=== PATIENT | male | born 1980 | race Two or more races ===

== ENCOUNTER 2019-04-07 16:09 | Inpatient (IN) | payer SELFPAY ==
[~2019-04-07] VITALS: Ht 167.6 cm; Wt 60.8 kg
[2019-04-07] MEDS ORDERED: UNOBMED (16:12)
[2019-04-07 18:00] LABS: ALANINE AMINOTRANSFERASE 36 U/L (12-78); ALBUMIN 2.3 G/DL (3.4-5.0); ALBUMIN/GLOBULIN RATIO 0.4 (1.0-2.7); ALKALINE PHOSPHATASE 349 U/L (46-116); ANION GAP 25 mmol/L (5-15); ASPARTATE AMINO TRANSFERASE 33 U/L (15-37); BLOOD UREA NITROGEN 59 mg/dL (7-18); CALCIUM 11.8 MG/DL (8.5-10.1); CARBON DIOXIDE 10 MMOL/L (21-32); CHLORIDE 88 MMOL/L (98-107); CREATININE 2.1 MG/DL (0.55-1.30); POTASSIUM 3.4 MMOL/L (3.5-5.1); SODIUM 123 MMOL/L (136-145)
--- NOTE | 2019-04-07 18:00 | NUR ---
ED Nurse Note:pt. was BIBA from the street with ALOC and hyperglycemia, pt. is A/Ox1 only, skin is intact, has brusing on his bilateral knees, blood and urine sent to labs, pt. place on ekg monitor tech, BS is critical high
[2019-04-07 18:03] LABS: APPEARANCE,URINE CLOUDY; COLOR,URINE PALE YELLOW
[2019-04-07 18:04] LABS: BILIRUBIN, URINE NEGATIVE (NEGATIVE); GLUCOSE, URINE (UA) 4+ (NEGATIVE); KETONES,URINE 3+ (NEGATIVE); NITRITE,URINE NEGATIVE (NEGATIVE); PROTEIN,URINE 3+ (NEGATIVE); UROBILINOGEN,URINE NORMAL MG/DL (0.0-1.0)
[2019-04-07 18:05] LABS: LEUKOCYTE ESTERASE ,URINE 1+ (NEGATIVE)
[2019-04-07 18:21] LABS: HEMATOCRIT 36.9 % (42.0-52.0); HEMOGLOBIN 12.4 G/DL (14.2-18.0); MEAN CORPUSCULAR VOLUME 95 FL (80-99); PLATELET COUNT 115 K/UL (150-450); RED BLOOD COUNT 3.91 M/UL (4.70-6.10); RED CELL DISTRIBUTION WIDTH 11.8 % (11.6-14.8)
[2019-04-07] MEDS ORDERED: cefTRIAXone 1 GM in NS 55 ML IVPB ONE (18:30)
--- NOTE | 2019-04-07 19:00 | NUR ---
ED Nurse Note:BS was rechecked it is still critical high, IV fluid given , continue monitor
[2019-04-07 19:08] VITALS: BP 109/59
--- NOTE | 2019-04-07 19:14 | NUR ---
HAND-OFF: Report given to Leslie.
--- NOTE | 2019-04-07 19:15 | NUR ---
ED Nurse Note: Report received from HARDIK Porras. pt in bed awake. VSS.
--- NOTE | 2019-04-07 19:33 | NUR ---
ED Nurse Note: insulin drip started on pt.
--- NOTE | 2019-04-07 20:17 | NUR ---
ED Nurse Note: pt was transported via gurney accompanied by cell phone repair technician and RN with monitor box in stable condition. Continues with insulin drip. Report given to HARDIK Celaya. belonging list signed.
--- NOTE | 2019-04-07 20:27 | NUR ---
NURSE NOTES: RECEIVED PATIENT FROM ER NURSE JOSE/RN VIA BECKY. PATIENT AWOKE, ANXIOUS, FOLLOWED COMMANDS, ABLE TO COMMUNICATION, ORIENTED TO HIS NAME, DISORIENTED TO TIME, PLACE AND SITUATION, DENIED PAIN OR SOB AT THIS TIME. RESPIRATION REGULAR, [place], O2 SATURATION 100% NOTED, ABDOMEN SOFT, NO N/V NOTED, OLD BURISES TO BOTH KNEES, OLD SCAB TO LEFT KNEE, NO OPEN WOUND STATUS, PERIPHERAL LINE TO BOTH ARM, INTACT AND PATENT, ON REGULAR INSULIN DRIP 7.2 UNITS/HR FROM ER, PROVIDED CALL LIGHT WITHIN REACH, MADE LOWER BED POSITION, WILL CONTINUE TO MONITOR.
[2019-04-07 20:35] VITALS: BP 149/100
[2019-04-07 21:01] VITALS: BP 160/100
--- NOTE | 2019-04-07 21:06 | NUR ---
NURSE NOTES: CALLED DR. CASEY REGARDING ADMISSION ORDER THAT LEFT MESSAGE.
[2019-04-07 21:15] VITALS: BP 175/111
--- NOTE | 2019-04-07 21:20 | Emergency Room Report ---
History of Present Illness General Chief Complaint: Altered Mental Status Source: Patient, EMS Present Illness HPI This patient is brought in by EMS. He was brought in from the street for altered mental status. Possibly this patient is homeless. The patient has a history of insulin-dependent diabetes. EMS report that the reading on their Accu-Chek was "high." The patient is altered. He can answer simple questions like his name and date. He states he is not taking his insulin but otherwise cannot articulate why any further. Allergies: Coded Allergies: No Known Allergies (Unverified , 04/07/19) Patient History Past Medical History: see triage record, DM Social History: Reports: alcohol use; Denies: smoking, drug use Reviewed Nursing Documentation: PMH: Agreed; PSxH: Agreed Nursing Documentation-PMH Hx Diabetes: Yes Review of Systems All Other Systems: negative except mentioned in HPI Physical Exam Vital Signs Date Time Temp Pulse Resp B/P (MAP) Pulse Ox O2 Delivery O2 Flow Rate FiO2 04/07/19 16:08 99 18 105/55 (72) 99 04/07/19 19:08 99.0 04/07/19 20:37 Room Air Sp02 EP Interpretation: reviewed, normal General Appearance: no apparent distress, alert, GCS 15, non-toxic Head: normocephalic, atraumatic Eyes: bilateral eye normal inspection, bilateral eye PERRL ENT: hearing grossly normal, normal pharynx, no angioedema, normal voice Neck: full range of motion, supple/symm/no masses Respiratory: chest non-tender, lungs clear, normal breath sounds, no respiratory distress, no retraction, no accessory muscle use, speaking full sentences Cardiovascular #1: regular rate, rhythm, no edema Gastrointestinal: normal bowel sounds, non tender, soft, non-distended, no guarding, no rebound Rectal: deferred Musculoskeletal: back normal, gait/station normal, normal range of motion, non- tender Neurologic: alert, responsive, motor strength/tone normal, speech normal, other - Non-focal Psychiatric: mood/affect normal Reflexes: 3+ bicep (R), 3+ bicep (L), 3+ tricep (R), 3+ tricep (L), 3+ knee (R) , 3+ knee (L) Medical Decision Making Diagnostic Impression: Primary Impression: DKA (diabetic ketoacidoses) Additional Impressions: Pyelonephritis JOJO (acute kidney injury) ER Course This patient has DKA. He is also found to have pyelonephritis and acute kidney injury. The patient was given aggressive IV fluids, broad-spectrum antibiotics and started on insulin drip. The patient continued to be confused although he was alert and oriented x2. Likely this is related to his DKA in addition to his alcohol intoxication. I suspect medication noncompliance. The patient is admitted to the ICU. This patient is critically ill. This patient required complex medical decision- making, aggressive intervention, extensive laboratory workup and monitoring. Critical care time: 40 minutes. Laboratory Tests Test 04/07/19 17:00 04/07/19 17:03 White Blood Count 22.0 K/UL (4.8-10.8) H Red Blood Count 3.91 M/UL (4.70-6.10) L Hemoglobin 12.4 G/DL (14.2-18.0) L Hematocrit 36.9 % (42.0-52.0) L Mean Corpuscular Volume 95 FL (80-99) Mean Corpuscular Hemoglobin 31.8 PG (27.0-31.0) H Mean Corpuscular Hemoglobin Concent 33.7 G/DL (32.0-36.0) Red Cell Distribution Width 11.8 % (11.6-14.8) Platelet Count 115 K/UL (150-450) L Mean Platelet Volume 12.3 FL (6.5-10.1) H Neutrophils (%) (Auto) % (45.0-75.0) Lymphocytes (%) (Auto) % (20.0-45.0) Monocytes (%) (Auto) % (1.0-10.0) Eosinophils (%) (Auto) % (0.0-3.0) Basophils (%) (Auto) % (0.0-2.0) Neutrophils % (Manual) 88 % (45-75) H Lymphocytes % (Manual) 3 % (20-45) L Monocytes % (Manual) 7 % (1-10) Eosinophils % (Manual) 0 % (0-3) Basophils % (Manual) 0 % (0-2) Band Neutrophils 2 % (0-8) Platelet Estimate Decreased L Platelet Morphology Normal Red Blood Cell Morphology Normal Urine Color Pale yellow Urine Appearance Cloudy Urine pH 5.0 (4.5-8.0) Urine Specific [place] 1.010 (1.005-1.035) Urine Protein 3+ (NEGATIVE) H Urine Glucose (UA) 4+ (NEGATIVE) H Urine Ketones 3+ (NEGATIVE) H Urine Blood 1+ (NEGATIVE) H Urine Nitrite Negative (NEGATIVE) Urine Bilirubin Negative (NEGATIVE) Urine Urobilinogen Normal MG/DL (0.0-1.0) Urine Leukocyte Esterase 1+ (NEGATIVE) H Urine RBC 5-10 /HPF (0 - 0) H Urine WBC 10-15 /HPF (0 - 0) H Urine Squamous Epithelial Cells None /LPF (NONE/OCC) Urine Bacteria Many /HPF (NONE) H Urine Coarse Granular Casts 0-2 /LPF (NONE) H Sodium Level 123 MMOL/L (136-145) L Potassium Level 3.4 MMOL/L (3.5-5.1) L Chloride Level 88 MMOL/L (98-107) L Carbon Dioxide Level 10 MMOL/L (21-32) L Anion Gap 25 mmol/L (5-15) H Blood Urea Nitrogen 59 mg/dL (7-18) H Creatinine 2.1 MG/DL (0.55-1.30) H Estimate Glomerular Filtration Rate 35.9 mL/min (>60) Glucose Level 695 MG/DL (74-106) *H Calcium Level 11.8 MG/DL (8.5-10.1) H Magnesium Level 3.0 MG/DL (1.8-2.4) H Total Bilirubin 1.0 MG/DL (0.2-1.0) Aspartate Amino Transferase (AST) 33 U/L (15-37) Alanine Aminotransferase (ALT) 36 U/L (12-78) Alkaline Phosphatase 349 U/L (46-116) H Total Protein 8.4 G/DL (6.4-8.2) H Albumin 2.3 G/DL (3.4-5.0) L Globulin 6.1 g/dL Albumin/Globulin Ratio 0.4 (1.0-2.7) L Serum Alcohol Pending Acetone Level Positive-moderate (NEGATIVE) Arterial Blood pH 7.144 (7.350-7.450) Arterial Blood Partial Pressure CO2 19.4 mmHg (35.0-45.0) *L Arterial Blood Partial Pressure O2 120.2 mmHg (75.0-100.0) H Arterial Blood HCO3 6.5 mmol/L (22.0-26.0) *L Arterial Blood Oxygen Saturation 98.0 % (95-100) Arterial Blood Base Excess -20.5 (-2-2) *L Ilya Test Positive EKG Diagnostic Results Rate: normal Rhythm: NSR ST Segments: no acute changes Rhythm Strip Diag. Results EP Interpretation: yes Rate: 100 Rhythm: NSR, no PVC's, no ectopy Last Vital Signs Date Time Temp Pulse Resp B/P (MAP) Pulse Ox O2 Delivery O2 Flow Rate FiO2 04/07/19 21:05 105 04/07/19 21:01 18 160/100 (120) 98 04/07/19 20:37 97.8 Room Air Disposition: ADMITTED INPATIENT Condition: Critical Referrals: NOT CHOSEN IPA/,REFERRING (PCP) Yoly Lozano DO Apr 07, 2019 21:20
--- NOTE | 2019-04-07 21:56 | NUR ---
NURSE NOTES: CALLED NURSING INSULATOR APPRENTICE DUE TO NO CALL BACK FROM DR. CASEY AT 2150PM THAT ACCORDING TO THE NURSING INSULATOR APPRENTICE, DR. CASEY ON DRIVING, CALL AGAIN LATER.
[2019-04-07 22:00] VITALS: BP 148/86
--- NOTE | 2019-04-07 22:20 | NUR ---
NURSE NOTES: PATIENT FOLLOWED COMMANDS, DENIED PAIN OR SOB, ANXIOUS STATUS, GIVEN REORIENTATION, WILL CONTINUE TO MONITOR.
--- NOTE | 2019-04-07 22:45 | NUR ---
NURSE NOTES: CALLED DR. CASEY REGARDING ADMISSION ORDER AND PT'S VITAL SIGN, BP AND SITUATION THAT LEFT MESSAGE.
[2019-04-07 23:00] VITALS: BP 88/44
[2019-04-08] VITALS (26 sets, daily range): BP systolic 90–137; BP diastolic 37–101
--- NOTE | 2019-04-08 00:19 | NUR ---
NURSE NOTES: CALLED BACK FROM DR. CASEY THAT RECEIVED ADMISSION ORDER AT THIS TIME.
[2019-04-08] MEDS ORDERED: Insulin Human Regular 100units/ml 3ml IV PRN (00:30)
[2019-04-08] MEDS ORDERED: Morphine Sulfate 2mg/ml Inj(IV/IM USE ONLY) IVP PRN (00:30)
[2019-04-08 00:39] LABS: ALANINE AMINOTRANSFERASE 25 U/L (12-78); ALBUMIN 1.6 G/DL (3.4-5.0); ALBUMIN/GLOBULIN RATIO 0.3 (1.0-2.7); ALKALINE PHOSPHATASE 527 U/L (46-116); ANION GAP 16 mmol/L (5-15); ASPARTATE AMINO TRANSFERASE 27 U/L (15-37); BILIRUBIN,TOTAL 0.9 MG/DL (0.2-1.0); BLOOD UREA NITROGEN 49 mg/dL (7-18); CALCIUM 9.4 MG/DL (8.5-10.1); CARBON DIOXIDE 14 MMOL/L (21-32); CHLORIDE 108 MMOL/L (98-107); CREATININE 1.9 MG/DL (0.55-1.30); SODIUM 138 MMOL/L (136-145)
[2019-04-08 00:45] LABS: POTASSIUM 2.1 MMOL/L (3.5-5.1)
[2019-04-08] MEDS ORDERED: NS w/KCl 20mEq 1000ml 1,000 ML IV SCH (00:45)
[2019-04-08 01:09] LABS: HEMATOCRIT 30.5 % (42.0-52.0); HEMOGLOBIN 10.8 G/DL (14.2-18.0); MEAN CORPUSCULAR VOLUME 91 FL (80-99); PLATELET COUNT 61 K/UL (150-450); RED BLOOD COUNT 3.37 M/UL (4.70-6.10); RED CELL DISTRIBUTION WIDTH 12.1 % (11.6-14.8); WHITE BLOOD COUNT 9.6 K/UL (4.8-10.8)
--- NOTE | 2019-04-08 01:15 | NUR ---
NURSE NOTES: CALLED DR. CASEY REGARDING CRITICAL LAB AND ABG'S RESULT THAT RECEIVED NEW ORDER AND CARRY OUT.
[2019-04-08 01:29] LABS: PHOSPHORUS < 0.5 MG/DL (2.5-4.9)
--- NOTE | 2019-04-08 02:06 | NUR ---
NURSE NOTES: CALLED DR CASEY REGARDING MG/PHO4 RESULT THAT RECEIVED NEW ORDER, CARRY OUT.
[2019-04-08] MEDS ORDERED: Potassium Phosphate 30 MM in NS 275 ML IV ONE (02:30)
[2019-04-08] MEDS: Insulin Rate Change 1 Each MISC PRN ×16 (03:03→22:00)
--- NOTE | 2019-04-08 03:30 | NUR ---
NURSE NOTES: MORNING CARE WAS DONE, NO BOWEL MOVEMENT.
--- NOTE | 2019-04-08 04:00 | NUR ---
NURSE NOTES: BS 196MG/DL NOTED, WILL MOVE TO INSULIN DRIP ALGORITHM 2 PER PROTOCOLS. Addendum: 04/08/19 at 0546 gina FLEMING RN NURSE NOTES: BS 196MG/DL NOTED, CHANGED TO ALGORITHM 2 INSULIN DRIP PER PROTOCOLS.
[2019-04-08] MEDS: Insulin Human Regular 100units/ml 3ml IV PRN ×4 (05:05→18:26)
--- NOTE | 2019-04-08 06:00 | NUR ---
NURSE NOTES: BS 158MG/DL NOTED, CHANGED INSULIN RATE TO 2UNIT/HR ON ALGORITHM 2 PER PROTOCOLS, AFTER VERIFIED 2 NURSES.
[2019-04-08 07:02] LABS: HEMATOCRIT 29.4 % (42.0-52.0); HEMOGLOBIN 10.5 G/DL (14.2-18.0); MEAN CORPUSCULAR VOLUME 90 FL (80-99); PLATELET COUNT 64 K/UL (150-450); RED BLOOD COUNT 3.26 M/UL (4.70-6.10); RED CELL DISTRIBUTION WIDTH 11.9 % (11.6-14.8); WHITE BLOOD COUNT 15.6 K/UL (4.8-10.8)
[2019-04-08 07:04] LABS: ALANINE AMINOTRANSFERASE 26 U/L (12-78); ALBUMIN 1.6 G/DL (3.4-5.0); ALBUMIN/GLOBULIN RATIO 0.3 (1.0-2.7); ALKALINE PHOSPHATASE 340 U/L (46-116); ANION GAP 15 mmol/L (5-15); ASPARTATE AMINO TRANSFERASE 41 U/L (15-37); BILIRUBIN,TOTAL 0.9 MG/DL (0.2-1.0); BLOOD UREA NITROGEN 44 mg/dL (7-18); CALCIUM 9.8 MG/DL (8.5-10.1); CARBON DIOXIDE 14 MMOL/L (21-32); CHLORIDE 112 MMOL/L (98-107); CREATININE 1.7 MG/DL (0.55-1.30); PHOSPHORUS 0.7 MG/DL (2.5-4.9); SODIUM 141 MMOL/L (136-145)
[2019-04-08 07:07] LABS: POTASSIUM 2.4 MMOL/L (3.5-5.1)
--- NOTE | 2019-04-08 07:20 | NUR ---
HAND-OFF: Report given to SISSY CASH RN.
--- NOTE | 2019-04-08 07:21 | NUR ---
NURSE NOTES: Report received from Marshall Celaya. Pt is awake and oriented to name and time. Lethargic and weak. ST 120's on cutter hand. On N/C 3L. O2 sat 98%. RR 30's. Kept NPO as per order. Condom catheter in place draining to gravity. IV to right FA G20 and left AC G18 patent and asymptomatic. Pt is on Insulin drip 5 units/ hr in Algo 3. NS with 20 meq KCL is running at 125cc/hr. Bed in lowest position. Side rails up x3. Bed exit alarm on. Will resume plan of care.
--- NOTE | 2019-04-08 07:42 | NUR ---
NURSE NOTES: Called and left a message to Dr Spain regarding abnormal lab results. Awaiting call back for new orders. Addendum: 04/08/19 at 0747 by SISSY DURHAM RN RN NURSE NOTES: Called and left a message to Dr Spain regarding abnormal lab results. Awaiting call back for new orders. Temp 99.1. Cooling measures initiated. Addendum: 04/08/19 at 0842 by SISSY DURHAM RN RN NURSE NOTES: Called and left a message to Dr Spain regarding abnormal lab results. Awaiting call back for new orders. Temp 99.8. Cooling measures initiated.
--- NOTE | 2019-04-08 08:02 | NUR ---
NURSE NOTES: Dr Spain called back. Orders received, noted, and carried out.
--- NOTE | 2019-04-08 09:53 | NUR ---
NURSE NOTES: Dr Kemp here to see the patient. Updated him with pt's current condition including abnormal lab results. He ordered additional replacement. Will proceed his orders. Abdominal US is being done at bedside.
--- NOTE | 2019-04-08 09:53 | Pulmonolgy Critical Care Note ---
Critical Care - Asmt/Plan Problems: (1) DKA (diabetic ketoacidoses) (2) JOJO (acute kidney injury) (3) Pyelonephritis Respiratory: monitor respiratory rate, adjust FIO2, CXR Cardiac: continue to monitor HR/BP Renal: F/U I&O, check electrolytes Infectious Disease: check cultures, continue antibiotics Gastrointestinal: hold feedings Endocrine: monitor blood sugar, check HgA1C, start insulin drip Neurologic: PRN Ativan, PRN Morphine Time Spent (Minutes): 40 Notes Reviewed: cardio, renal Discussed with: nurses, consultants, case plannermanager vehicle - Objective Last 24 Hour Vital Signs Date Time Temp Pulse Resp B/P (MAP) Pulse Ox O2 Delivery O2 Flow Rate FiO2 04/08/19 09:00 114 34 132/90 (104) 100 04/08/19 08:00 99.8 115 38 122/73 (89) 99 04/08/19 08:00 Nasal Cannula 3.0 04/08/19 07:27 120 04/08/19 07:00 120 40 117/67 (84) 98 04/08/19 06:00 122 39 99/59 (72) 99 04/08/19 05:00 125 39 103/57 (72) 98 04/08/19 04:00 99.6 125 37 97/51 (66) 99 04/08/19 04:00 Nasal Cannula 2.0 04/08/19 03:26 125 04/08/19 03:00 128 37 96/56 (69) 98 04/08/19 02:00 127 35 102/54 (70) 98 04/08/19 01:00 127 34 117/69 (85) 97 04/08/19 00:00 98.6 123 37 90/37 (54) 100 04/08/19 00:00 Nasal Cannula 2.0 04/07/19 23:06 124 04/07/19 23:00 122 36 88/44 (59) 98 04/07/19 22:00 122 36 148/86 (106) 99 04/07/19 21:15 97.6 112 30 175/111 (132) 100 04/07/19 21:05 105 04/07/19 21:01 105 18 160/100 (120) 98 04/07/19 21:00 Room Air 04/07/19 20:37 97.8 98 19 118/68 Room Air 04/07/19 20:35 95.4 108 18 149/100 (116) 98 04/07/19 19:08 99.0 103 18 109/59 99 04/07/19 19:08 103 18 04/07/19 16:08 99 18 105/55 (72) 99 Status: sedated Condition: critical Lungs: clear Heart: HR/BP stable Abdomen: soft, feeding tube Extremities: edema Accucheck: 165 Critical Care - Subjective ROS Limited/Unobtainable: Yes Interval Events: 38 year old male brought in by EMS from [place] for altered mental status. The patient has a history of insulin-dependent diabetes. EMS report that the reading on their Accu-Chek was "high." He was able to answer simple questions like his name and date. He states he is not taking his insulin but otherwise cannot articulate why any further. He was found to be in DKA and admitted to ICU on insulin drip. Condition: critical EKG Rhythm: Sinus Rhythm I&O: Intake and Output 04/07/19 04/08/19 19:00 07:00 Intake Total 1452.8 ml Output Total 1370 ml Balance 82.8 ml Intake Oral 0 ml IV Total 1422.8 ml Other 30 ml Output Urine Total 1370 ml # Voids 1 2 Labs: Laboratory Tests Test 04/07/19 17:00 04/07/19 17:03 04/08/19 00:15 04/08/19 00:42 White Blood Count 22.0 K/UL (4.8-10.8) H Red Blood Count 3.91 M/UL (4.70-6.10) L Hemoglobin 12.4 G/DL (14.2-18.0) L Hematocrit 36.9 % (42.0-52.0) L Mean Corpuscular Volume 95 FL (80-99) Mean Corpuscular Hemoglobin 31.8 PG (27.0-31.0) H Mean Corpuscular Hemoglobin Concent 33.7 G/DL (32.0-36.0) Red Cell Distribution Width 11.8 % (11.6-14.8) Platelet Count 115 K/UL (150-450) L Mean Platelet Volume 12.3 FL (6.5-10.1) H Neutrophils (%) (Auto) % (45.0-75.0) Lymphocytes (%) (Auto) % (20.0-45.0) Monocytes (%) (Auto) % (1.0-10.0) Eosinophils (%) (Auto) % (0.0-3.0) Basophils (%) (Auto) % (0.0-2.0) Neutrophils % (Manual) 88 % (45-75) H Lymphocytes % (Manual) 3 % (20-45) L Monocytes % (Manual) 7 % (1-10) Eosinophils % (Manual) 0 % (0-3) Basophils % (Manual) 0 % (0-2) Band Neutrophils 2 % (0-8) Platelet Estimate Decreased L Platelet Morphology Normal Red Blood Cell Morphology Normal Urine Color Pale yellow Urine Appearance Cloudy Urine pH 5.0 (4.5-8.0) Urine Specific [place] 1.010 (1.005-1.035) Urine Protein 3+ (NEGATIVE) H Urine Glucose (UA) 4+ (NEGATIVE) H Urine Ketones 3+ (NEGATIVE) H Urine Blood 1+ (NEGATIVE) H Urine Nitrite Negative (NEGATIVE) Urine Bilirubin Negative (NEGATIVE) Urine Urobilinogen Normal MG/DL (0.0-1.0) Urine Leukocyte Esterase 1+ (NEGATIVE) H Urine RBC 5-10 /HPF (0 - 0) H Urine WBC 10-15 /HPF (0 - 0) H Urine Squamous Epithelial Cells None /LPF (NONE/OCC) Urine Bacteria Many /HPF (NONE) H Urine Coarse Granular Casts 0-2 /LPF (NONE) H Sodium Level 123 MMOL/L (136-145) L 138 MMOL/L (136-145) # Potassium Level 3.4 MMOL/L (3.5-5.1) L 2.1 MMOL/L (3.5-5.1) *L Chloride Level 88 MMOL/L (98-107) L 108 MMOL/L (98-107) H Carbon Dioxide Level 10 MMOL/L (21-32) L 14 MMOL/L (21-32) L Anion Gap 25 mmol/L (5-15) H 16 mmol/L (5-15) H Blood Urea Nitrogen 59 mg/dL (7-18) H 49 mg/dL (7-18) H Creatinine 2.1 MG/DL (0.55-1.30) H 1.9 MG/DL (0.55-1.30) H Estimat Glomerular Filtration Rate 35.9 mL/min (>60) 40.3 mL/min (>60) Glucose Level 695 MG/DL (74-106) *H 204 MG/DL (74-106) #H Calcium Level 11.8 MG/DL (8.5-10.1) H 9.4 MG/DL (8.5-10.1) # Magnesium Level 3.0 MG/DL (1.8-2.4) H Total Bilirubin 1.0 MG/DL (0.2-1.0) 0.9 MG/DL (0.2-1.0) Aspartate Amino Transf (AST/SGOT) 33 U/L (15-37) 27 U/L (15-37) Alanine Aminotransferase (ALT/SGPT) 36 U/L (12-78) 25 U/L (12-78) Alkaline Phosphatase 349 U/L (46-116) H 527 U/L (46-116) H Total Protein 8.4 G/DL (6.4-8.2) H 6.2 G/DL (6.4-8.2) L Albumin 2.3 G/DL (3.4-5.0) L 1.6 G/DL (3.4-5.0) L Globulin 6.1 g/dL 4.6 g/dL Albumin/Globulin Ratio 0.4 (1.0-2.7) L 0.3 (1.0-2.7) L Serum Alcohol < 3 mg/dL Acetone Level Positive-moderate (NEGATIVE) Arterial Blood pH 7.144 (7.350-7.450) 7.290 (7.350-7.450) Arterial Blood Partial Pressure CO2 19.4 mmHg (35.0-45.0) *L 22.9 mmHg (35.0-45.0) *L Arterial Blood Partial Pressure O2 120.2 mmHg (75.0-100.0) H 90.7 mmHg (75.0-100.0) Arterial Blood HCO3 6.5 mmol/L (22.0-26.0) *L 10.8 mmol/L (22.0-26.0) *L Arterial Blood Oxygen Saturation 98.0 % (95-100) 96.8 % (95-100) Arterial Blood Base Excess -20.5 (-2-2) *L -14 (-2-2) *L Ilya Test Positive Positive Test 04/08/19 01:00 04/08/19 06:20 04/08/19 06:30 White Blood Count 9.6 K/UL (4.8-10.8) # 15.6 K/UL (4.8-10.8) #H Red Blood Count 3.37 M/UL (4.70-6.10) L 3.26 M/UL (4.70-6.10) L Hemoglobin 10.8 G/DL (14.2-18.0) L 10.5 G/DL (14.2-18.0) L Hematocrit 30.5 % (42.0-52.0) L 29.4 % (42.0-52.0) L Mean Corpuscular Volume 91 FL (80-99) 90 FL (80-99) Mean Corpuscular Hemoglobin 32.1 PG (27.0-31.0) H 32.3 PG (27.0-31.0) H Mean Corpuscular Hemoglobin Concent 35.4 G/DL (32.0-36.0) 35.9 G/DL (32.0-36.0) Red Cell Distribution Width 12.1 % (11.6-14.8) 11.9 % (11.6-14.8) Platelet Count 61 K/UL (150-450) L 64 K/UL (150-450) L Mean Platelet Volume 8.4 FL (6.5-10.1) 9.1 FL (6.5-10.1) Neutrophils (%) (Auto) % (45.0-75.0) % (45.0-75.0) Lymphocytes (%) (Auto) % (20.0-45.0) % (20.0-45.0) Monocytes (%) (Auto) % (1.0-10.0) % (1.0-10.0) Eosinophils (%) (Auto) % (0.0-3.0) % (0.0-3.0) Basophils (%) (Auto) % (0.0-2.0) % (0.0-2.0) Hemoglobin A1c 11.8 % (4.3-6.0) H Phosphorus Level < 0.5 MG/DL (2.5-4.9) *L 0.7 MG/DL (2.5-4.9) *L Magnesium Level 1.7 MG/DL (1.8-2.4) L 2.1 MG/DL (1.8-2.4) Differential Total Cells Counted 100 Neutrophils % (Manual) 64 % (45-75) Lymphocytes % (Manual) 5 % (20-45) L Monocytes % (Manual) 15 % (1-10) H Eosinophils % (Manual) 0 % (0-3) Basophils % (Manual) 0 % (0-2) Band Neutrophils 16 % (0-8) H Platelet Estimate Decreased L Platelet Morphology Normal Sodium Level 141 MMOL/L (136-145) Potassium Level 2.4 MMOL/L (3.5-5.1) *L Chloride Level 112 MMOL/L (98-107) H Carbon Dioxide Level 14 MMOL/L (21-32) L Anion Gap 15 mmol/L (5-15) Blood Urea Nitrogen 44 mg/dL (7-18) H Creatinine 1.7 MG/DL (0.55-1.30) H Estimat Glomerular Filtration Rate 45.8 mL/min (>60) Glucose Level 165 MG/DL (74-106) H Calcium Level 9.8 MG/DL (8.5-10.1) Total Bilirubin 0.9 MG/DL (0.2-1.0) Aspartate Amino Transf (AST/SGOT) 41 U/L (15-37) H Alanine Aminotransferase (ALT/SGPT) 26 U/L (12-78) Alkaline Phosphatase 340 U/L (46-116) H Total Protein 6.4 G/DL (6.4-8.2) Albumin 1.6 G/DL (3.4-5.0) L Globulin 4.8 g/dL Albumin/Globulin Ratio 0.3 (1.0-2.7) L Arterial Blood pH 7.364 (7.350-7.450) Arterial Blood Partial Pressure CO2 20.9 mmHg (35.0-45.0) *L Arterial Blood Partial Pressure O2 105.0 mmHg (75.0-100.0) H Arterial Blood HCO3 11.6 mmol/L (22.0-26.0) *L Arterial Blood Oxygen Saturation 97.8 % (95-100) Arterial Blood Base Excess -11.9 (-2-2) *L Ilya Test Positive Donny Kemp MD Apr 08, 2019 09:53
[2019-04-08] MEDS: D5 1/2NS w/KCl 40meq 1000ml 1,000 ML IV SCH ×2 (11:06→18:21)
--- NOTE | 2019-04-08 11:12 | Diagnostic Imaging Report ---
Indication: Abdominal pain. Elevated liver function tests. History of diabetes Technique: Grayscale and duplex Doppler imaging of the abdomen performed. Comparison: None Findings: The liver is prominent in size measuring about 18 cm. Doppler interrogation of the main portal vein shows patency with hepatopedal, monophasic flow. There is no biliary ductal dilatation identified. Gallbladder is unremarkable. There demonstrated part of the pancreas, aorta and IVC show no definite abnormalities though largely obscured by bowel gas. The kidneys show mild hydronephrosis which is probably related to a markedly distended urinary bladder having a volume of about 830 cc. IMPRESSION: Severe distention of the urinary bladder. Suggest Daniels catheter. Associated mild hydronephrosis. Hepatomegaly
--- NOTE | 2019-04-08 11:23 | NUR ---
NURSE NOTES: Venous duplex was being done at bedside. Negative as per U/S alarm technician.
[2019-04-08 11:27] LABS: LACTATE DEHYDROGENASE 293 U/L (81-234)
[2019-04-08 11:33] LABS: ANION GAP 15 mmol/L (5-15); BLOOD UREA NITROGEN 40 mg/dL (7-18); CALCIUM 10.5 MG/DL (8.5-10.1); CARBON DIOXIDE 16 MMOL/L (21-32); CHLORIDE 115 MMOL/L (98-107); CREATININE 1.3 MG/DL (0.55-1.30); PHOSPHORUS 0.5 MG/DL (2.5-4.9); SODIUM 144 MMOL/L (136-145)
[2019-04-08 11:34] LABS: POTASSIUM 2.3 MMOL/L (3.5-5.1)
--- NOTE | 2019-04-08 11:40 | NUR ---
Social Work This SW made an attempt to speak with patient, who is currently in the ICU. Patient is currently unresponsive, confused and has not had any family visit with him at bedside (according to nursing). Patient is possibly homeless, unknown history of substance abuse, possible untreated diabetes. Pending progress at this time. SW to meet with patient when more alert/oriented.
--- NOTE | 2019-04-08 11:56 | NUR ---
NURSE NOTES: Notified Dr Kemp regarding low K and phosphorus. Also electrolyte replacement he ordered earlier is still running. Will check labs again at 1600 as ordered when replacement is completed.
[2019-04-08 12:32] LABS: % IRON SATURATION 12 % (15-50); IRON 20 ug/dL (50-175); TOTAL IRON BINDING CAPACITY 163 ug/dL (250-450)
--- NOTE | 2019-04-08 13:13 | NUR ---
NURSE NOTES: Called and left a message to Dr Kemp regarding high urine output 380-390cc/hr and also abdominal U/S result regarding distended bladder. Awaiting call back for new orders.
--- NOTE | 2019-04-08 13:39 | NUR ---
NURSE NOTES: Daniels catheter inserted as ordered. Pt tolerated procedure well. Large amount of urine noted through Daniels catheter.
[2019-04-08] MEDS ORDERED: Heparin 5000 units/ml inj SUBQ SCH (14:00)
[2019-04-08] MEDS ORDERED: Sodium Phosphate 30 MM in NS 275 ML IV ONE (15:00)
--- NOTE | 2019-04-08 15:21 | NUR ---
NURSE NOTES: Dr Spain here to see the patient. Updated him with pt's current condition, including abdominal U/S result and urine output. Awaiting new orders.
[2019-04-08] MEDS ORDERED: Omnipaque-300 100ml vial INJ PRN (15:45)
--- NOTE | 2019-04-08 16:18 | NUR ---
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 ABG PH 7.144, ABG PC02- 19.1, ABG HC03- 6.5, ABG BSE EXCESS 20.5 URINE + PROTEIN, GLUCOSE, KEYTONES, LEUKOCYTES
[2019-04-08 16:49] LABS: ALANINE AMINOTRANSFERASE 31 U/L (12-78); ALBUMIN 1.8 G/DL (3.4-5.0); ALBUMIN/GLOBULIN RATIO 0.3 (1.0-2.7); ALKALINE PHOSPHATASE 333 U/L (46-116); ANION GAP 15 mmol/L (5-15); ASPARTATE AMINO TRANSFERASE 53 U/L (15-37); BILIRUBIN,TOTAL 1.2 MG/DL (0.2-1.0); BLOOD UREA NITROGEN 36 mg/dL (7-18); CALCIUM 11.2 MG/DL (8.5-10.1); CARBON DIOXIDE 16 MMOL/L (21-32); CHLORIDE 119 MMOL/L (98-107); CREATININE 1.2 MG/DL (0.55-1.30); SODIUM 149 MMOL/L (136-145)
[2019-04-08 16:51] LABS: POTASSIUM 2.5 MMOL/L (3.5-5.1)
[2019-04-08 16:53] LABS: BILIRUBIN,DIRECT 0.6 MG/DL (0.0-0.3)
--- NOTE | 2019-04-08 17:23 | NUR ---
NURSE NOTES: Called and left a message to Dr Kemp regarding critically low K level. Awaiting call back for new orders.
--- NOTE | 2019-04-08 18:14 | NUR ---
NURSE NOTES: Called and left a message to Dr Spain regarding abnormal lab results. Awaiting call back for new orders.
--- NOTE | 2019-04-08 18:19 | Infectious Diseases Prog Note ---
Assessment/Plan Assessment/Plan [facility] # [id number] Subjective Allergies: Coded Allergies: No Known Allergies (Unverified , 04/07/19) Objective Vital Signs Last 24 Hour Vital Signs Date Time Temp Pulse Resp B/P (MAP) Pulse Ox O2 Delivery O2 Flow Rate FiO2 04/08/19 17:00 118 25 125/81 (96) 100 04/08/19 16:00 99.0 111 26 118/79 (92) 100 04/08/19 16:00 Nasal Cannula 3.0 04/08/19 15:00 110 28 111/74 (86) 100 04/08/19 14:00 106 25 123/80 (94) 98 04/08/19 13:40 Nasal Cannula 3.0 04/08/19 13:00 109 32 123/83 (96) 100 04/08/19 12:00 Nasal Cannula 3.0 04/08/19 12:00 99.1 110 27 134/84 (101) 100 04/08/19 11:00 106 31 117/80 (92) 100 04/08/19 10:00 99.2 108 31 124/81 (95) 100 04/08/19 09:00 114 34 132/90 (104) 100 04/08/19 08:00 99.8 115 38 122/73 (89) 99 04/08/19 08:00 Nasal Cannula 3.0 04/08/19 07:27 120 04/08/19 07:00 120 40 117/67 (84) 98 04/08/19 06:00 122 39 99/59 (72) 99 04/08/19 05:00 125 39 103/57 (72) 98 04/08/19 04:00 99.6 125 37 97/51 (66) 99 04/08/19 04:00 Nasal Cannula 2.0 04/08/19 03:26 125 04/08/19 03:00 128 37 96/56 (69) 98 04/08/19 02:00 127 35 102/54 (70) 98 04/08/19 01:00 127 34 117/69 (85) 97 04/08/19 00:00 98.6 123 37 90/37 (54) 100 04/08/19 00:00 Nasal Cannula 2.0 04/07/19 23:06 124 04/07/19 23:00 122 36 88/44 (59) 98 04/07/19 22:00 122 36 148/86 (106) 99 04/07/19 21:15 97.6 112 30 175/111 (132) 100 04/07/19 21:05 105 04/07/19 21:01 105 18 160/100 (120) 98 04/07/19 21:00 Room Air 04/07/19 20:37 97.8 98 19 118/68 Room Air 04/07/19 20:35 95.4 108 18 149/100 (116) 98 04/07/19 19:08 99.0 103 18 109/59 99 04/07/19 19:08 103 18 Height (Feet): 5 Height (Inches): 6.00 Weight (Pounds): 136 Laboratory Tests Test 04/08/19 00:15 04/08/19 00:42 04/08/19 01:00 04/08/19 06:20 Sodium Level 138 MMOL/L (136-145) # 141 MMOL/L (136-145) Potassium Level 2.1 MMOL/L (3.5-5.1) *L 2.4 MMOL/L (3.5-5.1) *L Chloride Level 108 MMOL/L (98-107) H 112 MMOL/L (98-107) H Carbon Dioxide Level 14 MMOL/L (21-32) L 14 MMOL/L (21-32) L Anion Gap 16 mmol/L (5-15) H 15 mmol/L (5-15) Blood Urea Nitrogen 49 mg/dL (7-18) H 44 mg/dL (7-18) H Creatinine 1.9 MG/DL (0.55-1.30) H 1.7 MG/DL (0.55-1.30) H Estimat Glomerular Filtration Rate 40.3 mL/min (>60) 45.8 mL/min (>60) Glucose Level 204 MG/DL (74-106) #H 165 MG/DL (74-106) H Calcium Level 9.4 MG/DL (8.5-10.1) # 9.8 MG/DL (8.5-10.1) Total Bilirubin 0.9 MG/DL (0.2-1.0) 0.9 MG/DL (0.2-1.0) Aspartate Amino Transf (AST/SGOT) 27 U/L (15-37) 41 U/L (15-37) H Alanine Aminotransferase (ALT/SGPT) 25 U/L (12-78) 26 U/L (12-78) Alkaline Phosphatase 527 U/L (46-116) H 340 U/L (46-116) H Total Protein 6.2 G/DL (6.4-8.2) L 6.4 G/DL (6.4-8.2) Albumin 1.6 G/DL (3.4-5.0) L 1.6 G/DL (3.4-5.0) L Globulin 4.6 g/dL 4.8 g/dL Albumin/Globulin Ratio 0.3 (1.0-2.7) L 0.3 (1.0-2.7) L Arterial Blood pH 7.290 (7.350-7.450) Arterial Blood Partial Pressure CO2 22.9 mmHg (35.0-45.0) *L Arterial Blood Partial Pressure O2 90.7 mmHg (75.0-100.0) Arterial Blood HCO3 10.8 mmol/L (22.0-26.0) *L Arterial Blood Oxygen Saturation 96.8 % (95-100) Arterial Blood Base Excess -14 (-2-2) *L Ilya Test Positive White Blood Count 9.6 K/UL (4.8-10.8) # 15.6 K/UL (4.8-10.8) #H Red Blood Count 3.37 M/UL (4.70-6.10) L 3.26 M/UL (4.70-6.10) L Hemoglobin 10.8 G/DL (14.2-18.0) L 10.5 G/DL (14.2-18.0) L Hematocrit 30.5 % (42.0-52.0) L 29.4 % (42.0-52.0) L Mean Corpuscular Volume 91 FL (80-99) 90 FL (80-99) Mean Corpuscular Hemoglobin 32.1 PG (27.0-31.0) H 32.3 PG (27.0-31.0) H Mean Corpuscular Hemoglobin Concent 35.4 G/DL (32.0-36.0) 35.9 G/DL (32.0-36.0) Red Cell Distribution Width 12.1 % (11.6-14.8) 11.9 % (11.6-14.8) Platelet Count 61 K/UL (150-450) L 64 K/UL (150-450) L Mean Platelet Volume 8.4 FL (6.5-10.1) 9.1 FL (6.5-10.1) Neutrophils (%) (Auto) % (45.0-75.0) % (45.0-75.0) Lymphocytes (%) (Auto) % (20.0-45.0) % (20.0-45.0) Monocytes (%) (Auto) % (1.0-10.0) % (1.0-10.0) Eosinophils (%) (Auto) % (0.0-3.0) % (0.0-3.0) Basophils (%) (Auto) % (0.0-2.0) % (0.0-2.0) Hemoglobin A1c 11.8 % (4.3-6.0) H Phosphorus Level < 0.5 MG/DL (2.5-4.9) *L 0.7 MG/DL (2.5-4.9) *L Magnesium Level 1.7 MG/DL (1.8-2.4) L 2.1 MG/DL (1.8-2.4) Differential Total Cells Counted 100 Neutrophils % (Manual) 64 % (45-75) Lymphocytes % (Manual) 5 % (20-45) L Monocytes % (Manual) 15 % (1-10) H Eosinophils % (Manual) 0 % (0-3) Basophils % (Manual) 0 % (0-2) Band Neutrophils 16 % (0-8) H Platelet Estimate Decreased L Platelet Morphology Normal Test 04/08/19 06:30 04/08/19 10:35 04/08/19 16:25 04/08/19 16:43 Arterial Blood pH 7.364 (7.350-7.450) Arterial Blood Partial Pressure CO2 20.9 mmHg (35.0-45.0) *L Arterial Blood Partial Pressure O2 105.0 mmHg (75.0-100.0) H Arterial Blood HCO3 11.6 mmol/L (22.0-26.0) *L Arterial Blood Oxygen Saturation 97.8 % (95-100) Arterial Blood Base Excess -11.9 (-2-2) *L Ilya Test Positive Erythrocyte Sedimentation Rate 69 MM/HR (0-15) H Reticulocyte Count 1.3 % (0.5-2.0) Prothrombin Time 10.7 SEC (9.30-11.50) Prothromb Time International Ratio 1.0 (0.9-1.1) Activated Partial Thromboplast Time 30 SEC (23-33) Sodium Level 144 MMOL/L (136-145) 149 MMOL/L (136-145) H Potassium Level 2.3 MMOL/L (3.5-5.1) *L 2.5 MMOL/L (3.5-5.1) *L Chloride Level 115 MMOL/L (98-107) H 119 MMOL/L (98-107) H Carbon Dioxide Level 16 MMOL/L (21-32) L 16 MMOL/L (21-32) L Anion Gap 15 mmol/L (5-15) 15 mmol/L (5-15) Blood Urea Nitrogen 40 mg/dL (7-18) H 36 mg/dL (7-18) H Creatinine 1.3 MG/DL (0.55-1.30) 1.2 MG/DL (0.55-1.30) Estimat Glomerular Filtration Rate > 60 mL/min (>60) > 60 mL/min (>60) Glucose Level 129 MG/DL (74-106) H 192 MG/DL (74-106) H Hemoglobin A1c 13.3 % (4.3-6.0) H Calcium Level 10.5 MG/DL (8.5-10.1) H 11.2 MG/DL (8.5-10.1) H Phosphorus Level 0.5 MG/DL (2.5-4.9) *L 0.6 MG/DL (2.5-4.9) *L Magnesium Level 2.4 MG/DL (1.8-2.4) Iron Level 20 ug/dL (50-175) L Total Iron Binding Capacity 163 ug/dL (250-450) L Percent Iron Saturation 12 % (15-50) L Unsaturated Iron Binding 143 ug/dL (112-346) Lactate Dehydrogenase 293 U/L (81-234) H Carcinoembryonic Antigen Pending Vitamin B12 Level > 2000 PG/ML (193-986) H Folate 3.2 NG/ML (8.6-58.9) L Total Bilirubin 1.2 MG/DL (0.2-1.0) H Direct Bilirubin 0.6 MG/DL (0.0-0.3) H Aspartate Amino Transf (AST/SGOT) 53 U/L (15-37) H Alanine Aminotransferase (ALT/SGPT) 31 U/L (12-78) Alkaline Phosphatase 333 U/L (46-116) H Total Protein 7.2 G/DL (6.4-8.2) Albumin 1.8 G/DL (3.4-5.0) L Globulin 5.4 g/dL Albumin/Globulin Ratio 0.3 (1.0-2.7) L Current Medications Medications (Trade) Dose Ordered Sig/Jose Route PRN Reason Start Time Stop Time Status Last Admin Dose Admin Acetaminophen (Tylenol) 650 mg Q4H PRN ORAL Mild Pain/Temp > 100.5 04/08/19 00:30 05/08/19 00:29 Acetaminophen/ Hydrocodone Bitart ([place] 5/325) 1 tab Q6H PRN ORAL For Pain 04/08/19 00:30 10 00:29 Barium Sulfate (Readi-Cat 2) 450 ml NOW PRN ORAL Radiology Procedure 04/08/19 15:45 04/10/19 15:36 Ceftriaxone Sodium 1 gm/ Sodium Chloride 55 ml @ 110 mls/hr Q24H IVPB 04/08/19 18:00 04/15/19 17:59 Dextrose (Dextrose 50%) 25 ml Q30M PRN IV HYPOGLYCEMIA 04/08/19 00:30 05/08/19 00:29 Dextrose (Dextrose 50%) 50 ml Q30M PRN IV HYPOGLYCEMIA 04/08/19 00:30 05/08/19 00:29 Dextrose/ Electrolytes 1,000 ml @ 125 mls/hr Q8H IV 04/08/19 10:00 05/08/19 09:59 04/08/19 11:06 Famotidine (Pepcid) 10 mg BID ORAL 04/08/19 09:00 05/08/19 08:59 04/08/19 08:20 Insulin Human Regular (NovoLIN R) 5 units PRN PRN IV BS 200-299 04/08/19 00:30 05/08/19 00:29 04/08/19 14:04 Insulin Human Regular (NovoLIN R) 10 units PRN PRN IV BS=>300 04/08/19 00:30 05/08/19 00:29 Insulin Human Regular 100 units/ Sodium Chloride 100 ml @ 0 mls/hr Q24H IV 04/08/19 16:15 05/08/19 16:14 04/08/19 16:42 Iohexol (OMNIPAQUE-300 100ml) 100 ml NOW PRN INJ Radiology Procedure 04/08/19 15:45 04/10/19 15:36 Miscellaneous Medication (Insulin Rate Change) 1 ea PRN PRN MISC Hyperglycemia 04/08/19 00:30 05/08/19 00:29 04/08/19 16:12 Ondansetron HCl (Zofran) 4 mg EVERY 4 HOURS PRN IVP Nausea & Vomiting 04/08/19 00:30 05/08/19 00:29 Sodium Phosphate 30 mm/Sodium Chloride 285 ml @ 47.5 mls/hr ONCE ONCE IV 04/08/19 15:00 04/08/19 20:59 04/08/19 15:01 Yonis Samano MD Apr 08, 2019 18:19
[2019-04-08] MEDS: cefTRIAXone 1 GM in NS 55 ML IVPB SCH (18:22)
--- NOTE | 2019-04-08 18:58 | NUR ---
NURSE NOTES: Dr Kemp called back. Orders received by Sanjuana, Change nurse, noted, and carried out.
[2019-04-08] MEDS ORDERED: D5 1/2NS w/KCl 40meq 1000ml 1,000 ML IV SCH (19:00)
--- NOTE | 2019-04-08 19:00 | History and Physical Report ---
DATE OF ADMISSION: 04/07/2019 CHIEF COMPLAINT: Altered mental status. HISTORY OF PRESENT ILLNESS: This is a 38-year-old gentleman with past medical history significant for diabetes type 2, diabetic who was presented to the emergency room after he was found on the street, altered. The patient has been homeless and he has a history of insulin-dependent diabetes. EMS was noted. The patient's blood glucose level showed high and cannot answer simple questions. Shortly after initial evaluation in the emergency room, the patient was noted to be altered and noted to be in DKA and subsequently, the patient was admitted to the hospital with altered mental status, most likely secondary to toxic metabolic encephalopathy as a result of DKA. PAST MEDICAL/PAST SURGICAL HISTORY: Diabetes type 2. MEDICATIONS AT HOME: Unknown. SOCIAL HISTORY: Unknown. FAMILY HISTORY: Noncontributory. REVIEW OF SYSTEMS: Very limited secondary to the patient's status because he cannot follow commands appropriately, however, he opens his eyes with simple commands. He denies any fever or chills. PHYSICAL EXAMINATION: VITAL SIGNS: On admission, temperature 99, pulse of 109, respiration 18, blood pressure 105/55. GENERAL: The patient is awake, responsive to verbal commands, however, cannot follow commands appropriately. HEAD AND NECK: Pupils are reactive to light. Extraocular movements intact. Neck was supple. No JVD. LUNGS: Good air entry. Decreased air in the bases. No wheezes or rhonchi. HEART: Reveals S1, S2. Tachycardic. No gallops. ABDOMEN: Soft, nondistended. Generalized tenderness. No rebound tenderness. No fluid shift. EXTREMITIES: No cyanosis, clubbing, or edema. NEUROLOGIC: Cranial nerves II through XII grossly intact. The patient moves all extremities spontaneously. Gait was not assessed because of his status. LABORATORY DATA: On admission from the ER, WBC of 22, hemoglobin of 12, hematocrit 36, platelet is 115,000. ABG, pH of 7.14, pCO2 of 19, pO2 of 120, saturating 98%. Alcohol level is less than 3. Acetaminophen level is positive, moderate. PT of 10. INR 1.0. PTT of 30. Urinalysis, +3 protein, +4 glucose, 10 to 15 WBC, +1 leukocytes, many bacteria. The patient had an ultrasound of the abdomen shows a severely distention of the urinary bladder, suggestive of Daniels catheter associated mild hydronephrosis. The patient duplex of lower extremity shows no evidence of thrombosis within the femoral, popliteal, or tibial. ASSESSMENT: 1. DKA. 2. Urinary tract infection, possible pyelonephritis. 3. Acute kidney injury, most likely secondary to the dehydration with prerenal azotemia. 4. Hypokalemia. 5. Toxic metabolic encephalopathy as a result of the DKA and possible underlying infection. PLAN: 1. Admit the patient to ICU. 2. We start the patient on broad-spectrum Rocephin. 3. CT scan of the abdomen. 4. Code status at this time Full Code. 5. DVT prophylaxis. 6. Heparin subcutaneous. 7. Restart the patient on aggressive IV hydration. 8. Potassium supplement replacement. 9. Follow up with Dr. Kemp, Critical Care consultation and Dr. Hayes from Endocrine. 10. We will follow up with ABGs and continue on the insulin drip as per DKA protocol. Isaías Spain M.D. DR: MICHAEL JOB#: [id number] CC:
--- NOTE | 2019-04-08 19:30 | NUR ---
HAND-OFF: Report given to HARDIK Rausch.
--- NOTE | 2019-04-08 19:35 | NUR ---
NURSE NOTES: Report received from HARDIK Alarcon. Pt is awake and oriented to name, Lethargic and weak. 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 On N/C 3L. O2 sat 98%. RR 30's. NPO except medication. Daniels catheter in place draining to gravity. IV to right FA G20 and left AC G18 patent and asymptomatic. Pt is on Insulin drip 5.5 units/ hr in Algo 4. NS with 20 meq KCL is running at 75cc/hr, Sodium Phospate @ 47.5cc/hr. Instructed patient to use call light for assistance. Bed in lowest position. Side rails up x3. Bed exit alarm on. Will resume plan of care.
--- NOTE | 2019-04-08 20:32 | NUR ---
NURSE NOTES: Dr Spain returned call and made aware of Dr. Kemp new order for abnormal labs. Rechecked temp 99.0 axillary continue cooling measure.
--- NOTE | 2019-04-08 22:04 | NUR ---
NURSE NOTES: Patient in bed sleeping comfortably. no s/s of acute distress noted. 3rd bag of KCL 10 mEq 100ml scanned, blood glucose 124mg/dl Insulin drip at 4units. no s/s of hypo/hyperglycemia.frequent visual checks continued.
[2019-04-09] VITALS (24 sets, daily range): BP systolic 106–149; BP diastolic 65–109
--- NOTE | 2019-04-09 | Consultation ---
DATE OF CONSULTATION: 04/08/2019 INFECTIOUS DISEASES CONSULTATION CONSULTING PHYSICIAN: Yonis Samano M.D. REFERRING PHYSICIAN: Donny Kemp M.D. REASON FOR CONSULTATION: Evaluation of the patient for leukocytosis, possible sepsis, antibiotic management. HISTORY OF PRESENT ILLNESS: The patient is a 38-year-old male, who was found in the street altered. Possibly, the patient is homeless. The patient was brought to the hospital, was found to have DKA, and was admitted to the ICU. The patient is not able to provide much information. The patient was found to have leukocytosis and there has been concern for possible sepsis. Infectious Diseases consultation was requested for further evaluation of the patient for antibiotic management, evaluation of sepsis and leukocytosis. PAST MEDICAL HISTORY: Mostly unknown. Apparently, the patient has history of diabetes. ALLERGIES: No known drug allergies. SOCIAL HISTORY: Unknown. FAMILY HISTORY: Unavailable. MEDICATIONS: The patient is on IV Rocephin. REVIEW OF SYSTEMS: Unobtainable. PHYSICAL EXAMINATION: VITAL SIGNS: Temperature 99.8, pulse 86, respiratory rate 18, and blood pressure 124/81. HEENT: No pale conjunctiva. No icterus. NECK: No lymphadenopathy. CHEST: Clear. HEART: S1 and S2. ABDOMEN: Soft. EXTREMITIES: No cyanosis at this time. NEUROLOGIC: Awake. LABORATORY AND DIAGNOSTIC DATA: White blood cells 15.6, hemoglobin 10, platelet 64,000. UA, 10-15 white blood cells. BUN 33, creatinine 1.1, AST 53, ALT 31, alkaline phosphatase 333. Ultrasound of the abdomen, unremarkable. Chest x-ray is pending. ASSESSMENT: The patient is a 38-year-old male with: 1. Leukocytosis. 2. ? sepsis. 3. Diabetes DKA. 4. Rule out biliary disease. 5. Thrombocytopenia (rule out probably due to sepsis, also rule out HIV/chronic hepatitis B or C). 6. Low-grade fever. 7. Elevated alkaline phosphatase (ultrasound unremarkable for biliary disease). PLAN: 1. We will continue the patient on IV Rocephin. 2. Monitor CBC. 3. Monitor BMP. 4. Monitor cultures, blood and urine. 5. We will follow chest x-ray result. 6. We will order HIV and hepatitis panel. 7. Continue intensive care. 8. Based on the patient's clinical course and labs, we will do further recommendation. Thank you, Dr. Kemp, for allowing me to participate in the care of this patient. I will follow the patient with you. Yonis Samano M.D. DR: Neymar JOB#: [id number] CC:
--- NOTE | 2019-04-09 | NUR ---
NURSE NOTES: patient bed resting, on 3 Liters oxygen via N/C satting 100%. HOB elevated. Blood glucose 112mg/dl Titrate Insulin drip to 3units/hr. noted patient with poor oral hygiene, oral care provided.lip and mouth dry, applied moisturizer to lips. Turned and repositioned. Daniels draining 30cc/hr at 2300 and 0000. Call light within easy reach. frequent visual checks continued. will continue plan of care.
[2019-04-09] MEDS: Potassium Phosphate 30 MM in NS 275 ML IV ONE ×2 (00:02→03:09)
[2019-04-09] MEDS: Insulin Rate Change 1 Each MISC PRN ×17 (01:00→20:00)
--- NOTE | 2019-04-09 02:00 | NUR ---
NURSE NOTES: patient in bed awake,alert titrated oxygen to 2 Liters via N/C satting 100%. HOB elevated. Blood glucose 126mg/dl Titrate Insulin drip to 4 units/hr. no s/s of acute distress noted. Turned and repositioned. Daniels catheter draining 250cc/hr at 0100 and 0200 with dark roni color urine output. Call light within easy reach. frequent visual checks continued. will continue plan of care.
[2019-04-09] MEDS: HYDROcodone/Acetamin 5/325 tab ORAL PRN (03:08)
--- NOTE | 2019-04-09 03:12 | NUR ---
NURSE NOTES: patient complained of 6/10 right abdominal pain repositioned in bed, talk therapy provided not effective. Wolf 5/325mg tab PO given crush med with apple sauce. no coughing able to swallow Meds. will continue to monitor patient.
--- NOTE | 2019-04-09 05:00 | NUR ---
NURSE NOTES: Bed bath given tolerated well. patient able to hold on the side rails. with discomfort on right hip per patient he fell down but not sure if 2 weeks ago noted with bruises on bilateral knee and dry scab on knee. will inform .
[2019-04-09 05:28] LABS: MEAN CORPUSCULAR VOLUME 90 FL (80-99); PLATELET COUNT 54 K/UL (150-450); RED CELL DISTRIBUTION WIDTH 12.7 % (11.6-14.8); WHITE BLOOD COUNT 19.2 K/UL (4.8-10.8)
[2019-04-09 06:08] LABS: ALANINE AMINOTRANSFERASE 33 U/L (12-78); ALBUMIN 1.8 G/DL (3.4-5.0); ALBUMIN/GLOBULIN RATIO 0.3 (1.0-2.7); ALKALINE PHOSPHATASE 335 U/L (46-116); ANION GAP 11 mmol/L (5-15); ASPARTATE AMINO TRANSFERASE 74 U/L (15-37); BILIRUBIN,TOTAL 1.9 MG/DL (0.2-1.0); BLOOD UREA NITROGEN 31 mg/dL (7-18); CALCIUM 10.9 MG/DL (8.5-10.1); CARBON DIOXIDE 20 MMOL/L (21-32); CHLORIDE 120 MMOL/L (98-107); POTASSIUM 4.8 MMOL/L (3.5-5.1); SODIUM 151 MMOL/L (136-145)
[2019-04-09 06:16] LABS: BILIRUBIN,DIRECT 0.7 MG/DL (0.0-0.3)
--- NOTE | 2019-04-09 06:29 | NUR ---
NURSE NOTES: seen and examined by Dr. Kemp with new order noted and carried out.
[2019-04-09] MEDS ORDERED: Amikacin Rx to dose MISC PRN (06:30)
--- NOTE | 2019-04-09 06:32 | Pulmonolgy Critical Care Note ---
Critical Care - Asmt/Plan Problems: (1) DKA (diabetic ketoacidoses) (2) JOJO (acute kidney injury) (3) Pyelonephritis Respiratory: monitor respiratory rate, adjust FIO2, CXR Cardiac: continue to monitor HR/BP Renal: decrease IV fluid, check electrolytes, other Gastrointestinal: hold feedings Endocrine: monitor blood sugar, d/c insulin drip Hematologic: monitor H/H Neurologic: PRN Ativan Affect: PRN ativan Prophylaxis: Heparin Time Spent (Minutes): 30 Notes Reviewed: nurse transplant Discussed with: nurses, consultants, case management managermanager strategic marketing - Objective Last 24 Hour Vital Signs Date Time Temp Pulse Resp B/P (MAP) Pulse Ox O2 Delivery O2 Flow Rate FiO2 04/09/19 06:00 99.4 114 22 130/94 (106) 100 04/09/19 05:00 113 26 135/91 (106) 100 04/09/19 04:00 98.0 108 31 125/94 (104) 100 04/09/19 04:00 Nasal Cannula 2.0 04/09/19 04:00 106 04/09/19 03:38 98.0 04/09/19 03:00 103 22 127/91 (103) 100 04/09/19 02:00 101 20 143/97 (112) 100 04/09/19 01:00 94 20 124/109 (114) 100 04/09/19 00:00 98.0 94 23 143/102 (116) 100 04/09/19 00:00 Nasal Cannula 2.0 04/09/19 00:00 93 04/08/19 23:00 94 29 137/101 (113) 100 04/08/19 22:00 97 20 123/89 (100) 99 04/08/19 21:00 106 21 131/84 (100) 100 04/08/19 20:30 99.0 04/08/19 20:30 99.0 113 22 129/92 (104) 99 04/08/19 20:00 110 04/08/19 20:00 101.0 113 25 131/91 (104) 99 04/08/19 20:00 Nasal Cannula 3.0 04/08/19 19:30 112 23 126/86 (99) 98 04/08/19 19:00 115 28 131/87 (102) 98 04/08/19 18:00 114 27 117/77 (90) 99 04/08/19 17:00 118 25 125/81 (96) 100 04/08/19 16:00 99.0 111 26 118/79 (92) 100 04/08/19 16:00 Nasal Cannula 3.0 04/08/19 15:46 109 04/08/19 15:00 110 28 111/74 (86) 100 04/08/19 14:00 106 25 123/80 (94) 98 04/08/19 13:40 Nasal Cannula 3.0 04/08/19 13:00 109 32 123/83 (96) 100 04/08/19 12:04 99 04/08/19 12:00 Nasal Cannula 3.0 04/08/19 12:00 99.1 110 27 134/84 (101) 100 04/08/19 11:00 106 31 117/80 (92) 100 04/08/19 10:00 99.2 108 31 124/81 (95) 100 04/08/19 09:00 114 34 132/90 (104) 100 04/08/19 08:00 99.8 115 38 122/73 (89) 99 04/08/19 08:00 Nasal Cannula 3.0 04/08/19 07:27 120 04/08/19 07:00 120 40 117/67 (84) 98 Status: somnolent Condition: critical Neck: full ROM Lungs: clear Heart: HR/BP stable, regular Abdomen: non-tender, active bowel sounds Extremities: edema Decubiti: location Accucheck: 121 Critical Care - Subjective Interval Events: less somnolent I&O: Intake and Output 04/08/19 04/09/19 19:00 07:00 Intake Total 1709.8 ml 1946.0 ml Output Total 5170 ml 1690 ml Balance -3460.2 ml 256.0 ml IV Total 1709.8 ml 1946.0 ml Output Urine Total 5170 ml 1690 ml Labs: Laboratory Tests Test 04/08/19 10:35 04/08/19 16:25 04/08/19 16:43 04/08/19 21:20 Erythrocyte Sedimentation Rate 69 MM/HR (0-15) H Reticulocyte Count 1.3 % (0.5-2.0) Prothrombin Time 10.7 SEC (9.30-11.50) Prothromb Time International Ratio 1.0 (0.9-1.1) Activated Partial Thromboplast Time 30 SEC (23-33) Sodium Level 144 MMOL/L (136-145) 149 MMOL/L (136-145) H Potassium Level 2.3 MMOL/L (3.5-5.1) *L 2.5 MMOL/L (3.5-5.1) *L Chloride Level 115 MMOL/L (98-107) H 119 MMOL/L (98-107) H Carbon Dioxide Level 16 MMOL/L (21-32) L 16 MMOL/L (21-32) L Anion Gap 15 mmol/L (5-15) 15 mmol/L (5-15) Blood Urea Nitrogen 40 mg/dL (7-18) H 36 mg/dL (7-18) H Creatinine 1.3 MG/DL (0.55-1.30) 1.2 MG/DL (0.55-1.30) Estimat Glomerular Filtration Rate > 60 mL/min (>60) > 60 mL/min (>60) Glucose Level 129 MG/DL (74-106) H 192 MG/DL (74-106) H Hemoglobin A1c 13.3 % (4.3-6.0) H Calcium Level 10.5 MG/DL (8.5-10.1) H 11.2 MG/DL (8.5-10.1) H Phosphorus Level 0.5 MG/DL (2.5-4.9) *L 0.6 MG/DL (2.5-4.9) *L Magnesium Level 2.4 MG/DL (1.8-2.4) Iron Level 20 ug/dL (50-175) L Total Iron Binding Capacity 163 ug/dL (250-450) L Percent Iron Saturation 12 % (15-50) L Unsaturated Iron Binding 143 ug/dL (112-346) Lactate Dehydrogenase 293 U/L (81-234) H Carcinoembryonic Antigen Pending Vitamin B12 Level > 2000 PG/ML (193-986) H Folate 3.2 NG/ML (8.6-58.9) L HIV (1&2) Antibody Rapid Negative (NEGATIVE) Total Bilirubin 1.2 MG/DL (0.2-1.0) H Direct Bilirubin 0.6 MG/DL (0.0-0.3) H Aspartate Amino Transf (AST/SGOT) 53 U/L (15-37) H Alanine Aminotransferase (ALT/SGPT) 31 U/L (12-78) Alkaline Phosphatase 333 U/L (46-116) H Total Protein 7.2 G/DL (6.4-8.2) Albumin 1.8 G/DL (3.4-5.0) L Globulin 5.4 g/dL Albumin/Globulin Ratio 0.3 (1.0-2.7) L Hepatitis A IgM Antibody Pending Hepatitis B Surface Antigen Pending Hepatitis B Core IgM Antibody Pending Hepatitis C Antibody Pending Test 04/09/19 04:40 White Blood Count 19.2 K/UL (4.8-10.8) H Red Blood Count 4.10 M/UL (4.70-6.10) L Hemoglobin 13.0 G/DL (14.2-18.0) L Hematocrit 37.0 % (42.0-52.0) L Mean Corpuscular Volume 90 FL (80-99) Mean Corpuscular Hemoglobin 31.8 PG (27.0-31.0) H Mean Corpuscular Hemoglobin Concent 35.2 G/DL (32.0-36.0) Red Cell Distribution Width 12.7 % (11.6-14.8) Platelet Count 54 K/UL (150-450) L Mean Platelet Volume 12.2 FL (6.5-10.1) H Neutrophils (%) (Auto) % (45.0-75.0) Lymphocytes (%) (Auto) % (20.0-45.0) Monocytes (%) (Auto) % (1.0-10.0) Eosinophils (%) (Auto) % (0.0-3.0) Basophils (%) (Auto) % (0.0-2.0) Neutrophils % (Manual) Pending Lymphocytes % (Manual) Pending Platelet Estimate Pending Platelet Morphology Pending Erythrocyte Sedimentation Rate Pending Sodium Level 151 MMOL/L (136-145) H Potassium Level 4.8 MMOL/L (3.5-5.1) # Chloride Level 120 MMOL/L (98-107) H Carbon Dioxide Level 20 MMOL/L (21-32) L Anion Gap 11 mmol/L (5-15) Blood Urea Nitrogen 31 mg/dL (7-18) H Creatinine 1.0 MG/DL (0.55-1.30) Estimat Glomerular Filtration Rate > 60 mL/min (>60) Glucose Level 109 MG/DL (74-106) H Calcium Level 10.9 MG/DL (8.5-10.1) H Phosphorus Level 2.0 MG/DL (2.5-4.9) L Magnesium Level 2.5 MG/DL (1.8-2.4) H Total Bilirubin 1.9 MG/DL (0.2-1.0) H Direct Bilirubin 0.7 MG/DL (0.0-0.3) H Aspartate Amino Transf (AST/SGOT) 74 U/L (15-37) H Alanine Aminotransferase (ALT/SGPT) 33 U/L (12-78) Alkaline Phosphatase 335 U/L (46-116) H C-Reactive Protein, Quantitative > 70.0 mg/dL (0.00-0.90) H Total Protein 7.7 G/DL (6.4-8.2) Albumin 1.8 G/DL (3.4-5.0) L Globulin 5.9 g/dL Albumin/Globulin Ratio 0.3 (1.0-2.7) L Donny Kemp MD Apr 09, 2019 06:32
--- NOTE | 2019-04-09 07:09 | NUR ---
NURSE NOTES: Dr Kemp ordered to changed the algorithm 4 to algorithm [address] out[address] Dr[address] Hayes came and made aware per Dr. Hayes its okay.
--- NOTE | 2019-04-09 07:32 | NUR ---
NURSE NOTES: Received the patient from HARDIK Rausch. Patient is asleep, easily arousable, aox1-2, able to follow commands, lethargic. Patient on 2L O2 via NC, O2 sat 100%. ST HR 100s noted. Daniels cath intact, draining yellow urine by gravity. Right forearm 20G and left AC 18G intact, running insulin drip at 0.5units/hr, Algorithm 1, D5W at 50ml/hr. Bed in lowest position, locked, side rails upx3. Bed alarm on. Call light within reach. Addendum: 04/09/19 at 0950 by DEONNA VILLARREAL RN Patient seen by Dr. Kemp and Dr. Hayes. MDs aware of abnormal lab values this am.
--- NOTE | 2019-04-09 07:35 | NUR ---
HAND-OFF: Report given to Cherry DYE.
[2019-04-09] MEDS: AMIKACIN IV SCH (08:23)
[2019-04-09] MEDS: NS IV SCH (08:23)
[2019-04-09] MEDS: Vancomycin 1gm/D5W 275ml IVPB SCH ×4 (09:26→22:21)
[2019-04-09] MEDS: Insulin Human Regular 100units/ml 3ml IV PRN ×3 (09:35→14:24)
--- NOTE | 2019-04-09 09:50 | NUR ---
NURSE NOTES: Patient resting in bed comfortably with eyes closed. No s/sx of pain noted. Hip xray was done. Patient noted with ST 130s and RR in 30s. Patient on 2L O2 via NC. Patient denies SOB or chest pain.
--- NOTE | 2019-04-09 10:09 | Diagnostic Imaging Report ---
EXAM: XR Right Hip With Pelvis When Performed, 2 or 3 Views CLINICAL HISTORY: FX TECHNIQUE: Two or three views of the right hip, with pelvis when performed. COMPARISON: No relevant prior studies available. FINDINGS: Bones joints: Subtle oblique lucencies within the femoral neck on a single view, without correlate on the other view, which may represent small osseous nutrient canal versus nondisplaced fracture lucency. Mild degenerative changes in the right hip joint, with marginal osteophytes along the superolateral acetabulum. Tiny 2 mm discontinuous ossific fragment along the acetabular margin may represent a discontinuous osteophyte and cannot exclude a subtle avulsion fracture. Soft tissues: Unremarkable. IMPRESSION: 1. Subtle oblique lucencies within the femoral neck on a single view, without correlate on the other view, which may represent small osseous nutrient canal versus nondisplaced fracture lucency. If there is continued clinical concern, further evaluation with CT or MRI may be considered. 2. Mild degenerative changes in the right hip joint, with marginal osteophytes along the superolateral acetabulum. Tiny 2 mm discontinuous ossific fragment along the acetabular margin may represent a discontinuous osteophyte and cannot exclude a subtle avulsion fracture.
[2019-04-09] MEDS ORDERED: Morphine Sulfate 2mg/ml Inj(IV/IM USE ONLY) IVP PRN (10:45)
--- NOTE | 2019-04-09 10:50 | NUR ---
NURSE NOTES: Dr. Kemp made aware of right hip xray result. Morphine 2mg iv prn and CT right hip without contrast ordered. Addendum: 04/09/19 at 1058 by DEONNA VILLARREAL RN also made aware of patient's HR 130s and RR 30s.
--- NOTE | 2019-04-09 11:25 | NUR ---
NURSE NOTES: Patient noted with BS 197. Changed to Algorithm 2, rate changed at 1100, new label scanned as soon as delivered by pharmacy.
--- NOTE | 2019-04-09 11:35 | NUR ---
NURSE NOTES: patient is awake, denies any pain or SOB. Denies N/V.
--- NOTE | 2019-04-09 13:00 | NUR ---
NURSE NOTES: Patient was turned and repositioned. oral care and jimenez care provided. Jimenez cath draining roni colored urine by gravity. No distress noted. ST 110s-120s noted. Denies any pain at this time.
--- NOTE | 2019-04-09 13:30 | NUR ---
NURSE NOTES: Oral contrast for CT given. Patient able to tolerated. CT scheduled around 1430 per tech.
[2019-04-09] MEDS ORDERED: Tubing IV Secondary IV ONE (14:01)
[2019-04-09] MEDS ORDERED: D5NS 1000ml IV ONE (14:01)
[2019-04-09] MEDS ORDERED: NS 275ml ONE (14:01)
--- NOTE | 2019-04-09 14:20 | NUR ---
NURSE NOTES: Patient noted with BS 223. 5units of Insulin IVP given, increased to Algorithm 3, running at 7.5 units/hr. labs pending. Patient asleep, easily arousable, able to follow commands, aox1-2 with confusion. No acute distress noted. Denies nausea, or pain.
[2019-04-09 14:44] LABS: HEMATOCRIT 35.3 % (42.0-52.0); HEMOGLOBIN 12.3 G/DL (14.2-18.0); MEAN CORPUSCULAR VOLUME 90 FL (80-99); PLATELET COUNT 51 K/UL (150-450); RED BLOOD COUNT 3.94 M/UL (4.70-6.10); RED CELL DISTRIBUTION WIDTH 13.2 % (11.6-14.8); WHITE BLOOD COUNT 21.7 K/UL (4.8-10.8)
--- NOTE | 2019-04-09 15:05 | NUR ---
NURSE NOTES: Patient off unit for CT. Accompanied by primary RN. Patient on insulin gtt at 4 units/hr.
[2019-04-09 15:14] LABS: PHOSPHORUS 1.5 MG/DL (2.5-4.9)
--- NOTE | 2019-04-09 16:00 | NUR ---
NURSE NOTES: Patient came back from CT. Patient tolerated well. No distress noted. Denies SOB or pain. BS 120, within the goal. insulin gtt decreased to 3units/hr.
--- NOTE | 2019-04-09 16:38 | Diagnostic Imaging Report ---
EXAM: CT Abdomen and Pelvis With Intravenous Contrast CLINICAL HISTORY: ABD TEND TECHNIQUE: Axial computed tomography images of the abdomen and pelvis with intravenous contrast. Sagittal and coronal reformatted images were created and reviewed. CTDI is 37.20 mGy and DLP is 1495.40 mGy-cm. One or more of the following dose reduction techniques were used: automated exposure control, adjustment of the mA and or kV according to patient size, use of iterative reconstruction technique. COMPARISON: Abdominal ultrasound dated 04 08 19. FINDINGS: Lung bases: Linear and dependent atelectasis in bilateral lung bases. ABDOMEN: Liver: Unremarkable. No suspicious parenchymal lesions Gallbladder and bile ducts: Unremarkable. No calcified stones. No ductal dilation. Pancreas: Unremarkable. No mass. No ductal dilation. Spleen: Unremarkable. No splenomegaly. Adrenals: Unremarkable. No mass. Kidneys and ureters: Emphysematous pyelonephritis in the right kidney, most prominently affecting the right lower pole, with a 7.6 x 7.4 x 5.3 cm air-fluid collection likely representing renal abscess extending to the perirenal fat. No definite fat plane between this collection and the adjacent right psoas musculature. Extensive adjacent inflammatory stranding. Associated urothelial enhancement in the right renal pelvis and ureter. Left kidney and ureter appear unremarkable. Stomach and bowel: Moderate stool noted throughout the colon, which may suggest constipation. Remainder of the colon appears unremarkable. No abnormally distended loops of small bowel. GE junction and stomach appear unremarkable. No mucosal thickening. PELVIS: Appendix: No findings to suggest acute appendicitis. Bladder: Daniels catheter balloon and tip within the urinary bladder lumen. Mild diffuse urinary bladder wall thickening, suggestive of cystitis. Reproductive: Unremarkable as visualized. ABDOMEN and PELVIS: Intraperitoneal space: Unremarkable. No free air. No significant fluid collection. Bones joints: No acute fracture. No dislocation. Soft tissues: Small fat-containing right inguinal hernia. Vasculature: Unremarkable. No abdominal aortic aneurysm. Lymph nodes: Unremarkable. No enlarged lymph nodes. IMPRESSION: 1. Emphysematous pyelonephritis in the right kidney, most prominently affecting the right lower pole, with a 7.6 x 7.4 x 5.3 cm air-fluid collection in the lower pole likely representing renal abscess extending to the perirenal fat. No definite fat plane between this collection and the adjacent right psoas musculature. Extensive adjacent inflammatory stranding. 2. Daniels catheter balloon and tip within the urinary bladder lumen. Mild diffuse urinary bladder wall thickening, suggestive of cystitis. 3. Moderate stool noted throughout the colon, which may suggest constipation. <MYCVCSECTION> [employer] 04 09 19 16:43 Call Doctor Regarding Above results, called Grabiel ABBASI on 04 09 16:42 (-07:00)
--- NOTE | 2019-04-09 16:40 | NUR ---
NURSE NOTES: Received a call from stat rad, PMD's contact number given. Stat rad to report CT result to MD directly.
[2019-04-09] MEDS: cefTRIAXone 1 GM in NS 55 ML IVPB SCH (17:53)
--- NOTE | 2019-04-09 18:00 | Consultation ---
DATE OF CONSULTATION: 04/09/2019 ENDOCRINOLOGY CONSULTATION CONSULTING PHYSICIAN: Roland Hayes M.D. REFERRING PHYSICIAN: Isaías Spain M.D. REASON FOR CONSULTATION: Diabetes management, DKA. HISTORY OF PRESENT ILLNESS: It is important to note that most of the history is obtained from review of the chart and medical records since the patient does not provide any meaningful history. The patient is a 38-year-old male, who was found in [address]. He was apparently homeless with altered mental status. He was brought to the hospital, was found to be in diabetic ketoacidosis, admitted to the ICU, and started on IV fluid and IV insulin. He was found to have elevated white count, sepsis, elevated ESR, and started on antibiotic. The patient is NPO to have CT scan today. Anion gap has been closed. The patient's condition remains critical. He remained on insulin drip. PAST MEDICAL HISTORY: Unknown. Apparently, he has insulin-dependent diabetes. ALLERGIES TO MEDICATIONS: None. MEDICATIONS: As an outpatient, unknown. FAMILY HISTORY: Unavailable. SOCIAL HISTORY: Unknown. The patient appears to be homeless. REVIEW OF SYSTEMS: Difficult to obtain. PHYSICAL EXAMINATION: VITAL SIGNS: Blood pressure is 130/80, pulse 70, temperature 98.2, respiratory rate 18. HEENT: Pupils are reactive to light. NECK: Supple. HEART: Regular. LUNGS: Clear. ABDOMEN: Positive bowel sounds. EXTREMITIES: No clubbing, cyanosis, or edema. LABORATORY DATA: WBC 19, hemoglobin 13, hematocrit 37, platelets of 64,000. ESR 102. Sodium 151, potassium 4.8, chloride 120, bicarb 20, BUN 39, creatinine 1.0, glucose 109, calcium 7.9. DIAGNOSES: 1. DKA. 2. Sepsis. 3. Encephalopathy. DISCUSSION: I will continue insulin drip although the anion gap has closed. Although insulin requirement is high, we will reduce the algorithm 4 to algorithm 1 of insulin drip. Glucose monitoring every 1-2 hours. We will follow the CT scan results. Follow the electrolytes and replete accordingly. Once the patient's clinical condition is more stable, we will switch to subcu insulin. Thank you, Dr. Spain, for the courtesy of this consultation. Roland Hayes M.D. DR: KAYLAN JOB#: [id number] CC: [facility]
--- NOTE | 2019-04-09 18:00 | NUR ---
NURSE NOTES: Patient was turned and repositioned. patient kept clean and dry. Patient denies SOB or pain.
--- NOTE | 2019-04-09 18:05 | Internal Med Progress Note ---
Subjective Date of Service: Apr 09, 2019 Physician Name Cody Redmond Attending Physician Isaías Spain MD Current Medications Medications (Trade) Dose Ordered Sig/Jose Route PRN Reason Start Time Stop Time Status Last Admin Dose Admin Acetaminophen (Tylenol) 650 mg Q4H PRN ORAL Mild Pain/Temp > 100.5 04/08/19 00:30 05/08/19 00:29 04/08/19 20:00 Acetaminophen/ Hydrocodone Bitart ([place] 5/325) 1 tab Q6H PRN ORAL For Pain 04/08/19 00:30 04/15/19 00:29 04/09/19 03:08 Amikacin Protocol (Amikacin pharmacy to dose) 1 ea DAILY PRN MISC Per rx protocol 04/09/19 06:30 05/09/19 06:29 Amikacin Sulfate 925 mg/Sodium Chloride 113.7 ml @ 113.7 mls/ hr Q24H IV 04/09/19 08:00 04/16/19 07:59 04/09/19 08:23 Barium Sulfate (Readi-Cat 2) 450 ml NOW PRN ORAL Radiology Procedure 04/08/19 15:45 04/10/19 15:36 Ceftriaxone Sodium 1 gm/ Sodium Chloride 55 ml @ 110 mls/hr Q24H IVPB 04/08/19 18:00 04/15/19 17:59 04/09/19 17:53 Dextrose 1,000 ml @ 50 mls/hr Q20H IV 04/09/19 07:00 05/09/19 06:59 04/09/19 06:59 Dextrose (Dextrose 50%) 25 ml Q30M PRN IV HYPOGLYCEMIA 04/08/19 00:30 05/08/19 00:29 Dextrose (Dextrose 50%) 50 ml Q30M PRN IV HYPOGLYCEMIA 04/08/19 00:30 05/08/19 00:29 Famotidine (Pepcid) 10 mg BID ORAL 04/08/19 09:00 05/08/19 08:59 04/09/19 17:52 Insulin Human Regular (NovoLIN R) 5 units PRN PRN IV BS 200-299 04/08/19 00:30 05/08/19 00:29 04/09/19 14:24 Insulin Human Regular (NovoLIN R) 10 units PRN PRN IV BS=>300 04/08/19 00:30 05/08/19 00:29 Insulin Human Regular 100 units/ Sodium Chloride 100 ml @ 0 mls/hr Q24H IV 04/09/19 14:30 05/09/19 14:29 04/09/19 14:34 Iohexol (OMNIPAQUE-300 100ml) 100 ml NOW PRN INJ Radiology Procedure 04/08/19 15:45 04/10/19 15:36 Miscellaneous Medication (Insulin Rate Change) 1 ea PRN PRN MISC Hyperglycemia 04/08/19 00:30 05/08/19 00:29 04/09/19 17:00 Morphine Sulfate (Morphine Sulfate) 2 mg Q4H PRN IVP Severe Pain (Pain Scale 7-10) 04/09/19 10:45 04/16/19 10:44 Ondansetron HCl (Zofran) 4 mg EVERY 4 HOURS PRN IVP Nausea & Vomiting 04/08/19 00:30 05/08/19 00:29 Vancomycin HCl (Vanco rx to dose) 1 ea DAILY PRN MISC Per rx protocol 04/09/19 06:30 05/09/19 06:29 Vancomycin HCl 1 gm/Dextrose 275 ml @ 183.708 mls/hr Q12H IVPB 04/09/19 09:00 04/14/19 08:59 04/09/19 09:26 Allergies: Coded Allergies: No Known Allergies (Unverified , 04/07/19) ROS Limited/Unobtainable: Yes Subjective 38 YO M admitted with altered mental status. Now DKA and metabolic encephalopathy. Cover for Int Med-Dr Spain. ICU Objective Last Vital Signs Date Time Temp Pulse Resp B/P (MAP) Pulse Ox O2 Delivery O2 Flow Rate FiO2 04/09/19 17:00 106 24 114/84 (94) 99 04/09/19 16:00 98.8 04/09/19 16:00 Nasal Cannula 2.0 General Appearance: WD/WN, no apparent distress, lethargic EENT: PERRL/EOMI, normal ENT inspection Neck: non-tender, normal alignment, supple, normal inspection Cardiovascular: normal peripheral pulses, normal rate, regular rhythm, no gallop/murmur, no JVD Respiratory/Chest: chest wall non-tender, lungs clear, normal breath sounds, no respiratory distress, no accessory muscle use Abdomen: normal bowel sounds, non tender, soft, no organomegaly, no mass Extremities: normal range of motion 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 Skin: normal pigmentation Laboratory Tests Test 04/08/19 21:20 04/09/19 04:40 04/09/19 14:05 Hepatitis A IgM Antibody Pending Hepatitis B Surface Antigen Pending Hepatitis B Core IgM Antibody Pending Hepatitis C Antibody Pending White Blood Count 19.2 K/UL (4.8-10.8) H 21.7 K/UL (4.8-10.8) H Red Blood Count 4.10 M/UL (4.70-6.10) L 3.94 M/UL (4.70-6.10) L Hemoglobin 13.0 G/DL (14.2-18.0) L 12.3 G/DL (14.2-18.0) L Hematocrit 37.0 % (42.0-52.0) L 35.3 % (42.0-52.0) L Mean Corpuscular Volume 90 FL (80-99) 90 FL (80-99) Mean Corpuscular Hemoglobin 31.8 PG (27.0-31.0) H 31.3 PG (27.0-31.0) H Mean Corpuscular Hemoglobin Concent 35.2 G/DL (32.0-36.0) 34.9 G/DL (32.0-36.0) Red Cell Distribution Width 12.7 % (11.6-14.8) 13.2 % (11.6-14.8) Platelet Count 54 K/UL (150-450) L 51 K/UL (150-450) L Mean Platelet Volume 12.2 FL (6.5-10.1) H 11.2 FL (6.5-10.1) H Neutrophils (%) (Auto) % (45.0-75.0) % (45.0-75.0) Lymphocytes (%) (Auto) % (20.0-45.0) % (20.0-45.0) Monocytes (%) (Auto) % (1.0-10.0) % (1.0-10.0) Eosinophils (%) (Auto) % (0.0-3.0) % (0.0-3.0) Basophils (%) (Auto) % (0.0-2.0) % (0.0-2.0) Differential Total Cells Counted 100 100 Neutrophils % (Manual) 56 % (45-75) 43 % (45-75) L Lymphocytes % (Manual) 4 % (20-45) L 9 % (20-45) L Monocytes % (Manual) 2 % (1-10) 7 % (1-10) Eosinophils % (Manual) 0 % (0-3) 0 % (0-3) Basophils % (Manual) 0 % (0-2) 0 % (0-2) Myelocytes % 1 % (0-0) H Band Neutrophils 37 % (0-8) H 41 % (0-8) H Platelet Estimate Decreased L Decreased L Platelet Morphology Normal Normal Anisocytosis 1+ Erythrocyte Sedimentation Rate 102 MM/HR (0-15) H Sodium Level 151 MMOL/L (136-145) H Potassium Level 4.8 MMOL/L (3.5-5.1) # Chloride Level 120 MMOL/L (98-107) H Carbon Dioxide Level 20 MMOL/L (21-32) L Anion Gap 11 mmol/L (5-15) Blood Urea Nitrogen 31 mg/dL (7-18) H Creatinine 1.0 MG/DL (0.55-1.30) Estimat Glomerular Filtration Rate > 60 mL/min (>60) Glucose Level 109 MG/DL (74-106) H Calcium Level 10.9 MG/DL (8.5-10.1) H Phosphorus Level 2.0 MG/DL (2.5-4.9) L 1.5 MG/DL (2.5-4.9) L Magnesium Level 2.5 MG/DL (1.8-2.4) H 2.2 MG/DL (1.8-2.4) Total Bilirubin 1.9 MG/DL (0.2-1.0) H Direct Bilirubin 0.7 MG/DL (0.0-0.3) H Aspartate Amino Transf (AST/SGOT) 74 U/L (15-37) H Alanine Aminotransferase (ALT/SGPT) 33 U/L (12-78) Alkaline Phosphatase 335 U/L (46-116) H C-Reactive Protein, Quantitative > 70.0 mg/dL (0.00-0.90) H Total Protein 7.7 G/DL (6.4-8.2) Albumin 1.8 G/DL (3.4-5.0) L Globulin 5.9 g/dL Albumin/Globulin Ratio 0.3 (1.0-2.7) L Polychromasia 1+ Intake and Output 04/08/19 04/09/19 18:59 06:59 Intake Total 1772.8 ml 2106.5 ml Output Total 5290 ml 1890 ml Balance -3517.2 ml 216.5 ml IV Total 1772.8 ml 2106.5 ml Output Urine Total 5290 ml 1890 ml Assessment/Plan Problem List: (1) Acute metabolic encephalopathy (2) Altered mental status (3) UTI (urinary tract infection) Assessment & Plan: Continue vanco and amikacin per ID - Dr Samano. await urine culture results. (4) Renal failure (5) DKA (diabetic ketoacidoses) Assessment & Plan: Continue insulin drip. See endocrinology note-Dr Hayes. Status: not improved Cody Redmond MD Apr 09, 2019 18:05
--- NOTE | 2019-04-09 18:42 | NUR ---
CASE MANAGEMENT: REVIEW 04/09/2019 SI:DKA. T 98.8 HR 106 RR 29 B/P 117/80 SATS 99% ON 2L/NC LABS WBC 21.7 NA 151 CL 120 CO2 20 BUN 31 GLU 109 CA 10.9 PHOS 2 MG 2.5 TBILI 1.9 DBILI 0.7 AST 74 ALP 335 CRP >70 IS: DEXTROSE IV @ 50 mL/HR VANCO IV Q12H CEFTRIAXONE IV Q24H AMIKACIN IV Q24H INSULIN DRIP PER PARAMETERS ICU
--- NOTE | 2019-04-09 19:20 | NUR ---
HAND-OFF: Report given to HARDIK Rausch.
--- NOTE | 2019-04-09 19:30 | NUR ---
NURSE NOTES: Received report from HARDIK Sanabria. Pt is awake and oriented to name, Lethargic and weak with confusion and disorientation. reality orientation provided , reoriented x3 with incoherent response. ST 130's on cardiac care nurse.No SOB O2 sat 98%room air . RR 30's. Daniels catheter in place draining to gravity. IV to right FA G20 and left AC G18 patent and asymptomatic. Pt is on Insulin drip 4 units/ hr in Algo 4 and D5W at 50cc/hr.Patient temp 100.6 axillary cooling measure provided will rechecked in 15 minutes. Instructed patient to use call light for assistance. Bed in lowest position. Side rails up x3. Bed exit alarm on. Will continue plan of care.
--- NOTE | 2019-04-09 19:45 | NUR ---
NURSE NOTES: rechecked Temp 100.6 axillary Tylenol 650mg tab po given will rechecked and will continue cooling measure.
--- NOTE | 2019-04-09 21:00 | NUR ---
NURSE NOTES: Repositioned patient in bed. Blood glucose 115mg/dl on Insulin drip Algorithm 4 at 3units/hr. no s/s of hypo/hyperglycemia. no s/s of acute distress noted. Denies any pain or discomfort. Call light within easy reach.
--- NOTE | 2019-04-09 23:00 | NUR ---
NURSE NOTES: Repositioned patient in bed. Blood glucose 115mg/dl on Insulin drip Algorithm 4 at 3units/hr. no s/s of hypo/hyperglycemia. no s/s of acute distress noted. Denies any pain or discomfort. Oral care provided.Call light within easy reach.
[2019-04-10] VITALS (24 sets, daily range): BP systolic 93–119; BP diastolic 48–83
[2019-04-10] MEDS: Insulin Rate Change 1 Each MISC PRN ×12 (01:00→20:00)
[2019-04-10] MEDS: HYDROcodone/Acetamin 5/325 tab ORAL PRN (01:37)
--- NOTE | 2019-04-10 01:37 | NUR ---
NURSE NOTES: Patient complained of 5/10 right abdominal pain repositioned in bed, talk therapy , and pillow support provided not effective. Maybell 5/325mg tab PO given. no coughing able to swallow Meds. Patient in bed watching TV. will continue to monitor patient.
--- NOTE | 2019-04-10 02:12 | NUR ---
NURSE NOTES: Patient in bed awake,alert per patient he has daughter name Teresa and she's 8 years old and with ex- name Татьяна. Pt requested to charge his cellphone, patient is more alert and talkative per patient he's been drinking everyday for 7 years. He stopped drinking for 5 years. Denies any pain or discomfort at this time. Jello and apple juice given tolerated well. Call light within easy raech.
--- NOTE | 2019-04-10 04:12 | NUR ---
NURSE NOTES: Bed bath given tolerated well. noted with excoriation on penis area and left heel redness. turned and repositioned. No SOB. Denies any pain or discomfort. skin warm and dry to touch. ice chips given tolerated well. Blood glucose 108mg/dl on Insulin drip ALGO 4 at 2units/hr. will continue to monitor patient.
[2019-04-10 06:39] LABS: HEMATOCRIT 31.3 % (42.0-52.0); HEMOGLOBIN 11.1 G/DL (14.2-18.0); MEAN CORPUSCULAR VOLUME 89 FL (80-99); PLATELET COUNT 42 K/UL (150-450); RED CELL DISTRIBUTION WIDTH 13.1 % (11.6-14.8); WHITE BLOOD COUNT 17.5 K/UL (4.8-10.8)
[2019-04-10 07:12] LABS: ALANINE AMINOTRANSFERASE 55 U/L (12-78); ALBUMIN 1.4 G/DL (3.4-5.0); ALBUMIN/GLOBULIN RATIO 0.3 (1.0-2.7); ALKALINE PHOSPHATASE 441 U/L (46-116); ANION GAP 10 mmol/L (5-15); ASPARTATE AMINO TRANSFERASE 147 U/L (15-37); BILIRUBIN,TOTAL 1.4 MG/DL (0.2-1.0); BLOOD UREA NITROGEN 34 mg/dL (7-18); CALCIUM 8.9 MG/DL (8.5-10.1); CARBON DIOXIDE 21 MMOL/L (21-32); CHLORIDE 113 MMOL/L (98-107); CREATININE 0.8 MG/DL (0.55-1.30); PHOSPHORUS 2.7 MG/DL (2.5-4.9); POTASSIUM 2.8 MMOL/L (3.5-5.1); SODIUM 145 MMOL/L (136-145)
[2019-04-10 07:17] LABS: BILIRUBIN,DIRECT 0.9 MG/DL (0.0-0.3)
--- NOTE | 2019-04-10 07:25 | NUR ---
HAND-OFF: Report given to HARDIK Carey. Dr Hayes came and updatewd with ptient condition, Per Dr. Hayes he's waiting for the lab result, with pending lab result.
--- NOTE | 2019-04-10 07:44 | NUR ---
NURSE NOTES: Received the patient from HARDIK Rausch. Patient is asleep, easily arousable, able to follow commands.. Patient on room air, O2 sat 100%. SR 80s noted on desk monitor. Daniels cath intact, draining roni color urine by gravity. Right forearm 20G and left AC 18G intact, running insulin drip at 5.5 units/hr, Algorithm 4, and D5W at 50ml/hr. SCDs on bilateral lower extremities. Bed in lowest position, locked, side rails upx3. Bed alarm on. Call light within reach.
[2019-04-10] MEDS: AMIKACIN IV SCH (08:18)
[2019-04-10] MEDS: NS IV SCH (08:18)
--- NOTE | 2019-04-10 08:50 | NUR ---
NURSE NOTES: Patient had 100% clear liquid diet breakfast. Patient denies nausea or pain.
[2019-04-10] MEDS: Vancomycin 1gm/D5W 275ml IVPB SCH ×2 (09:08)
[2019-04-10] MEDS: Insulin Human Regular 100units/ml 3ml IV PRN ×3 (09:10→16:01)
--- NOTE | 2019-04-10 09:40 | NUR ---
NURSE NOTES: Spoke with Dr. Hayes. updated on pt's condition. All chemistry results and blood sugar reported to Dr. Hayes. Per , d/c D5W and start D5 1/2NS with 20meq KCl at 75ml/hr and give 40meq KCl IV. continue insulin drip but check BS q2hrs.
[2019-04-10] MEDS: D5 1/2NS w/KCl 20mEq 1,000 ML IV SCH ×2 (10:00→22:36)
--- NOTE | 2019-04-10 10:15 | NUR ---
NURSE NOTES: Called Dr. Hayes to clarify insulin gtt order. Per MD, change Algorithm 4 to Algorithm 2 and stay in Algorithm 2 and check BS every 2 hours. Insulin gtt rate changed to 2units/hr at 1015.
--- NOTE | 2019-04-10 11:09 | Infectious Diseases Prog Note ---
Assessment/Plan Assessment/Plan The patient is a 38-year-old male with: Leukocytosis. Sepsis. Emphysematous pyelonephritis with likely right kidney abscess Diabetes and now with DKA. Rule out biliary disease. Thrombocytopenia (rule out probably due to sepsis, also rule out HIV/chronic hepatitis B or C). Low-grade fever. Elevated alkaline phosphatase (ultrasound unremarkable for biliary disease). CT 04/09/19 1. Emphysematous pyelonephritis in the right kidney, most prominently affecting the right lower pole, with a 7.6 x 7.4 x 5.3 cm air-fluid collection in the lower pole likely representing renal abscess extending to the perirenal fat. No definite fat plane between this collection and the adjacent right psoas musculature. Extensive adjacent inflammatory stranding. 2. Daniels catheter balloon and tip within the urinary bladder lumen. Mild diffuse urinary bladder wall thickening, suggestive of cystitis. . PLAN: 1. We will continue the patient on IV Rocephin #3. 2. Monitor CBC. 3. Monitor BMP. 4. Monitor cultures, blood and urine. 5. We will follow chest x-ray result. 6. f/uHIV and hepatitis panel. 7. Continue intensive care. 8. Based on the patient's clinical course and labs, we will do further recommendation. Thank you, Dr. Kemp, for allowing me to participate in the care of this patient. I will follow the patient with you. Subjective Allergies: Coded Allergies: No Known Allergies (Unverified , 04/07/19) Subjective Now Afebrile Leukocytosis improving Objective Vital Signs Last 24 Hour Vital Signs Date Time Temp Pulse Resp B/P (MAP) Pulse Ox O2 Delivery O2 Flow Rate FiO2 04/10/19 10:00 101 28 117/74 (88) 100 04/10/19 09:00 103 30 117/76 (90) 100 04/10/19 08:00 85 04/10/19 08:00 98.2 82 20 109/69 (82) 99 04/10/19 08:00 Room Air 04/10/19 07:00 80 17 110/73 (85) 98 04/10/19 06:00 76 19 105/76 (86) 99 04/10/19 05:00 79 19 107/73 (84) 100 04/10/19 04:00 Room Air 04/10/19 04:00 98.0 78 24 105/70 (82) 99 04/10/19 04:00 84 04/10/19 03:00 79 28 106/79 (88) 100 04/10/19 02:07 98.8 04/10/19 02:00 86 26 110/81 (91) 99 04/10/19 01:30 86 20 98 04/10/19 01:00 99.0 86 32 115/83 (94) 100 04/10/19 00:00 Room Air 04/10/19 00:00 100.0 100 22 103/61 (75) 98 04/10/19 00:00 94 04/09/19 23:00 106 23 106/65 (79) 99 04/09/19 22:00 99.4 111 24 108/66 (80) 98 04/09/19 21:00 120 23 108/72 (84) 96 04/09/19 20:15 99.9 04/09/19 20:00 115 04/09/19 20:00 99.9 129 27 123/85 (98) 98 04/09/19 20:00 Room Air 04/09/19 19:30 100.6 131 27 97 04/09/19 19:00 117 33 149/105 (120) 99 04/09/19 18:00 103 25 123/96 (105) 100 04/09/19 17:00 106 24 114/84 (94) 99 04/09/19 16:00 106 04/09/19 16:00 98.8 106 29 117/80 (92) 99 04/09/19 16:00 Nasal Cannula 2.0 04/09/19 15:00 120 33 113/78 (90) 99 04/09/19 14:00 119 29 114/77 (89) 98 04/09/19 13:00 125 25 120/81 (94) 98 04/09/19 12:00 98.4 132 30 123/78 (93) 99 04/09/19 12:00 Nasal Cannula 2.0 04/09/19 12:00 129 Height (Feet): 5 Height (Inches): 6.00 Weight (Pounds): 135 Objective GEN: NAD HEENT: NCAT, MMM LUNGS: Coarse B/L HEART: RR, s1,s2 Abd TTP, SOft Microbiology Date/Time Source Procedure Growth Status 10/4/19 21:20 Blood Blood Culture - Preliminary NO GROWTH AFTER 24 HOURS Resulted 04/08/19 21:10 Blood Blood Culture - Preliminary NO GROWTH AFTER 24 HOURS Resulted 04/07/19 19:10 Rectum VRE Culture - Final NO VANCOMYCIN RESISTANT ENTEROCOCCUS ... Complete Laboratory Tests Test 04/09/19 14:05 04/09/19 20:50 04/10/19 05:30 White Blood Count 21.7 K/UL (4.8-10.8) H 17.5 K/UL (4.8-10.8) H Red Blood Count 3.94 M/UL (4.70-6.10) L 3.50 M/UL (4.70-6.10) L Hemoglobin 12.3 G/DL (14.2-18.0) L 11.1 G/DL (14.2-18.0) L Hematocrit 35.3 % (42.0-52.0) L 31.3 % (42.0-52.0) L Mean Corpuscular Volume 90 FL (80-99) 89 FL (80-99) Mean Corpuscular Hemoglobin 31.3 PG (27.0-31.0) H 31.7 PG (27.0-31.0) H Mean Corpuscular Hemoglobin Concent 34.9 G/DL (32.0-36.0) 35.5 G/DL (32.0-36.0) Red Cell Distribution Width 13.2 % (11.6-14.8) 13.1 % (11.6-14.8) Platelet Count 51 K/UL (150-450) L 42 K/UL (150-450) L Mean Platelet Volume 11.2 FL (6.5-10.1) H 10.3 FL (6.5-10.1) H Neutrophils (%) (Auto) % (45.0-75.0) % (45.0-75.0) Lymphocytes (%) (Auto) % (20.0-45.0) % (20.0-45.0) Monocytes (%) (Auto) % (1.0-10.0) % (1.0-10.0) Eosinophils (%) (Auto) % (0.0-3.0) % (0.0-3.0) Basophils (%) (Auto) % (0.0-2.0) % (0.0-2.0) Differential Total Cells Counted 100 100 Neutrophils % (Manual) 43 % (45-75) L 64 % (45-75) Lymphocytes % (Manual) 9 % (20-45) L 9 % (20-45) L Monocytes % (Manual) 7 % (1-10) 6 % (1-10) Eosinophils % (Manual) 0 % (0-3) 0 % (0-3) Basophils % (Manual) 0 % (0-2) 0 % (0-2) Band Neutrophils 41 % (0-8) H 21 % (0-8) H Platelet Estimate Decreased L Decreased L Platelet Morphology Normal Normal Polychromasia 1+ Phosphorus Level 1.5 MG/DL (2.5-4.9) L 2.7 MG/DL (2.5-4.9) Magnesium Level 2.2 MG/DL (1.8-2.4) 2.0 MG/DL (1.8-2.4) Random Amikacin Level 5.3 ug/mL Red Blood Cell Morphology Normal Erythrocyte Sedimentation Rate 105 MM/HR (0-15) H Sodium Level 145 MMOL/L (136-145) Potassium Level 2.8 MMOL/L (3.5-5.1) L Chloride Level 113 MMOL/L (98-107) H Carbon Dioxide Level 21 MMOL/L (21-32) Anion Gap 10 mmol/L (5-15) Blood Urea Nitrogen 34 mg/dL (7-18) H Creatinine 0.8 MG/DL (0.55-1.30) Estimat Glomerular Filtration Rate > 60 mL/min (>60) Glucose Level 173 MG/DL (74-106) H Calcium Level 8.9 MG/DL (8.5-10.1) Total Bilirubin 1.4 MG/DL (0.2-1.0) H Direct Bilirubin 0.9 MG/DL (0.0-0.3) H Aspartate Amino Transf (AST/SGOT) 147 U/L (15-37) H Alanine Aminotransferase (ALT/SGPT) 55 U/L (12-78) Alkaline Phosphatase 441 U/L (46-116) H C-Reactive Protein, Quantitative 24.1 mg/dL (0.00-0.90) H Total Protein 6.2 G/DL (6.4-8.2) L Albumin 1.4 G/DL (3.4-5.0) L Globulin 4.8 g/dL Albumin/Globulin Ratio 0.3 (1.0-2.7) L Current Medications Medications (Trade) Dose Ordered Sig/Jose Route PRN Reason Start Time Stop Time Status Last Admin Dose Admin Acetaminophen (Tylenol) 650 mg Q4H PRN ORAL Mild Pain/Temp > 100.5 04/08/19 00:30 05/08/19 00:29 04/09/19 19:45 Acetaminophen/ Hydrocodone Bitart ([place] 5/325) 1 tab Q6H PRN ORAL For Pain 04/08/19 00:30 04/15/19 00:29 04/10/19 01:37 Amikacin Protocol (Amikacin pharmacy to dose) 1 ea DAILY PRN MISC Per rx protocol 04/09/19 06:30 05/09/19 06:29 Amikacin Sulfate 925 mg/Sodium Chloride 113.7 ml @ 113.7 mls/ hr Q24H IV 04/09/19 08:00 04/16/19 07:59 04/10/19 08:18 Barium Sulfate (Readi-Cat 2) 450 ml NOW PRN ORAL Radiology Procedure 04/08/19 15:45 04/10/19 15:36 Ceftriaxone Sodium 1 gm/ Sodium Chloride 55 ml @ 110 mls/hr Q24H IVPB 04/08/19 18:00 04/15/19 17:59 04/09/19 17:53 Dextrose (Dextrose 50%) 25 ml Q30M PRN IV HYPOGLYCEMIA 04/08/19 00:30 05/08/19 00:29 Dextrose (Dextrose 50%) 50 ml Q30M PRN IV HYPOGLYCEMIA 04/08/19 00:30 05/08/19 00:29 Dextrose/ Electrolytes 1,000 ml @ 75 mls/hr [id number] IV 04/10/19 10:00 05/10/19 09:59 04/10/19 10:00 Famotidine (Pepcid) 10 mg BID ORAL 04/08/19 09:00 05/08/19 08:59 04/10/19 08:18 Insulin Human Regular (NovoLIN R) 5 units PRN PRN IV BS 200-299 04/08/19 00:30 05/08/19 00:29 04/10/19 09:10 Insulin Human Regular (NovoLIN R) 10 units PRN PRN IV BS=>300 04/08/19 00:30 05/08/19 00:29 Insulin Human Regular 100 units/ Sodium Chloride 100 ml @ 0 mls/hr Q24H IV 04/10/19 10:30 05/10/19 10:29 04/10/19 11:00 Iohexol (OMNIPAQUE-300 100ml) 100 ml NOW PRN INJ Radiology Procedure 04/08/19 15:45 04/10/19 15:36 Miscellaneous Medication (Insulin Rate Change) 1 ea PRN PRN MISC Hyperglycemia 04/08/19 00:30 05/08/19 00:29 04/10/19 10:02 Morphine Sulfate (Morphine Sulfate) 2 mg Q4H PRN IVP Severe Pain (Pain Scale 7-10) 04/09/19 10:45 04/16/19 10:44 Ondansetron HCl (Zofran) 4 mg EVERY 4 HOURS PRN IVP Nausea & Vomiting 04/08/19 00:30 05/08/19 00:29 Potassium Chloride 100 ml @ 100 mls/hr Q1HR IVPB 04/10/19 11:00 04/10/19 14:59 04/10/19 10:59 Vancomycin HCl (Vanco rx to dose) 1 ea DAILY PRN MISC Per rx protocol 04/09/19 06:30 05/09/19 06:29 Vancomycin HCl 1 gm/Dextrose 275 ml @ 183.708 mls/hr Q12H IVPB 04/09/19 09:00 04/14/19 08:59 04/10/19 09:08 Peter Diaz MD Apr 10, 2019 11:09
--- NOTE | 2019-04-10 11:11 | NUR ---
CASE MANAGEMENT: REVIEW 04/10/2019 SI:DKA. T 98.2 HR 82 RR 20 B/P 109/69 SATS 99% ON RA WBC 17.5 K 2.8 CL 113 BUN 34 GLU 173 TBILI 1.4 DBILI 0.9 AST 147 ALP 441 IS: DEXTROSE IV @ 75 mL/HR VANCO IV Q12H CEFTRIAXONE IV Q24H AMIKACIN IV Q24H INSULIN DRIP PER PARAMETERS KCL IV Q1H ICU
--- NOTE | 2019-04-10 11:25 | NUR ---
NURSE NOTES: Urine collected and sent to lab.
--- NOTE | 2019-04-10 11:33 | NUR ---
NURSE NOTES: Patient asleep in bed comfortably. No s/sx of SOB or pain at this time. No distress noted. Insulin gtt running at 2units/hr.
--- NOTE | 2019-04-10 11:56 | NUR ---
NURSE NOTES: Patient seen by Dr. Diaz. updated on pt's condition. No new orders at this time.
[2019-04-10] MEDS ORDERED: NS 275ml ONE (12:14)
--- NOTE | 2019-04-10 14:00 | NUR ---
NURSE NOTES: Patient asleep in bed. No distress noted. Oral care and jimenez care provided.
--- NOTE | 2019-04-10 14:30 | NUR ---
NURSE NOTES: Patient seen by Dr. Redmond. MD updated on patient's condition. MD made aware of ST 110-120 and RR in 30s. No new orders at this time. CT and xray results reported to MD. Bowel regimen not needed at this time per Dr. Redmond.
--- NOTE | 2019-04-10 14:47 | Internal Med Progress Note ---
Subjective Date of Service: Apr 10, 2019 Physician Name Cody Redmond Attending Physician Isaías Spain MD Current Medications Medications (Trade) Dose Ordered Sig/Jose Route PRN Reason Start Time Stop Time Status Last Admin Dose Admin Acetaminophen (Tylenol) 650 mg Q4H PRN ORAL Mild Pain/Temp > 100.5 04/08/19 00:30 05/08/19 00:29 04/09/19 19:45 Acetaminophen/ Hydrocodone Bitart ([place] 5/325) 1 tab Q6H PRN ORAL For Pain 04/08/19 00:30 04/15/19 00:29 04/10/19 01:37 Amikacin Protocol (Amikacin pharmacy to dose) 1 ea DAILY PRN MISC Per rx protocol 04/09/19 06:30 05/09/19 06:29 Amikacin Sulfate 925 mg/Sodium Chloride 113.7 ml @ 113.7 mls/ hr Q24H IV 04/09/19 08:00 04/16/19 07:59 04/10/19 08:18 Barium Sulfate (Readi-Cat 2) 450 ml NOW PRN ORAL Radiology Procedure 04/08/19 15:45 04/10/19 15:36 Ceftriaxone Sodium 1 gm/ Sodium Chloride 55 ml @ 110 mls/hr Q24H IVPB 04/08/19 18:00 04/15/19 17:59 04/09/19 17:53 Dextrose (Dextrose 50%) 25 ml Q30M PRN IV HYPOGLYCEMIA 04/08/19 00:30 05/08/19 00:29 Dextrose (Dextrose 50%) 50 ml Q30M PRN IV HYPOGLYCEMIA 04/08/19 00:30 05/08/19 00:29 Dextrose/ Electrolytes 1,000 ml @ 75 mls/hr [id number] IV 04/10/19 10:00 05/10/19 09:59 04/10/19 10:00 Famotidine (Pepcid) 10 mg BID ORAL 04/08/19 09:00 05/08/19 08:59 04/10/19 08:18 Insulin Human Regular (NovoLIN R) 5 units PRN PRN IV BS 200-299 04/08/19 00:30 05/08/19 00:29 04/10/19 14:04 Insulin Human Regular (NovoLIN R) 10 units PRN PRN IV BS=>300 04/08/19 00:30 05/08/19 00:29 Insulin Human Regular 100 units/ Sodium Chloride 100 ml @ 0 mls/hr Q24H IV 04/10/19 10:30 05/10/19 10:29 04/10/19 11:00 Iohexol (OMNIPAQUE-300 100ml) 100 ml NOW PRN INJ Radiology Procedure 04/08/19 15:45 04/10/19 15:36 Miscellaneous Medication (Insulin Rate Change) 1 ea PRN PRN MISC Hyperglycemia 04/08/19 00:30 05/08/19 00:29 04/10/19 14:03 Morphine Sulfate (Morphine Sulfate) 2 mg Q4H PRN IVP Severe Pain (Pain Scale 7-10) 04/09/19 10:45 04/16/19 10:44 Ondansetron HCl (Zofran) 4 mg EVERY 4 HOURS PRN IVP Nausea & Vomiting 04/08/19 00:30 05/08/19 00:29 Potassium Chloride 100 ml @ 100 mls/hr Q1HR IVPB 04/10/19 11:00 04/10/19 14:59 04/10/19 14:03 Vancomycin HCl (Vanco rx to dose) 1 ea DAILY PRN MISC Per rx protocol 04/09/19 06:30 05/09/19 06:29 Vancomycin HCl 1 gm/Dextrose 275 ml @ 183.708 mls/hr Q12H IVPB 04/09/19 09:00 04/14/19 08:59 04/10/19 09:08 Allergies: Coded Allergies: No Known Allergies (Unverified , 04/07/19) ROS Limited/Unobtainable: No Constitutional: Reports: no symptoms HEENT: Reports: no symptoms Cardiovascular: Reports: no symptoms Respiratory: Reports: no symptoms Gastrointestinal/Abdominal: Reports: no symptoms Genitourinary: Reports: no symptoms Neurologic/Psychiatric: Reports: no symptoms Subjective 38 YO M admitted with altered mental status. Now DKA and metabolic encephalopathy. Cover for Misael Marques-Dr Spain. ICU. On insulin drip Objective Last Vital Signs Date Time Temp Pulse Resp B/P (MAP) Pulse Ox O2 Delivery O2 Flow Rate FiO2 04/10/19 14:00 116 28 118/70 (86) 97 04/10/19 12:00 98.4 04/10/19 12:00 Room Air 04/09/19 16:00 2.0 General Appearance: WD/WN, no apparent distress, alert EENT: PERRL/EOMI, normal ENT inspection, TMs normal Neck: non-tender, normal alignment, supple, normal inspection Cardiovascular: normal peripheral pulses, normal rate, regular rhythm, no gallop/murmur, no JVD Respiratory/Chest: chest wall non-tender, lungs clear, normal breath sounds, no respiratory distress, no accessory muscle use Abdomen: normal bowel sounds, non tender, soft, no organomegaly, no mass Extremities: normal range of motion Neurologic: head shipper II-XII grossly normal, no motor/sensory deficits Skin: normal pigmentation, warm/dry Laboratory Tests Test 04/09/19 20:50 04/10/19 05:30 Random Amikacin Level 5.3 ug/mL White Blood Count 17.5 K/UL (4.8-10.8) H Red Blood Count 3.50 M/UL (4.70-6.10) L Hemoglobin 11.1 G/DL (14.2-18.0) L Hematocrit 31.3 % (42.0-52.0) L Mean Corpuscular Volume 89 FL (80-99) Mean Corpuscular Hemoglobin 31.7 PG (27.0-31.0) H Mean Corpuscular Hemoglobin Concent 35.5 G/DL (32.0-36.0) Red Cell Distribution Width 13.1 % (11.6-14.8) Platelet Count 42 K/UL (150-450) L Mean Platelet Volume 10.3 FL (6.5-10.1) H Neutrophils (%) (Auto) % (45.0-75.0) Lymphocytes (%) (Auto) % (20.0-45.0) Monocytes (%) (Auto) % (1.0-10.0) Eosinophils (%) (Auto) % (0.0-3.0) Basophils (%) (Auto) % (0.0-2.0) Differential Total Cells Counted 100 Neutrophils % (Manual) 64 % (45-75) Lymphocytes % (Manual) 9 % (20-45) L Monocytes % (Manual) 6 % (1-10) Eosinophils % (Manual) 0 % (0-3) Basophils % (Manual) 0 % (0-2) Band Neutrophils 21 % (0-8) H Platelet Estimate Decreased L Platelet Morphology Normal Red Blood Cell Morphology Normal Erythrocyte Sedimentation Rate 105 MM/HR (0-15) H Sodium Level 145 MMOL/L (136-145) Potassium Level 2.8 MMOL/L (3.5-5.1) L Chloride Level 113 MMOL/L (98-107) H Carbon Dioxide Level 21 MMOL/L (21-32) Anion Gap 10 mmol/L (5-15) Blood Urea Nitrogen 34 mg/dL (7-18) H Creatinine 0.8 MG/DL (0.55-1.30) Estimat Glomerular Filtration Rate > 60 mL/min (>60) Glucose Level 173 MG/DL (74-106) H Calcium Level 8.9 MG/DL (8.5-10.1) Phosphorus Level 2.7 MG/DL (2.5-4.9) Magnesium Level 2.0 MG/DL (1.8-2.4) Total Bilirubin 1.4 MG/DL (0.2-1.0) H Direct Bilirubin 0.9 MG/DL (0.0-0.3) H Aspartate Amino Transf (AST/SGOT) 147 U/L (15-37) H Alanine Aminotransferase (ALT/SGPT) 55 U/L (12-78) Alkaline Phosphatase 441 U/L (46-116) H C-Reactive Protein, Quantitative 24.1 mg/dL (0.00-0.90) H Total Protein 6.2 G/DL (6.4-8.2) L Albumin 1.4 G/DL (3.4-5.0) L Globulin 4.8 g/dL Albumin/Globulin Ratio 0.3 (1.0-2.7) L Microbiology Date/Time Source Procedure Growth Status 04/08/19 21:20 Blood Blood Culture - Preliminary NO GROWTH AFTER 24 HOURS Resulted 04/08/19 21:10 Blood Blood Culture - Preliminary NO GROWTH AFTER 24 HOURS Resulted 04/07/19 19:10 Rectum VRE Culture - Final NO VANCOMYCIN RESISTANT ENTEROCOCCUS ... Complete Intake and Output 04/09/19 04/10/19 19:00 07:00 Intake Total 1172.705 ml 1092.500 ml Output Total 1530 ml 1470 ml Balance -357.295 ml -377.500 ml Intake Oral 220 ml IV Total 1172.705 ml 872.500 ml Output Urine Total 1530 ml 1470 ml Assessment/Plan Problem List: (1) Acute metabolic encephalopathy (2) Altered mental status (3) UTI (urinary tract infection) Assessment & Plan: Continue vanco and amikacin per ID - Dr Samano. await urine culture results. (4) Renal failure (5) DKA (diabetic ketoacidoses) Assessment & Plan: Continue insulin drip. See endocrinology note-Dr Hayes. (6) Right femoral fracture Assessment & Plan: See pelvic xray result. CT right hip refused by radiology. Await MRI right hip Cody Redmond MD Apr 10, 2019 14:47
--- NOTE | 2019-04-10 16:00 | NUR ---
NURSE NOTES: Patient is awake, alert and oriented x2, with confusion. Patient denies SOB or pain. jimenez cath intact, draining roni colored urine. patient remains afebrile.
--- NOTE | 2019-04-10 17:15 | NUR ---
HAND-OFF: Report given to HARDIK Huerta.
[2019-04-10] MEDS: cefTRIAXone 1 GM in NS 55 ML IVPB SCH (18:01)
--- NOTE | 2019-04-10 18:13 | General Progress Note ---
Assessment/Plan Problem List: (1) Acute metabolic encephalopathy ICD Codes: G93.41 - Metabolic encephalopathy SNOMED: 27357843, 804070662 (2) JOJO (acute kidney injury) ICD Codes: N17.9 - Acute kidney failure, unspecified SNOMED: 02553711, 9243920 (3) DKA (diabetic ketoacidoses) ICD Codes: E11.10 - Type 2 diabetes mellitus with ketoacidosis without coma SNOMED: 40594364, 137295533 (4) Renal failure ICD Codes: N19 - Unspecified kidney failure SNOMED: 93303301 (5) Pyelonephritis ICD Codes: N12 - Tubulo-interstitial nephritis, not specified as acute or chronic SNOMED: 91409534 Status: not improved Assessment/Plan: DKA has resolved but his insulin gtt rate requirement is high - continue to manage hyperglycemia with insulin gtt for another day - reduce frequency of glucose monitoring to every 2 hours Subjective ROS Limited/Unobtainable: Yes Allergies: Coded Allergies: No Known Allergies (Unverified , 04/07/19) Subjective events noted AG is closed but still requiring high dose insulin gtt Objective Last 24 Hour Vital Signs Date Time Temp Pulse Resp B/P (MAP) Pulse Ox O2 Delivery O2 Flow Rate FiO2 04/10/19 17:00 113 33 114/68 (83) 98 04/10/19 16:00 116 04/10/19 16:00 98.6 115 32 111/57 (75) 96 04/10/19 16:00 Room Air 04/10/19 15:00 116 29 118/70 (86) 96 04/10/19 14:00 116 28 118/70 (86) 97 04/10/19 13:00 111 34 113/69 (84) 98 04/10/19 12:00 109 04/10/19 12:00 98.4 100 30 119/73 (88) 98 04/10/19 12:00 Room Air 04/10/19 11:00 99 28 110/74 (86) 98 04/10/19 10:00 101 28 117/74 (88) 100 04/10/19 09:00 103 30 117/76 (90) 100 04/10/19 08:00 85 04/10/19 08:00 98.2 82 20 109/69 (82) 99 04/10/19 08:00 Room Air 04/10/19 07:00 80 17 110/73 (85) 98 04/10/19 06:00 76 19 105/76 (86) 99 04/10/19 05:00 79 19 107/73 (84) 100 04/10/19 04:00 Room Air 04/10/19 04:00 98.0 78 24 105/70 (82) 99 04/10/19 04:00 84 04/10/19 03:00 79 28 106/79 (88) 100 04/10/19 02:07 98.8 04/10/19 02:00 86 26 110/81 (91) 99 04/10/19 01:30 86 20 98 04/10/19 01:00 99.0 86 32 115/83 (94) 100 04/10/19 00:00 Room Air 04/10/19 00:00 100.0 100 22 103/61 (75) 98 04/10/19 00:00 94 04/09/19 23:00 106 23 106/65 (79) 99 04/09/19 22:00 99.4 111 24 108/66 (80) 98 04/09/19 21:00 120 23 108/72 (84) 96 04/09/19 20:15 99.9 04/09/19 20:00 115 04/09/19 20:00 99.9 129 27 123/85 (98) 98 04/09/19 20:00 Room Air 04/09/19 19:30 100.6 131 27 97 04/09/19 19:00 117 33 149/105 (120) 99 Intake and Output 04/09/19 04/10/19 19:00 07:00 Intake Total 1172.705 ml 1092.500 ml Output Total 1530 ml 1470 ml Balance -357.295 ml -377.500 ml Intake Oral 220 ml IV Total 1172.705 ml 872.500 ml Output Urine Total 1530 ml 1470 ml Laboratory Tests 04/09/19 20:50: Random Amikacin Level 5.3 04/10/19 05:30: White Blood Count 17.5H, Red Blood Count 3.50L, Hemoglobin 11.1L, Hematocrit 31.3L, Mean Corpuscular Volume 89, Mean Corpuscular Hemoglobin 31.7H, Mean Corpuscular Hemoglobin Concent 35.5, Red Cell Distribution Width 13.1, Platelet Count 42L, Mean Platelet Volume 10.3H, Neutrophils (%) (Auto) , Lymphocytes (%) (Auto) , Monocytes (%) (Auto) , Eosinophils (%) (Auto) , Basophils (%) (Auto) , Differential Total Cells Counted 100, Neutrophils % (Manual) 64, Lymphocytes % ( Manual) 9L, Monocytes % (Manual) 6, Eosinophils % (Manual) 0, Basophils % ( Manual) 0, Band Neutrophils 21H, Platelet Estimate DecreasedL, Platelet Morphology Normal, Red Blood Cell Morphology Normal, Erythrocyte Sedimentation Rate 105H, Sodium Level 145, Potassium Level 2.8L, Chloride Level 113H, Carbon Dioxide Level 21, Anion Gap 10, Blood Urea Nitrogen 34H, Creatinine 0.8, Estimat Glomerular Filtration Rate > 60, Glucose Level 173H, Calcium Level 8.9, Phosphorus Level 2.7, Magnesium Level 2.0, Total Bilirubin 1.4H, Direct Bilirubin 0.9H, Aspartate Amino Transf (AST/SGOT) 147H, Alanine Aminotransferase (ALT/SGPT) 55, Alkaline Phosphatase 441H, C-Reactive Protein, Quantitative 24.1H, Total Protein 6.2L, Albumin 1.4L, Globulin 4.8, Albumin/ Globulin Ratio 0.3L Height (Feet): 5 Height (Inches): 6.00 Weight (Pounds): 135 General Appearance: lethargic Neck: normal alignment Cardiovascular: normal rate Respiratory/Chest: decreased breath sounds Abdomen: normal bowel sounds Roland Hayes MD Apr 10, 2019 18:13
--- NOTE | 2019-04-10 19:15 | NUR ---
HAND-OFF: Report given to Miracle DYE.
--- NOTE | 2019-04-10 19:25 | NUR ---
NURSE NOTES: Received report from HARDIK Cano. Pt is awake and oriented x3 able to verbalize needs known to staff. NO SOB oxygen saturation room air 100%. ST 120's on alarm security or surveillance monitor. RR 30's. No s/s of acute distress noted. no s/s of hypo/hyperglycemia. Daniels catheter in place draining to gravity. IV to right FA G20 and left AC G18 patent and asymptomatic. Pt is on Insulin drip 0.5 units/ hr in Algo 2 and D5 1/2 NS with KCL 20 mEq 75cc/hr. Patient watching TV. Instructed patient to use call light for assistance. Bed in lowest position. Side rails up x3. Bed exit alarm on. Will continue plan of care.
--- NOTE | 2019-04-10 20:16 | NUR ---
NURSE NOTES: Rechecked Temp 100.6 oral Tylenol 650mg tab po given. patient able to swallow pill without difficulty, no coughing. Ice water given. will continue cooling measure.
--- NOTE | 2019-04-10 20:30 | NUR ---
NURSE NOTES: Patient with episode of x1 large brown soft from BM, collected stool OB send to lab. Bed bath given tolerated well. Patient able to hold on the side rail while turning. Instructed patient to use call light for assistance. will continue to monitor patient.
--- NOTE | 2019-04-10 22:00 | NUR ---
NURSE NOTES: Blood glucose 221mg/dl. patient on Insulin drip Algorithm 2 at 4.5mls/hr. Denies any pain or discomfort. Temp 99 oral. frequent visual checks continue.
[2019-04-10] MEDS: Vancomycin 1.25gm/NS Premix IVPB SCH (22:36)
[2019-04-11] VITALS (24 sets, daily range): BP systolic 91–146; BP diastolic 44–103
--- NOTE | 2019-04-11 | NUR ---
NURSE NOTES: Blood glucose 148mg/dl. patient on Insulin drip Algorithm 2 at 2 mls/hr. Denies any pain or discomfort. Temp 98.4 oral. patient requesting snacks per Dr. Kemp its okay to give snacks to patient will change the diet order. frequent visual checks continue.
--- NOTE | 2019-04-11 01:07 | NUR ---
NURSE NOTES: patient ate Tuna sandwich and apple juice tolerated well.
--- NOTE | 2019-04-11 02:15 | NUR ---
NURSE NOTES: Patient in bed sleeping comfortably. Blood glucose 237mg/dl. patient on Insulin drip Algorithm 2 at 4.5mls/hr. Denies any pain or discomfort. frequent visual checks continue.
--- NOTE | 2019-04-11 04:10 | NUR ---
NURSE NOTES: Patient in bed sleeping comfortably. Blood glucose 224mg/dl. patient on Insulin drip Algorithm 2 at 4.5mls/hr. Denies any pain or discomfort. frequent visual checks continue.Daniels draining.
[2019-04-11 05:04] LABS: HEMATOCRIT 29.4 % (42.0-52.0); HEMOGLOBIN 10.2 G/DL (14.2-18.0); MEAN CORPUSCULAR VOLUME 89 FL (80-99); PLATELET COUNT 62 K/UL (150-450); RED CELL DISTRIBUTION WIDTH 13.5 % (11.6-14.8); WHITE BLOOD COUNT 14.2 K/UL (4.8-10.8)
[2019-04-11 05:32] LABS: ANION GAP 10 mmol/L (5-15); BLOOD UREA NITROGEN 18 mg/dL (7-18); CARBON DIOXIDE 21 MMOL/L (21-32); CHLORIDE 110 MMOL/L (98-107); CREATININE 0.9 MG/DL (0.55-1.30); POTASSIUM 2.9 MMOL/L (3.5-5.1); SODIUM 141 MMOL/L (136-145)
--- NOTE | 2019-04-11 05:51 | NUR ---
NURSE NOTES: Patient with 102 Temp oral, cooling measure provided not effective. Tylenol 650mg tab po given and ice water given.will monitor patient, denies any pain or discomfort. no s/s of hypo/hyperglycemia.
[2019-04-11] MEDS: Insulin Rate Change 1 Each MISC PRN ×4 (06:00→23:47)
--- NOTE | 2019-04-11 06:21 | NUR ---
NURSE NOTES: Rechecked Temp 99.6 oral.
--- NOTE | 2019-04-11 06:56 | General Progress Note ---
Assessment/Plan Problem List: (1) Acute metabolic encephalopathy ICD Codes: G93.41 - Metabolic encephalopathy SNOMED: 48437013, 202120993 (2) JOJO (acute kidney injury) ICD Codes: N17.9 - Acute kidney failure, unspecified SNOMED: 70679301, 6068439 (3) DKA (diabetic ketoacidoses) ICD Codes: E11.10 - Type 2 diabetes mellitus with ketoacidosis without coma SNOMED: 16431663, 485077446 (4) Renal failure ICD Codes: N19 - Unspecified kidney failure SNOMED: 39572204 (5) Pyelonephritis ICD Codes: N12 - Tubulo-interstitial nephritis, not specified as acute or chronic SNOMED: 79943936 Status: not improved Assessment/Plan: DKA has resolved but his insulin gtt rate requirement is high - continue to manage hyperglycemia with insulin gtt for another day - reduce frequency of glucose monitoring to every 2 hours Subjective Allergies: Coded Allergies: No Known Allergies (Unverified , 04/07/19) Subjective events noted insulin gtt requirement remained high Objective Last 24 Hour Vital Signs Date Time Temp Pulse Resp B/P (MAP) Pulse Ox O2 Delivery O2 Flow Rate FiO2 04/11/19 06:21 99.6 04/11/19 06:00 102.0 120 26 146/82 (103) 98 04/11/19 05:00 100 30 105/56 (72) 97 04/11/19 04:00 100.0 101 30 91/51 (64) 95 04/11/19 04:00 Room Air 04/11/19 04:00 98 04/11/19 04:00 110 04/11/19 03:00 96 29 101/59 (73) 96 04/11/19 02:00 94 28 93/44 (60) 98 04/11/19 01:00 88 29 109/60 (76) 94 04/11/19 00:00 98.4 79 27 104/61 (75) 100 04/11/19 00:00 Room Air 04/10/19 23:00 99.0 80 28 96/58 (71) 100 04/10/19 22:00 87 29 100/57 (71) 99 04/10/19 21:00 99.8 100 33 93/48 (63) 98 04/10/19 20:00 118 04/10/19 20:00 Room Air 04/10/19 20:00 100.6 109 36 109/56 (73) 100 04/10/19 19:00 113 32 111/77 (88) 97 04/10/19 18:00 110 33 106/63 (77) 97 04/10/19 17:00 113 33 114/68 (83) 98 04/10/19 16:00 116 04/10/19 16:00 98.6 115 32 111/57 (75) 96 04/10/19 16:00 Room Air 04/10/19 15:00 116 29 118/70 (86) 96 04/10/19 14:00 116 28 118/70 (86) 97 04/10/19 13:00 111 34 113/69 (84) 98 04/10/19 12:00 109 04/10/19 12:00 98.4 100 30 119/73 (88) 98 04/10/19 12:00 Room Air 04/10/19 11:00 99 28 110/74 (86) 98 04/10/19 10:00 101 28 117/74 (88) 100 04/10/19 09:00 103 30 117/76 (90) 100 04/10/19 08:00 85 04/10/19 08:00 98.2 82 20 109/69 (82) 99 04/10/19 08:00 Room Air 04/10/19 07:00 80 17 110/73 (85) 98 Intake and Output 04/10/19 04/11/19 19:00 07:00 Intake Total 1906.075 ml 1504.500 ml Output Total 1670 ml 2580 ml Balance 236.075 ml -1075.500 ml Intake Oral 250 ml 370 ml IV Total 1656.075 ml 1134.500 ml Output Urine Total 1670 ml 2580 ml # Bowel Movements 3 Laboratory Tests 04/10/19 20:15: Stool Occult Blood [Pending] 04/10/19 20:30: Vancomycin Level Trough 12.3H 04/11/19 04:10: White Blood Count 14.2H, Red Blood Count 3.30L, Hemoglobin 10.2L, Hematocrit 29.4L, Mean Corpuscular Volume 89, Mean Corpuscular Hemoglobin 31.0, Mean Corpuscular Hemoglobin Concent 34.8, Red Cell Distribution Width 13.5, Platelet Count 62L, Mean Platelet Volume 9.7, Neutrophils (%) (Auto) , Lymphocytes (%) ( Auto) , Monocytes (%) (Auto) , Eosinophils (%) (Auto) , Basophils (%) (Auto) , Sodium Level 141, Potassium Level 2.9L, Chloride Level 110H, Carbon Dioxide Level 21, Anion Gap 10, Blood Urea Nitrogen 18, Creatinine 0.9, Estimat Glomerular Filtration Rate > 60, Glucose Level 256H, Calcium Level 8.0L Height (Feet): 5 Height (Inches): 6.00 Weight (Pounds): 135 General Appearance: lethargic Neck: normal alignment Cardiovascular: normal rate Respiratory/Chest: decreased breath sounds Abdomen: normal bowel sounds Pelvis: normal external exam Objective Current Medications Medications (Trade) Dose Ordered Sig/Jose Route PRN Reason Start Time Stop Time Status Last Admin Dose Admin Acetaminophen (Tylenol) 650 mg Q4H PRN ORAL Mild Pain/Temp > 100.5 04/08/19 00:30 05/08/19 00:29 04/11/19 05:51 Acetaminophen/ Hydrocodone Bitart ([place] 5/325) 1 tab Q6H PRN ORAL For Pain 04/08/19 00:30 04/15/19 00:29 04/10/19 01:37 Amikacin Protocol (Amikacin pharmacy to dose) 1 ea DAILY PRN MISC Per rx protocol 04/09/19 06:30 05/09/19 06:29 Amikacin Sulfate 925 mg/Sodium Chloride 113.7 ml @ 113.7 mls/ hr Q24H IV 04/09/19 08:00 04/16/19 07:59 04/10/19 08:18 Ceftriaxone Sodium 1 gm/ Sodium Chloride 55 ml @ 110 mls/hr Q24H IVPB 04/08/19 18:00 04/15/19 17:59 04/10/19 18:01 Dextrose (Dextrose 50%) 25 ml Q30M PRN IV HYPOGLYCEMIA 04/08/19 00:30 05/08/19 00:29 Dextrose (Dextrose 50%) 50 ml Q30M PRN IV HYPOGLYCEMIA 04/08/19 00:30 05/08/19 00:29 Dextrose/ Electrolytes 1,000 ml @ 75 mls/hr [id number] IV 04/10/19 10:00 05/10/19 09:59 04/10/19 22:36 Famotidine (Pepcid) 10 mg BID ORAL 04/08/19 09:00 05/08/19 08:59 04/10/19 18:01 Insulin Human Regular (NovoLIN R) 5 units PRN PRN IV BS 200-299 04/08/19 00:30 05/08/19 00:29 04/10/19 16:01 Insulin Human Regular (NovoLIN R) 10 units PRN PRN IV BS=>300 04/08/19 00:30 05/08/19 00:29 Insulin Human Regular 100 units/ Sodium Chloride 100 ml @ 0 mls/hr Q24H IV 04/10/19 10:30 05/10/19 10:29 04/10/19 17:46 Miscellaneous Medication (Insulin Rate Change) 1 ea PRN PRN MISC Hyperglycemia 04/08/19 00:30 05/08/19 00:29 04/11/19 06:00 Morphine Sulfate (Morphine Sulfate) 2 mg Q4H PRN IVP Severe Pain (Pain Scale 7-10) 04/09/19 10:45 04/16/19 10:44 Ondansetron HCl (Zofran) 4 mg EVERY 4 HOURS PRN IVP Nausea & Vomiting 04/08/19 00:30 05/08/19 00:29 Vancomycin HCl (Vanco rx to dose) 1 ea DAILY PRN MISC Per rx protocol 04/09/19 06:30 05/09/19 06:29 Vancomycin/Sodium Chloride 275 ml @ 183.333 mls/hr Q12HR IVPB 04/10/19 22:00 04/15/19 21:59 04/10/19 22:36 Roland Hayes MD Apr 11, 2019 06:56
--- NOTE | 2019-04-11 07:20 | NUR ---
HAND-OFF: Report given to Lizzie De Leon RN.
--- NOTE | 2019-04-11 07:30 | NUR ---
NURSE NOTES: Received patient form HARDIK Rausch. Patient showing sinus tachycardia on the child monitor. patient denies pain or acute distress at this time. Patient alert to name, place, who the president is, and confused to purpose and date/time. Reoriented him at this time. Patient able to follow commands and able to have a conversation. Patient has a fever of 100.6 at this time. Patient received Tylenol at 0551 this morning. Cooling measures applied. Will continue to monitor and give more Tylenol as ordered if needed. Patient on room air with saturation 100% and RR 20 at this time. Patient blood pressure stable at 114/62. Patient now on controlled carbohydrate diet. Breakfast tray given at this time. Patient was admitted for DKA and is currently on insulin drip, algorithm 2. Will continue to monitor and adjust drip per protocol. Patient has right forearm 20 gauge peripheral IV that is patent, asymptomatic, and running 20 gauge peripheral IV that is patent/asymptomatic, and running D5 0.45% NS with 20mEq at 75mL/hr and left antecubital 18 gauge peripheral IV that is patent, asymptomatic, and running insulin drip at 6.5units/hr at this time. Patient sitting up and eating at this time. Patient able to reposition on his own. Toothbrush/toothpaste/mouthwash given to patient. Will continue to monitor. Patient has potassium of 2.9 t his morning. Will follow up with Dr Osborn for coverage. Patient has order for MRI of the right hip. Will follow up with radiology when they arrive.
[2019-04-11] MEDS: AMIKACIN IV SCH (08:40)
[2019-04-11] MEDS: NS IV SCH (08:40)
[2019-04-11] MEDS: Vancomycin 1.25gm/NS Premix IVPB SCH ×2 (08:56→20:02)
--- NOTE | 2019-04-11 09:17 | NUR ---
NURSE NOTES: Spoke with Dr Osborn. Notified him that the patient has low serum potassium of 2.9 this morning. Received order for 40mEq K-DUR PO today now and BID. order read back, confirmed, and placed at this time.
--- NOTE | 2019-04-11 09:26 | NUR ---
NURSE NOTES: Left message for Dr Samano on his answering service regarding positive MRSA of the nares. Awaiting call back.
--- NOTE | 2019-04-11 09:53 | Consultation ---
Consult Note Consult Note asked to eval for electrolyte management data reviewed examined discussed with teacher of the sight impaired/Plan (1) DKA (diabetic ketoacidoses) (2) JOJO (acute kidney injury) (3) Pyelonephritis (4) Electrolyte imbalance PO KCL Monitor lytes recheck UA per orders Russ Osborn MD Apr 11, 2019 09:53
[2019-04-11] MEDS: Insulin Human Regular 100units/ml 3ml IV PRN ×4 (10:23→20:03)
--- NOTE | 2019-04-11 10:31 | Diagnostic Imaging Report ---
APPROVED REPORT CPT Code: 89554 Present Symptoms Shortness of breath BILATERAL: Imaging reveals a patent deep venous system bilaterally. There is no evidence of thrombus within the femoral, popliteal or tibial segments. The greater saphenous veins are also within normal limits. Doppler indicates normal spontaneous flow within these segments.
--- NOTE | 2019-04-11 10:46 | NUR ---
NURSE NOTES: Patient due for MRI today of the right hip. Patient is on insulin drip. Called Dr Hayes and received order for patient to be off of insulin drip while in MRI. Order read back, verified, and placed as other nursing order at this time.
[2019-04-11] MEDS ORDERED: Lidocaine 1% Plain 30 ml INJ SCH (11:00)
--- NOTE | 2019-04-11 11:00 | Pulmonolgy Critical Care Note ---
Critical Care - Asmt/Plan Problems: (1) DKA (diabetic ketoacidoses) (2) JOJO (acute kidney injury) (3) Pyelonephritis (4) Renal abscess Respiratory: monitor respiratory rate, adjust FIO2 Cardiac: continue to monitor HR/BP Renal: F/U I&O, decrease IV fluid Infectious Disease: check cultures, continue antibiotics, other - will need drainage of the renal abscess Endocrine: monitor blood sugar Hematologic: monitor H/H, transfuse if hgb<8.5 Neurologic: PRN Ativan, keep patient comfortable Affect: PRN ativan Prophylaxis: Protonix Notes Reviewed: a and p mechanic, cardio, renal Discussed with: nurses Critical Care - Objective Last 24 Hour Vital Signs Date Time Temp Pulse Resp B/P (MAP) Pulse Ox O2 Delivery O2 Flow Rate FiO2 04/11/19 08:00 98.6 98 25 108/62 (77) 100 04/11/19 07:00 115 28 114/62 (79) 99 04/11/19 06:21 99.6 04/11/19 06:21 99.6 04/11/19 06:00 120 26 146/82 (103) 98 04/11/19 06:00 102.0 120 26 146/82 (103) 98 04/11/19 05:00 100 30 105/56 (72) 97 04/11/19 04:00 100.0 101 30 91/51 (64) 95 04/11/19 04:00 Room Air 04/11/19 04:00 98 04/11/19 04:00 110 04/11/19 03:00 96 29 101/59 (73) 96 04/11/19 02:00 94 28 93/44 (60) 98 04/11/19 01:00 88 29 109/60 (76) 94 04/11/19 00:00 98.4 79 27 104/61 (75) 100 04/11/19 00:00 Room Air 04/10/19 23:00 99.0 80 28 96/58 (71) 100 04/10/19 22:00 87 29 100/57 (71) 99 04/10/19 21:00 99.8 100 33 93/48 (63) 98 04/10/19 20:00 118 04/10/19 20:00 Room Air 04/10/19 20:00 100.6 109 36 109/56 (73) 100 04/10/19 19:00 113 32 111/77 (88) 97 04/10/19 18:00 110 33 106/63 (77) 97 04/10/19 17:00 113 33 114/68 (83) 98 04/10/19 16:00 116 04/10/19 16:00 98.6 115 32 111/57 (75) 96 04/10/19 16:00 Room Air 04/10/19 15:00 116 29 118/70 (86) 96 04/10/19 14:00 116 28 118/70 (86) 97 04/10/19 13:00 111 34 113/69 (84) 98 04/10/19 12:00 109 04/10/19 12:00 98.4 100 30 119/73 (88) 98 04/10/19 12:00 Room Air 04/10/19 11:00 99 28 110/74 (86) 98 Status: awake Condition: critical Heart: HR/BP stable Abdomen: soft, feeding tube Decubiti: location Micro: Microbiology Date/Time Source Procedure Growth Status 04/08/19 21:20 Blood Blood Culture - Preliminary NO GROWTH AFTER 48 HOURS Resulted 04/08/19 21:10 Blood Blood Culture - Preliminary NO GROWTH AFTER 48 HOURS Resulted 04/10/19 11:20 Indwelling Cath Urine Culture - Preliminary Resulted Accucheck: 224 Critical Care - Subjective ROS Limited/Unobtainable: Yes Interval Events: still on insulin drip of 4 units I&O: Intake and Output 04/10/19 04/11/19 19:00 07:00 Intake Total 1906.075 ml 1586.000 ml Output Total 1670 ml 2780 ml Balance 236.075 ml -1194.000 ml Intake Oral 250 ml 370 ml IV Total 1656.075 ml 1216.000 ml Output Urine Total 1670 ml 2780 ml # Bowel Movements 3 Labs: Laboratory Tests Test 04/10/19 20:15 04/10/19 20:30 04/11/19 04:10 04/11/19 10:10 Stool Occult Blood Pending Vancomycin Level Trough 12.3 ug/mL (5.0-12.0) H White Blood Count 14.2 K/UL (4.8-10.8) H Red Blood Count 3.30 M/UL (4.70-6.10) L Hemoglobin 10.2 G/DL (14.2-18.0) L Hematocrit 29.4 % (42.0-52.0) L Mean Corpuscular Volume 89 FL (80-99) Mean Corpuscular Hemoglobin 31.0 PG (27.0-31.0) Mean Corpuscular Hemoglobin Concent 34.8 G/DL (32.0-36.0) Red Cell Distribution Width 13.5 % (11.6-14.8) Platelet Count 62 K/UL (150-450) L Mean Platelet Volume 9.7 FL (6.5-10.1) Neutrophils (%) (Auto) % (45.0-75.0) Lymphocytes (%) (Auto) % (20.0-45.0) Monocytes (%) (Auto) % (1.0-10.0) Eosinophils (%) (Auto) % (0.0-3.0) Basophils (%) (Auto) % (0.0-2.0) Sodium Level 141 MMOL/L (136-145) Potassium Level 2.9 MMOL/L (3.5-5.1) L Chloride Level 110 MMOL/L (98-107) H Carbon Dioxide Level 21 MMOL/L (21-32) Anion Gap 10 mmol/L (5-15) Blood Urea Nitrogen 18 mg/dL (7-18) Creatinine 0.9 MG/DL (0.55-1.30) Estimat Glomerular Filtration Rate > 60 mL/min (>60) Glucose Level 256 MG/DL (74-106) H Calcium Level 8.0 MG/DL (8.5-10.1) L Acetone Level Pending Donny Kemp MD Apr 11, 2019 11:00
--- NOTE | 2019-04-11 11:05 | Infectious Diseases Prog Note ---
Assessment/Plan Assessment/Plan The patient is a 38-year-old male with: Leukocytosis; improving Sepsis. Emphysematous pyelonephritis with likely right kidney abscess -u/a wbc 10-15, nit neg, leuk +1; ucx p -BCx p Diabetes and now with DKA. Rule out biliary disease. Thrombocytopenia (probably due to sepsis -HIV, hep panel neg Fever Elevated alkaline phosphatase (ultrasound unremarkable for biliary disease). CT 04/09/19 1. Emphysematous pyelonephritis in the right kidney, most prominently affecting the right lower pole, with a 7.6 x 7.4 x 5.3 cm air-fluid collection in the lower pole likely representing renal abscess extending to the perirenal fat. No definite fat plane between this collection and the adjacent right psoas musculature. Extensive adjacent inflammatory stranding. 2. Daniels catheter balloon and tip within the urinary bladder lumen. Mild diffuse urinary bladder wall thickening, suggestive of cystitis. . PLAN: 1. Switch IV Rocephin #4 to Meropenem and Dc amikacin #3 2. Continue empiric IV Vancomycin #2 for now pending CXR 3. Monitor CBC, BMP. 4. Monitor cultures, blood and urine. 5. CXR 6. Continue intensive care. 7. Urology eval Thank you, Dr. Kemp, for allowing me to participate in the care of this patient. I will follow the patient with you. Subjective Allergies: Coded Allergies: No Known Allergies (Unverified , 04/07/19) Subjective Tm 102 wbc improving Bcx NTD Ucx p Objective Vital Signs Last 24 Hour Vital Signs Date Time Temp Pulse Resp B/P (MAP) Pulse Ox O2 Delivery O2 Flow Rate FiO2 04/11/19 08:00 98.6 98 25 108/62 (77) 100 04/11/19 07:00 115 28 114/62 (79) 99 04/11/19 06:21 99.6 04/11/19 06:21 99.6 04/11/19 06:00 120 26 146/82 (103) 98 04/11/19 06:00 102.0 120 26 146/82 (103) 98 04/11/19 05:00 100 30 105/56 (72) 97 04/11/19 04:00 100.0 101 30 91/51 (64) 95 04/11/19 04:00 Room Air 04/11/19 04:00 98 04/11/19 04:00 110 04/11/19 03:00 96 29 101/59 (73) 96 04/11/19 02:00 94 28 93/44 (60) 98 04/11/19 01:00 88 29 109/60 (76) 94 04/11/19 00:00 98.4 79 27 104/61 (75) 100 04/11/19 00:00 Room Air 04/10/19 23:00 99.0 80 28 96/58 (71) 100 04/10/19 22:00 87 29 100/57 (71) 99 04/10/19 21:00 99.8 100 33 93/48 (63) 98 04/10/19 20:00 118 04/10/19 20:00 Room Air 04/10/19 20:00 100.6 109 36 109/56 (73) 100 04/10/19 19:00 113 32 111/77 (88) 97 04/10/19 18:00 110 33 106/63 (77) 97 04/10/19 17:00 113 33 114/68 (83) 98 04/10/19 16:00 116 04/10/19 16:00 98.6 115 32 111/57 (75) 96 04/10/19 16:00 Room Air 04/10/19 15:00 116 29 118/70 (86) 96 04/10/19 14:00 116 28 118/70 (86) 97 04/10/19 13:00 111 34 113/69 (84) 98 04/10/19 12:00 109 04/10/19 12:00 98.4 100 30 119/73 (88) 98 04/10/19 12:00 Room Air 04/10/19 11:00 99 28 110/74 (86) 98 Height (Feet): 5 Height (Inches): 6.00 Weight (Pounds): 135 Objective GEN: NAD HEENT: NCAT, MMM LUNGS: Coarse B/L HEART: RR, s1,s2 Abd TTP, SOft Microbiology Date/Time Source Procedure Growth Status 04/08/19 21:20 Blood Blood Culture - Preliminary NO GROWTH AFTER 48 HOURS Resulted 04/08/19 21:10 Blood Blood Culture - Preliminary NO GROWTH AFTER 48 HOURS Resulted 04/10/19 11:20 Indwelling Cath Urine Culture - Preliminary Resulted Laboratory Tests Test 04/10/19 20:15 04/10/19 20:30 04/11/19 04:10 04/11/19 10:10 Stool Occult Blood Pending Vancomycin Level Trough 12.3 ug/mL (5.0-12.0) H White Blood Count 14.2 K/UL (4.8-10.8) H Red Blood Count 3.30 M/UL (4.70-6.10) L Hemoglobin 10.2 G/DL (14.2-18.0) L Hematocrit 29.4 % (42.0-52.0) L Mean Corpuscular Volume 89 FL (80-99) Mean Corpuscular Hemoglobin 31.0 PG (27.0-31.0) Mean Corpuscular Hemoglobin Concent 34.8 G/DL (32.0-36.0) Red Cell Distribution Width 13.5 % (11.6-14.8) Platelet Count 62 K/UL (150-450) L Mean Platelet Volume 9.7 FL (6.5-10.1) Neutrophils (%) (Auto) % (45.0-75.0) Lymphocytes (%) (Auto) % (20.0-45.0) Monocytes (%) (Auto) % (1.0-10.0) Eosinophils (%) (Auto) % (0.0-3.0) Basophils (%) (Auto) % (0.0-2.0) Sodium Level 141 MMOL/L (136-145) Potassium Level 2.9 MMOL/L (3.5-5.1) L Chloride Level 110 MMOL/L (98-107) H Carbon Dioxide Level 21 MMOL/L (21-32) Anion Gap 10 mmol/L (5-15) Blood Urea Nitrogen 18 mg/dL (7-18) Creatinine 0.9 MG/DL (0.55-1.30) Estimat Glomerular Filtration Rate > 60 mL/min (>60) Glucose Level 256 MG/DL (74-106) H Calcium Level 8.0 MG/DL (8.5-10.1) L Acetone Level Pending Current Medications Medications (Trade) Dose Ordered Sig/Jose Route PRN Reason Start Time Stop Time Status Last Admin Dose Admin Acetaminophen (Tylenol) 650 mg Q4H PRN ORAL Mild Pain/Temp > 100.5 04/08/19 00:30 05/08/19 00:29 04/11/19 05:51 Acetaminophen/ Hydrocodone Bitart ([place] 5/325) 1 tab Q6H PRN ORAL For Pain 04/08/19 00:30 04/15/19 00:29 04/10/19 01:37 Amikacin Protocol (Amikacin pharmacy to dose) 1 ea DAILY PRN MISC Per rx protocol 04/09/19 06:30 05/09/19 06:29 Amikacin Sulfate 925 mg/Sodium Chloride 113.7 ml @ 113.7 mls/ hr Q24H IV 04/09/19 08:00 04/16/19 07:59 04/11/19 08:40 Ceftriaxone Sodium 1 gm/ Sodium Chloride 55 ml @ 110 mls/hr Q24H IVPB 04/08/19 18:00 04/15/19 17:59 04/10/19 18:01 Dextrose (Dextrose 50%) 25 ml Q30M PRN IV HYPOGLYCEMIA 04/08/19 00:30 05/08/19 00:29 Dextrose (Dextrose 50%) 50 ml Q30M PRN IV HYPOGLYCEMIA 04/08/19 00:30 05/08/19 00:29 Folic Acid (Folate) 3 mg DAILY ORAL 04/11/19 10:00 05/11/19 09:59 04/11/19 10:04 Insulin Human Regular (NovoLIN R) 5 units PRN PRN IV BS 200-299 04/08/19 00:30 05/08/19 00:29 04/11/19 10:23 Insulin Human Regular (NovoLIN R) 10 units PRN PRN IV BS=>300 04/08/19 00:30 05/08/19 00:29 Insulin Human Regular 100 units/ Sodium Chloride 100 ml @ 0 mls/hr Q24H IV 04/10/19 10:30 05/10/19 10:29 04/10/19 17:46 Miscellaneous Medication (Insulin Rate Change) 1 ea PRN PRN MISC Hyperglycemia 04/08/19 00:30 05/08/19 00:29 04/11/19 06:00 Ondansetron HCl (Zofran) 4 mg EVERY 4 HOURS PRN IVP Nausea & Vomiting 04/08/19 00:30 05/08/19 00:29 Potassium Chloride (K-Dur) 40 meq TID ORAL 04/11/19 13:00 05/11/19 09:14 Vancomycin HCl (Vanco rx to dose) 1 ea DAILY PRN MISC Per rx protocol 04/09/19 06:30 05/09/19 06:29 Vancomycin/Sodium Chloride 275 ml @ 183.333 mls/hr Q12HR IVPB 04/10/19 22:00 04/15/19 21:59 04/11/19 08:56 Hanny August M.D. Apr 11, 2019 11:05
--- NOTE | 2019-04-11 11:20 | NUR ---
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
[2019-04-11 11:22] LABS: APPEARANCE,URINE CLOUDY; BILIRUBIN, URINE NEGATIVE (NEGATIVE); GLUCOSE, URINE (UA) 3+ (NEGATIVE); KETONES,URINE NEGATIVE (NEGATIVE); LEUKOCYTE ESTERASE ,URINE 2+ (NEGATIVE); NITRITE,URINE NEGATIVE (NEGATIVE); PH,URINE 5 (4.5-8.0); PROTEIN,URINE NEGATIVE (NEGATIVE); UROBILINOGEN,URINE 8 MG/DL (0.0-1.0)
[2019-04-11 11:24] LABS: COLOR,URINE YELLOW
--- NOTE | 2019-04-11 11:25 | NUR ---
NURSE NOTES: Patient was about to go to MRI for the right hip and Dr Kemp was rounding on the patient. He reported that if the patient is able to stand/walk without pain, he does not need MRI. Patient assisted to stand without difficulty. Patient is weak, but he is able to stand with minimal assistance and denies pain in the hip or in the legs. Patient assisted back to bed. Received order from Dr Kemp for the MRI to be canceled. order read back, verified, and placed at this time. Patient continues to deny pain and states that he is weak. Asked for physical therapy order from Dr Kemp.
--- NOTE | 2019-04-11 11:53 | NUR ---
NURSE NOTES: Patient reported that he has been experiencing occasional tingling/burning sensation in his legs. Called Dr Spain's office and left message regarding this problem. Awaiting call back.
--- NOTE | 2019-04-11 12:00 | NUR ---
NURSE NOTES: Patient showing sinus rhythm on the quality assurance monitor final. patient denies pain or acute distress at this time. Patient alert to name, place, time, and purpose. Patient no longer has fever. Patient on room air with saturation 100% and RR 19 at this time. Patient blood pressure stable at 115/72. Patient remains on insulin drip on algorithm 2 at 2 units an hour. Will continue to monitor and adjust drip per protocol. Right forearm 20 gauge peripheral IV remains patent, asymptomatic, and saline locked and left antecubital 18 gauge peripheral IV remains patent, asymptomatic, and running insulin drip at 2units/hr at this time. Patient sitting up and eating at this time. Patient able to reposition on his own. Dr Osborn ordered coverage for 2.9 Potassium. IV fluid discontinued. Patient bed in low position with bed alarm on and call light in reach at this time.
--- NOTE | 2019-04-11 14:52 | Diagnostic Imaging Report ---
Indication: Cough Technique: One view of the chest Comparison: none Findings: There is elevation the right hemidiaphragm. There are atelectatic changes at the right lung base. There is some scarring or atelectasis at the left lung base. The lungs and pleural spaces are otherwise clear. The heart size is normal. Impression: Basilar atelectatic changes and/or scarring No acute process otherwise
--- NOTE | 2019-04-11 16:00 | NUR ---
NURSE NOTES: Patient showing sinus rhythm on the library monitor. Patient denies pain or acute distress at this time. Patient alert to name, place, time, and purpose. Patient does not have fever at this time. Patient on room air with saturation 100% and RR 19 at this time. Patient blood pressure stable at 98/54. Patient remains on insulin drip on algorithm 2 at 4 units an hour. Will continue to monitor and adjust drip per protocol. Right forearm 20 gauge peripheral IV remains patent, asymptomatic, and saline locked and left antecubital 18 gauge peripheral IV remains patent, asymptomatic, and running insulin drip at 2units/hr at this time. Patient sitting up and eating at this time. Patient bed in low position with bed alarm on and call light in reach.
--- NOTE | 2019-04-11 16:07 | NUR ---
NURSE NOTES:WOUND CARE NOTES: Pt presented on admission with reabsorbing blood blister lateral L heel(L)2cm x (W)2cm. Pt unable to confirm how and when he developed blister on his heel. Pt stated he was unaware he had a blister on his heel . Pt complained of having frequent leg spasms that are more frequent when resting than when ambulatory. Pt stated he also has burning sensations in both lower ext. No other skin concerns noted . Tx.Plan: Apply Cavilon Skin Barrier to both heels. Cover each heel with Optifoam drsg. Change every 7 days and prn.
[2019-04-11] MEDS: Meropenem 1 GM in NS 55 ML IVPB SCH ×2 (16:39→21:57)
--- NOTE | 2019-04-11 18:50 | Internal Med Progress Note ---
Subjective Date of Service: Apr 11, 2019 Physician Name Cody Redmond Attending Physician Isaías Spain MD Current Medications Medications (Trade) Dose Ordered Sig/Jose Route PRN Reason Start Time Stop Time Status Last Admin Dose Admin Acetaminophen (Tylenol) 650 mg Q4H PRN ORAL Mild Pain/Temp > 100.5 04/08/19 00:30 05/08/19 00:29 04/11/19 05:51 Acetaminophen/ Hydrocodone Bitart ([place] 5/325) 1 tab Q6H PRN ORAL For Pain 04/08/19 00:30 04/15/19 00:29 04/10/19 01:37 Dextrose (Dextrose 50%) 25 ml Q30M PRN IV HYPOGLYCEMIA 04/08/19 00:30 05/08/19 00:29 Dextrose (Dextrose 50%) 50 ml Q30M PRN IV HYPOGLYCEMIA 04/08/19 00:30 05/08/19 00:29 Folic Acid (Folate) 3 mg DAILY ORAL 04/11/19 10:00 05/11/19 09:59 04/11/19 10:04 Insulin Human Regular (NovoLIN R) 5 units PRN PRN IV BS 200-299 04/08/19 00:30 05/08/19 00:29 04/11/19 18:10 Insulin Human Regular (NovoLIN R) 10 units PRN PRN IV BS=>300 04/08/19 00:30 05/08/19 00:29 Insulin Human Regular 100 units/ Sodium Chloride 100 ml @ 0 mls/hr Q24H IV 04/10/19 10:30 05/10/19 10:29 04/11/19 16:51 Meropenem 1 gm/ Sodium Chloride 55 ml @ 110 mls/hr Q8HR IVPB 04/11/19 14:00 04/16/19 13:59 04/11/19 16:39 Miscellaneous Medication (Insulin Rate Change) 1 ea PRN PRN MISC Hyperglycemia 04/08/19 00:30 05/08/19 00:29 04/11/19 06:00 Ondansetron HCl (Zofran) 4 mg EVERY 4 HOURS PRN IVP Nausea & Vomiting 04/08/19 00:30 05/08/19 00:29 Potassium Chloride (K-Dur) 40 meq TID ORAL 04/11/19 13:00 05/11/19 09:14 04/11/19 18:03 Vancomycin HCl (Vanco rx to dose) 1 ea DAILY PRN MISC Per rx protocol 04/09/19 06:30 05/09/19 06:29 Vancomycin/Sodium Chloride 275 ml @ 183.333 mls/hr Q12HR IVPB 04/10/19 22:00 04/15/19 21:59 04/11/19 08:56 Allergies: Coded Allergies: No Known Allergies (Unverified , 04/07/19) Subjective 38 YO M admitted with altered mental status. Now DKA and right perinephric abscess. Cover for Int Med-Dr Spain. ICU. On insulin drip Objective Last Vital Signs Date Time Temp Pulse Resp B/P (MAP) Pulse Ox O2 Delivery O2 Flow Rate FiO2 04/11/19 16:00 Room Air 04/11/19 12:00 98 04/11/19 12:00 98.6 32 115/78 (90) 99 04/09/19 16:00 2.0 Laboratory Tests Test 04/10/19 20:15 04/10/19 20:30 04/11/19 04:10 04/11/19 10:10 Stool Occult Blood Positive (NEGATIVE) Vancomycin Level Trough 12.3 ug/mL (5.0-12.0) H White Blood Count 14.2 K/UL (4.8-10.8) H Red Blood Count 3.30 M/UL (4.70-6.10) L Hemoglobin 10.2 G/DL (14.2-18.0) L Hematocrit 29.4 % (42.0-52.0) L Mean Corpuscular Volume 89 FL (80-99) Mean Corpuscular Hemoglobin 31.0 PG (27.0-31.0) Mean Corpuscular Hemoglobin Concent 34.8 G/DL (32.0-36.0) Red Cell Distribution Width 13.5 % (11.6-14.8) Platelet Count 62 K/UL (150-450) L Mean Platelet Volume 9.7 FL (6.5-10.1) Neutrophils (%) (Auto) % (45.0-75.0) Lymphocytes (%) (Auto) % (20.0-45.0) Monocytes (%) (Auto) % (1.0-10.0) Eosinophils (%) (Auto) % (0.0-3.0) Basophils (%) (Auto) % (0.0-2.0) Sodium Level 141 MMOL/L (136-145) Potassium Level 2.9 MMOL/L (3.5-5.1) L Chloride Level 110 MMOL/L (98-107) H Carbon Dioxide Level 21 MMOL/L (21-32) Anion Gap 10 mmol/L (5-15) Blood Urea Nitrogen 18 mg/dL (7-18) Creatinine 0.9 MG/DL (0.55-1.30) Estimat Glomerular Filtration Rate > 60 mL/min (>60) Glucose Level 256 MG/DL (74-106) H Calcium Level 8.0 MG/DL (8.5-10.1) L Acetone Level Negative (NEGATIVE) Test 04/11/19 10:33 Urine Color Yellow Urine Appearance Cloudy Urine pH 5 (4.5-8.0) Urine Specific [place] 1.005 (1.005-1.035) Urine Protein Negative (NEGATIVE) Urine Glucose (UA) 3+ (NEGATIVE) H Urine Ketones Negative (NEGATIVE) Urine Blood 4+ (NEGATIVE) H Urine Nitrite Negative (NEGATIVE) Urine Bilirubin Negative (NEGATIVE) Urine Urobilinogen 8 MG/DL (0.0-1.0) H Urine Leukocyte Esterase 2+ (NEGATIVE) H Urine RBC 2-4 /HPF (0 - 0) H Urine WBC 2-4 /HPF (0 - 0) Urine Squamous Epithelial Cells Occasional /LPF Urine Bacteria Occasional /HPF (NONE) Urine Yeast Many /HPF (NONE) H Microbiology Date/Time Source Procedure Growth Status 04/08/19 21:20 Blood Blood Culture - Preliminary NO GROWTH AFTER 48 HOURS Resulted 04/08/19 21:10 Blood Blood Culture - Preliminary NO GROWTH AFTER 48 HOURS Resulted 04/10/19 11:20 Indwelling Cath Urine Culture - Preliminary Resulted Intake and Output 04/10/19 04/11/19 19:00 07:00 Intake Total 1906.075 ml 1586.000 ml Output Total 1670 ml 2780 ml Balance 236.075 ml -1194.000 ml Intake Oral 250 ml 370 ml IV Total 1656.075 ml 1216.000 ml Output Urine Total 1670 ml 2780 ml # Bowel Movements 3 Objective General Appearance: WD/WN, no apparent distress, alert EENT: PERRL/EOMI, normal ENT inspection, TMs normal Neck: non-tender, normal alignment, supple, normal inspection Cardiovascular: normal peripheral pulses, normal rate, regular rhythm, no gallop/murmur, no JVD Respiratory/Chest: chest wall non-tender, lungs clear, normal breath sounds, no respiratory distress, no accessory muscle use Abdomen: normal bowel sounds, non tender, soft, no organomegaly, no mass Extremities: normal range of motion Neurologic: writing manager II-XII grossly normal, no motor/sensory deficits Skin: normal pigmentation, warm/dry Assessment/Plan Problem List: (1) Acute metabolic encephalopathy (2) Altered mental status (3) UTI (urinary tract infection) Assessment & Plan: Continue vanco and amikacin per ID - Dr Samano. await urine culture results. (4) Renal failure (5) DKA (diabetic ketoacidoses) Assessment & Plan: Continue insulin drip. See endocrinology note-Dr Hayes. (6) Right femoral fracture Assessment & Plan: See pelvic xray result. CT right hip refused by radiology. Await MRI right hip (7) Perinephric abscess Assessment & Plan: Interventional radiology unable to drain. Await urology consult=Dr Cueto. Continue vanco and amikacin per ID Status: not improved Cody Redmond MD Apr 11, 2019 18:50
--- NOTE | 2019-04-11 19:30 | NUR ---
HAND-OFF: Report given to HARDIK Bowman. Patient has fever of 99.9 at this time. Tylenol and cooling measures applied. Endorsed to monitor and follow up.
--- NOTE | 2019-04-11 20:00 | NUR ---
NURSE NOTES: Received SBAR from Lizzie De Leon, Patient is awake, oriented to place, person, purpose and time. Patient is on room air. Patient noted to have Insulin gtt. Patients HR is 116 ST. Patient is warm to touch. Peripheral IV lines noted and working patently. SCD's noted. No respiratory distress at this time. Patient is calm and collective. Safety measures are in place.
--- NOTE | 2019-04-11 20:01 | NUR ---
NURSE NOTES: Glucose is 241. insulin rate change per unit protocol. 5 unit IVP also given. Patients temperature is 102.7, cooling measures remains in effect. Argenis care provided. Abx hung and given. Oral care was provided. Clean new sheets applied.
--- NOTE | 2019-04-11 22:00 | NUR ---
NURSE NOTES: Glucose is 89, hold insulin gtt will recheck again later. Temperature now is 98.9F. Vitals are stable, no distress at this time. Patient remains awake and alert/oriented. NSR on the monitor.
[2019-04-11] MEDS ORDERED: NS 275ml ONE (22:50)
[2019-04-11] MEDS ORDERED: Tubing IV Secondary IV ONE (22:50)
[2019-04-12] VITALS (25 sets, daily range): BP systolic 93–134; BP diastolic 54–119
--- NOTE | 2019-04-12 | NUR ---
NURSE NOTES: Resumed insulin gtt at 2units. Patients has temperature of 99.2F. Glucose was 140. Patients HR is 107ST, BP is stable. Patient remains awake and oriented. Safety measures remain in place.
--- NOTE | 2019-04-12 02:00 | NUR ---
NURSE NOTES: Patients temperature noted to be 102.2F. Cooling measures re-initiated and Tylenol 650mg PO was given. HR is 120ST, 134/82. Patients glucose is 236, insulin gtt titrated accordingly and 5units IVP insulin was given. Will continue to monitor.
[2019-04-12] MEDS: Insulin Human Regular 100units/ml 3ml IV PRN ×3 (02:06→12:08)
--- NOTE | 2019-04-12 04:00 | NUR ---
NURSE NOTES: Morning blood drawn and sent to lab. Patients temperature has gone slightly down. Now its 99.4F orally. Patient remains warm to touch. Fan is at bedside. Glucose was 173, insulin gtt titrated accordingly. Patient remains oriented and awake.
[2019-04-12] MEDS: Insulin Rate Change 1 Each MISC PRN ×4 (04:10→22:01)
[2019-04-12] MEDS: Meropenem 1 GM in NS 55 ML IVPB SCH ×3 (05:48→22:00)
--- NOTE | 2019-04-12 06:00 | NUR ---
NURSE NOTES: Glucose 198, titrated insulin gtt accordingly. Got patient into chair for a while. Patient needed some assistance with transfer. IV abx hung. Patient was cleaned and new linen applied. Temperature now is 98.6F orally.
[2019-04-12 06:16] LABS: HEMATOCRIT 27.7 % (42.0-52.0); HEMOGLOBIN 9.6 G/DL (14.2-18.0); MEAN CORPUSCULAR VOLUME 91 FL (80-99); PLATELET COUNT 71 K/UL (150-450); RED BLOOD COUNT 3.06 M/UL (4.70-6.10); RED CELL DISTRIBUTION WIDTH 13.6 % (11.6-14.8); WHITE BLOOD COUNT 16.8 K/UL (4.8-10.8)
[2019-04-12 07:05] LABS: ALANINE AMINOTRANSFERASE 31 U/L (12-78); ALBUMIN 1.5 G/DL (3.4-5.0); ALBUMIN/GLOBULIN RATIO 0.3 (1.0-2.7); ALKALINE PHOSPHATASE 637 U/L (46-116); ANION GAP 9 mmol/L (5-15); ASPARTATE AMINO TRANSFERASE 36 U/L (15-37); BILIRUBIN,TOTAL 1.2 MG/DL (0.2-1.0); BLOOD UREA NITROGEN 12 mg/dL (7-18); CALCIUM 8.2 MG/DL (8.5-10.1); CARBON DIOXIDE 22 MMOL/L (21-32); CHLORIDE 106 MMOL/L (98-107); CHOLESTEROL 137 MG/DL (< 200); CREATININE 0.8 MG/DL (0.55-1.30); HDL CHOLESTEROL 8 MG/DL (40-60); PHOSPHORUS 2.3 MG/DL (2.5-4.9); SODIUM 137 MMOL/L (136-145); TRIGLYCERIDES 290 MG/DL (30-150)
[2019-04-12 07:09] LABS: BILIRUBIN,DIRECT 0.4 MG/DL (0.0-0.3)
--- NOTE | 2019-04-12 07:45 | NUR ---
HAND-OFF: Report given to Maribell DYE.
--- NOTE | 2019-04-12 08:00 | NUR ---
NURSE NOTES: Received changed of shift report from Colby DYE. Pt is awake, alert, oriented x4, primarily Indonesian speaking, however able to comprehend and communicate basic Nepali. Pt is on room air with 100% O2sat and diminished lung sounds. pvc monitor displays NSR with heart rate in the 80's and bounding peripheral pulses. Pt has two peripheral IV access, left AC #18G and right FA #20G. Pt is currently on Insulin drip Algorithm 2, infusing 3units/hr. Temp 98.8F oral. Abdomen is soft, nontender to touch with hyperactive bowel sounds. Daniels catheter is in place, draining clear, yellow urine. Skin has left knee scab and left heel DTI. Pt is able to position self. Call light is within reach, bed in lowest position, with three side rails up and locked. Will continue to monitor pt and follow plan of care per MD orders and protocol.
--- NOTE | 2019-04-12 08:05 | NUR ---
NURSE NOTES: Insulin drip has been titrated to 4.5units/hr per Algorithm 2 order/protocol for blood glucose of 235.
[2019-04-12] MEDS: Vancomycin 1.25gm/NS Premix IVPB SCH (08:42)
--- NOTE | 2019-04-12 09:00 | NUR ---
NURSE NOTES: Pt is maintained on Insulin drip on 4.5units/hr and additional 5units IVP per Algorithm 2 order/protocol for blood glucose of 261. AM meds were administered. Pt denies any pain or discomfort at this time. Addendum: 04/12/19 at 1321 by MARILYN SCOTT RN CORRECTION: The above note is meant for 10am entry.
--- NOTE | 2019-04-12 09:38 | NUR ---
RD ASSESSMENT & RECOMMENDATIONS SEE CARE ACTIVITY FOR COMPLETE ASSESSMENT DAILY ESTIMATED NEEDS: Needs based on DM, 60.5kg 25-30 kcals/kg 3511-4557 total kcals 1-1.5 g protein/kg 61-91 g total protein 25-30 mL/kg 0283-9811 total fluid mLs NUTRITION DIAGNOSIS: Altered nutrition related lab values r/t DKA as evidenced by on adm pt w/ A1C 13.3, BG 695, (+) acetone, low pH, low pCO2, low bicarb. CURRENT DIET: CCHO Med / ms chopped PO DIET RECOMMENDATIONS: CCHO LOW / texture as tolerated ADDITIONAL RECOMMENDATIONS: 1) Obtain a standing weight as able Bed wt: 155# vs EMR wt: 133# 2) B-complex daily 3) Check lytes, replete as needed (Low Mg, K, Phos) 4) Add 1 carb/ high pro snack in b/w meals
--- NOTE | 2019-04-12 10:15 | NUR ---
Social Service Note LINA met with patient with CM Coordinator to provide Nepali translation. Patient was alert, oriented and verbally responsive. Patient Nepali is limited. Patient was deported in 1999 and reentered the [place] in about 7 years ago. Patient states he has stayed with various people and is unsure if he can return to a friend's home upon discharge. Patient he has a list of long term resources if needed upon discharge. Patient states he was diagnosed with diabetes about 5 or 6 years ago. Patient states he was taking some pills in the morning and night but stopped because he didn't think they were needed. SW contacted [facility] [phone]. Per appointment line, due to patient not having insurance patient will need to have a financial screen before being seen, and appointment can not be scheduled. Patient was seen in one of their satellite clinics in January. Patient will require prescriptions including glucometer and supplies if needed. Patient states he will require bus tokens. Community care clinic list to be provided. Patient screened for medi-bibi. Patient states he has been drinking alcohol all his life and has no indication that he will stop. Will continue to monitor and assist as needed.
[2019-04-12] MEDS ORDERED: Potassium Phosphate 30 MM in NS 275 ML IV ONE (10:30)
--- NOTE | 2019-04-12 10:52 | Pulmonolgy Critical Care Note ---
Critical Care - Asmt/Plan Problems: (1) DKA (diabetic ketoacidoses) (2) JOJO (acute kidney injury) (3) Pyelonephritis (4) Renal abscess Respiratory: monitor respiratory rate, adjust FIO2, CXR Cardiac: continue pressors, continue to monitor HR/BP Renal: F/U I&O, keep IV fluid, check electrolytes Infectious Disease: check cultures Gastrointestinal: continue feedings/current rate Endocrine: monitor blood sugar, continue sliding scale insulin Hematologic: transfuse if hgb<8.5 Neurologic: PRN Ativan, keep patient comfortable Affect: PRN ativan Disposition: keep in ICU Notes Reviewed: cardio, renal Discussed with: consultants, counter caser, other - need urology evaluation for possible nephrectomy or debridement of renal abscess Critical Care - Objective Last 24 Hour Vital Signs Date Time Temp Pulse Resp B/P (MAP) Pulse Ox O2 Delivery O2 Flow Rate FiO2 04/12/19 08:00 98.4 96 26 124/88 (100) 99 04/12/19 07:00 86 29 105/72 (83) 99 04/12/19 06:00 85 27 99/55 (70) 100 04/12/19 05:00 96 28 96/60 (72) 100 04/12/19 04:00 105 04/12/19 04:00 99.4 104 31 93/55 (68) 98 04/12/19 04:00 Room Air 04/12/19 03:00 119 31 105/55 (72) 94 04/12/19 02:38 101.5 04/12/19 02:00 102.2 125 37 134/82 (99) 100 04/12/19 01:00 118 34 127/85 (99) 99 04/12/19 00:00 93 04/12/19 00:00 99.2 103 32 121/80 (94) 100 04/12/19 00:00 Room Air 04/11/19 23:00 89 31 93/54 (67) 99 04/11/19 22:00 98.9 93 34 101/61 (74) 99 04/11/19 21:00 99 31 96/61 (73) 99 04/11/19 20:00 115 04/11/19 20:00 Room Air 04/11/19 20:00 102.7 107 35 98/59 (72) 98 04/11/19 19:00 123 34 98/59 (72) 96 04/11/19 18:00 103.0 125 29 114/78 (90) 98 04/11/19 17:00 119 33 98/54 (69) 97 04/11/19 16:00 98.6 123 36 119/68 (85) 97 04/11/19 16:00 99 04/11/19 16:00 Room Air 04/11/19 15:00 115 25 142/103 (116) 98 04/11/19 14:00 104 33 111/70 (84) 99 04/11/19 13:00 104 35 115/72 (86) 100 04/11/19 12:00 Room Air 04/11/19 12:00 98 04/11/19 12:00 98.6 95 32 115/78 (90) 99 04/11/19 11:00 96 31 98/54 (69) 98 Status: awake Condition: critical HEENT: atraumatic, normocephalic Neck: full ROM Lungs: clear Heart: HR/BP stable Abdomen: soft, active bowel sounds, feeding tube Extremities: edema Micro: Microbiology Date/Time Source Procedure Growth Status 04/11/19 10:33 Urine,Clean Catch Urine Culture - Preliminary Resulted 04/10/19 11:20 Indwelling Cath Urine Culture - Preliminary Resulted Accucheck: 261 Critical Care - Subjective ROS Limited/Unobtainable: No Condition: critical EKG Rhythm: Sinus Rhythm I&O: Intake and Output 04/11/19 04/12/19 19:00 07:00 Intake Total 2258.200 ml 786.0 ml Output Total 1584 ml 1975 ml Balance 674.200 ml -1189.0 ml Intake Oral 1460 ml 425 ml IV Total 798.200 ml 361.0 ml Output Urine Total 1584 ml 1975 ml Labs: Laboratory Tests Test 04/12/19 05:10 04/12/19 08:10 White Blood Count 16.8 K/UL (4.8-10.8) H Red Blood Count 3.06 M/UL (4.70-6.10) L Hemoglobin 9.6 G/DL (14.2-18.0) L Hematocrit 27.7 % (42.0-52.0) L Mean Corpuscular Volume 91 FL (80-99) Mean Corpuscular Hemoglobin 31.5 PG (27.0-31.0) H Mean Corpuscular Hemoglobin Concent 34.7 G/DL (32.0-36.0) Red Cell Distribution Width 13.6 % (11.6-14.8) Platelet Count 71 K/UL (150-450) L Mean Platelet Volume 9.2 FL (6.5-10.1) Neutrophils (%) (Auto) % (45.0-75.0) Lymphocytes (%) (Auto) % (20.0-45.0) Monocytes (%) (Auto) % (1.0-10.0) Eosinophils (%) (Auto) % (0.0-3.0) Basophils (%) (Auto) % (0.0-2.0) Differential Total Cells Counted 100 Neutrophils % (Manual) 82 % (45-75) H Lymphocytes % (Manual) 8 % (20-45) L Monocytes % (Manual) 10 % (1-10) Eosinophils % (Manual) 0 % (0-3) Basophils % (Manual) 0 % (0-2) Band Neutrophils 0 % (0-8) Platelet Estimate Decreased L Platelet Morphology Normal Erythrocyte Sedimentation Rate 123 MM/HR (0-15) H Sodium Level 137 MMOL/L (136-145) Potassium Level 3.0 MMOL/L (3.5-5.1) L Chloride Level 106 MMOL/L (98-107) Carbon Dioxide Level 22 MMOL/L (21-32) Anion Gap 9 mmol/L (5-15) Blood Urea Nitrogen 12 mg/dL (7-18) Creatinine 0.8 MG/DL (0.55-1.30) Estimat Glomerular Filtration Rate > 60 mL/min (>60) Glucose Level 184 MG/DL (74-106) H Uric Acid 1.6 MG/DL (2.6-7.2) L Calcium Level 8.2 MG/DL (8.5-10.1) L Phosphorus Level 2.3 MG/DL (2.5-4.9) L Magnesium Level 1.7 MG/DL (1.8-2.4) L Total Bilirubin 1.2 MG/DL (0.2-1.0) H Direct Bilirubin 0.4 MG/DL (0.0-0.3) H Aspartate Amino Transf (AST/SGOT) 36 U/L (15-37) Alanine Aminotransferase (ALT/SGPT) 31 U/L (12-78) Alkaline Phosphatase 637 U/L (46-116) H C-Reactive Protein, Quantitative 12.9 mg/dL (0.00-0.90) H Pro-B-Type Natriuretic Peptide 1028 pg/mL (0-125) H Total Protein 6.3 G/DL (6.4-8.2) L Albumin 1.5 G/DL (3.4-5.0) L Globulin 4.8 g/dL Albumin/Globulin Ratio 0.3 (1.0-2.7) L Triglycerides Level 290 MG/DL (30-150) H Cholesterol Level 137 MG/DL (< 200) LDL Cholesterol 69 mg/dL (<100) HDL Cholesterol 8 MG/DL (40-60) L Cholesterol/HDL Ratio 17.1 (3.3-4.4) H Thyroid Stimulating Hormone (TSH) 11.703 uiU/mL (0.358-3.740) Vancomycin Level Trough 10.7 ug/mL (5.0-12.0) Donny Kemp MD Apr 12, 2019 10:52
--- NOTE | 2019-04-12 11:11 | Nephrology Progress Note ---
Assessment/Plan Problem List: (1) Pyelonephritis (2) DKA (diabetic ketoacidoses) (3) Electrolyte abnormality Assessment (1) DKA (diabetic ketoacidoses) (2) JOJO (acute kidney injury) (3) Pyelonephritis (4) Electrolyte imbalance (5) HypoThyroidism Plan PO KCL Phos and Mag as needed fish oil synthroid Monitor lytes recheck UA per orders Subjective ROS Limited/Unobtainable: No Constitutional: Reports: malaise, weakness Objective Objective Last 24 Hour Vital Signs Date Time Temp Pulse Resp B/P (MAP) Pulse Ox O2 Delivery O2 Flow Rate FiO2 04/12/19 08:00 98.4 96 26 124/88 (100) 99 04/12/19 07:00 86 29 105/72 (83) 99 04/12/19 06:00 85 27 99/55 (70) 100 04/12/19 05:00 96 28 96/60 (72) 100 04/12/19 04:00 105 04/12/19 04:00 99.4 104 31 93/55 (68) 98 04/12/19 04:00 Room Air 04/12/19 03:00 119 31 105/55 (72) 94 04/12/19 02:38 101.5 04/12/19 02:00 102.2 125 37 134/82 (99) 100 04/12/19 01:00 118 34 127/85 (99) 99 04/12/19 00:00 93 04/12/19 00:00 99.2 103 32 121/80 (94) 100 04/12/19 00:00 Room Air 04/11/19 23:00 89 31 93/54 (67) 99 04/11/19 22:00 98.9 93 34 101/61 (74) 99 04/11/19 21:00 99 31 96/61 (73) 99 04/11/19 20:00 115 04/11/19 20:00 Room Air 04/11/19 20:00 102.7 107 35 98/59 (72) 98 04/11/19 19:00 123 34 98/59 (72) 96 04/11/19 18:00 103.0 125 29 114/78 (90) 98 04/11/19 17:00 119 33 98/54 (69) 97 04/11/19 16:00 98.6 123 36 119/68 (85) 97 04/11/19 16:00 99 04/11/19 16:00 Room Air 04/11/19 15:00 115 25 142/103 (116) 98 04/11/19 14:00 104 33 111/70 (84) 99 04/11/19 13:00 104 35 115/72 (86) 100 04/11/19 12:00 Room Air 04/11/19 12:00 98 04/11/19 12:00 98.6 95 32 115/78 (90) 99 Intake and Output 04/11/19 04/12/19 19:00 07:00 Intake Total 2258.200 ml 786.0 ml Output Total 1584 ml 1975 ml Balance 674.200 ml -1189.0 ml Intake Oral 1460 ml 425 ml IV Total 798.200 ml 361.0 ml Output Urine Total 1584 ml 1975 ml Laboratory Tests 04/12/19 05:10: White Blood Count 16.8H, Red Blood Count 3.06L, Hemoglobin 9.6L, Hematocrit 27.7L, Mean Corpuscular Volume 91, Mean Corpuscular Hemoglobin 31.5H, Mean Corpuscular Hemoglobin Concent 34.7, Red Cell Distribution Width 13.6, Platelet Count 71L, Mean Platelet Volume 9.2, Neutrophils (%) (Auto) , Lymphocytes (%) ( Auto) , Monocytes (%) (Auto) , Eosinophils (%) (Auto) , Basophils (%) (Auto) , Differential Total Cells Counted 100, Neutrophils % (Manual) 82H, Lymphocytes % (Manual) 8L, Monocytes % (Manual) 10, Eosinophils % (Manual) 0, Basophils % ( Manual) 0, Band Neutrophils 0, Platelet Estimate DecreasedL, Platelet Morphology Normal, Erythrocyte Sedimentation Rate 123H, Sodium Level 137, Potassium Level 3.0L, Chloride Level 106, Carbon Dioxide Level 22, Anion Gap 9, Blood Urea Nitrogen 12, Creatinine 0.8, Estimat Glomerular Filtration Rate > 60 , Glucose Level 184H, Uric Acid 1.6L, Calcium Level 8.2L, Phosphorus Level 2.3L , Magnesium Level 1.7L, Total Bilirubin 1.2H, Direct Bilirubin 0.4H, Aspartate Amino Transf (AST/SGOT) 36, Alanine Aminotransferase (ALT/SGPT) 31, Alkaline Phosphatase 637H, C-Reactive Protein, Quantitative 12.9H, Pro-B-Type Natriuretic Peptide 1028H, Total Protein 6.3L, Albumin 1.5L, Globulin 4.8, Albumin/Globulin Ratio 0.3L, Triglycerides Level 290H, Cholesterol Level 137, LDL Cholesterol 69, HDL Cholesterol 8L, Cholesterol/HDL Ratio 17.1H, Thyroid Stimulating Hormone (TSH) 11.703H 04/12/19 08:10: Vancomycin Level Trough 10.7 Height (Feet): 5 Height (Inches): 6.00 Weight (Pounds): 133 General Appearance: no apparent distress Objective no change Russ Osborn MD Apr 12, 2019 11:11
--- NOTE | 2019-04-12 11:23 | Infectious Diseases Prog Note ---
Assessment/Plan Assessment/Plan The patient is a 38-year-old male with: Fever, ongoing- due to inadequate source control Leukocytosis; ioverall irmpoved Sepsis. -CXR: Basilar atelectatic changes and/or scarring. No acute process otherwise Emphysematous pyelonephritis with likely right kidney abscess -u/a wbc 10-15, nit neg, leuk +1; ucx p -04/08 BCx NTD Diabetes and now with DKA. Rule out biliary disease (elevated Tbili, ALP) -ABD US: Severe distention of the urinary bladder. Suggest Daniels catheter. Associated mild hydronephrosis. Hepatomegaly. There is no biliary ductal dilatation identified. Gallbladder is unremarkable. Thrombocytopenia (probably due to sepsis -HIV, hep panel neg Fever Elevated alkaline phosphatase (ultrasound unremarkable for biliary disease). CT 04/09/19 1. Emphysematous pyelonephritis in the right kidney, most prominently affecting the right lower pole, with a 7.6 x 7.4 x 5.3 cm air-fluid collection in the lower pole likely representing renal abscess extending to the perirenal fat. No definite fat plane between this collection and the adjacent right psoas musculature. Extensive adjacent inflammatory stranding. 2. Daniesl catheter balloon and tip within the urinary bladder lumen. Mild diffuse urinary bladder wall thickening, suggestive of cystitis. . PLAN: 1. Continue Meropenem #2 (abx d #4) -04/11 SP IV Rocephin #4, Amikacin #3 2. D/c empiric IV Vancomycin #4 3. Monitor CBC, BMP. 4. Monitor cultures, blood and urine. 5 Continue intensive care. 6. Urology eval 7. Bc x2 Thank you, Dr. Kemp, for allowing me to participate in the care of this patient. I will follow the patient with you. Subjective Allergies: Coded Allergies: No Known Allergies (Unverified , 04/07/19) Subjective Tm 103 Objective Vital Signs Last 24 Hour Vital Signs Date Time Temp Pulse Resp B/P (MAP) Pulse Ox O2 Delivery O2 Flow Rate FiO2 04/12/19 08:00 98.4 96 26 124/88 (100) 99 04/12/19 07:00 86 29 105/72 (83) 99 04/12/19 06:00 85 27 99/55 (70) 100 04/12/19 05:00 96 28 96/60 (72) 100 04/12/19 04:00 105 04/12/19 04:00 99.4 104 31 93/55 (68) 98 04/12/19 04:00 Room Air 04/12/19 03:00 119 31 105/55 (72) 94 04/12/19 02:38 101.5 04/12/19 02:00 102.2 125 37 134/82 (99) 100 04/12/19 01:00 118 34 127/85 (99) 99 04/12/19 00:00 93 04/12/19 00:00 99.2 103 32 121/80 (94) 100 04/12/19 00:00 Room Air 04/11/19 23:00 89 31 93/54 (67) 99 04/11/19 22:00 98.9 93 34 101/61 (74) 99 04/11/19 21:00 99 31 96/61 (73) 99 04/11/19 20:00 115 04/11/19 20:00 Room Air 04/11/19 20:00 102.7 107 35 98/59 (72) 98 04/11/19 19:00 123 34 98/59 (72) 96 04/11/19 18:00 103.0 125 29 114/78 (90) 98 04/11/19 17:00 119 33 98/54 (69) 97 04/11/19 16:00 98.6 123 36 119/68 (85) 97 04/11/19 16:00 99 04/11/19 16:00 Room Air 04/11/19 15:00 115 25 142/103 (116) 98 04/11/19 14:00 104 33 111/70 (84) 99 04/11/19 13:00 104 35 115/72 (86) 100 04/11/19 12:00 Room Air 04/11/19 12:00 98 04/11/19 12:00 98.6 95 32 115/78 (90) 99 Height (Feet): 5 Height (Inches): 6.00 Weight (Pounds): 133 Objective GEN: NAD HEENT: NCAT, MMM LUNGS: Coarse B/L HEART: RR, s1,s2 Abd TTP, SOft Microbiology Date/Time Source Procedure Growth Status 04/11/19 10:33 Urine,Clean Catch Urine Culture - Preliminary Resulted 04/10/19 11:20 Indwelling Cath Urine Culture - Preliminary Resulted Laboratory Tests Test 04/12/19 05:10 04/12/19 08:10 White Blood Count 16.8 K/UL (4.8-10.8) H Red Blood Count 3.06 M/UL (4.70-6.10) L Hemoglobin 9.6 G/DL (14.2-18.0) L Hematocrit 27.7 % (42.0-52.0) L Mean Corpuscular Volume 91 FL (80-99) Mean Corpuscular Hemoglobin 31.5 PG (27.0-31.0) H Mean Corpuscular Hemoglobin Concent 34.7 G/DL (32.0-36.0) Red Cell Distribution Width 13.6 % (11.6-14.8) Platelet Count 71 K/UL (150-450) L Mean Platelet Volume 9.2 FL (6.5-10.1) Neutrophils (%) (Auto) % (45.0-75.0) Lymphocytes (%) (Auto) % (20.0-45.0) Monocytes (%) (Auto) % (1.0-10.0) Eosinophils (%) (Auto) % (0.0-3.0) Basophils (%) (Auto) % (0.0-2.0) Differential Total Cells Counted 100 Neutrophils % (Manual) 82 % (45-75) H Lymphocytes % (Manual) 8 % (20-45) L Monocytes % (Manual) 10 % (1-10) Eosinophils % (Manual) 0 % (0-3) Basophils % (Manual) 0 % (0-2) Band Neutrophils 0 % (0-8) Platelet Estimate Decreased L Platelet Morphology Normal Erythrocyte Sedimentation Rate 123 MM/HR (0-15) H Sodium Level 137 MMOL/L (136-145) Potassium Level 3.0 MMOL/L (3.5-5.1) L Chloride Level 106 MMOL/L (98-107) Carbon Dioxide Level 22 MMOL/L (21-32) Anion Gap 9 mmol/L (5-15) Blood Urea Nitrogen 12 mg/dL (7-18) Creatinine 0.8 MG/DL (0.55-1.30) Estimat Glomerular Filtration Rate > 60 mL/min (>60) Glucose Level 184 MG/DL (74-106) H Uric Acid 1.6 MG/DL (2.6-7.2) L Calcium Level 8.2 MG/DL (8.5-10.1) L Phosphorus Level 2.3 MG/DL (2.5-4.9) L Magnesium Level 1.7 MG/DL (1.8-2.4) L Total Bilirubin 1.2 MG/DL (0.2-1.0) H Direct Bilirubin 0.4 MG/DL (0.0-0.3) H Aspartate Amino Transf (AST/SGOT) 36 U/L (15-37) Alanine Aminotransferase (ALT/SGPT) 31 U/L (12-78) Alkaline Phosphatase 637 U/L (46-116) H C-Reactive Protein, Quantitative 12.9 mg/dL (0.00-0.90) H Pro-B-Type Natriuretic Peptide 1028 pg/mL (0-125) H Total Protein 6.3 G/DL (6.4-8.2) L Albumin 1.5 G/DL (3.4-5.0) L Globulin 4.8 g/dL Albumin/Globulin Ratio 0.3 (1.0-2.7) L Triglycerides Level 290 MG/DL (30-150) H Cholesterol Level 137 MG/DL (< 200) LDL Cholesterol 69 mg/dL (<100) HDL Cholesterol 8 MG/DL (40-60) L Cholesterol/HDL Ratio 17.1 (3.3-4.4) H Thyroid Stimulating Hormone (TSH) 11.703 uiU/mL (0.358-3.740) Vancomycin Level Trough 10.7 ug/mL (5.0-12.0) Current Medications Medications (Trade) Dose Ordered Sig/Jose Route PRN Reason Start Time Stop Time Status Last Admin Dose Admin Acetaminophen (Tylenol) 650 mg Q4H PRN ORAL Mild Pain/Temp > 100.5 04/08/19 00:30 05/08/19 00:29 04/12/19 02:08 Acetaminophen/ Hydrocodone Bitart ([place] 5/325) 1 tab Q6H PRN ORAL For Pain 04/08/19 00:30 04/15/19 00:29 04/10/19 01:37 Dextrose (Dextrose 50%) 25 ml Q30M PRN IV HYPOGLYCEMIA 04/08/19 00:30 05/08/19 00:29 Dextrose (Dextrose 50%) 50 ml Q30M PRN IV HYPOGLYCEMIA 04/08/19 00:30 05/08/19 00:29 Folic Acid (Folate) 3 mg DAILY ORAL 04/11/19 10:00 05/11/19 09:59 04/12/19 08:42 Insulin Human Regular (NovoLIN R) 5 units PRN PRN IV BS 200-299 04/08/19 00:30 05/08/19 00:29 04/12/19 10:26 Insulin Human Regular (NovoLIN R) 10 units PRN PRN IV BS=>300 04/08/19 00:30 05/08/19 00:29 Insulin Human Regular 100 units/ Sodium Chloride 100 ml @ 0 mls/hr Q24H IV 04/10/19 10:30 05/10/19 10:29 04/11/19 16:51 Magnesium Sulfate 100 ml @ 100 mls/hr Q1H IVPB 04/12/19 09:45 04/12/19 11:44 04/12/19 10:23 Meropenem 1 gm/ Sodium Chloride 55 ml @ 110 mls/hr Q8HR IVPB 04/11/19 14:00 04/16/19 13:59 04/12/19 05:48 Miscellaneous Medication (Insulin Rate Change) 1 ea PRN PRN MISC Hyperglycemia 04/08/19 00:30 05/08/19 00:29 04/12/19 06:24 Ondansetron HCl (Zofran) 4 mg EVERY 4 HOURS PRN IVP Nausea & Vomiting 04/08/19 00:30 05/08/19 00:29 Potassium Phosphate 30 mm/ Sodium Chloride 285 ml @ 47.5 mls/hr ONCE ONCE IV 04/12/19 10:30 04/12/19 16:29 04/12/19 10:32 Potassium Chloride (K-Dur) 40 meq TID ORAL 04/11/19 13:00 05/11/19 09:14 04/12/19 08:42 Vancomycin HCl (Vanco rx to dose) 1 ea DAILY PRN MISC Per rx protocol 04/09/19 06:30 05/09/19 06:29 Vancomycin/Sodium Chloride 275 ml @ 183.333 mls/hr 0100,0900,1700 IVPB 04/12/19 17:00 04/15/19 21:59 Vancomycin/Sodium Chloride 275 ml @ 183.333 mls/hr Q12HR IVPB 04/10/19 22:00 04/12/19 12:00 04/12/19 08:42 Hanny August M.D. Apr 12, 2019 11:23
--- NOTE | 2019-04-12 11:35 | NUR ---
SENIOR POLICY ANALYSTDISPATCHER BUS AND TROLLEY SI: DIABETIC KETOACIDOSIS T. 99.4 HR 119 RR 31 B/P 93/55 WBC 16.8 ESR 123 K 3.0 BNP 1029 GLU 184 IS: INSULIN GTT K-PHOS IV MAGNESIUM IV MEROPENEM IV ICU STATUS
--- NOTE | 2019-04-12 12:00 | NUR ---
NURSE NOTES: Pt is maintained on Insulin drip on 5 units/hr and additional 5units IVP per Algorithm 2 order/protocol for blood glucose of 242. Oral Temp was rechecked with result 100.8. PRN Tylenol was administered per PRN order. Pt denies any pain or discomfort at this time.
--- NOTE | 2019-04-12 12:56 | General Progress Note ---
Assessment/Plan Problem List: (1) Acute metabolic encephalopathy ICD Codes: G93.41 - Metabolic encephalopathy SNOMED: 56047537, 189743955 (2) JOJO (acute kidney injury) ICD Codes: N17.9 - Acute kidney failure, unspecified SNOMED: 30292255, 1888303 (3) DKA (diabetic ketoacidoses) ICD Codes: E11.10 - Type 2 diabetes mellitus with ketoacidosis without coma SNOMED: 03876671, 326227546 (4) Renal failure ICD Codes: N19 - Unspecified kidney failure SNOMED: 46225096 (5) Pyelonephritis ICD Codes: N12 - Tubulo-interstitial nephritis, not specified as acute or chronic SNOMED: 16961841 Status: not improved Assessment/Plan: DKA has resolved but his insulin gtt rate requirement is high and his general condition is still critical - continue to manage hyperglycemia with insulin gtt for another day - continue blood glucose monitoring to every 2 hours Subjective ROS Limited/Unobtainable: Yes Allergies: Coded Allergies: No Known Allergies (Unverified , 04/07/19) Subjective Item Value Date Time Bedside Blood Glucose 242 mg/dl H 04/12/19 1208 Bedside Blood Glucose 261 mg/dl H 04/12/19 1026 Bedside Blood Glucose 198 mg/dl H 04/12/19 0624 Bedside Blood Glucose 236 mg/dl H 04/12/19 0206 Bedside Blood Glucose 108 mg/dl 04/11/19 2230 Bedside Blood Glucose 204 mg/dl H 04/11/19 1810 Bedside Blood Glucose 241 mg/dl H 04/11/19 1400 Bedside Blood Glucose 224 mg/dl H 04/11/19 1023 events noted insulin gtt requirement remained high Objective Last 24 Hour Vital Signs Date Time Temp Pulse Resp B/P (MAP) Pulse Ox O2 Delivery O2 Flow Rate FiO2 04/12/19 12:29 100.8 04/12/19 12:00 121 04/12/19 12:00 122 36 119/67 (84) 96 04/12/19 11:00 120 36 104/54 (71) 95 04/12/19 10:00 111 34 124/70 (88) 96 04/12/19 09:00 110 33 122/77 (92) 99 04/12/19 08:00 Room Air 04/12/19 08:00 98 04/12/19 08:00 98.4 96 26 124/88 (100) 99 04/12/19 07:00 86 29 105/72 (83) 99 04/12/19 06:00 85 27 99/55 (70) 100 04/12/19 05:00 96 28 96/60 (72) 100 04/12/19 04:00 105 04/12/19 04:00 99.4 104 31 93/55 (68) 98 04/12/19 04:00 Room Air 04/12/19 03:00 119 31 105/55 (72) 94 04/12/19 02:00 102.2 125 37 134/82 (99) 100 04/12/19 01:00 118 34 127/85 (99) 99 04/12/19 00:00 93 04/12/19 00:00 99.2 103 32 121/80 (94) 100 04/12/19 00:00 Room Air 04/11/19 23:00 89 31 93/54 (67) 99 04/11/19 22:00 98.9 93 34 101/61 (74) 99 04/11/19 21:00 99 31 96/61 (73) 99 04/11/19 20:00 115 04/11/19 20:00 Room Air 04/11/19 20:00 102.7 107 35 98/59 (72) 98 04/11/19 19:00 123 34 98/59 (72) 96 04/11/19 18:00 103.0 125 29 114/78 (90) 98 04/11/19 17:00 119 33 98/54 (69) 97 04/11/19 16:00 98.6 123 36 119/68 (85) 97 04/11/19 16:00 99 04/11/19 16:00 Room Air 04/11/19 15:00 115 25 142/103 (116) 98 04/11/19 14:00 104 33 111/70 (84) 99 04/11/19 13:00 104 35 115/72 (86) 100 Intake and Output 04/11/19 04/12/19 19:00 07:00 Intake Total 2258.200 ml 786.0 ml Output Total 1584 ml 1975 ml Balance 674.200 ml -1189.0 ml Intake Oral 1460 ml 425 ml IV Total 798.200 ml 361.0 ml Output Urine Total 1584 ml 1975 ml Laboratory Tests 04/12/19 05:10: White Blood Count 16.8H, Red Blood Count 3.06L, Hemoglobin 9.6L, Hematocrit 27.7L, Mean Corpuscular Volume 91, Mean Corpuscular Hemoglobin 31.5H, Mean Corpuscular Hemoglobin Concent 34.7, Red Cell Distribution Width 13.6, Platelet Count 71L, Mean Platelet Volume 9.2, Neutrophils (%) (Auto) , Lymphocytes (%) ( Auto) , Monocytes (%) (Auto) , Eosinophils (%) (Auto) , Basophils (%) (Auto) , Differential Total Cells Counted 100, Neutrophils % (Manual) 82H, Lymphocytes % (Manual) 8L, Monocytes % (Manual) 10, Eosinophils % (Manual) 0, Basophils % ( Manual) 0, Band Neutrophils 0, Platelet Estimate DecreasedL, Platelet Morphology Normal, Erythrocyte Sedimentation Rate 123H, Sodium Level 137, Potassium Level 3.0L, Chloride Level 106, Carbon Dioxide Level 22, Anion Gap 9, Blood Urea Nitrogen 12, Creatinine 0.8, Estimat Glomerular Filtration Rate > 60 , Glucose Level 184H, Uric Acid 1.6L, Calcium Level 8.2L, Phosphorus Level 2.3L , Magnesium Level 1.7L, Total Bilirubin 1.2H, Direct Bilirubin 0.4H, Aspartate Amino Transf (AST/SGOT) 36, Alanine Aminotransferase (ALT/SGPT) 31, Alkaline Phosphatase 637H, C-Reactive Protein, Quantitative 12.9H, Pro-B-Type Natriuretic Peptide 1028H, Total Protein 6.3L, Albumin 1.5L, Globulin 4.8, Albumin/Globulin Ratio 0.3L, Triglycerides Level 290H, Cholesterol Level 137, LDL Cholesterol 69, HDL Cholesterol 8L, Cholesterol/HDL Ratio 17.1H, Thyroid Stimulating Hormone (TSH) 11.703H 04/12/19 08:10: Vancomycin Level Trough 10.7 Height (Feet): 5 Height (Inches): 6.00 Weight (Pounds): 133 General Appearance: lethargic Neck: normal alignment Cardiovascular: bradycardia Respiratory/Chest: decreased breath sounds Abdomen: normal bowel sounds Objective Current Medications Medications (Trade) Dose Ordered Sig/Jose Route PRN Reason Start Time Stop Time Status Last Admin Dose Admin Acetaminophen (Tylenol) 650 mg Q4H PRN ORAL Mild Pain/Temp > 100.5 10/4/19 00:30 05/08/19 00:29 04/12/19 11:59 Acetaminophen/ Hydrocodone Bitart ([place] 5/325) 1 tab Q6H PRN ORAL For Pain 04/08/19 00:30 10 00:29 04/10/19 01:37 Dextrose (Dextrose 50%) 25 ml Q30M PRN IV HYPOGLYCEMIA 04/08/19 00:30 05/08/19 00:29 Dextrose (Dextrose 50%) 50 ml Q30M PRN IV HYPOGLYCEMIA 04/08/19 00:30 05/08/19 00:29 Fish Oil (Fish Oil) 1,000 mg BID ORAL 04/12/19 18:00 05/12/19 17:59 Folic Acid (Folate) 3 mg DAILY ORAL 04/11/19 10:00 05/11/19 09:59 04/12/19 08:42 Insulin Human Regular (NovoLIN R) 5 units PRN PRN IV BS 200-299 04/08/19 00:30 05/08/19 00:29 04/12/19 12:08 Insulin Human Regular (NovoLIN R) 10 units PRN PRN IV BS=>300 04/08/19 00:30 05/08/19 00:29 Insulin Human Regular 100 units/ Sodium Chloride 100 ml @ 0 mls/hr Q24H IV 04/10/19 10:30 05/10/19 10:29 04/11/19 16:51 Levothyroxine Sodium (Synthroid) 50 mcg DAILY@0630 ORAL 04/13/19 06:30 05/13/19 06:29 Meropenem 1 gm/ Sodium Chloride 55 ml @ 110 mls/hr Q8HR IVPB 04/11/19 14:00 04/16/19 13:59 04/12/19 05:48 Miscellaneous Medication (Insulin Rate Change) 1 ea PRN PRN MISC Hyperglycemia 04/08/19 00:30 05/08/19 00:29 04/12/19 06:24 Ondansetron HCl (Zofran) 4 mg EVERY 4 HOURS PRN IVP Nausea & Vomiting 04/08/19 00:30 05/08/19 00:29 Potassium Phosphate 30 mm/ Sodium Chloride 285 ml @ 47.5 mls/hr ONCE ONCE IV 04/12/19 10:30 04/12/19 16:29 04/12/19 10:32 Potassium Chloride (K-Dur) 40 meq TID ORAL 04/11/19 13:00 05/11/19 09:14 04/12/19 12:00 Roland Hayes MD Apr 12, 2019 12:56
--- NOTE | 2019-04-12 14:00 | NUR ---
NURSE NOTES: Insulin drip has been titrated down to 1.5units/hour per Algorithm 2 order/protocol for blood glucose of 121. Pt had BM x1, formed/soft/brown at bedside commode. Pt was cleaned and assisted back to bed. VS stable.
[2019-04-12] MEDS ORDERED: NS 275ml ONE (14:32)
--- NOTE | 2019-04-12 15:53 | NUR ---
NURSE NOTES: Called Dr Cueto's office regarding Urology consult, and spoke with Sarah who stated that Dr Cueto is out of the office today and tomorrow due to Vood[place] holiday. Charge nurse and radiology was informed. Per Foreign, residential appliance repair technician, kidney-abscess drainage procedure is pending urology consult.
--- NOTE | 2019-04-12 16:00 | NUR ---
NURSE NOTES: Insulin drip has been titrated to 2 units/hour per Algorithm 2 order/protocol for blood glucose of 149.
[2019-04-12] MEDS ORDERED: Vancomycin 1.25gm/NS Premix IVPB SCH (17:00)
--- NOTE | 2019-04-12 17:00 | NUR ---
NURSE NOTES: Pt was administered Tylenol per PRN order for Temp 103.1F oral. Dr August was informed.
--- NOTE | 2019-04-12 17:39 | Internal Med Progress Note ---
Subjective Date of Service: Apr 12, 2019 Physician Name RedmondCody todd Attending Physician Isaías Spain MD Current Medications Medications (Trade) Dose Ordered Sig/Jose Route PRN Reason Start Time Stop Time Status Last Admin Dose Admin Acetaminophen (Tylenol) 650 mg Q4H PRN ORAL Mild Pain/Temp > 100.5 04/08/19 00:30 05/08/19 00:29 04/12/19 17:03 Acetaminophen/ Hydrocodone Bitart ([place] 5/325) 1 tab Q6H PRN ORAL For Pain 04/08/19 00:30 04/15/19 00:29 04/10/19 01:37 Dextrose (Dextrose 50%) 25 ml Q30M PRN IV HYPOGLYCEMIA 04/08/19 00:30 05/08/19 00:29 Dextrose (Dextrose 50%) 50 ml Q30M PRN IV HYPOGLYCEMIA 04/08/19 00:30 05/08/19 00:29 Fish Oil (Fish Oil) 1,000 mg BID ORAL 04/12/19 18:00 05/12/19 17:59 04/12/19 17:03 Folic Acid (Folate) 3 mg DAILY ORAL 04/11/19 10:00 05/11/19 09:59 04/12/19 08:42 Insulin Human Regular (NovoLIN R) 5 units PRN PRN IV BS 200-299 04/08/19 00:30 05/08/19 00:29 04/12/19 12:08 Insulin Human Regular (NovoLIN R) 10 units PRN PRN IV BS=>300 04/08/19 00:30 05/08/19 00:29 Insulin Human Regular 100 units/ Sodium Chloride 100 ml @ 0 mls/hr Q24H IV 04/10/19 10:30 05/10/19 10:29 04/11/19 16:51 Levothyroxine Sodium (Synthroid) 50 mcg DAILY@0630 ORAL 04/13/19 06:30 05/13/19 06:29 Meropenem 1 gm/ Sodium Chloride 55 ml @ 110 mls/hr Q8HR IVPB 04/11/19 14:00 04/16/19 13:59 04/12/19 15:10 Miscellaneous Medication (Insulin Rate Change) 1 ea PRN PRN MISC Hyperglycemia 04/08/19 00:30 05/08/19 00:29 04/12/19 06:24 Ondansetron HCl (Zofran) 4 mg EVERY 4 HOURS PRN IVP Nausea & Vomiting 04/08/19 00:30 05/08/19 00:29 Potassium Chloride (K-Dur) 40 meq TID ORAL 04/11/19 13:00 05/11/19 09:14 04/12/19 17:03 Allergies: Coded Allergies: No Known Allergies (Unverified , 04/07/19) Subjective 38 YO M admitted with altered mental status. Now DKA and right perinephric abscess. Cover for Int Med-Dr Spain. ICU. On insulin drip Objective Last Vital Signs Date Time Temp Pulse Resp B/P (MAP) Pulse Ox O2 Delivery O2 Flow Rate FiO2 04/12/19 16:00 Room Air 04/12/19 16:00 123 04/12/19 16:00 35 123/75 (91) 95 04/12/19 15:00 99.0 04/09/19 16:00 2.0 Laboratory Tests Test 04/12/19 05:10 04/12/19 08:10 White Blood Count 16.8 K/UL (4.8-10.8) H Red Blood Count 3.06 M/UL (4.70-6.10) L Hemoglobin 9.6 G/DL (14.2-18.0) L Hematocrit 27.7 % (42.0-52.0) L Mean Corpuscular Volume 91 FL (80-99) Mean Corpuscular Hemoglobin 31.5 PG (27.0-31.0) H Mean Corpuscular Hemoglobin Concent 34.7 G/DL (32.0-36.0) Red Cell Distribution Width 13.6 % (11.6-14.8) Platelet Count 71 K/UL (150-450) L Mean Platelet Volume 9.2 FL (6.5-10.1) Neutrophils (%) (Auto) % (45.0-75.0) Lymphocytes (%) (Auto) % (20.0-45.0) Monocytes (%) (Auto) % (1.0-10.0) Eosinophils (%) (Auto) % (0.0-3.0) Basophils (%) (Auto) % (0.0-2.0) Differential Total Cells Counted 100 Neutrophils % (Manual) 82 % (45-75) H Lymphocytes % (Manual) 8 % (20-45) L Monocytes % (Manual) 10 % (1-10) Eosinophils % (Manual) 0 % (0-3) Basophils % (Manual) 0 % (0-2) Band Neutrophils 0 % (0-8) Platelet Estimate Decreased L Platelet Morphology Normal Erythrocyte Sedimentation Rate 123 MM/HR (0-15) H Sodium Level 137 MMOL/L (136-145) Potassium Level 3.0 MMOL/L (3.5-5.1) L Chloride Level 106 MMOL/L (98-107) Carbon Dioxide Level 22 MMOL/L (21-32) Anion Gap 9 mmol/L (5-15) Blood Urea Nitrogen 12 mg/dL (7-18) Creatinine 0.8 MG/DL (0.55-1.30) Estimat Glomerular Filtration Rate > 60 mL/min (>60) Glucose Level 184 MG/DL (74-106) H Uric Acid 1.6 MG/DL (2.6-7.2) L Calcium Level 8.2 MG/DL (8.5-10.1) L Phosphorus Level 2.3 MG/DL (2.5-4.9) L Magnesium Level 1.7 MG/DL (1.8-2.4) L Total Bilirubin 1.2 MG/DL (0.2-1.0) H Direct Bilirubin 0.4 MG/DL (0.0-0.3) H Aspartate Amino Transf (AST/SGOT) 36 U/L (15-37) Alanine Aminotransferase (ALT/SGPT) 31 U/L (12-78) Alkaline Phosphatase 637 U/L (46-116) H C-Reactive Protein, Quantitative 12.9 mg/dL (0.00-0.90) H Pro-B-Type Natriuretic Peptide 1028 pg/mL (0-125) H Total Protein 6.3 G/DL (6.4-8.2) L Albumin 1.5 G/DL (3.4-5.0) L Globulin 4.8 g/dL Albumin/Globulin Ratio 0.3 (1.0-2.7) L Triglycerides Level 290 MG/DL (30-150) H Cholesterol Level 137 MG/DL (< 200) LDL Cholesterol 69 mg/dL (<100) HDL Cholesterol 8 MG/DL (40-60) L Cholesterol/HDL Ratio 17.1 (3.3-4.4) H Thyroid Stimulating Hormone (TSH) 11.703 uiU/mL (0.358-3.740) Vancomycin Level Trough 10.7 ug/mL (5.0-12.0) Microbiology Date/Time Source Procedure Growth Status 04/11/19 10:33 Urine,Clean Catch Urine Culture - Preliminary Resulted 04/10/19 11:20 Indwelling Cath Urine Culture - Preliminary Resulted Intake and Output 04/11/19 04/12/19 19:00 07:00 Intake Total 2258.200 ml 899.0 ml Output Total 1584 ml 1975 ml Balance 674.200 ml -1076.0 ml Intake Oral 1460 ml 425 ml IV Total 798.200 ml 474.0 ml Output Urine Total 1584 ml 1975 ml Objective General Appearance: WD/WN, no apparent distress, alert EENT: PERRL/EOMI, normal ENT inspection, TMs normal Neck: non-tender, normal alignment, supple, normal inspection Cardiovascular: normal peripheral pulses, normal rate, regular rhythm, no gallop/murmur, no JVD Respiratory/Chest: chest wall non-tender, lungs clear, normal breath sounds, no respiratory distress, no accessory muscle use Abdomen: normal bowel sounds, non tender, soft, no organomegaly, no mass Extremities: normal range of motion Neurologic: wwe wrestler II-XII grossly normal, no motor/sensory deficits Skin: normal pigmentation, warm/dry Assessment/Plan Problem List: (1) Acute metabolic encephalopathy (2) Altered mental status (3) UTI (urinary tract infection) Assessment & Plan: Continue vanco and meropenem per ID - Dr Samano. await urine culture results. (4) Renal failure (5) DKA (diabetic ketoacidoses) Assessment & Plan: Continue insulin drip. See endocrinology note-Dr Hayes. (6) Right femoral fracture Assessment & Plan: See pelvic xray result. CT right hip refused by radiology. Await MRI right hip (7) Perinephric abscess Assessment & Plan: Interventional radiology unable to drain. Urology consult, Dr Cueto declined consult. Await urology - Dr Ortiz Continue vanco and amikacin per ID Status: not improved Cody Redmond MD Apr 12, 2019 17:39
--- NOTE | 2019-04-12 18:30 | NUR ---
NURSE NOTES: Temp was reassessed and is now 99.1F oral. Pt was seen by Dr Redmond. Per , Dr Ortiz has been contacted for urology consult since Dr Cueto is out of office. Dr August was informed. Pt is maintained on Insulin drip at 3units/per hour per Algorithm 2 order/protocol for blood glucose of 191.
--- NOTE | 2019-04-12 19:39 | NUR ---
HAND-OFF: Report given to Carmen DYE. Endorsed plan of care.
--- NOTE | 2019-04-12 20:00 | NUR ---
NURSE NOTES: Received SBAR from Carmen DYE. Patient is awake and oriented to place, time, purpose and self. Patients BP is 99/59, HR is 96 NSR, Temperature is 99.5F. Patient is on insulin gtt at 3units/hr. Patient noted to have Peripheral IV lines that are patent and intact. Patient is warm to touch. Cooling measures in effect. SCD's are on. Educated and updated plan of care to patient. Safety measures are in place. Will continue to monitor.
--- NOTE | 2019-04-12 20:05 | NUR ---
NURSE NOTES: Glucose noted to be 166. Insulin gtt titrated according to unit protocol. Patient eating CCHO diet at bedside. Daniels noted. Yellow urine noted. Will continue to monitor.
[2019-04-12] MEDS: HYDROcodone/Acetamin 5/325 tab ORAL PRN (22:00)
--- NOTE | 2019-04-12 22:00 | NUR ---
NURSE NOTES: Glucose noted to be 158, insulin gtt titrated according to unit protocol. Remains in algorithm 2. Patient given [place] 5/325 PO for pain of 6/10 FLACC scale and Tylenol 650mg PO for fever of 100.5F. HR is 122 ST, BP is 131/119. Cooling measure in effect. Patient finished eating snack. No respiratory distress at this time. Patient remains alert and oriented.
--- NOTE | 2019-04-12 22:30 | NUR ---
NURSE NOTES: Temperature after Tylenol 650mg PO was given is now 100.4F
[2019-04-13] VITALS (27 sets, daily range): BP systolic 82–167; BP diastolic 45–88
--- NOTE | 2019-04-13 | NUR ---
NURSE NOTES: Patient temperature now is 101.0F. Cooling measures remains in effect. Patient HR is 117ST 103/52, RR 26, Spo2 98 on room air. Patient glucose noted to be 285, insulin gtt titrated according to unit protocol, 5 units IVP also given per as protocol, remains on algorithm 2. Pain scale 0/10 FLACC score. Daniels catheter care performed. Got patient up to stretch legs with minimal assistance. SCD's on. Patient is asleep at this time. Safety measures remains in effect.
[2019-04-13] MEDS: Insulin Human Regular 100units/ml 3ml IV PRN ×7 (00:08→22:25)
[2019-04-13] MEDS: Insulin Rate Change 1 Each MISC PRN ×5 (00:08→22:23)
--- NOTE | 2019-04-13 02:00 | NUR ---
NURSE NOTES: Glucose noted to be 243, insulin titrated according to unit protocol. 5 units IVP also administered per scale protocol. Remains in Algorithm 2. Patient is sleeping as this time. Temperature now is 100.8F. Cooling measures still remains in effect. No distress at this time. IV lines remain patent and intact. Will continue to monitor.
--- NOTE | 2019-04-13 03:30 | NUR ---
NURSE NOTES: Received pt and report form HARDIK Bowman. Pt's resting, asleep with eyes closed, in no acute distress. VS stable. Noted insulin drip at 5units/Hr via Left AC 18 G. Daniels draining clear roni urine. Call light within reach. Bed in low and blocked position. Will continue to monitor.
--- NOTE | 2019-04-13 05:00 | NUR ---
NURSE NOTES: Pt's resting in bed, in no acute distress. VS stable. Asleep. Call light within reach. Bed in low and alarmed. Will continue to monitor.
[2019-04-13] MEDS: Meropenem 1 GM in NS 55 ML IVPB SCH (05:52)
[2019-04-13] MEDS ORDERED: Lidocaine 1% Plain 30 ml INJ ONE (06:00)
[2019-04-13 06:05] LABS: HEMATOCRIT 27.7 % (42.0-52.0); HEMOGLOBIN 9.4 G/DL (14.2-18.0); MEAN CORPUSCULAR VOLUME 91 FL (80-99); PLATELET COUNT 70 K/UL (150-450); RED BLOOD COUNT 3.03 M/UL (4.70-6.10); RED CELL DISTRIBUTION WIDTH 13.4 % (11.6-14.8); WHITE BLOOD COUNT 16.3 K/UL (4.8-10.8)
--- NOTE | 2019-04-13 06:36 | General Progress Note ---
Assessment/Plan Problem List: (1) Acute metabolic encephalopathy ICD Codes: G93.41 - Metabolic encephalopathy SNOMED: 20416505, 883845126 (2) JOJO (acute kidney injury) ICD Codes: N17.9 - Acute kidney failure, unspecified SNOMED: 92664664, 7171351 (3) DKA (diabetic ketoacidoses) ICD Codes: E11.10 - Type 2 diabetes mellitus with ketoacidosis without coma SNOMED: 79337524, 344906177 (4) Renal failure ICD Codes: N19 - Unspecified kidney failure SNOMED: 54074588 (5) Pyelonephritis ICD Codes: N12 - Tubulo-interstitial nephritis, not specified as acute or chronic SNOMED: 34973867 Status: not improved Assessment/Plan: DKA has resolved but his insulin gtt rate requirement is high and his general condition is still critical - continue to manage hyperglycemia with insulin gtt for another day - continue blood glucose monitoring every 2 hours Subjective ROS Limited/Unobtainable: Yes Allergies: Coded Allergies: No Known Allergies (Unverified , 04/07/19) Subjective events noted insulin gtt requirement remained high at 14 - 20 units / hour Objective Last 24 Hour Vital Signs Date Time Temp Pulse Resp B/P (MAP) Pulse Ox O2 Delivery O2 Flow Rate FiO2 04/13/19 06:00 104 26 118/85 (96) 94 04/13/19 05:00 91 22 99/60 (73) 94 04/13/19 04:00 Room Air 04/13/19 04:00 98.6 92 21 88/50 (63) 94 04/13/19 04:00 91 04/13/19 03:00 103 26 90/50 (63) 94 04/13/19 02:00 110 25 107/55 (72) 96 04/13/19 01:00 101.0 121 37 103/52 (69) 97 04/13/19 00:00 120 04/13/19 00:00 127 36 125/73 (90) 94 04/13/19 00:00 Room Air 04/12/19 23:00 129 25 130/78 (95) 96 04/12/19 22:29 100.4 04/12/19 22:00 100.5 120 25 131/119 (123) 98 04/12/19 21:00 99 32 114/73 (87) 99 04/12/19 20:00 Room Air 04/12/19 20:00 99.5 101 36 99/59 (72) 97 04/12/19 20:00 97 04/12/19 19:00 111 31 106/65 (79) 97 04/12/19 18:30 99.1 125 32 113/67 (82) 95 04/12/19 18:00 125 32 113/67 (82) 95 04/12/19 17:00 103.1 130 34 122/75 (91) 97 04/12/19 16:00 Room Air 04/12/19 16:00 123 04/12/19 16:00 127 35 123/75 (91) 95 04/12/19 15:00 99.0 106 32 122/80 (94) 97 04/12/19 14:00 107 39 110/68 (82) 97 04/12/19 13:00 100.8 118 34 117/61 (79) 94 04/12/19 12:00 121 04/12/19 12:00 Room Air 04/12/19 12:00 122 36 119/67 (84) 96 04/12/19 11:00 120 36 104/54 (71) 95 04/12/19 10:00 111 34 124/70 (88) 96 04/12/19 09:00 110 33 122/77 (92) 99 04/12/19 08:00 Room Air 04/12/19 08:00 98 04/12/19 08:00 98.4 96 26 124/88 (100) 99 04/12/19 07:00 86 29 105/72 (83) 99 Intake and Output 04/12/19 04/13/19 18:59 06:59 Intake Total 1507.966 ml 799.0 ml Output Total 2370 ml 1725 ml Balance -862.034 ml -926.0 ml Intake Oral 440 ml 700 ml IV Total 1067.966 ml 99.0 ml Output Urine Total 2370 ml 1725 ml # Bowel Movements 1 Laboratory Tests 04/12/19 08:10: Vancomycin Level Trough 10.7 04/13/19 05:35: White Blood Count [Pending], Red Blood Count [Pending], Hemoglobin [Pending], Hematocrit [Pending], Mean Corpuscular Volume [Pending], Mean Corpuscular Hemoglobin [Pending], Mean Corpuscular Hemoglobin Concent [Pending], Red Cell Distribution Width [Pending], Platelet Count [Pending], Mean Platelet Volume [ Pending], Neutrophils (%) (Auto) [Pending], Lymphocytes (%) (Auto) [Pending], Monocytes (%) (Auto) [Pending], Eosinophils (%) (Auto) [Pending], Basophils (%) (Auto) [Pending], Sodium Level [Pending], Potassium Level [Pending], Chloride Level [Pending], Carbon Dioxide Level [Pending], Blood Urea Nitrogen [Pending], Creatinine [Pending], Estimat Glomerular Filtration Rate [Pending], Glucose Level [Pending], Calcium Level [Pending] Height (Feet): 5 Height (Inches): 6.00 Weight (Pounds): 133 Neck: normal alignment Cardiovascular: tachycardia Respiratory/Chest: decreased breath sounds Abdomen: hypoactive bowel sounds Objective Current Medications Medications (Trade) Dose Ordered Sig/Jose Route PRN Reason Start Time Stop Time Status Last Admin Dose Admin Acetaminophen (Tylenol) 650 mg Q4H PRN ORAL Mild Pain/Temp > 100.5 04/08/19 00:30 05/08/19 00:29 04/12/19 11:59 Acetaminophen/ Hydrocodone Bitart ([place] 5/325) 1 tab Q6H PRN ORAL For Pain 04/08/19 00:30 04/15/19 00:29 04/10/19 01:37 Dextrose (Dextrose 50%) 25 ml Q30M PRN IV HYPOGLYCEMIA 04/08/19 00:30 05/08/19 00:29 Dextrose (Dextrose 50%) 50 ml Q30M PRN IV HYPOGLYCEMIA 04/08/19 00:30 05/08/19 00:29 Fish Oil (Fish Oil) 1,000 mg BID ORAL 04/12/19 18:00 05/12/19 17:59 Folic Acid (Folate) 3 mg DAILY ORAL 04/11/19 10:00 05/11/19 09:59 04/12/19 08:42 Insulin Human Regular (NovoLIN R) 5 units PRN PRN IV BS 200-299 04/08/19 00:30 05/08/19 00:29 04/12/19 12:08 Insulin Human Regular (NovoLIN R) 10 units PRN PRN IV BS=>300 04/08/19 00:30 05/08/19 00:29 Insulin Human Regular 100 units/ Sodium Chloride 100 ml @ 0 mls/hr Q24H IV 04/10/19 10:30 05/10/19 10:29 04/11/19 16:51 Levothyroxine Sodium (Synthroid) 50 mcg DAILY@0630 ORAL 04/13/19 06:30 05/13/19 06:29 Meropenem 1 gm/ Sodium Chloride 55 ml @ 110 mls/hr Q8HR IVPB 04/11/19 14:00 04/16/19 13:59 04/12/19 05:48 Miscellaneous Medication (Insulin Rate Change) 1 ea PRN PRN MISC Hyperglycemia 04/08/19 00:30 05/08/19 00:29 04/12/19 06:24 Ondansetron HCl (Zofran) 4 mg EVERY 4 HOURS PRN IVP Nausea & Vomiting 04/08/19 00:30 05/08/19 00:29 Potassium Phosphate 30 mm/ Sodium Chloride 285 ml @ 47.5 mls/hr ONCE ONCE IV 04/12/19 10:30 04/12/19 16:29 04/12/19 10:32 Potassium Chloride (K-Dur) 40 meq TID ORAL 04/11/19 13:00 05/11/19 09:14 04/12/19 12:00 Roland Hayes MD Apr 13, 2019 06:36
[2019-04-13 06:58] LABS: ANION GAP 8 mmol/L (5-15); BLOOD UREA NITROGEN 9 mg/dL (7-18); CALCIUM 7.7 MG/DL (8.5-10.1); CARBON DIOXIDE 24 MMOL/L (21-32); CHLORIDE 106 MMOL/L (98-107); CREATININE 0.6 MG/DL (0.55-1.30); SODIUM 138 MMOL/L (136-145)
--- NOTE | 2019-04-13 07:15 | NUR ---
HAND-OFF: Report given to HARDIK Reyna.
--- NOTE | 2019-04-13 08:00 | NUR ---
NURSE NOTES: Received change of shift report from Tariq RN. Pt is sleeping, awakens to name/voice, however is very fatigued and drowsy, pt is primarily [place] speaking however is able to comprehend/communicate basic Filipino. Temp is 101.5F oral, and was just administered Tylenol PO by shift mechanic nurse per PRN order. color television console monitor displays ST with heart rate in the 120's with bounding peripheral pulses. Pt has two peripheral IV access, left AC #18G and right FA #20G, currently on Insulin drip at Algorithm [address] Hayes's order and at 2units/per hour per last glucose level of 147. Pt was on room air with 87-92% O2sat and is now placed on 2L of oxygen via nasal cannula to maintain O2sat in the 90's. Abdomen is flat, soft, nontender to touch with hypoactive bowel sounds. Daniels catheter is in place, draining mildly cloudy/yellow urine. Pt uses bedside commode for BM's. Skin has left heel DTI and left knee scab. Bed is locked in lowest position with three side rails up and call light within reach. Will continue with plan of care.
--- NOTE | 2019-04-13 08:05 | NUR ---
NURSE NOTES: Blood glucose was rechecked and resulted 170. Insulin drip has been titrated to 2.5 units/hour per Algorithm [address] Hayes's order.
--- NOTE | 2019-04-13 10:00 | NUR ---
NURSE NOTES: Blood glucose is being reassessed Q2hrs per Dr Hayes's order. Current accucheck is 257 after pt consumed breakfast per [facility] diet. Insulin drip has been titrated to 5 units/hour in addition to 5units IVP administered. Temp is now 99.1F oral.
--- NOTE | 2019-04-13 10:30 | Pulmonolgy Critical Care Note ---
Critical Care - Asmt/Plan Problems: (1) DKA (diabetic ketoacidoses) (2) JOJO (acute kidney injury) (3) Pyelonephritis (4) Renal abscess Respiratory: monitor respiratory rate, adjust FIO2, CXR Cardiac: continue to monitor HR/BP Renal: F/U I&O, keep IV fluid Infectious Disease: check cultures, continue antibiotics Gastrointestinal: continue feedings/current rate Endocrine: monitor blood sugar, check HgA1C Hematologic: monitor H/H, transfuse if hgb<8.5 Neurologic: PRN Ativan Affect: PRN ativan Prophylaxis: Protonix, Heparin Disposition: keep in ICU Discussed with: nurses, consultants, case loader operator, family member Critical Care - Objective Last 24 Hour Vital Signs Date Time Temp Pulse Resp B/P (MAP) Pulse Ox O2 Delivery O2 Flow Rate FiO2 04/13/19 09:00 123 27 101/53 (69) 97 04/13/19 08:00 124 04/13/19 08:00 Nasal Cannula 2.0 04/13/19 08:00 100.5 129 28 121/66 (84) 100 04/13/19 07:54 100.0 04/13/19 07:00 101.5 124 26 114/62 (79) 94 04/13/19 06:00 104 26 118/85 (96) 94 04/13/19 05:00 91 22 99/60 (73) 94 04/13/19 04:00 Room Air 04/13/19 04:00 98.6 92 21 88/50 (63) 94 04/13/19 04:00 91 04/13/19 03:00 103 26 90/50 (63) 94 04/13/19 02:00 110 25 107/55 (72) 96 04/13/19 01:00 101.0 121 37 103/52 (69) 97 04/13/19 00:00 120 04/13/19 00:00 127 36 125/73 (90) 94 04/13/19 00:00 Room Air 04/12/19 23:00 129 25 130/78 (95) 96 04/12/19 22:00 100.5 120 25 131/119 (123) 98 04/12/19 21:00 99 32 114/73 (87) 99 04/12/19 20:00 Room Air 04/12/19 20:00 99.5 101 36 99/59 (72) 97 04/12/19 20:00 97 04/12/19 19:00 111 31 106/65 (79) 97 04/12/19 18:30 99.1 125 32 113/67 (82) 95 04/12/19 18:00 125 32 113/67 (82) 95 04/12/19 17:00 103.1 130 34 122/75 (91) 97 04/12/19 16:00 Room Air 04/12/19 16:00 123 04/12/19 16:00 127 35 123/75 (91) 95 04/12/19 15:00 99.0 106 32 122/80 (94) 97 04/12/19 14:00 107 39 110/68 (82) 97 04/12/19 13:00 100.8 118 34 117/61 (79) 94 04/12/19 12:00 121 04/12/19 12:00 Room Air 04/12/19 12:00 122 36 119/67 (84) 96 04/12/19 11:00 120 36 104/54 (71) 95 Status: sedated Condition: critical Neck: full ROM Lungs: clear Heart: HR/BP stable, regular Abdomen: soft, active bowel sounds, feeding tube Extremities: no C/C/E, edema Micro: Microbiology Date/Time Source Procedure Growth Status 04/11/19 10:33 Urine,Clean Catch Urine Culture - Preliminary YEAST Resulted 04/10/19 11:20 Indwelling Cath Urine Culture - Preliminary YEAST Resulted Accucheck: 170 Critical Care - Subjective ROS Limited/Unobtainable: Yes Interval Events: doing better Condition: critical EKG Rhythm: Sinus Rhythm I&O: Intake and Output 04/12/19 04/13/19 19:00 07:00 Intake Total 1397.966 ml 853.0 ml Output Total 2370 ml 1675 ml Balance -972.034 ml -822.0 ml Intake Oral 440 ml 700 ml IV Total 957.966 ml 153.0 ml Output Urine Total 2370 ml 1675 ml # Bowel Movements 2 Labs: Laboratory Tests Test 04/13/19 05:35 White Blood Count 16.3 K/UL (4.8-10.8) H Red Blood Count 3.03 M/UL (4.70-6.10) L Hemoglobin 9.4 G/DL (14.2-18.0) L Hematocrit 27.7 % (42.0-52.0) L Mean Corpuscular Volume 91 FL (80-99) Mean Corpuscular Hemoglobin 31.0 PG (27.0-31.0) Mean Corpuscular Hemoglobin Concent 34.0 G/DL (32.0-36.0) Red Cell Distribution Width 13.4 % (11.6-14.8) Platelet Count 70 K/UL (150-450) L Mean Platelet Volume 8.4 FL (6.5-10.1) Neutrophils (%) (Auto) % (45.0-75.0) Lymphocytes (%) (Auto) % (20.0-45.0) Monocytes (%) (Auto) % (1.0-10.0) Eosinophils (%) (Auto) % (0.0-3.0) Basophils (%) (Auto) % (0.0-2.0) Differential Total Cells Counted 100 Neutrophils % (Manual) 87 % (45-75) H Lymphocytes % (Manual) 8 % (20-45) L Monocytes % (Manual) 1 % (1-10) Eosinophils % (Manual) 1 % (0-3) Basophils % (Manual) 0 % (0-2) Band Neutrophils 3 % (0-8) Platelet Estimate Decreased L Platelet Morphology Normal Sodium Level 138 MMOL/L (136-145) Potassium Level 4.0 MMOL/L (3.5-5.1) Chloride Level 106 MMOL/L (98-107) Carbon Dioxide Level 24 MMOL/L (21-32) Anion Gap 8 mmol/L (5-15) Blood Urea Nitrogen 9 mg/dL (7-18) Creatinine 0.6 MG/DL (0.55-1.30) Estimat Glomerular Filtration Rate > 60 mL/min (>60) Glucose Level 145 MG/DL (74-106) H Calcium Level 7.7 MG/DL (8.5-10.1) Donny Urban MD Apr 13, 2019 10:30
--- NOTE | 2019-04-13 10:31 | NUR ---
HOMELESS COORDINATOR HC spoke with patient and patient is alert and oriented. Patient does not have a contact number Patient states she is chronically homeless. Patient states he would like resources for a fpc. Patient states he has been homeless for 2-3weeks. Patient states he was staying with a friend and they had a fight and he can no longer stay with the friend. Patient has no pharmaceutical salesperson. Patient states he has no income. Patient states he struggles with alcohol substance abuse. Patient states doesn't suffer from mental health. Patient has no follow-up doctor and would like resources for clinics. Patient states he would like to be referred to a substance abuse program upon discharge. HC will referred patient to [facility] substance abuse program. Patient continues to require medical intervention. Will continue to monitor and assist as needed.
--- NOTE | 2019-04-13 10:43 | NUR ---
NURSE NOTES: Pt was seen by Dr Kepm. MD was informed regarding kidney-abscess drainage procedure being postponed (per radiology) pt is hemodynamically not stable and waiting for urology consult. Per , pt will be seen by Dr Ortiz for urology consult. No new orders at this time.
--- NOTE | 2019-04-13 11:41 | Infectious Diseases Prog Note ---
Assessment/Plan Assessment/Plan The patient is a 38-year-old male with: Fever, ongoing- due to inadequate source control Leukocytosis; overall irmpoved but persistent Sepsis. -CXR: Basilar atelectatic changes and/or scarring. No acute process otherwise Emphysematous pyelonephritis with likely right kidney abscess -u/a wbc 10-15, nit neg, leuk +1; ucx yeast -04/08 BCx NTD Bacteremic - 04/12 BCx 1/2 Gram variable rods Diabetes and now with DKA. Rule out biliary disease (elevated Tbili, ALP) -ABD US: Severe distention of the urinary bladder. Suggest Daniels catheter. Associated mild hydronephrosis. Hepatomegaly. There is no biliary ductal dilatation identified. Gallbladder is unremarkable. Thrombocytopenia (probably due to sepsis -HIV, hep panel neg Fever Elevated alkaline phosphatase (ultrasound unremarkable for biliary disease). CT 04/09/19 1. Emphysematous pyelonephritis in the right kidney, most prominently affecting the right lower pole, with a 7.6 x 7.4 x 5.3 cm air-fluid collection in the lower pole likely representing renal abscess extending to the perirenal fat. No definite fat plane between this collection and the adjacent right psoas musculature. Extensive adjacent inflammatory stranding. 2. Daniels catheter balloon and tip within the urinary bladder lumen. Mild diffuse urinary bladder wall thickening, suggestive of cystitis. . PLAN: 1. Switch Meropenem #3(abx d #5) to Cefepime and add IV Micafungin -04/11 SP IV Rocephin #4, Amikacin #3 2. Resume empiric IV Vancomycin #5 pending ID BCx 3. Monitor CBC, BMP. 4. Monitor cultures, blood and urine. 5 Continue intensive care. 6. Urology eval- still awaiting evaluation; needs source control 7. Bc x2 Thank you, Dr. Kemp, for allowing me to participate in the care of this patient. I will follow the patient with you. Subjective Allergies: Coded Allergies: No Known Allergies (Unverified , 04/07/19) Subjective Tm 101.5 wbc remains on 16 bacteremic still awaiting urology evaluation for source control; out of Hindu holidays Objective Vital Signs Last 24 Hour Vital Signs Date Time Temp Pulse Resp B/P (MAP) Pulse Ox O2 Delivery O2 Flow Rate FiO2 04/13/19 10:00 108 28 96/53 (67) 98 04/13/19 09:00 123 27 101/53 (69) 97 04/13/19 08:00 124 04/13/19 08:00 Nasal Cannula 2.0 04/13/19 08:00 100.5 129 28 121/66 (84) 100 04/13/19 07:54 100.0 04/13/19 07:00 101.5 124 26 114/62 (79) 94 04/13/19 06:00 104 26 118/85 (96) 94 04/13/19 05:00 91 22 99/60 (73) 94 04/13/19 04:00 Room Air 04/13/19 04:00 98.6 92 21 88/50 (63) 94 04/13/19 04:00 91 04/13/19 03:00 103 26 90/50 (63) 94 04/13/19 02:00 110 25 107/55 (72) 96 04/13/19 01:00 101.0 121 37 103/52 (69) 97 04/13/19 00:00 120 04/13/19 00:00 127 36 125/73 (90) 94 04/13/19 00:00 Room Air 04/12/19 23:00 129 25 130/78 (95) 96 04/12/19 22:00 100.5 120 25 131/119 (123) 98 04/12/19 21:00 99 32 114/73 (87) 99 04/12/19 20:00 Room Air 04/12/19 20:00 99.5 101 36 99/59 (72) 97 04/12/19 20:00 97 04/12/19 19:00 111 31 106/65 (79) 97 04/12/19 18:30 99.1 125 32 113/67 (82) 95 04/12/19 18:00 125 32 113/67 (82) 95 04/12/19 17:00 103.1 130 34 122/75 (91) 97 04/12/19 16:00 Room Air 04/12/19 16:00 123 04/12/19 16:00 127 35 123/75 (91) 95 04/12/19 15:00 99.0 106 32 122/80 (94) 97 04/12/19 14:00 107 39 110/68 (82) 97 04/12/19 13:00 100.8 118 34 117/61 (79) 94 04/12/19 12:00 121 04/12/19 12:00 Room Air 04/12/19 12:00 122 36 119/67 (84) 96 Height (Feet): 5 Height (Inches): 6.00 Weight (Pounds): 133 Objective GEN: NAD HEENT: NCAT, MMM LUNGS: Coarse B/L HEART: RR, s1,s2 Abd TTP, SOft Microbiology Date/Time Source Procedure Growth Status 04/12/19 11:40 Blood Blood Culture - Preliminary Resulted 04/11/19 10:33 Urine,Clean Catch Urine Culture - Preliminary YEAST Resulted Laboratory Tests Test 04/13/19 05:35 White Blood Count 16.3 K/UL (4.8-10.8) H Red Blood Count 3.03 M/UL (4.70-6.10) L Hemoglobin 9.4 G/DL (14.2-18.0) L Hematocrit 27.7 % (42.0-52.0) L Mean Corpuscular Volume 91 FL (80-99) Mean Corpuscular Hemoglobin 31.0 PG (27.0-31.0) Mean Corpuscular Hemoglobin Concent 34.0 G/DL (32.0-36.0) Red Cell Distribution Width 13.4 % (11.6-14.8) Platelet Count 70 K/UL (150-450) L Mean Platelet Volume 8.4 FL (6.5-10.1) Neutrophils (%) (Auto) % (45.0-75.0) Lymphocytes (%) (Auto) % (20.0-45.0) Monocytes (%) (Auto) % (1.0-10.0) Eosinophils (%) (Auto) % (0.0-3.0) Basophils (%) (Auto) % (0.0-2.0) Differential Total Cells Counted 100 Neutrophils % (Manual) 87 % (45-75) H Lymphocytes % (Manual) 8 % (20-45) L Monocytes % (Manual) 1 % (1-10) Eosinophils % (Manual) 1 % (0-3) Basophils % (Manual) 0 % (0-2) Band Neutrophils 3 % (0-8) Platelet Estimate Decreased L Platelet Morphology Normal Sodium Level 138 MMOL/L (136-145) Potassium Level 4.0 MMOL/L (3.5-5.1) Chloride Level 106 MMOL/L (98-107) Carbon Dioxide Level 24 MMOL/L (21-32) Anion Gap 8 mmol/L (5-15) Blood Urea Nitrogen 9 mg/dL (7-18) Creatinine 0.6 MG/DL (0.55-1.30) Estimat Glomerular Filtration Rate > 60 mL/min (>60) Glucose Level 145 MG/DL (74-106) H Calcium Level 7.7 MG/DL (8.5-10.1) L Current Medications Medications (Trade) Dose Ordered Sig/Jose Route PRN Reason Start Time Stop Time Status Last Admin Dose Admin Acetaminophen (Tylenol) 650 mg Q4H PRN ORAL Mild Pain/Temp > 100.5 04/08/19 00:30 05/08/19 00:29 04/13/19 07:24 Acetaminophen/ Hydrocodone Bitart ([place] 5/325) 1 tab Q6H PRN ORAL For Pain 04/08/19 00:30 04/15/19 00:29 04/12/19 22:00 Dextrose (Dextrose 50%) 25 ml Q30M PRN IV HYPOGLYCEMIA 04/08/19 00:30 05/08/19 00:29 Dextrose (Dextrose 50%) 50 ml Q30M PRN IV HYPOGLYCEMIA 04/08/19 00:30 05/08/19 00:29 Fish Oil (Fish Oil) 1,000 mg BID ORAL 04/12/19 18:00 05/12/19 17:59 04/13/19 08:08 Folic Acid (Folate) 3 mg DAILY ORAL 04/11/19 10:00 05/11/19 09:59 04/13/19 08:08 Insulin Human Regular (NovoLIN R) 5 units PRN PRN IV BS 200-299 04/08/19 00:30 05/08/19 00:29 04/13/19 10:30 Insulin Human Regular (NovoLIN R) 10 units PRN PRN IV BS=>300 04/08/19 00:30 05/08/19 00:29 Insulin Human Regular 100 units/ Sodium Chloride 100 ml @ 0 mls/hr Q24H IV 04/10/19 10:30 05/10/19 10:29 04/13/19 00:01 Levothyroxine Sodium (Synthroid) 50 mcg DAILY@0630 ORAL 04/13/19 06:30 05/13/19 06:29 04/13/19 05:52 Meropenem 1 gm/ Sodium Chloride 55 ml @ 110 mls/hr Q8HR IVPB 04/11/19 14:00 04/16/19 13:59 04/13/19 05:52 Miscellaneous Medication (Insulin Rate Change) 1 ea PRN PRN MISC Hyperglycemia 04/08/19 00:30 05/08/19 00:29 04/13/19 04:41 Ondansetron HCl (Zofran) 4 mg EVERY 4 HOURS PRN IVP Nausea & Vomiting 04/08/19 00:30 05/08/19 00:29 Potassium Chloride (K-Dur) 40 meq TID ORAL 04/11/19 13:00 05/11/19 09:14 04/13/19 08:08 Hanny August M.D. Apr 13, 2019 11:41
--- NOTE | 2019-04-13 12:00 | NUR ---
NURSE NOTES: Pt is in semi-beverly's, watching TV. Denies any pain or discomfort at this time. Pt remains on Insulin drip on Algorithm 2, current rate of 2units/hour per last glucose level of 140. bus driver/monitor displays ST with heart rate in the 120's. Dr Kemp is aware. Received call from Microbiology for blood culture result gram variable rods. Dr Hayes was informed regarding blood culture report and regarding fluctuating elevated oral temp/fevers. Pt is being covered by PO Tylenol per PRN order and cooling measures.
--- NOTE | 2019-04-13 12:24 | Internal Med Progress Note ---
Subjective Date of Service: Apr 13, 2019 Physician Name Cody Redmond Attending Physician Isaías Spain MD Current Medications Medications (Trade) Dose Ordered Sig/Jose Route PRN Reason Start Time Stop Time Status Last Admin Dose Admin Acetaminophen (Tylenol) 650 mg Q4H PRN ORAL Mild Pain/Temp > 100.5 04/08/19 00:30 05/08/19 00:29 04/13/19 07:24 Acetaminophen/ Hydrocodone Bitart ([place] 5/325) 1 tab Q6H PRN ORAL For Pain 04/08/19 00:30 04/15/19 00:29 04/12/19 22:00 Cefepime HCl 1 gm/ Dextrose 55 ml @ 110 mls/hr EVERY 8 HOURS IVPB 04/13/19 14:00 04/20/19 13:59 Dextrose (Dextrose 50%) 25 ml Q30M PRN IV HYPOGLYCEMIA 04/08/19 00:30 05/08/19 00:29 Dextrose (Dextrose 50%) 50 ml Q30M PRN IV HYPOGLYCEMIA 04/08/19 00:30 05/08/19 00:29 Fish Oil (Fish Oil) 1,000 mg BID ORAL 04/12/19 18:00 05/12/19 17:59 04/13/19 08:08 Folic Acid (Folate) 3 mg DAILY ORAL 04/11/19 10:00 05/11/19 09:59 04/13/19 08:08 Insulin Human Regular (NovoLIN R) 5 units PRN PRN IV BS 200-299 04/08/19 00:30 05/08/19 00:29 04/13/19 10:30 Insulin Human Regular (NovoLIN R) 10 units PRN PRN IV BS=>300 04/08/19 00:30 05/08/19 00:29 Insulin Human Regular 100 units/ Sodium Chloride 100 ml @ 0 mls/hr Q24H IV 04/10/19 10:30 05/10/19 10:29 04/13/19 00:01 Levothyroxine Sodium (Synthroid) 50 mcg DAILY@0630 ORAL 04/13/19 06:30 05/13/19 06:29 04/13/19 05:52 Micafungin Sodium 100 mg/Sodium Chloride 110 ml @ 110 mls/hr Q24H IVPB 04/13/19 13:00 04/20/19 12:59 Miscellaneous Medication (Insulin Rate Change) 1 ea PRN PRN MISC Hyperglycemia 04/08/19 00:30 05/08/19 00:29 04/13/19 04:41 Ondansetron HCl (Zofran) 4 mg EVERY 4 HOURS PRN IVP Nausea & Vomiting 04/08/19 00:30 05/08/19 00:29 Potassium Chloride (K-Dur) 40 meq TID ORAL 04/11/19 13:00 05/11/19 09:14 04/13/19 12:17 Vancomycin HCl (Vanco rx to dose) 1 ea DAILY PRN MISC Per rx protocol 04/13/19 11:45 05/13/19 11:44 UNV Allergies: Coded Allergies: No Known Allergies (Unverified , 04/07/19) ROS Limited/Unobtainable: No Constitutional: Reports: chills, fever HEENT: Reports: no symptoms Cardiovascular: Reports: no symptoms Respiratory: Reports: no symptoms Gastrointestinal/Abdominal: Reports: no symptoms Genitourinary: Reports: no symptoms Neurologic/Psychiatric: Reports: no symptoms Subjective 38 YO M admitted with altered mental status. Now DKA and right perinephric abscess. Cover for Int Med-Dr Spain. ICU. On insulin drip. Fever to 101.5F Objective Last Vital Signs Date Time Temp Pulse Resp B/P (MAP) Pulse Ox O2 Delivery O2 Flow Rate FiO2 04/13/19 10:00 108 28 96/53 (67) 98 04/13/19 08:00 Nasal Cannula 2.0 04/13/19 08:00 100.5 Laboratory Tests Test 04/13/19 05:35 White Blood Count 16.3 K/UL (4.8-10.8) H Red Blood Count 3.03 M/UL (4.70-6.10) L Hemoglobin 9.4 G/DL (14.2-18.0) L Hematocrit 27.7 % (42.0-52.0) L Mean Corpuscular Volume 91 FL (80-99) Mean Corpuscular Hemoglobin 31.0 PG (27.0-31.0) Mean Corpuscular Hemoglobin Concent 34.0 G/DL (32.0-36.0) Red Cell Distribution Width 13.4 % (11.6-14.8) Platelet Count 70 K/UL (150-450) L Mean Platelet Volume 8.4 FL (6.5-10.1) Neutrophils (%) (Auto) % (45.0-75.0) Lymphocytes (%) (Auto) % (20.0-45.0) Monocytes (%) (Auto) % (1.0-10.0) Eosinophils (%) (Auto) % (0.0-3.0) Basophils (%) (Auto) % (0.0-2.0) Differential Total Cells Counted 100 Neutrophils % (Manual) 87 % (45-75) H Lymphocytes % (Manual) 8 % (20-45) L Monocytes % (Manual) 1 % (1-10) Eosinophils % (Manual) 1 % (0-3) Basophils % (Manual) 0 % (0-2) Band Neutrophils 3 % (0-8) Platelet Estimate Decreased L Platelet Morphology Normal Sodium Level 138 MMOL/L (136-145) Potassium Level 4.0 MMOL/L (3.5-5.1) Chloride Level 106 MMOL/L (98-107) Carbon Dioxide Level 24 MMOL/L (21-32) Anion Gap 8 mmol/L (5-15) Blood Urea Nitrogen 9 mg/dL (7-18) Creatinine 0.6 MG/DL (0.55-1.30) Estimat Glomerular Filtration Rate > 60 mL/min (>60) Glucose Level 145 MG/DL (74-106) H Calcium Level 7.7 MG/DL (8.5-10.1) L Microbiology Date/Time Source Procedure Growth Status 04/12/19 11:40 Blood Blood Culture - Preliminary Resulted 04/11/19 10:33 Urine,Clean Catch Urine Culture - Preliminary YEAST Resulted Intake and Output 04/12/19 04/13/19 19:00 07:00 Intake Total 1397.966 ml 853.0 ml Output Total 2370 ml 1675 ml Balance -972.034 ml -822.0 ml Intake Oral 440 ml 700 ml IV Total 957.966 ml 153.0 ml Output Urine Total 2370 ml 1675 ml # Bowel Movements 2 Objective General Appearance: WD/WN, no apparent distress, alert EENT: PERRL/EOMI, normal ENT inspection, TMs normal Neck: non-tender, normal alignment, supple, normal inspection Cardiovascular: normal peripheral pulses, normal rate, regular rhythm, no gallop/murmur, no JVD Respiratory/Chest: chest wall non-tender, lungs clear, normal breath sounds, no respiratory distress, no accessory muscle use Abdomen: normal bowel sounds, non tender, soft, no organomegaly, no mass Extremities: normal range of motion Neurologic: art manager II-XII grossly normal, no motor/sensory deficits Skin: normal pigmentation, warm/dry Assessment/Plan Problem List: (1) Acute metabolic encephalopathy (2) Altered mental status (3) UTI (urinary tract infection) Assessment & Plan: Continue vanco and meropenem per ID - Dr Samano. await urine culture results. (4) Renal failure (5) DKA (diabetic ketoacidoses) Assessment & Plan: Continue insulin drip. See endocrinology note-Dr Hayes. (6) Right femoral fracture Assessment & Plan: suspected. See pelvic xray result. (7) Perinephric abscess Assessment & Plan: Interventional radiology unable to drain. Urology consult, Dr Cueto declined consult. Await urology - Dylan Florez and Nick notified. Continuecefepime and micafungin per ID Cody Redmond MD Apr 13, 2019 12:24
--- NOTE | 2019-04-13 12:58 | Nephrology Progress Note ---
Assessment/Plan Problem List: (1) Pyelonephritis (2) DKA (diabetic ketoacidoses) (3) Electrolyte abnormality Assessment (1) DKA (diabetic ketoacidoses) (2) JOJO (acute kidney injury) (3) Pyelonephritis (4) Electrolyte imbalance (5) HypoThyroidism Plan tolerating PO remains on insulin drip CRP lowering PO KCL Phos and Mag as needed fish oil synthroid Monitor lytes recheck UA per orders Uro eval pending Subjective ROS Limited/Unobtainable: No Constitutional: Reports: other - feels strong Objective Objective Last 24 Hour Vital Signs Date Time Temp Pulse Resp B/P (MAP) Pulse Ox O2 Delivery O2 Flow Rate FiO2 04/13/19 12:00 Nasal Cannula 2.0 04/13/19 12:00 99.1 100 26 148/88 (108) 100 04/13/19 11:30 99 25 82/49 (60) 93 04/13/19 11:00 104 29 89/45 (60) 98 04/13/19 10:00 108 28 96/53 (67) 98 04/13/19 09:00 123 27 101/53 (69) 97 04/13/19 08:00 124 04/13/19 08:00 Nasal Cannula 2.0 04/13/19 08:00 100.5 129 28 121/66 (84) 100 04/13/19 07:54 100.0 04/13/19 07:00 101.5 124 26 114/62 (79) 94 04/13/19 06:00 104 26 118/85 (96) 94 04/13/19 05:00 91 22 99/60 (73) 94 04/13/19 04:00 Room Air 04/13/19 04:00 98.6 92 21 88/50 (63) 94 04/13/19 04:00 91 04/13/19 03:00 103 26 90/50 (63) 94 04/13/19 02:00 110 25 107/55 (72) 96 04/13/19 01:00 101.0 121 37 103/52 (69) 97 04/13/19 00:00 120 04/13/19 00:00 127 36 125/73 (90) 94 04/13/19 00:00 Room Air 04/12/19 23:00 129 25 130/78 (95) 96 04/12/19 22:00 100.5 120 25 131/119 (123) 98 04/12/19 21:00 99 32 114/73 (87) 99 04/12/19 20:00 Room Air 04/12/19 20:00 99.5 101 36 99/59 (72) 97 04/12/19 20:00 97 04/12/19 19:00 111 31 106/65 (79) 97 04/12/19 18:30 99.1 125 32 113/67 (82) 95 04/12/19 18:00 125 32 113/67 (82) 95 04/12/19 17:00 103.1 130 34 122/75 (91) 97 04/12/19 16:00 Room Air 04/12/19 16:00 123 04/12/19 16:00 127 35 123/75 (91) 95 04/12/19 15:00 99.0 106 32 122/80 (94) 97 04/12/19 14:00 107 39 110/68 (82) 97 04/12/19 13:00 100.8 118 34 117/61 (79) 94 Intake and Output 04/12/19 04/13/19 19:00 07:00 Intake Total 1397.966 ml 853.0 ml Output Total 2370 ml 1675 ml Balance -972.034 ml -822.0 ml Intake Oral 440 ml 700 ml IV Total 957.966 ml 153.0 ml Output Urine Total 2370 ml 1675 ml # Bowel Movements 2 Laboratory Tests 04/13/19 05:35: White Blood Count 16.3H, Red Blood Count 3.03L, Hemoglobin 9.4L, Hematocrit 27.7L, Mean Corpuscular Volume 91, Mean Corpuscular Hemoglobin 31.0, Mean Corpuscular Hemoglobin Concent 34.0, Red Cell Distribution Width 13.4, Platelet Count 70L, Mean Platelet Volume 8.4, Neutrophils (%) (Auto) , Lymphocytes (%) ( Auto) , Monocytes (%) (Auto) , Eosinophils (%) (Auto) , Basophils (%) (Auto) , Differential Total Cells Counted 100, Neutrophils % (Manual) 87H, Lymphocytes % (Manual) 8L, Monocytes % (Manual) 1, Eosinophils % (Manual) 1, Basophils % ( Manual) 0, Band Neutrophils 3, Platelet Estimate DecreasedL, Platelet Morphology Normal, Sodium Level 138, Potassium Level 4.0, Chloride Level 106, Carbon Dioxide Level 24, Anion Gap 8, Blood Urea Nitrogen 9, Creatinine 0.6, Estimat Glomerular Filtration Rate > 60, Glucose Level 145H, Calcium Level 7.7L Height (Feet): 5 Height (Inches): 6.00 Weight (Pounds): 133 General Appearance: no apparent distress Cardiovascular: tachycardia - rate 100 Respiratory/Chest: decreased breath sounds Abdomen: soft Objective no change Russ Osborn MD Apr 13, 2019 12:58
[2019-04-13] MEDS ORDERED: Micafungin 100 MG in NS 110 ML IVPB SCH (13:00)
--- NOTE | 2019-04-13 13:02 | NUR ---
VISUAL BASIC DEVELOPERDEPARTMENT OF MATHEMATICS CHAIR SI: DIABETIC KETOACIDOSIS,SEPSIS T. 101.5 HR 124 RR 26 B/P 99/60 RA 98% WBC 16.3 GLU 145 PLT 70 IS: INSULIN GTT VANCO IV CEFEPIME IV MICAFUNGIN IV ICU STATUS
[2019-04-13] MEDS: Cefepime HCl 1 GM in D5W 55 ML IVPB SCH ×2 (14:13→21:59)
[2019-04-13] MEDS ORDERED: Lidocaine 1% Plain 30 ml INJ SCH ×2 (15:30)
--- NOTE | 2019-04-13 15:30 | NUR ---
NURSE NOTES: Pt was seen by Dr Ortiz for urology consult. MD spoke with radiologist and was decided pt will be transferred to radiology for CT guided drainage of the right kidney abscess. Consent has been signed and filed in the paper chart. Charge nurse informed. Pt was switched to portable site monitor and portable O2tank to maintain on 2L of oxygen via nasal cannula. Pt is maintained on Insulin drip Algorithm [address] Hayes's order. Current blood glucose is 288. Per site monitor, heart rhythm/rate is ST with HR fluctuating in the 120's-130's. Last oral temp is 99.5F oral with stable BP 120/70 and slightly tachypneic in the low 20's while on 2L O2. Pt was transferred with two radiology techs and myself (primary RN) for the procedure.
--- NOTE | 2019-04-13 15:40 | NUR ---
NURSE NOTES: Time out was called prior to procedure for CT-guided drainage of R kidney abscess. Pt identity and correct site for procedure were verified. In CT-procedure room were present Dr Shawn Thao radiologist, two radiology techs Joe and Foreign and myself/primary RN. VS stable, while pt is maintained on 2L of oxygen via nasal cannula and Insulin drip per Dr Hayes's order. Vitals will be monitored and recorded in interventions for every 5minutes while procedure is in progress.
--- NOTE | 2019-04-13 16:00 | NUR ---
NURSE NOTES: Procedure concluded at 1600. Pt tolerated procedure well with stable VS. Total of 90ml of fluid was removed from right renal abscess and sent to lab for microbiology for culture per radiologist order. Drainage tube is left at right flank area post procedure. Pt will be transferred back to ICU.
--- NOTE | 2019-04-13 16:30 | NUR ---
NURSE NOTES: Pt was transferred back to ICU. ekg monitor tech displays ST with heart rate fluctuating in the 120's, O2Sat 98% while on 2L of oxygen via nasal cannula. Insulin drip was titrated to 4 units/hour for blood glucose of 203, per Algorithm [address] Hayes's order. Pt was cleaned, gown/bed linens were changed. Pt was assisted with repositioning.
--- NOTE | 2019-04-13 16:42 | Diagnostic Imaging Report ---
Indication: Abscess Technique: All preceding relevant cross sectional images were reviewed prior to the procedure. Continuous helical transaxial imaging of the region of interest was then obtained. No IV contrast given. Coronal 2-D reformats were also obtained. Study obtained in a Siemens sensation [address] Total Dose length Product (DLP): mGycm CT Dose Index Volume (CTDIvol): mGy Comparison: None Procedure: After review of the relevant cross-sectional images, the most feasible and safest percutaneous trajectory and approach was chosen. With the patient prone, the skin was then sterilely prepped and draped. 1% lidocaine was administered for local anesthesia. Dermatotomy was made. AccuStick needle was then advanced in the direction of the collection. Adjustments were made until CT confirmed good positioning of the needle tip within the collection. Aspiration performed. A 0.018 wire was advanced after the stylette was removed. Needle removed and exchanged for a catheter. Aspiration performed. Exchange was then made for 0.035 wire, over which an 8.5 Maori multipurpose pigtail drainage catheter was advanced. Wire removed. More aspiration performed. Pigtail formed. CT images show good positioning of the catheter within the cavity. Findings: The abscess in question is in the lower aspect of the right kidney. Compared to the previous CT obtained 04/09/2019, the abscess has changed in character with more purulent fluid material or pus demonstrated within the cavity. About 60 cc of slightly bloody and tannish purulent material was aspirated. The drain was left to suction. The pus was sent for Gram stain, culture and sensitivities and anaerobes. There were no complications. Patient tolerated the procedure well. Impression: Successful aspiration and drainage of a right renal abscess. 8.5 Maori pigtail drainage catheter placed in good position. The CT scanner at [facility] is accredited by the [employer] and the scans are performed using dose optimization techniques as appropriate to a performed exam including Automatic Exposure control.
[2019-04-13] MEDS: Vancomycin 1.25gm/NS Premix IVPB SCH ×2 (17:01→23:01)
[2019-04-13] MEDS: HYDROcodone/Acetamin 5/325 tab ORAL PRN ×2 (17:03→23:02)
--- NOTE | 2019-04-13 17:30 | NUR ---
NURSE NOTES: Pt was administered [place] for severe pain for drainage-procedure per PRN orders.
--- NOTE | 2019-04-13 18:30 | NUR ---
NURSE NOTES: Pt reports pain relief after [place] dose; consumed 100% of dinner. Total output from right flank/renal drain is 90mL post procedure.
--- NOTE | 2019-04-13 19:21 | NUR ---
HAND-OFF: Report given to Yomi DYE. Endorsed plan of care.
--- NOTE | 2019-04-13 19:40 | NUR ---
NURSE NOTES: Patient alert, oriented x4, denied pain or sob at this time, respiration regular, on O2 2lpm via NC, O2 saturation 98% noted, abdomen soft, no n/v noted, F/C intact and patent, yellow urine outed, Pigtail drainage catheter to right back, intact and patent, clean and dried dressing status, tannish purulent color draining status, peripheral line to right FA intact and patent, left AC site leaked status that removed at this time, ongoing Regular Insulin drip 3 Unit/hr per Algorithm 2 as ordered, made lower bed position, provided call light within reach, will continue to monitor.
--- NOTE | 2019-04-13 21:00 | Consultation ---
DATE OF CONSULTATION: 04/13/2019 REASON FOR CONSULTATION: Perinephric abscess. HISTORY OF PRESENT ILLNESS: The patient is a 38-year-old gentleman with past medical history significant for diabetes came through the emergency room with altered mental status. He has a history of insulin-dependent diabetes. He had a CT urogram done that shows 7 x 8 cm abscess in the lower pole of the right kidney. He was placed on IV antibiotics and is currently in the ICU. PAST MEDICAL HISTORY: Significant for diabetes. MEDICATIONS: Unknown. FAMILY HISTORY: Noncontributory. REVIEW OF SYMPTOMS: He is comfortable right now in bed with mild right flank pain. He denies hematuria and denies suprapubic pain. PHYSICAL EXAMINATION: VITAL SIGNS: Temperature is 99, pulse 100, respirations 18. GENERAL: He is awake, responsive . LUNGS: Clear to auscultation. CARDIOVASCULAR: Regular rate and rhythm. ABDOMEN: Soft. Slightly distended on the right side. LABORATORY AND DIAGNOSTIC DATA: White count of 16.3, which is down from 17.5. Creatinine 0.6. CT scan was reviewed showing a large abscess in the lower pole of the right kidney with a large gas and fluid collection. Left kidney is intact. There is no evidence of obstruction of the right collecting system. ASSESSMENT AND PLAN: The patient has right perinephric abscess with diabetes. He needs as soon as possible percutaneous drainage of the perinephric abscess with IV antibiotics and hydration. I will follow this patient with you. Nishant Ortiz M.D. DR: Shahid JOB#: [id number] CC:
--- NOTE | 2019-04-13 22:30 | NUR ---
NURSE NOTES: BS 208mg/dl noted, kept RI drip 4 unit/hr per protocols on Algorithm 2 and extra dose RI 5 unit by ivp.
--- NOTE | 2019-04-13 23:02 | NUR ---
NURSE NOTES: Given [place] 5/325mg by po for back pain of 6/10.
[2019-04-14] VITALS (23 sets, daily range): BP systolic 94–121; BP diastolic 54–71
[2019-04-14] MEDS: Insulin Rate Change 1 Each MISC PRN ×3 (00:30→04:20)
--- NOTE | 2019-04-14 00:30 | NUR ---
NURSE NOTES: BS 130mg/dl noted that changed RI drip rate to 1.5 Unit/hr per protocols, kept algorithm 2.
[2019-04-14] MEDS: Insulin Human Regular 100units/ml 3ml IV PRN (02:26)
--- NOTE | 2019-04-14 02:30 | NUR ---
NURSE NOTES: BS 232mg/dl noted, changed RI insulin drip 4.5 unit/hr per protocols on algo 2, patient denied hyperglycemia sign.
--- NOTE | 2019-04-14 03:46 | NUR ---
NURSE NOTES: Asleep status, no pain or sob noted.
[2019-04-14 05:40] LABS: BASOPHILS % (AUTO) 0.5 % (0.0-2.0); EOSINOPHILS % (AUTO) 0.4 % (0.0-3.0); HEMATOCRIT 23.7 % (42.0-52.0); LYMPHOCYTES % (AUTO) 8.8 % (20.0-45.0); MEAN CORPUSCULAR VOLUME 91 FL (80-99); MONOCYTES % (AUTO) 12.5 % (1.0-10.0); NEUTROPHILS % (AUTO) 77.8 % (45.0-75.0); PLATELET COUNT 105 K/UL (150-450); RED CELL DISTRIBUTION WIDTH 13.6 % (11.6-14.8); WHITE BLOOD COUNT 12.9 K/UL (4.8-10.8)
--- NOTE | 2019-04-14 05:50 | NUR ---
NURSE NOTES: NO PAIN OR DISTRESS NOTED AT THIS SHIFT.
[2019-04-14] MEDS: HYDROcodone/Acetamin 5/325 tab ORAL PRN ×3 (06:05→18:36)
[2019-04-14 06:10] LABS: ALANINE AMINOTRANSFERASE 20 U/L (12-78); ALBUMIN 1.2 G/DL (3.4-5.0); ALBUMIN/GLOBULIN RATIO 0.3 (1.0-2.7); ALKALINE PHOSPHATASE 426 U/L (46-116); ANION GAP 5 mmol/L (5-15); ASPARTATE AMINO TRANSFERASE 22 U/L (15-37); BILIRUBIN,TOTAL 0.6 MG/DL (0.2-1.0); BLOOD UREA NITROGEN 7 mg/dL (7-18); CALCIUM 8.4 MG/DL (8.5-10.1); CARBON DIOXIDE 26 MMOL/L (21-32); CHLORIDE 105 MMOL/L (98-107); CREATININE 0.6 MG/DL (0.55-1.30); PHOSPHORUS 3.7 MG/DL (2.5-4.9); POTASSIUM 4.4 MMOL/L (3.5-5.1); SODIUM 136 MMOL/L (136-145)
--- NOTE | 2019-04-14 06:16 | General Progress Note ---
Assessment/Plan Problem List: (1) Acute metabolic encephalopathy ICD Codes: G93.41 - Metabolic encephalopathy SNOMED: 34413464, 459712844 (2) JOJO (acute kidney injury) ICD Codes: N17.9 - Acute kidney failure, unspecified SNOMED: 71994098, 0385862 (3) DKA (diabetic ketoacidoses) ICD Codes: E11.10 - Type 2 diabetes mellitus with ketoacidosis without coma SNOMED: 05394478, 110232480 (4) Renal failure ICD Codes: N19 - Unspecified kidney failure SNOMED: 41273681 (5) Pyelonephritis ICD Codes: N12 - Tubulo-interstitial nephritis, not specified as acute or chronic SNOMED: 22169523 Status: not improved Assessment/Plan: DC insulin gtt start Levemir 20 units bid start Novolog 10 units ac tid start NISS ac / hs resistant scale Subjective Allergies: Coded Allergies: No Known Allergies (Unverified , 04/07/19) All Systems: reviewed and negative except above Subjective events noted doing much better insulin gtt requirement reduced Objective Last 24 Hour Vital Signs Date Time Temp Pulse Resp B/P (MAP) Pulse Ox O2 Delivery O2 Flow Rate FiO2 04/14/19 04:00 Nasal Cannula 2.0 04/14/19 04:00 97.6 93 23 97/60 (72) 98 04/14/19 03:49 94 04/14/19 03:30 96 25 94/58 (70) 97 04/14/19 03:00 99 29 96 04/14/19 02:00 98 26 102/61 (75) 98 04/14/19 01:00 102 28 101/57 (72) 98 04/14/19 00:00 Nasal Cannula 2.0 04/14/19 00:00 99.7 106 29 105/56 (72) 96 04/13/19 23:35 106 04/13/19 23:00 111 29 98/61 (73) 96 04/13/19 22:00 105 27 103/62 (76) 97 04/13/19 21:00 109 29 99/59 (72) 98 04/13/19 20:00 98.7 106 24 106/63 (77) 97 04/13/19 20:00 Nasal Cannula 2.0 04/13/19 19:49 109 04/13/19 19:00 106 33 108/54 (72) 97 04/13/19 18:00 99.1 117 33 102/53 (69) 96 04/13/19 17:33 99.5 04/13/19 17:00 123 31 124/72 (89) 98 04/13/19 16:30 122 29 109/64 (79) 96 04/13/19 16:00 Nasal Cannula 2.0 04/13/19 16:00 124 04/13/19 16:00 120 25 118/67 (84) 98 04/13/19 15:40 129 28 2.0 04/13/19 15:00 99.5 133 36 119/68 (85) 94 04/13/19 14:00 124 33 139/80 (99) 98 04/13/19 13:00 113 20 167/74 (105) 97 04/13/19 12:00 Nasal Cannula 2.0 04/13/19 12:00 99.1 100 26 148/88 (108) 100 04/13/19 12:00 99 04/13/19 11:30 99 25 82/49 (60) 93 04/13/19 11:00 104 29 89/45 (60) 98 04/13/19 10:00 108 28 96/53 (67) 98 04/13/19 09:00 123 27 101/53 (69) 97 04/13/19 08:00 124 04/13/19 08:00 Nasal Cannula 2.0 04/13/19 08:00 100.5 129 28 121/66 (84) 100 04/13/19 07:54 100.0 04/13/19 07:00 101.5 124 26 114/62 (79) 94 Intake and Output 04/13/19 04/14/19 18:59 06:59 Intake Total 1182.333 ml 1228.433 ml Output Total 2130 ml 2385 ml Balance -947.667 ml -1156.567 ml Intake Oral 680 ml 680 ml IV Total 502.333 ml 548.433 ml Output Urine Total 2130 ml 2295 ml Other 90 ml # Bowel Movements 2 Laboratory Tests 04/14/19 04:39: White Blood Count 12.9H, Red Blood Count 2.60L, Hemoglobin 8.0L, Hematocrit 23.7L, Mean Corpuscular Volume 91, Mean Corpuscular Hemoglobin 30.9, Mean Corpuscular Hemoglobin Concent 33.9, Red Cell Distribution Width 13.6, Platelet Count 105L, Mean Platelet Volume 8.9, Neutrophils (%) (Auto) 77.8H, Lymphocytes (%) (Auto) 8.8L, Monocytes (%) (Auto) 12.5H, Eosinophils (%) (Auto) 0.4, Basophils (%) (Auto) 0.5, Sodium Level 136, Potassium Level 4.4, Chloride Level 105, Carbon Dioxide Level 26, Anion Gap 5, Blood Urea Nitrogen 7, Creatinine 0.6 , Estimat Glomerular Filtration Rate > 60, Glucose Level 136H, Calcium Level 8.4L, Phosphorus Level 3.7, Magnesium Level 1.8, Total Bilirubin 0.6, Aspartate Amino Transf (AST/SGOT) 22, Alanine Aminotransferase (ALT/SGPT) 20, Alkaline Phosphatase 426H, C-Reactive Protein, Quantitative 20.5H, Pro-B-Type Natriuretic Peptide 584H, Total Protein 5.7L, Albumin 1.2L, Globulin 4.5, Albumin/Globulin Ratio 0.3L Height (Feet): 5 Height (Inches): 6.00 Weight (Pounds): 133 General Appearance: no apparent distress Neck: normal alignment Cardiovascular: normal rate Respiratory/Chest: lungs clear Abdomen: normal bowel sounds Objective Current Medications Medications (Trade) Dose Ordered Sig/Jose Route PRN Reason Start Time Stop Time Status Last Admin Dose Admin Acetaminophen (Tylenol) 650 mg Q4H PRN ORAL Mild Pain/Temp > 100.5 04/08/19 00:30 05/08/19 00:29 04/13/19 07:24 Acetaminophen/ Hydrocodone Bitart ([place] 5/325) 1 tab Q6H PRN ORAL For Pain 04/08/19 00:30 04/15/19 00:29 04/14/19 06:05 Cefepime HCl 1 gm/ Dextrose 55 ml @ 110 mls/hr EVERY 8 HOURS IVPB 04/13/19 14:00 04/20/19 13:59 04/13/19 21:59 Dextrose (Dextrose 50%) 25 ml Q30M PRN IV HYPOGLYCEMIA 04/08/19 00:30 05/08/19 00:29 Dextrose (Dextrose 50%) 50 ml Q30M PRN IV HYPOGLYCEMIA 04/08/19 00:30 05/08/19 00:29 Fish Oil (Fish Oil) 1,000 mg BID ORAL 04/12/19 18:00 05/12/19 17:59 04/13/19 17:03 Folic Acid (Folate) 3 mg DAILY ORAL 04/11/19 10:00 05/11/19 09:59 04/13/19 08:08 Insulin Human Regular (NovoLIN R) 5 units PRN PRN IV BS 200-299 04/08/19 00:30 05/08/19 00:29 04/14/19 02:26 Insulin Human Regular (NovoLIN R) 10 units PRN PRN IV BS=>300 04/08/19 00:30 05/08/19 00:29 Insulin Human Regular 100 units/ Sodium Chloride 100 ml @ 0 mls/hr Q24H IV 04/10/19 10:30 05/10/19 10:29 04/14/19 02:27 Levothyroxine Sodium (Synthroid) 50 mcg DAILY@0630 ORAL 04/13/19 06:30 05/13/19 06:29 04/13/19 05:52 Micafungin Sodium 100 mg/Sodium Chloride 110 ml @ 110 mls/hr Q24H IVPB 04/13/19 13:00 04/20/19 12:59 04/13/19 13:30 Miscellaneous Medication (Insulin Rate Change) 1 ea PRN PRN MISC Hyperglycemia 04/08/19 00:30 05/08/19 00:29 04/14/19 04:20 Ondansetron HCl (Zofran) 4 mg EVERY 4 HOURS PRN IVP Nausea & Vomiting 04/08/19 00:30 05/08/19 00:29 Potassium Chloride (K-Dur) 40 meq BID ORAL 04/13/19 18:00 05/11/19 09:14 04/13/19 17:05 Vancomycin HCl (Vanco rx to dose) 1 ea DAILY PRN MISC Per rx protocol 04/13/19 11:45 05/13/19 11:44 Vancomycin/Sodium Chloride 275 ml @ 183.333 mls/hr 0730,1530,2330 IVPB 04/13/19 15:30 04/18/19 15:29 04/13/19 23:01 Roland Hayes MD Apr 14, 2019 06:16
--- NOTE | 2019-04-14 06:17 | NUR ---
NURSE NOTES: SEEN THE PATIENT BY DR. LUKE, RECEIVED NEW ORDER THAT STOP INSULIN DRIP AT THIS TIME.
[2019-04-14] MEDS: Cefepime HCl 1 GM in D5W 55 ML IVPB SCH ×3 (06:27→22:00)
[2019-04-14] MEDS: NovoLOG Insulin Flexpen SUBQ SCH ×7 (06:47→20:32)
--- NOTE | 2019-04-14 07:15 | NUR ---
NURSE NOTES: PT and report received from HARDIK Celaya. A/O x 4 upon entering room for morning rounds, oral temperature 99.0, HR 116, BP 101/60, no complaints of pain from PT when asked, R-posterior pigtail drain from abscess draining well, PT has two PIV on R-forearm both 20g, flushes, patent, intact, no edema noted, running Vanco IV. No signs of respiratory distress on 2L-NC; provided breakfast CCHO mechanical soft diet, no difficulty with swallowing noted, able to feed self. Provided ice water per request. PT has jimenez, draining well, bed at lowest position, locked, bed alarm on, side rails x 2 raised. Will continue to monitor PT for elevated temp, and follow through with plan of care.
[2019-04-14] MEDS: Vancomycin 1.25gm/NS Premix IVPB SCH (07:37)
[2019-04-14] MEDS: Levemir Flexpen SUBQ SCH ×2 (08:54→17:24)
--- NOTE | 2019-04-14 09:35 | NUR ---
Received pt form ICU Nurse Татьяна ICU gave report. Pt arrived in stable condition pt alert oriented x4. no acute distress. Pt on 2 liter of O2 sating well
--- NOTE | 2019-04-14 09:45 | NUR ---
NURSE NOTES: PT finished 100% of his breakfast, no difficulty swallowing, eating or coughing noted. PT is very pleasant in good spirits, A/O x 4, no respiratory distress on 2L-NC. Will continue to monitor.
--- NOTE | 2019-04-14 09:55 | Pulmonolgy Critical Care Note ---
Critical Care - Asmt/Plan Problems: (1) DKA (diabetic ketoacidoses) (2) JOJO (acute kidney injury) (3) Pyelonephritis (4) Renal abscess Respiratory: monitor respiratory rate Cardiac: continue to monitor HR/BP Renal: F/U I&O, keep IV fluid Infectious Disease: check cultures, continue antibiotics, other - blood cultures are positive Endocrine: monitor blood sugar Hematologic: monitor H/H, transfuse if hgb<8.5 Neurologic: keep patient comfortable Affect: PRN ativan Prophylaxis: Protonix Notes Reviewed: learning operations specialist, cardio, renal Discussed with: nurses, consultants, comp field case managereducation and training manager - Objective Last 24 Hour Vital Signs Date Time Temp Pulse Resp B/P (MAP) Pulse Ox O2 Delivery O2 Flow Rate FiO2 04/14/19 09:00 100 30 106/66 (79) 98 04/14/19 08:00 99.0 115 24 101/55 (70) 98 04/14/19 08:00 Nasal Cannula 2.0 04/14/19 07:32 100 Nasal Cannula 2.0 28 04/14/19 07:00 105 28 101/57 (72) 99 04/14/19 06:00 100 24 118/71 (87) 93 04/14/19 05:00 95 27 105/65 (78) 96 04/14/19 04:00 Nasal Cannula 2.0 04/14/19 04:00 97.6 93 23 97/60 (72) 98 04/14/19 03:49 94 04/14/19 03:30 96 25 94/58 (70) 97 04/14/19 03:00 99 29 96 04/14/19 02:00 98 26 102/61 (75) 98 04/14/19 01:00 102 28 101/57 (72) 98 04/14/19 00:00 Nasal Cannula 2.0 04/14/19 00:00 99.7 106 29 105/56 (72) 96 04/13/19 23:35 106 04/13/19 23:00 111 29 98/61 (73) 96 04/13/19 22:00 105 27 103/62 (76) 97 04/13/19 21:00 109 29 99/59 (72) 98 04/13/19 20:00 98.7 106 24 106/63 (77) 97 04/13/19 20:00 Nasal Cannula 2.0 04/13/19 19:49 109 04/13/19 19:00 106 33 108/54 (72) 97 04/13/19 18:00 99.1 117 33 102/53 (69) 96 04/13/19 17:33 99.5 04/13/19 17:00 123 31 124/72 (89) 98 04/13/19 16:30 122 29 109/64 (79) 96 04/13/19 16:00 Nasal Cannula 2.0 04/13/19 16:00 124 04/13/19 16:00 120 25 118/67 (84) 98 04/13/19 15:40 129 28 2.0 04/13/19 15:00 99.5 133 36 119/68 (85) 94 04/13/19 14:00 124 33 139/80 (99) 98 04/13/19 13:00 113 20 167/74 (105) 97 04/13/19 12:00 Nasal Cannula 2.0 04/13/19 12:00 99.1 100 26 148/88 (108) 100 04/13/19 12:00 99 04/13/19 11:30 99 25 82/49 (60) 93 04/13/19 11:00 104 29 89/45 (60) 98 04/13/19 10:00 108 28 96/53 (67) 98 Status: awake Condition: improving HEENT: atraumatic Lungs: clear Heart: HR/BP stable Abdomen: soft, non-tender, feeding tube Extremities: edema Micro: Microbiology Date/Time Source Procedure Growth Status 04/12/19 11:40 Blood Blood Culture - Preliminary Gram Negative Fernando Resulted 04/12/19 11:30 Blood Blood Culture - Preliminary NO GROWTH AFTER 24 HOURS Resulted 04/11/19 10:33 Urine,Clean Catch Urine Culture - Final Jacquelin Tropicalis Complete 04/13/19 15:30 Abdominal Fluid Gram Stain - Final Resulted 04/13/19 15:30 Abdominal Fluid Body Fluid Culture Pending Resulted Accucheck: 248 Critical Care - Subjective ROS Limited/Unobtainable: Yes Condition: critical EKG Rhythm: Sinus Rhythm FI02: 28 I&O: Intake and Output 04/13/19 04/14/19 18:59 06:59 Intake Total 1182.333 ml 1233.233 ml Output Total 2130 ml 2845 ml Balance -947.667 ml -1611.767 ml Intake Oral 680 ml 680 ml IV Total 502.333 ml 553.233 ml Output Urine Total 2130 ml 2755 ml Other 90 ml # Bowel Movements 2 CXR: CT guided drainage of abscess is done Labs: Laboratory Tests Test 04/14/19 04:39 White Blood Count 12.9 K/UL (4.8-10.8) H Red Blood Count 2.60 M/UL (4.70-6.10) L Hemoglobin 8.0 G/DL (14.2-18.0) L Hematocrit 23.7 % (42.0-52.0) L Mean Corpuscular Volume 91 FL (80-99) Mean Corpuscular Hemoglobin 30.9 PG (27.0-31.0) Mean Corpuscular Hemoglobin Concent 33.9 G/DL (32.0-36.0) Red Cell Distribution Width 13.6 % (11.6-14.8) Platelet Count 105 K/UL (150-450) L Mean Platelet Volume 8.9 FL (6.5-10.1) Neutrophils (%) (Auto) 77.8 % (45.0-75.0) H Lymphocytes (%) (Auto) 8.8 % (20.0-45.0) L Monocytes (%) (Auto) 12.5 % (1.0-10.0) H Eosinophils (%) (Auto) 0.4 % (0.0-3.0) Basophils (%) (Auto) 0.5 % (0.0-2.0) Sodium Level 136 MMOL/L (136-145) Potassium Level 4.4 MMOL/L (3.5-5.1) Chloride Level 105 MMOL/L (98-107) Carbon Dioxide Level 26 MMOL/L (21-32) Anion Gap 5 mmol/L (5-15) Blood Urea Nitrogen 7 mg/dL (7-18) Creatinine 0.6 MG/DL (0.55-1.30) Estimat Glomerular Filtration Rate > 60 mL/min (>60) Glucose Level 136 MG/DL (74-106) H Calcium Level 8.4 MG/DL (8.5-10.1) L Phosphorus Level 3.7 MG/DL (2.5-4.9) Magnesium Level 1.8 MG/DL (1.8-2.4) Total Bilirubin 0.6 MG/DL (0.2-1.0) Aspartate Amino Transf (AST/SGOT) 22 U/L (15-37) Alanine Aminotransferase (ALT/SGPT) 20 U/L (12-78) Alkaline Phosphatase 426 U/L (46-116) H C-Reactive Protein, Quantitative 20.5 mg/dL (0.00-0.90) H Pro-B-Type Natriuretic Peptide 584 pg/mL (0-125) H Total Protein 5.7 G/DL (6.4-8.2) L Albumin 1.2 G/DL (3.4-5.0) L Globulin 4.5 g/dL Albumin/Globulin Ratio 0.3 (1.0-2.7) L Donny Kemp MD Apr 14, 2019 09:55
--- NOTE | 2019-04-14 10:17 | Nephrology Progress Note ---
Assessment/Plan Problem List: (1) Pyelonephritis (2) DKA (diabetic ketoacidoses) (3) Electrolyte abnormality Assessment (1) DKA (diabetic ketoacidoses) (2) JOJO (acute kidney injury) (3) Pyelonephritis (4) Electrolyte imbalance (5) HypoThyroidism Plan tolerating PO CRP lowering PO KCL Phos and Mag as needed fish oil synthroid Monitor lytes recheck UA per orders Subjective ROS Limited/Unobtainable: No Constitutional: Reports: malaise Objective Objective Last 24 Hour Vital Signs Date Time Temp Pulse Resp B/P (MAP) Pulse Ox O2 Delivery O2 Flow Rate FiO2 04/14/19 09:00 100 30 106/66 (79) 98 04/14/19 08:00 99.0 115 24 101/55 (70) 98 04/14/19 08:00 Nasal Cannula 2.0 04/14/19 07:32 100 Nasal Cannula 2.0 28 04/14/19 07:00 105 28 101/57 (72) 99 04/14/19 06:00 100 24 118/71 (87) 93 04/14/19 05:00 95 27 105/65 (78) 96 04/14/19 04:00 Nasal Cannula 2.0 04/14/19 04:00 97.6 93 23 97/60 (72) 98 04/14/19 03:49 94 04/14/19 03:30 96 25 94/58 (70) 97 04/14/19 03:00 99 29 96 04/14/19 02:00 98 26 102/61 (75) 98 04/14/19 01:00 102 28 101/57 (72) 98 04/14/19 00:00 Nasal Cannula 2.0 04/14/19 00:00 99.7 106 29 105/56 (72) 96 04/13/19 23:35 106 04/13/19 23:00 111 29 98/61 (73) 96 04/13/19 22:00 105 27 103/62 (76) 97 04/13/19 21:00 109 29 99/59 (72) 98 04/13/19 20:00 98.7 106 24 106/63 (77) 97 04/13/19 20:00 Nasal Cannula 2.0 04/13/19 19:49 109 04/13/19 19:00 106 33 108/54 (72) 97 04/13/19 18:00 99.1 117 33 102/53 (69) 96 04/13/19 17:33 99.5 04/13/19 17:00 123 31 124/72 (89) 98 04/13/19 16:30 122 29 109/64 (79) 96 04/13/19 16:00 Nasal Cannula 2.0 04/13/19 16:00 124 04/13/19 16:00 120 25 118/67 (84) 98 04/13/19 15:40 129 28 2.0 04/13/19 15:00 99.5 133 36 119/68 (85) 94 04/13/19 14:00 124 33 139/80 (99) 98 04/13/19 13:00 113 20 167/74 (105) 97 04/13/19 12:00 Nasal Cannula 2.0 04/13/19 12:00 99.1 100 26 148/88 (108) 100 04/13/19 12:00 99 04/13/19 11:30 99 25 82/49 (60) 93 04/13/19 11:00 104 29 89/45 (60) 98 Intake and Output 04/13/19 04/14/19 18:59 06:59 Intake Total 1182.333 ml 1233.233 ml Output Total 2130 ml 2845 ml Balance -947.667 ml -1611.767 ml Intake Oral 680 ml 680 ml IV Total 502.333 ml 553.233 ml Output Urine Total 2130 ml 2755 ml Other 90 ml # Bowel Movements 2 Laboratory Tests 04/14/19 04:39: White Blood Count 12.9H, Red Blood Count 2.60L, Hemoglobin 8.0L, Hematocrit 23.7L, Mean Corpuscular Volume 91, Mean Corpuscular Hemoglobin 30.9, Mean Corpuscular Hemoglobin Concent 33.9, Red Cell Distribution Width 13.6, Platelet Count 105L, Mean Platelet Volume 8.9, Neutrophils (%) (Auto) 77.8H, Lymphocytes (%) (Auto) 8.8L, Monocytes (%) (Auto) 12.5H, Eosinophils (%) (Auto) 0.4, Basophils (%) (Auto) 0.5, Sodium Level 136, Potassium Level 4.4, Chloride Level 105, Carbon Dioxide Level 26, Anion Gap 5, Blood Urea Nitrogen 7, Creatinine 0.6 , Estimat Glomerular Filtration Rate > 60, Glucose Level 136H, Calcium Level 8.4L, Phosphorus Level 3.7, Magnesium Level 1.8, Total Bilirubin 0.6, Aspartate Amino Transf (AST/SGOT) 22, Alanine Aminotransferase (ALT/SGPT) 20, Alkaline Phosphatase 426H, C-Reactive Protein, Quantitative 20.5H, Pro-B-Type Natriuretic Peptide 584H, Total Protein 5.7L, Albumin 1.2L, Globulin 4.5, Albumin/Globulin Ratio 0.3L Height (Feet): 5 Height (Inches): 6.00 Weight (Pounds): 133 General Appearance: no apparent distress Abdomen: soft Genitourinary/Rectal: other - jeanmarie from right Objective no change Russ Osborn MD Apr 14, 2019 10:17
--- NOTE | 2019-04-14 11:29 | Infectious Diseases Prog Note ---
Assessment/Plan Assessment/Plan The patient is a 38-year-old male with: Fever, improving Leukocytosis; improving Sepsis. -CXR: Basilar atelectatic changes and/or scarring. No acute process otherwise Emphysematous pyelonephritis with right kidney abscess -04/13 SP Successful aspiration and drainage of a right renal abscess. 8.5 English pigtail drainage catheter placed in good position; About 60 cc of slightly bloody and tannish purulent material was aspirated. -cx p -u/a wbc 10-15, nit neg, leuk +1; ucx >100k C. tropicalis x2 -04/08 BCx NTD Gram neg Bacteremia - 04/12 BCx 1/4 Gram neg rods; 04/13 Bcx p Diabetes and now with DKA. Rule out biliary disease (elevated Tbili, ALP) -ABD US: Severe distention of the urinary bladder. Suggest Daniels catheter. Associated mild hydronephrosis. Hepatomegaly. There is no biliary ductal dilatation identified. Gallbladder is unremarkable. Thrombocytopenia (probably due to sepsis -HIV, hep panel neg CT 04/09/19 1. Emphysematous pyelonephritis in the right kidney, most prominently affecting the right lower pole, with a 7.6 x 7.4 x 5.3 cm air-fluid collection in the lower pole likely representing renal abscess extending to the perirenal fat. No definite fat plane between this collection and the adjacent right psoas musculature. Extensive adjacent inflammatory stranding. 2. Daniels catheter balloon and tip within the urinary bladder lumen. Mild diffuse urinary bladder wall thickening, suggestive of cystitis. . PLAN: 1. Continue empiric Cefepime #2 (abx d #6) pending ID GNR Bcx and fluid cx Switch IV Micafungin #2 to PO Fluconazole for funguria, suspect it is a real pathogen on this case -04/13 SP Meropenem #3 -04/11 SP IV Rocephin #4, Amikacin #3 2. D/c empiric IV Vancomycin #5 3. Monitor CBC, BMP. 4. Monitor cultures, blood and urine. 5 Continue intensive care. 6. Urology f/u 7. f/u repeat Bc x2 Thank you, Dr. Kemp, for allowing me to participate in the care of this patient. I will follow the patient with you. Subjective Allergies: Coded Allergies: No Known Allergies (Unverified , 04/07/19) Subjective afebrile >24hrs wbc improving s/p CT guided drainage of kidney abscess yesterday bacteremic Objective Vital Signs Last 24 Hour Vital Signs Date Time Temp Pulse Resp B/P (MAP) Pulse Ox O2 Delivery O2 Flow Rate FiO2 04/14/19 11:00 94 25 104/59 (74) 99 04/14/19 10:00 98 26 101/59 (73) 97 04/14/19 09:00 100 30 106/66 (79) 98 04/14/19 08:00 108 04/14/19 08:00 99.0 115 24 101/55 (70) 98 04/14/19 08:00 Nasal Cannula 2.0 04/14/19 07:32 100 Nasal Cannula 2.0 28 04/14/19 07:00 105 28 101/57 (72) 99 04/14/19 06:00 100 24 118/71 (87) 93 04/14/19 05:00 95 27 105/65 (78) 96 04/14/19 04:00 Nasal Cannula 2.0 04/14/19 04:00 97.6 93 23 97/60 (72) 98 04/14/19 03:49 94 04/14/19 03:30 96 25 94/58 (70) 97 04/14/19 03:00 99 29 96 04/14/19 02:00 98 26 102/61 (75) 98 04/14/19 01:00 102 28 101/57 (72) 98 04/14/19 00:00 Nasal Cannula 2.0 04/14/19 00:00 99.7 106 29 105/56 (72) 96 04/13/19 23:35 106 04/13/19 23:00 111 29 98/61 (73) 96 04/13/19 22:00 105 27 103/62 (76) 97 04/13/19 21:00 109 29 99/59 (72) 98 04/13/19 20:00 98.7 106 24 106/63 (77) 97 04/13/19 20:00 Nasal Cannula 2.0 04/13/19 19:49 109 04/13/19 19:00 106 33 108/54 (72) 97 04/13/19 18:00 99.1 117 33 102/53 (69) 96 04/13/19 17:33 99.5 04/13/19 17:00 123 31 124/72 (89) 98 04/13/19 16:30 122 29 109/64 (79) 96 04/13/19 16:00 Nasal Cannula 2.0 04/13/19 16:00 124 04/13/19 16:00 120 25 118/67 (84) 98 04/13/19 15:40 129 28 2.0 04/13/19 15:00 99.5 133 36 119/68 (85) 94 04/13/19 14:00 124 33 139/80 (99) 98 04/13/19 13:00 113 20 167/74 (105) 97 04/13/19 12:00 Nasal Cannula 2.0 04/13/19 12:00 99.1 100 26 148/88 (108) 100 04/13/19 12:00 99 04/13/19 11:30 99 25 82/49 (60) 93 Height (Feet): 5 Height (Inches): 6.00 Weight (Pounds): 133 Objective GEN: NAD HEENT: NCAT, MMM LUNGS: Coarse B/L HEART: RR, s1,s2 Abd TTP, SOft Microbiology Date/Time Source Procedure Growth Status 04/12/19 11:40 Blood Blood Culture - Preliminary Gram Negative Fernando Resulted 04/12/19 11:30 Blood Blood Culture - Preliminary NO GROWTH AFTER 24 HOURS Resulted 04/13/19 15:30 Abdominal Fluid Gram Stain - Final Resulted 04/13/19 15:30 Abdominal Fluid Body Fluid Culture Pending Resulted Laboratory Tests Test 04/14/19 04:39 White Blood Count 12.9 K/UL (4.8-10.8) H Red Blood Count 2.60 M/UL (4.70-6.10) L Hemoglobin 8.0 G/DL (14.2-18.0) L Hematocrit 23.7 % (42.0-52.0) L Mean Corpuscular Volume 91 FL (80-99) Mean Corpuscular Hemoglobin 30.9 PG (27.0-31.0) Mean Corpuscular Hemoglobin Concent 33.9 G/DL (32.0-36.0) Red Cell Distribution Width 13.6 % (11.6-14.8) Platelet Count 105 K/UL (150-450) L Mean Platelet Volume 8.9 FL (6.5-10.1) Neutrophils (%) (Auto) 77.8 % (45.0-75.0) H Lymphocytes (%) (Auto) 8.8 % (20.0-45.0) L Monocytes (%) (Auto) 12.5 % (1.0-10.0) H Eosinophils (%) (Auto) 0.4 % (0.0-3.0) Basophils (%) (Auto) 0.5 % (0.0-2.0) Sodium Level 136 MMOL/L (136-145) Potassium Level 4.4 MMOL/L (3.5-5.1) Chloride Level 105 MMOL/L (98-107) Carbon Dioxide Level 26 MMOL/L (21-32) Anion Gap 5 mmol/L (5-15) Blood Urea Nitrogen 7 mg/dL (7-18) Creatinine 0.6 MG/DL (0.55-1.30) Estimat Glomerular Filtration Rate > 60 mL/min (>60) Glucose Level 136 MG/DL (74-106) H Calcium Level 8.4 MG/DL (8.5-10.1) L Phosphorus Level 3.7 MG/DL (2.5-4.9) Magnesium Level 1.8 MG/DL (1.8-2.4) Total Bilirubin 0.6 MG/DL (0.2-1.0) Aspartate Amino Transf (AST/SGOT) 22 U/L (15-37) Alanine Aminotransferase (ALT/SGPT) 20 U/L (12-78) Alkaline Phosphatase 426 U/L (46-116) H C-Reactive Protein, Quantitative 20.5 mg/dL (0.00-0.90) H Pro-B-Type Natriuretic Peptide 584 pg/mL (0-125) H Total Protein 5.7 G/DL (6.4-8.2) L Albumin 1.2 G/DL (3.4-5.0) L Globulin 4.5 g/dL Albumin/Globulin Ratio 0.3 (1.0-2.7) L Current Medications Medications (Trade) Dose Ordered Sig/Jose Route PRN Reason Start Time Stop Time Status Last Admin Dose Admin Acetaminophen (Tylenol) 650 mg Q4H PRN ORAL Mild Pain/Temp > 100.5 04/08/19 00:30 05/08/19 00:29 04/13/19 07:24 Acetaminophen/ Hydrocodone Bitart ([place] 5/325) 1 tab Q6H PRN ORAL For Pain 04/08/19 00:30 04/15/19 00:29 04/14/19 06:05 Cefepime HCl 1 gm/ Dextrose 55 ml @ 110 mls/hr EVERY 8 HOURS IVPB 04/13/19 14:00 04/20/19 13:59 04/14/19 06:27 Dextrose (Dextrose 50%) 25 ml Q30M PRN IV Hypoglycemia 04/14/19 06:30 05/14/19 06:29 Dextrose (Dextrose 50%) 50 ml Q30M PRN IV Hypoglycemia 04/14/19 06:30 05/14/19 06:29 Fish Oil (Fish Oil) 1,000 mg BID ORAL 04/12/19 18:00 05/12/19 17:59 04/14/19 08:50 Folic Acid (Folate) 3 mg DAILY ORAL 04/11/19 10:00 05/11/19 09:59 04/14/19 08:50 Insulin Aspart (NovoLOG) BEFORE MEALS AND HS SUBQ 04/14/19 06:30 05/14/19 06:29 04/14/19 06:47 Insulin Aspart (NovoLOG) 10 units NOVOTIAC SUBQ 04/14/19 06:30 05/14/19 06:29 04/14/19 06:48 Insulin Detemir (Levemir) 20 units BID SUBQ 04/14/19 09:00 05/14/19 08:59 04/14/19 08:54 Levothyroxine Sodium (Synthroid) 50 mcg DAILY@0630 ORAL 04/13/19 06:30 05/13/19 06:29 04/14/19 06:27 Micafungin Sodium 100 mg/Sodium Chloride 110 ml @ 110 mls/hr Q24H IVPB 04/13/19 13:00 04/20/19 12:59 04/13/19 13:30 Ondansetron HCl (Zofran) 4 mg EVERY 4 HOURS PRN IVP Nausea & Vomiting 04/08/19 00:30 05/08/19 00:29 Potassium Chloride (K-Dur) 40 meq BID ORAL 04/13/19 18:00 05/11/19 09:14 04/14/19 08:50 Vancomycin HCl (Vanco rx to dose) 1 ea DAILY PRN MISC Per rx protocol 04/13/19 11:45 05/13/19 11:44 Vancomycin/Sodium Chloride 275 ml @ 183.333 mls/hr 0730,1530,2330 IVPB 04/13/19 15:30 04/18/19 15:29 04/14/19 07:37 Hanny August M.D. Apr 14, 2019 11:29
--- NOTE | 2019-04-14 11:30 | NUR ---
NURSE NOTES: PT 1130 blood glucose check shows 171, Novolog sliding scale 6u + Novolog 10u given. Will continue to monitor PT.
--- NOTE | 2019-04-14 12:30 | NUR ---
NURSE NOTES: PT provided lunch meal tray, no signs of difficulty eating/swallowing. No S/S of hypoglycemia. Will continue to monitor PT.
--- NOTE | 2019-04-14 17:07 | NUR ---
NURSE NOTES: PT able to ambulate with minimal assist to bedside commode with some difficulty due to IV lines and NC, PT had moderate formed/soft BM, very cooperative and pleasant. VS stable, no respiratory distress noted. Will continue to monitor PT.
--- NOTE | 2019-04-14 18:37 | NUR ---
NURSE NOTES: PT asking for pain meds, states he has pain of 7. Oral temp 98.5. Will give meds for pain, and continue to monitor PT.
--- NOTE | 2019-04-14 19:15 | NUR ---
HAND-OFF: Report and PT given to HARDIK Celaya.
--- NOTE | 2019-04-14 19:40 | NUR ---
NURSE NOTES: Patient alert, oriented x4, denied pain or sob at this time, respiration regular, on O2 2lpm via NC, O2 saturation 98% noted, abdomen soft, no n/v noted, F/C intact and patent, yellow urine outed, Pigtail drainage catheter to right back, intact and patent, clean and dried dressing status, tannish purulent color draining status, peripheral line to right FA 20g x2, intact and patent, made lower bed position, provided call light within reach, will continue to monitor.
--- NOTE | 2019-04-14 19:44 | Internal Med Progress Note ---
Subjective Date of Service: Apr 14, 2019 Physician Name Cody Redmond Attending Physician Isaías Spain MD Current Medications Medications (Trade) Dose Ordered Sig/Jose Route PRN Reason Start Time Stop Time Status Last Admin Dose Admin Acetaminophen (Tylenol) 650 mg Q4H PRN ORAL Mild Pain/Temp > 100.5 04/08/19 00:30 05/08/19 00:29 04/13/19 07:24 Acetaminophen/ Hydrocodone Bitart ([place] 5/325) 1 tab Q6H PRN ORAL For Pain 04/08/19 00:30 04/15/19 00:29 04/14/19 18:36 Cefepime HCl 1 gm/ Dextrose 55 ml @ 110 mls/hr EVERY 8 HOURS IVPB 04/13/19 14:00 04/20/19 13:59 04/14/19 13:42 Dextrose (Dextrose 50%) 25 ml Q30M PRN IV Hypoglycemia 04/14/19 06:30 05/14/19 06:29 Dextrose (Dextrose 50%) 50 ml Q30M PRN IV Hypoglycemia 04/14/19 06:30 05/14/19 06:29 Fish Oil (Fish Oil) 1,000 mg BID ORAL 04/12/19 18:00 05/12/19 17:59 04/14/19 17:23 Fluconazole (Diflucan) 400 mg DAILY ORAL 04/15/19 13:30 04/22/19 13:29 Folic Acid (Folate) 3 mg DAILY ORAL 04/11/19 10:00 05/11/19 09:59 04/14/19 08:50 Insulin Aspart (NovoLOG) BEFORE MEALS AND HS SUBQ 04/14/19 06:30 05/14/19 06:29 04/14/19 16:26 Insulin Aspart (NovoLOG) 10 units NOVOTIAC SUBQ 04/14/19 06:30 05/14/19 06:29 04/14/19 16:26 Insulin Detemir (Levemir) 20 units BID SUBQ 04/14/19 09:00 05/14/19 08:59 04/14/19 17:24 Levothyroxine Sodium (Synthroid) 50 mcg DAILY@0630 ORAL 04/13/19 06:30 05/13/19 06:29 04/14/19 06:27 Ondansetron HCl (Zofran) 4 mg EVERY 4 HOURS PRN IVP Nausea & Vomiting 04/08/19 00:30 05/08/19 00:29 Potassium Chloride (K-Dur) 40 meq BID ORAL 04/13/19 18:00 05/11/19 09:14 04/14/19 17:24 Allergies: Coded Allergies: No Known Allergies (Unverified , 04/07/19) ROS Limited/Unobtainable: No Constitutional: Reports: no symptoms HEENT: Reports: no symptoms Cardiovascular: Reports: no symptoms Respiratory: Reports: no symptoms Gastrointestinal/Abdominal: Reports: no symptoms Genitourinary: Reports: no symptoms Neurologic/Psychiatric: Reports: no symptoms Subjective 38 YO M admitted with altered mental status. Now DKA and right perinephric abscess. Cover for Int Jerald-Dr Spain. ICU. Off insulin drip. S/P CT guided aspiration and placement of cath 04/13/19 Objective Last Vital Signs Date Time Temp Pulse Resp B/P (MAP) Pulse Ox O2 Delivery O2 Flow Rate FiO2 04/14/19 19:19 98.5 04/14/19 18:44 107 26 119/63 (81) 04/14/19 17:00 100 04/14/19 16:00 Nasal Cannula 2.0 04/14/19 07:32 28 Laboratory Tests Test 04/14/19 04:39 04/14/19 15:40 White Blood Count 12.9 K/UL (4.8-10.8) H Red Blood Count 2.60 M/UL (4.70-6.10) L Hemoglobin 8.0 G/DL (14.2-18.0) L Hematocrit 23.7 % (42.0-52.0) L Mean Corpuscular Volume 91 FL (80-99) Mean Corpuscular Hemoglobin 30.9 PG (27.0-31.0) Mean Corpuscular Hemoglobin Concent 33.9 G/DL (32.0-36.0) Red Cell Distribution Width 13.6 % (11.6-14.8) Platelet Count 105 K/UL (150-450) L Mean Platelet Volume 8.9 FL (6.5-10.1) Neutrophils (%) (Auto) 77.8 % (45.0-75.0) H Lymphocytes (%) (Auto) 8.8 % (20.0-45.0) L Monocytes (%) (Auto) 12.5 % (1.0-10.0) H Eosinophils (%) (Auto) 0.4 % (0.0-3.0) Basophils (%) (Auto) 0.5 % (0.0-2.0) Sodium Level 136 MMOL/L (136-145) Potassium Level 4.4 MMOL/L (3.5-5.1) Chloride Level 105 MMOL/L (98-107) Carbon Dioxide Level 26 MMOL/L (21-32) Anion Gap 5 mmol/L (5-15) Blood Urea Nitrogen 7 mg/dL (7-18) Creatinine 0.6 MG/DL (0.55-1.30) Estimat Glomerular Filtration Rate > 60 mL/min (>60) Glucose Level 136 MG/DL (74-106) H Calcium Level 8.4 MG/DL (8.5-10.1) L Phosphorus Level 3.7 MG/DL (2.5-4.9) Magnesium Level 1.8 MG/DL (1.8-2.4) Total Bilirubin 0.6 MG/DL (0.2-1.0) Aspartate Amino Transf (AST/SGOT) 22 U/L (15-37) Alanine Aminotransferase (ALT/SGPT) 20 U/L (12-78) Alkaline Phosphatase 426 U/L (46-116) H C-Reactive Protein, Quantitative 20.5 mg/dL (0.00-0.90) H Pro-B-Type Natriuretic Peptide 584 pg/mL (0-125) H Total Protein 5.7 G/DL (6.4-8.2) L Albumin 1.2 G/DL (3.4-5.0) L Globulin 4.5 g/dL Albumin/Globulin Ratio 0.3 (1.0-2.7) L Vancomycin Level Trough 13.5 ug/mL (5.0-12.0) H Microbiology Date/Time Source Procedure Growth Status 04/12/19 11:40 Blood Blood Culture - Preliminary Gram Negative Fernando Resulted 04/12/19 11:30 Blood Blood Culture - Preliminary NO GROWTH AFTER 24 HOURS Resulted 04/13/19 15:30 Abdominal Fluid Gram Stain - Final Resulted 04/13/19 15:30 Body Fluid Culture - Preliminary Gram Negative Bacillus 1 Resulted Intake and Output 04/13/19 04/14/19 19:00 07:00 Intake Total 1311.666 ml 1201.9 ml Output Total 2220 ml 2855 ml Balance -908.334 ml -1653.1 ml Intake Oral 680 ml 780 ml IV Total 631.666 ml 421.9 ml Output Urine Total 2130 ml 2855 ml Other 90 ml # Bowel Movements 2 Objective General Appearance: WD/WN, no apparent distress, alert EENT: PERRL/EOMI, normal ENT inspection, TMs normal Neck: non-tender, normal alignment, supple, normal inspection Cardiovascular: normal peripheral pulses, normal rate, regular rhythm, no gallop/murmur, no JVD Respiratory/Chest: chest wall non-tender, lungs clear, normal breath sounds, no respiratory distress, no accessory muscle use Abdomen: normal bowel sounds, non tender, soft, no organomegaly, no mass Extremities: normal range of motion Neurologic: 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 await urine culture results. (4) Renal failure (5) DKA (diabetic ketoacidoses) Assessment & Plan: Continue insulin drip. See endocrinology note-Dr Hayes. (6) Right femoral fracture Assessment & Plan: suspected. See pelvic xray result. (7) Perinephric abscess Assessment & Plan: S/P Interventional radiology CT guided aspiration and placement of pigtail cath. Urology consult= Dr Ortiz. Continue cefepime, vanco and fluconazole per ID Cody Redmond MD Apr 14, 2019 19:44
--- NOTE | 2019-04-14 21:00 | NUR ---
NURSE NOTES: No pain or distress noted at this time.
--- NOTE | 2019-04-14 21:25 | NUR ---
TRANSFER TO FLOOR: Patient transferred to 4 E med/surg room 404-1 via hospital bed. Report given to HARDIK GOMEZ. Belongings and medications given to receiving nurse. Addendum: 04/15/19 at 0809 by Stephanie Mariano RN Nurse notes Called Dr Spain left message regarding pt labs trending down will endorse to on coming Rn for f/u.
[2019-04-15] VITALS: BP 118/75
[2019-04-15 01:00] VITALS: BP 118/70
[2019-04-15] MEDS: HYDROcodone/Acetamin 5/325 tab ORAL PRN ×4 (01:04→20:47)
[2019-04-15] MEDS: Cefepime HCl 1 GM in D5W 55 ML IVPB SCH ×2 (06:00)
[2019-04-15 06:29] LABS: HEMOGLOBIN 7.9 G/DL (14.2-18.0); MEAN CORPUSCULAR VOLUME 91 FL (80-99); PLATELET COUNT 209 K/UL (150-450); RED BLOOD COUNT 2.52 M/UL (4.70-6.10); RED CELL DISTRIBUTION WIDTH 13.5 % (11.6-14.8); WHITE BLOOD COUNT 10.2 K/UL (4.8-10.8)
--- NOTE | 2019-04-15 06:33 | General Progress Note ---
Assessment/Plan Problem List: (1) Acute metabolic encephalopathy ICD Codes: G93.41 - Metabolic encephalopathy SNOMED: 25074927, 342309074 (2) JOJO (acute kidney injury) ICD Codes: N17.9 - Acute kidney failure, unspecified SNOMED: 03250166, 2408860 (3) DKA (diabetic ketoacidoses) ICD Codes: E11.10 - Type 2 diabetes mellitus with ketoacidosis without coma SNOMED: 87968589, 755861164 (4) Renal failure ICD Codes: N19 - Unspecified kidney failure SNOMED: 65995680 (5) Pyelonephritis ICD Codes: N12 - Tubulo-interstitial nephritis, not specified as acute or chronic SNOMED: 82448993 Status: not improved Assessment/Plan: continue Levemir 20 units bid continue Novolog 10 units ac tid continue NISS ac / hs resistant scale Subjective Allergies: Coded Allergies: No Known Allergies (Unverified , 04/07/19) All Systems: reviewed and negative except above Subjective events noted transferred out of ICU Item Value Date Time Bedside Blood Glucose 144 mg/dl H 04/14/19 2032 Bedside Blood Glucose 134 mg/dl H 04/14/19 1724 Bedside Blood Glucose 171 mg/dl H 04/14/19 1143 Bedside Blood Glucose 248 mg/dl H 04/14/19 0854 Bedside Blood Glucose 180 mg/dl H 04/14/19 0648 Bedside Blood Glucose 232 mg/dl H 04/14/19 0227 Objective Last 24 Hour Vital Signs Date Time Temp Pulse Resp B/P (MAP) Pulse Ox O2 Delivery O2 Flow Rate FiO2 04/15/19 01:00 98.6 106 20 118/70 (86) 96 04/15/19 00:00 98.6 107 20 118/75 (89) 94 04/15/19 00:00 Nasal Cannula 2.0 04/14/19 21:00 96 25 108/60 (76) 99 04/14/19 20:00 97.7 100 23 105/54 (71) 100 04/14/19 20:00 100 04/14/19 20:00 Nasal Cannula 2.0 04/14/19 19:19 98.5 04/14/19 19:00 105 26 121/68 (85) 100 04/14/19 18:44 98.5 107 26 119/63 (81) 04/14/19 18:00 107 26 112/65 (81) 04/14/19 17:00 97 25 112/69 (83) 100 04/14/19 16:00 92 04/14/19 16:00 Nasal Cannula 2.0 04/14/19 16:00 98.5 92 28 108/66 (80) 100 04/14/19 15:00 93 27 107/68 (81) 98 04/14/19 14:00 96 27 104/65 (78) 99 04/14/19 13:00 103 27 106/57 (73) 98 04/14/19 12:00 98.9 98 23 116/68 (84) 100 04/14/19 12:00 Nasal Cannula 2.0 04/14/19 11:31 95 04/14/19 11:00 94 25 104/59 (74) 99 04/14/19 10:00 98 26 101/59 (73) 97 04/14/19 09:00 100 30 106/66 (79) 98 04/14/19 08:00 108 04/14/19 08:00 99.0 115 24 101/55 (70) 98 04/14/19 08:00 Nasal Cannula 2.0 04/14/19 07:32 100 Nasal Cannula 2.0 28 04/14/19 07:00 105 28 101/57 (72) 99 Intake and Output 04/14/19 04/15/19 19:00 07:00 Intake Total 1274.000 ml 360 ml Output Total 2675 ml 975 ml Balance -1401.000 ml -615 ml Intake Oral 360 ml IV Total 330.000 ml Other 944 ml Output Urine Total 2550 ml 975 ml Other 125 ml # Voids 1 # Bowel Movements 2 Laboratory Tests 04/14/19 15:40: Vancomycin Level Trough 13.5H 04/15/19 04:57: White Blood Count [Pending], Red Blood Count [Pending], Hemoglobin [Pending], Hematocrit [Pending], Mean Corpuscular Volume [Pending], Mean Corpuscular Hemoglobin [Pending], Mean Corpuscular Hemoglobin Concent [Pending], Red Cell Distribution Width [Pending], Platelet Count [Pending], Mean Platelet Volume [ Pending], Neutrophils (%) (Auto) [Pending], Lymphocytes (%) (Auto) [Pending], Monocytes (%) (Auto) [Pending], Eosinophils (%) (Auto) [Pending], Basophils (%) (Auto) [Pending], Erythrocyte Sedimentation Rate [Pending], Sodium Level [ Pending], Potassium Level [Pending], Chloride Level [Pending], Carbon Dioxide Level [Pending], Blood Urea Nitrogen [Pending], Creatinine [Pending], Estimat Glomerular Filtration Rate [Pending], Glucose Level [Pending], Calcium Level [ Pending], Phosphorus Level [Pending], Magnesium Level [Pending], Total Bilirubin [Pending], Aspartate Amino Transf (AST/SGOT) [Pending], Alanine Aminotransferase (ALT/SGPT) [Pending], Alkaline Phosphatase [Pending], C- Reactive Protein, Quantitative [Pending], Total Protein [Pending], Albumin [ Pending], Globulin [Pending] Height (Feet): 5 Height (Inches): 6.00 Weight (Pounds): 133 General Appearance: no apparent distress Neck: normal alignment Cardiovascular: normal rate Respiratory/Chest: lungs clear Abdomen: normal bowel sounds Objective Current Medications Medications (Trade) Dose Ordered Sig/Jose Route PRN Reason Start Time Stop Time Status Last Admin Dose Admin Acetaminophen (Tylenol) 650 mg Q4H PRN ORAL Mild Pain/Temp > 100.5 04/15/19 00:30 05/08/19 00:29 Acetaminophen/ Hydrocodone Bitart ([place] 5/325) 1 tab Q6H PRN ORAL For Pain 04/14/19 22:00 04/19/19 00:29 04/15/19 01:04 Cefepime HCl 1 gm/ Dextrose 55 ml @ 110 mls/hr EVERY 8 HOURS IVPB 04/14/19 22:00 04/20/19 13:59 04/14/19 22:00 Dextrose (Dextrose 50%) 25 ml Q30M PRN IV Hypoglycemia 04/14/19 22:00 05/14/19 06:29 Dextrose (Dextrose 50%) 50 ml Q30M PRN IV Hypoglycemia 04/14/19 22:00 05/14/19 06:29 Fish Oil (Fish Oil) 1,000 mg BID ORAL 04/15/19 09:00 05/12/19 17:59 Fluconazole (Diflucan) 400 mg DAILY ORAL 04/15/19 13:30 04/22/19 13:29 Folic Acid (Folate) 3 mg DAILY ORAL 04/15/19 09:00 05/11/19 09:59 Insulin Aspart (NovoLOG) BEFORE MEALS AND HS SUBQ 04/15/19 06:30 05/14/19 06:29 Insulin Aspart (NovoLOG) 10 units NOVOTIAC SUBQ 04/15/19 06:30 05/14/19 06:29 Insulin Detemir (Levemir) 20 units BID SUBQ 04/15/19 09:00 05/14/19 08:59 Levothyroxine Sodium (Synthroid) 50 mcg DAILY@0630 ORAL 04/15/19 06:30 05/13/19 06:29 04/15/19 06:28 Ondansetron HCl (Zofran) 4 mg EVERY 4 HOURS PRN IVP Nausea & Vomiting 04/15/19 01:00 05/08/19 00:29 Potassium Chloride (K-Dur) 40 meq BID ORAL 04/15/19 09:00 05/11/19 09:14 Roland Hayes MD Apr 15, 2019 06:33
[2019-04-15 06:52] LABS: ALANINE AMINOTRANSFERASE 16 U/L (12-78); ALBUMIN 1.3 G/DL (3.4-5.0); ALBUMIN/GLOBULIN RATIO 0.3 (1.0-2.7); ALKALINE PHOSPHATASE 349 U/L (46-116); ANION GAP 3 mmol/L (5-15); ASPARTATE AMINO TRANSFERASE 23 U/L (15-37); BILIRUBIN,TOTAL 0.4 MG/DL (0.2-1.0); BLOOD UREA NITROGEN 10 mg/dL (7-18); CALCIUM 8.2 MG/DL (8.5-10.1); CARBON DIOXIDE 28 MMOL/L (21-32); CHLORIDE 103 MMOL/L (98-107); CREATININE 0.6 MG/DL (0.55-1.30); PHOSPHORUS 4.1 MG/DL (2.5-4.9); POTASSIUM 4.5 MMOL/L (3.5-5.1); SODIUM 134 MMOL/L (136-145)
[2019-04-15] MEDS: NovoLOG Insulin Flexpen SUBQ SCH ×7 (07:18→21:01)
--- NOTE | 2019-04-15 07:40 | NUR ---
NURSE NOTES: Patient awake, alert, oriented x4, able to make needs known. denied pain or sob at this time, respiration regular, on O2 2lpm via NC, O2 saturation 98% noted, abdomen soft, no n/v noted, F/C intact and patent, and draining well with yellow colored urine. Pigtail drainage catheter to right back, intact and patent, clean and dried dressing status, tannish in colored. RFA heplock intact and patent, kept bed in the lowest bed. provided call light within reach, siderails are up x3. will continue to monitor.
[2019-04-15] MEDS: Levemir Flexpen SUBQ SCH ×2 (09:32→16:33)
--- NOTE | 2019-04-15 11:12 | NUR ---
NURSE NOTES: removed f/c with 1000cc output. No acute distress noted. will cont to monitor.
--- NOTE | 2019-04-15 11:28 | NUR ---
NURSE NOTES: made Dr Spain aware of the H/H 7.9/23.0. awaits for a call back. Addendum: 04/15/19 at 1129 by ISRRAEL HUBBARD LVN no new order obtained.
[2019-04-15 12:00] VITALS: BP 106/69
--- NOTE | 2019-04-15 12:18 | Infectious Diseases Prog Note ---
Assessment/Plan Assessment/Plan The patient is a 38-year-old male with: Fever, improving Leukocytosis; SP Sepsis. -CXR: Basilar atelectatic changes and/or scarring. No acute process otherwise Emphysematous pyelonephritis with right kidney abscess -04/13 SP Successful aspiration and drainage of a right renal abscess. 8.5 [place] pigtail drainage catheter placed in good position; About 60 cc of slightly bloody and tannish purulent material was aspirated. -cx K. pna (R amp, bactrim; otherwise S) -u/a wbc 10-15, nit neg, leuk +1; ucx >100k C. tropicalis x2 -04/08 BCx NTD Klebsiella Bacteremia - 04/12 BCx / K. pna (R amp, bactrim; otherwise S) ; 04/13 Bcx NTD Diabetes and now with DKA. Rule out biliary disease (elevated Tbili, ALP) -ABD US: Severe distention of the urinary bladder. Suggest Daniels catheter. Associated mild hydronephrosis. Hepatomegaly. There is no biliary ductal dilatation identified. Gallbladder is unremarkable. Thrombocytopenia (probably due to sepsis -HIV, hep panel neg CT 04/09/19 1. Emphysematous pyelonephritis in the right kidney, most prominently affecting the right lower pole, with a 7.6 x 7.4 x 5.3 cm air-fluid collection in the lower pole likely representing renal abscess extending to the perirenal fat. No definite fat plane between this collection and the adjacent right psoas musculature. Extensive adjacent inflammatory stranding. 2. Daniels catheter balloon and tip within the urinary bladder lumen. Mild diffuse urinary bladder wall thickening, suggestive of cystitis. . PLAN: 1. Switch Cefepime #2 (abx d #12/17) to Ceftriaxone for K.pna UTI/bacteremia Continue PO Fluconazole #2 (abx d #/) for funguria, suspect it is a real pathogen on this case -04/14 SP Cefepime #2, Micafungin #2, IV Vancomycin #5 -04/13 SP Meropenem #3 -04/11 SP IV Rocephin #4, Amikacin #3 2. f/u repeat Bc x2 3. Monitor CBC, BMP. 4. Monitor cultures, blood and urine. 5 Continue intensive care. 6. Urology f/u Thank you, Dr. Kemp, for allowing me to participate in the care of this patient. I will follow the patient with you. Subjective Allergies: Coded Allergies: No Known Allergies (Unverified , 04/07/19) Subjective transferred out of ICU to [facility] afebrile >48hrs leukocytosis resolved repeat Bcx NTD Objective Vital Signs Last 24 Hour Vital Signs Date Time Temp Pulse Resp B/P (MAP) Pulse Ox O2 Delivery O2 Flow Rate FiO2 04/15/19 09:00 Nasal Cannula 2.0 04/15/19 08:09 98.6 04/15/19 01:00 98.6 106 20 118/70 (86) 96 04/15/19 00:00 98.6 107 20 118/75 (89) 94 04/15/19 00:00 Nasal Cannula 2.0 04/14/19 21:00 96 25 108/60 (76) 99 04/14/19 20:00 97.7 100 23 105/54 (71) 100 04/14/19 20:00 100 04/14/19 20:00 Nasal Cannula 2.0 04/14/19 19:19 98.5 04/14/19 19:00 105 26 121/68 (85) 100 04/14/19 18:44 98.5 107 26 119/63 (81) 04/14/19 18:00 107 26 112/65 (81) 04/14/19 17:00 97 25 112/69 (83) 100 04/14/19 16:00 92 04/14/19 16:00 Nasal Cannula 2.0 04/14/19 16:00 98.5 92 28 108/66 (80) 100 04/14/19 15:00 93 27 107/68 (81) 98 04/14/19 14:00 96 27 104/65 (78) 99 04/14/19 13:00 103 27 106/57 (73) 98 Height (Feet): 5 Height (Inches): 6.00 Weight (Pounds): 133 Objective GEN: NAD HEENT: NCAT, MMM LUNGS: Coarse B/L HEART: RR, s1,s2 Abd TTP, SOft Microbiology Date/Time Source Procedure Growth Status 04/13/19 14:55 Blood Blood Culture - Preliminary NO GROWTH AFTER 24 HOURS Resulted 04/13/19 14:40 Blood Blood Culture - Preliminary NO GROWTH AFTER 24 HOURS Resulted 04/13/19 15:30 Abdominal Fluid Gram Stain - Final Complete 04/13/19 15:30 Body Fluid Culture - Final Klebsiella Pneumoniae Complete Laboratory Tests Test 04/14/19 15:40 04/15/19 04:57 Vancomycin Level Trough 13.5 ug/mL (5.0-12.0) H White Blood Count 10.2 K/UL (4.8-10.8) Red Blood Count 2.52 M/UL (4.70-6.10) L Hemoglobin 7.9 G/DL (14.2-18.0) L Hematocrit 23.0 % (42.0-52.0) L Mean Corpuscular Volume 91 FL (80-99) Mean Corpuscular Hemoglobin 31.2 PG (27.0-31.0) H Mean Corpuscular Hemoglobin Concent 34.1 G/DL (32.0-36.0) Red Cell Distribution Width 13.5 % (11.6-14.8) Platelet Count 209 K/UL (150-450) # Mean Platelet Volume 9.0 FL (6.5-10.1) Neutrophils (%) (Auto) % (45.0-75.0) Lymphocytes (%) (Auto) % (20.0-45.0) Monocytes (%) (Auto) % (1.0-10.0) Eosinophils (%) (Auto) % (0.0-3.0) Basophils (%) (Auto) % (0.0-2.0) Differential Total Cells Counted 100 Neutrophils % (Manual) 77 % (45-75) H Lymphocytes % (Manual) 13 % (20-45) L Monocytes % (Manual) 10 % (1-10) Eosinophils % (Manual) 0 % (0-3) Basophils % (Manual) 0 % (0-2) Band Neutrophils 0 % (0-8) Platelet Estimate Adequate Platelet Morphology Normal Hypochromasia 3+ Spherocytes 2+ Erythrocyte Sedimentation Rate 130 MM/HR (0-15) H Sodium Level 134 MMOL/L (136-145) L Potassium Level 4.5 MMOL/L (3.5-5.1) Chloride Level 103 MMOL/L (98-107) Carbon Dioxide Level 28 MMOL/L (21-32) Anion Gap 3 mmol/L (5-15) L Blood Urea Nitrogen 10 mg/dL (7-18) Creatinine 0.6 MG/DL (0.55-1.30) Estimat Glomerular Filtration Rate > 60 mL/min (>60) Glucose Level 165 MG/DL (74-106) H Calcium Level 8.2 MG/DL (8.5-10.1) L Phosphorus Level 4.1 MG/DL (2.5-4.9) Magnesium Level 1.8 MG/DL (1.8-2.4) Total Bilirubin 0.4 MG/DL (0.2-1.0) Aspartate Amino Transf (AST/SGOT) 23 U/L (15-37) Alanine Aminotransferase (ALT/SGPT) 16 U/L (12-78) Alkaline Phosphatase 349 U/L (46-116) H C-Reactive Protein, Quantitative 12.1 mg/dL (0.00-0.90) H Total Protein 6.0 G/DL (6.4-8.2) L Albumin 1.3 G/DL (3.4-5.0) L Globulin 4.7 g/dL Albumin/Globulin Ratio 0.3 (1.0-2.7) L Current Medications Medications (Trade) Dose Ordered Sig/Jose Route PRN Reason Start Time Stop Time Status Last Admin Dose Admin Acetaminophen (Tylenol) 650 mg Q4H PRN ORAL Mild Pain/Temp > 100.5 04/15/19 00:30 05/08/19 00:29 Acetaminophen/ Hydrocodone Bitart ([place] 5/325) 1 tab Q6H PRN ORAL For Pain 04/14/19 22:00 04/19/19 00:29 04/15/19 07:39 Cefepime HCl 1 gm/ Dextrose 55 ml @ 110 mls/hr EVERY 8 HOURS IVPB 04/14/19 22:00 04/20/19 13:59 04/14/19 22:00 Dextrose (Dextrose 50%) 25 ml Q30M PRN IV Hypoglycemia 04/14/19 22:00 05/14/19 06:29 Dextrose (Dextrose 50%) 50 ml Q30M PRN IV Hypoglycemia 04/14/19 22:00 05/14/19 06:29 Fish Oil (Fish Oil) 1,000 mg BID ORAL 04/15/19 09:00 05/12/19 17:59 04/15/19 09:23 Fluconazole (Diflucan) 400 mg DAILY ORAL 04/15/19 13:30 04/22/19 13:29 Folic Acid (Folate) 3 mg DAILY ORAL 04/15/19 09:00 05/11/19 09:59 04/15/19 09:24 Insulin Aspart (NovoLOG) BEFORE MEALS AND HS SUBQ 04/15/19 06:30 05/14/19 06:29 04/15/19 07:19 Insulin Aspart (NovoLOG) 10 units NOVOTIAC SUBQ 04/15/19 06:30 05/14/19 06:29 04/15/19 07:18 Insulin Detemir (Levemir) 20 units BID SUBQ 04/15/19 09:00 05/14/19 08:59 04/15/19 09:32 Levothyroxine Sodium (Synthroid) 50 mcg DAILY@0630 ORAL 04/15/19 06:30 05/13/19 06:29 04/15/19 06:28 Ondansetron HCl (Zofran) 4 mg EVERY 4 HOURS PRN IVP Nausea & Vomiting 04/15/19 01:00 05/08/19 00:29 Potassium Chloride (K-Dur) 40 meq BID ORAL 04/15/19 09:00 05/11/19 09:14 04/15/19 09:24 Hanny August M.D. Apr 15, 2019 12:18
--- NOTE | 2019-04-15 13:00 | Nephrology Progress Note ---
Assessment/Plan Problem List: (1) Pyelonephritis (2) DKA (diabetic ketoacidoses) (3) Electrolyte abnormality Assessment (1) DKA (diabetic ketoacidoses) (2) JOJO (acute kidney injury) (3) Pyelonephritis (4) Electrolyte imbalance (5) HypoThyroidism Plan DC jimenez- tolerating PO CRP lowering PO KCL Phos and Mag as needed fish oil synthroid Monitor lytes recheck UA per orders has drain right kidney Subjective ROS Limited/Unobtainable: No Constitutional: Reports: malaise Objective Objective Last 24 Hour Vital Signs Date Time Temp Pulse Resp B/P (MAP) Pulse Ox O2 Delivery O2 Flow Rate FiO2 04/15/19 12:00 98.8 91 18 106/69 (81) 97 91 04/15/19 09:00 Nasal Cannula 2.0 04/15/19 08:09 98.6 04/15/19 01:00 98.6 106 20 118/70 (86) 96 04/15/19 00:00 98.6 107 20 118/75 (89) 94 04/15/19 00:00 Nasal Cannula 2.0 04/14/19 21:00 96 25 108/60 (76) 99 04/14/19 20:00 97.7 100 23 105/54 (71) 100 04/14/19 20:00 100 04/14/19 20:00 Nasal Cannula 2.0 04/14/19 19:19 98.5 04/14/19 19:00 105 26 121/68 (85) 100 04/14/19 18:44 98.5 107 26 119/63 (81) 04/14/19 18:00 107 26 112/65 (81) 04/14/19 17:00 97 25 112/69 (83) 100 04/14/19 16:00 92 04/14/19 16:00 Nasal Cannula 2.0 04/14/19 16:00 98.5 92 28 108/66 (80) 100 04/14/19 15:00 93 27 107/68 (81) 98 04/14/19 14:00 96 27 104/65 (78) 99 04/14/19 13:00 103 27 106/57 (73) 98 Intake and Output 04/14/19 04/15/19 18:59 06:59 Intake Total 1429.000 ml 360 ml Output Total 2725 ml 1175 ml Balance -1296.000 ml -815 ml Intake Oral 100 ml 360 ml IV Total 385.000 ml Other 944 ml Output Urine Total 2600 ml 1175 ml Other 125 ml # Voids 1 # Bowel Movements 2 Laboratory Tests 04/14/19 15:40: Vancomycin Level Trough 13.5H 04/15/19 04:57: White Blood Count 10.2, Red Blood Count 2.52L, Hemoglobin 7.9L, Hematocrit 23.0L , Mean Corpuscular Volume 91, Mean Corpuscular Hemoglobin 31.2H, Mean Corpuscular Hemoglobin Concent 34.1, Red Cell Distribution Width 13.5, Platelet Count 209#, Mean Platelet Volume 9.0, Neutrophils (%) (Auto) , Lymphocytes (%) ( Auto) , Monocytes (%) (Auto) , Eosinophils (%) (Auto) , Basophils (%) (Auto) , Differential Total Cells Counted 100, Neutrophils % (Manual) 77H, Lymphocytes % (Manual) 13L, Monocytes % (Manual) 10, Eosinophils % (Manual) 0, Basophils % ( Manual) 0, Band Neutrophils 0, Platelet Estimate Adequate, Platelet Morphology Normal, Hypochromasia 3+, Spherocytes 2+, Erythrocyte Sedimentation Rate 130H, Sodium Level 134L, Potassium Level 4.5, Chloride Level 103, Carbon Dioxide Level 28, Anion Gap 3L, Blood Urea Nitrogen 10, Creatinine 0.6, Estimat Glomerular Filtration Rate > 60, Glucose Level 165H, Calcium Level 8.2L, Phosphorus Level 4.1, Magnesium Level 1.8, Total Bilirubin 0.4, Aspartate Amino Transf (AST/SGOT) 23, Alanine Aminotransferase (ALT/SGPT) 16, Alkaline Phosphatase 349H, C-Reactive Protein, Quantitative 12.1H, Total Protein 6.0L, Albumin 1.3L, Globulin 4.7, Albumin/Globulin Ratio 0.3L Height (Feet): 5 Height (Inches): 6.00 Weight (Pounds): 133 General Appearance: no apparent distress Cardiovascular: normal rate Abdomen: soft Genitourinary/Rectal: other Objective no change Russ Osborn MD Apr 15, 2019 13:00
[2019-04-15] MEDS ORDERED: Fluconazole 100mg tab ORAL SCH (13:30)
[2019-04-15] MEDS: cefTRIAXone 2 GM in NS 110 ML IVPB SCH (13:42)
[2019-04-15] MEDS: Fluconazole 100mg tab ORAL SCH (14:12)
--- NOTE | 2019-04-15 14:13 | Pulmonology Progress Note ---
Assessment/Plan Problems: (1) Perinephric abscess (2) Pyelonephritis (3) JOJO (acute kidney injury) (4) UTI (urinary tract infection) (5) Acute metabolic encephalopathy Assessment/Plan improving wbc lower continue abx Subjective ROS Limited/Unobtainable: No Constitutional: Reports: no symptoms HEENT: Repors: no symptoms Respiratory: Reports: no symptoms Allergies: Coded Allergies: No Known Allergies (Unverified , 04/07/19) Objective Last 24 Hour Vital Signs Date Time Temp Pulse Resp B/P (MAP) Pulse Ox O2 Delivery O2 Flow Rate FiO2 04/15/19 12:00 98.8 91 18 106/69 (81) 97 91 04/15/19 09:00 Nasal Cannula 2.0 04/15/19 08:09 98.6 04/15/19 01:00 98.6 106 20 118/70 (86) 96 04/15/19 00:00 98.6 107 20 118/75 (89) 94 04/15/19 00:00 Nasal Cannula 2.0 04/14/19 21:00 96 25 108/60 (76) 99 04/14/19 20:00 97.7 100 23 105/54 (71) 100 04/14/19 20:00 100 04/14/19 20:00 Nasal Cannula 2.0 04/14/19 19:19 98.5 04/14/19 19:00 105 26 121/68 (85) 100 04/14/19 18:44 98.5 107 26 119/63 (81) 04/14/19 18:00 107 26 112/65 (81) 04/14/19 17:00 97 25 112/69 (83) 100 04/14/19 16:00 92 04/14/19 16:00 Nasal Cannula 2.0 04/14/19 16:00 98.5 92 28 108/66 (80) 100 04/14/19 15:00 93 27 107/68 (81) 98 Intake and Output 04/14/19 04/15/19 19:00 07:00 Intake Total 1274.000 ml 360 ml Output Total 2675 ml 2875 ml Balance -1401.000 ml -2515 ml Intake Oral 360 ml IV Total 330.000 ml Other 944 ml Output Urine Total 2550 ml 2875 ml Other 125 ml # Voids 3 # Bowel Movements 2 General Appearance: WD/WN, no acute distress HEENT: atraumatic Respiratory/Chest: chest wall non-tender Cardiovascular: normal peripheral pulses Abdomen: normal bowel sounds Extremities: no cyanosis Skin: no rash Microbiology Date/Time Source Procedure Growth Status 04/13/19 14:55 Blood Blood Culture - Preliminary NO GROWTH AFTER 24 HOURS Resulted 04/13/19 14:40 Blood Blood Culture - Preliminary NO GROWTH AFTER 24 HOURS Resulted 04/13/19 15:30 Abdominal Fluid Gram Stain - Final Complete 04/13/19 15:30 Body Fluid Culture - Final Klebsiella Pneumoniae Complete Laboratory Tests 04/14/19 15:40: Vancomycin Level Trough 13.5H 04/15/19 04:57: White Blood Count 10.2, Red Blood Count 2.52L, Hemoglobin 7.9L, Hematocrit 23.0L , Mean Corpuscular Volume 91, Mean Corpuscular Hemoglobin 31.2H, Mean Corpuscular Hemoglobin Concent 34.1, Red Cell Distribution Width 13.5, Platelet Count 209#, Mean Platelet Volume 9.0, Neutrophils (%) (Auto) , Lymphocytes (%) ( Auto) , Monocytes (%) (Auto) , Eosinophils (%) (Auto) , Basophils (%) (Auto) , Differential Total Cells Counted 100, Neutrophils % (Manual) 77H, Lymphocytes % (Manual) 13L, Monocytes % (Manual) 10, Eosinophils % (Manual) 0, Basophils % ( Manual) 0, Band Neutrophils 0, Platelet Estimate Adequate, Platelet Morphology Normal, Hypochromasia 3+, Spherocytes 2+, Erythrocyte Sedimentation Rate 130H, Sodium Level 134L, Potassium Level 4.5, Chloride Level 103, Carbon Dioxide Level 28, Anion Gap 3L, Blood Urea Nitrogen 10, Creatinine 0.6, Estimat Glomerular Filtration Rate > 60, Glucose Level 165H, Calcium Level 8.2L, Phosphorus Level 4.1, Magnesium Level 1.8, Total Bilirubin 0.4, Aspartate Amino Transf (AST/SGOT) 23, Alanine Aminotransferase (ALT/SGPT) 16, Alkaline Phosphatase 349H, C-Reactive Protein, Quantitative 12.1H, Total Protein 6.0L, Albumin 1.3L, Globulin 4.7, Albumin/Globulin Ratio 0.3L Current Medications Medications (Trade) Dose Ordered Sig/Jose Route PRN Reason Start Time Stop Time Status Last Admin Dose Admin Acetaminophen (Tylenol) 650 mg Q4H PRN ORAL Mild Pain/Temp > 100.5 04/15/19 00:30 05/08/19 00:29 Acetaminophen/ Hydrocodone Bitart ([place] 5/325) 1 tab Q6H PRN ORAL For Pain 04/14/19 22:00 04/19/19 00:29 04/15/19 07:39 Ceftriaxone Sodium 2 gm/ Sodium Chloride 110 ml @ 220 mls/hr DAILY IVPB 04/15/19 15:00 04/22/19 14:59 04/15/19 13:42 Dextrose (Dextrose 50%) 25 ml Q30M PRN IV Hypoglycemia 04/14/19 22:00 05/14/19 06:29 Dextrose (Dextrose 50%) 50 ml Q30M PRN IV Hypoglycemia 04/14/19 22:00 05/14/19 06:29 Fish Oil (Fish Oil) 1,000 mg BID ORAL 04/15/19 09:00 05/12/19 17:59 04/15/19 09:23 Fluconazole (Diflucan) 400 mg DAILY ORAL 04/15/19 13:30 04/22/19 13:29 Folic Acid (Folate) 3 mg DAILY ORAL 04/15/19 09:00 05/11/19 09:59 04/15/19 09:24 Insulin Aspart (NovoLOG) BEFORE MEALS AND HS SUBQ 04/15/19 06:30 05/14/19 06:29 04/15/19 12:13 Insulin Aspart (NovoLOG) 10 units NOVOTIAC SUBQ 04/15/19 06:30 05/14/19 06:29 04/15/19 12:14 Insulin Detemir (Levemir) 20 units BID SUBQ 04/15/19 09:00 05/14/19 08:59 04/15/19 09:32 Levothyroxine Sodium (Synthroid) 50 mcg DAILY@0630 ORAL 04/15/19 06:30 05/13/19 06:29 04/15/19 06:28 Ondansetron HCl (Zofran) 4 mg EVERY 4 HOURS PRN IVP Nausea & Vomiting 04/15/19 01:00 05/08/19 00:29 Potassium Chloride (K-Dur) 40 meq BID ORAL 04/15/19 09:00 05/11/19 09:14 04/15/19 09:24 Donny Kemp MD Apr 15, 2019 14:13
[2019-04-15 16:00] VITALS: BP 109/56
--- NOTE | 2019-04-15 18:23 | Internal Med Progress Note ---
Subjective Date of Service: Apr 15, 2019 Physician Name Cody Redmond Attending Physician Isaías Spain MD Current Medications Medications (Trade) Dose Ordered Sig/Jose Route PRN Reason Start Time Stop Time Status Last Admin Dose Admin Acetaminophen (Tylenol) 650 mg Q4H PRN ORAL Mild Pain/Temp > 100.5 04/15/19 00:30 05/08/19 00:29 Acetaminophen/ Hydrocodone Bitart ([place] 5/325) 1 tab Q6H PRN ORAL For Pain 04/14/19 22:00 04/19/19 00:29 04/15/19 14:21 Ceftriaxone Sodium 2 gm/ Sodium Chloride 110 ml @ 220 mls/hr DAILY IVPB 04/15/19 15:00 04/22/19 14:59 04/15/19 13:42 Dextrose (Dextrose 50%) 25 ml Q30M PRN IV Hypoglycemia 04/14/19 22:00 05/14/19 06:29 Dextrose (Dextrose 50%) 50 ml Q30M PRN IV Hypoglycemia 04/14/19 22:00 05/14/19 06:29 Fish Oil (Fish Oil) 1,000 mg BID ORAL 04/15/19 09:00 05/12/19 17:59 04/15/19 17:12 Fluconazole (Diflucan) 400 mg DAILY ORAL 04/15/19 13:30 04/22/19 13:29 04/15/19 14:12 Folic Acid (Folate) 3 mg DAILY ORAL 04/15/19 09:00 05/11/19 09:59 04/15/19 09:24 Insulin Aspart (NovoLOG) BEFORE MEALS AND HS SUBQ 04/15/19 06:30 05/14/19 06:29 04/15/19 12:13 Insulin Aspart (NovoLOG) 10 units NOVOTIAC SUBQ 04/15/19 06:30 05/14/19 06:29 04/15/19 12:14 Insulin Detemir (Levemir) 20 units BID SUBQ 04/15/19 09:00 05/14/19 08:59 04/15/19 09:32 Levothyroxine Sodium (Synthroid) 50 mcg DAILY@0630 ORAL 04/15/19 06:30 05/13/19 06:29 04/15/19 06:28 Ondansetron HCl (Zofran) 4 mg EVERY 4 HOURS PRN IVP Nausea & Vomiting 04/15/19 01:00 05/08/19 00:29 Potassium Chloride (K-Dur) 40 meq BID ORAL 04/15/19 09:00 05/11/19 09:14 04/15/19 17:12 Allergies: Coded Allergies: No Known Allergies (Unverified , 04/07/19) ROS Limited/Unobtainable: No Constitutional: Reports: no symptoms HEENT: Reports: no symptoms Cardiovascular: Reports: no symptoms Respiratory: Reports: no symptoms Gastrointestinal/Abdominal: Reports: no symptoms Neurologic/Psychiatric: Reports: no symptoms Subjective 38 YO M admitted with altered mental status. Now DKA and right perinephric abscess. Cover for Int Med-Dr Spain. S/P CT guided aspiration and placement of cath 04/13/19 Objective Last Vital Signs Date Time Temp Pulse Resp B/P (MAP) Pulse Ox O2 Delivery O2 Flow Rate FiO2 04/15/19 16:00 98.0 89 18 109/56 (73) 96 89 04/15/19 09:00 Nasal Cannula 2.0 04/14/19 07:32 28 Laboratory Tests Test 04/15/19 04:57 White Blood Count 10.2 K/UL (4.8-10.8) Red Blood Count 2.52 M/UL (4.70-6.10) L Hemoglobin 7.9 G/DL (14.2-18.0) L Hematocrit 23.0 % (42.0-52.0) L Mean Corpuscular Volume 91 FL (80-99) Mean Corpuscular Hemoglobin 31.2 PG (27.0-31.0) H Mean Corpuscular Hemoglobin Concent 34.1 G/DL (32.0-36.0) Red Cell Distribution Width 13.5 % (11.6-14.8) Platelet Count 209 K/UL (150-450) # Mean Platelet Volume 9.0 FL (6.5-10.1) Neutrophils (%) (Auto) % (45.0-75.0) Lymphocytes (%) (Auto) % (20.0-45.0) Monocytes (%) (Auto) % (1.0-10.0) Eosinophils (%) (Auto) % (0.0-3.0) Basophils (%) (Auto) % (0.0-2.0) Differential Total Cells Counted 100 Neutrophils % (Manual) 77 % (45-75) H Lymphocytes % (Manual) 13 % (20-45) L Monocytes % (Manual) 10 % (1-10) Eosinophils % (Manual) 0 % (0-3) Basophils % (Manual) 0 % (0-2) Band Neutrophils 0 % (0-8) Platelet Estimate Adequate Platelet Morphology Normal Hypochromasia 3+ Spherocytes 2+ Erythrocyte Sedimentation Rate 130 MM/HR (0-15) H Sodium Level 134 MMOL/L (136-145) L Potassium Level 4.5 MMOL/L (3.5-5.1) Chloride Level 103 MMOL/L (98-107) Carbon Dioxide Level 28 MMOL/L (21-32) Anion Gap 3 mmol/L (5-15) L Blood Urea Nitrogen 10 mg/dL (7-18) Creatinine 0.6 MG/DL (0.55-1.30) Estimat Glomerular Filtration Rate > 60 mL/min (>60) Glucose Level 165 MG/DL (74-106) H Calcium Level 8.2 MG/DL (8.5-10.1) L Phosphorus Level 4.1 MG/DL (2.5-4.9) Magnesium Level 1.8 MG/DL (1.8-2.4) Total Bilirubin 0.4 MG/DL (0.2-1.0) Aspartate Amino Transf (AST/SGOT) 23 U/L (15-37) Alanine Aminotransferase (ALT/SGPT) 16 U/L (12-78) Alkaline Phosphatase 349 U/L (46-116) H C-Reactive Protein, Quantitative 12.1 mg/dL (0.00-0.90) H Total Protein 6.0 G/DL (6.4-8.2) L Albumin 1.3 G/DL (3.4-5.0) L Globulin 4.7 g/dL Albumin/Globulin Ratio 0.3 (1.0-2.7) L Microbiology Date/Time Source Procedure Growth Status 04/13/19 14:55 Blood Blood Culture - Preliminary NO GROWTH AFTER 24 HOURS Resulted 04/13/19 14:40 Blood Blood Culture - Preliminary NO GROWTH AFTER 24 HOURS Resulted 04/13/19 15:30 Abdominal Fluid Gram Stain - Final Complete 04/13/19 15:30 Body Fluid Culture - Final Klebsiella Pneumoniae Complete Intake and Output 04/14/19 04/15/19 19:00 07:00 Intake Total 1274.000 ml 360 ml Output Total 2675 ml 2875 ml Balance -1401.000 ml -2515 ml Intake Oral 360 ml IV Total 330.000 ml Other 944 ml Output Urine Total 2550 ml 2875 ml Other 125 ml # Voids 3 # Bowel Movements 2 Objective General Appearance: WD/WN, no apparent distress, alert EENT: PERRL/EOMI, normal ENT inspection, TMs normal Neck: non-tender, normal alignment, supple, normal inspection Cardiovascular: normal peripheral pulses, normal rate, regular rhythm, no gallop/murmur, no JVD Respiratory/Chest: chest wall non-tender, lungs clear, normal breath sounds, no respiratory distress, no accessory muscle use Abdomen: normal bowel sounds, non tender, soft, no organomegaly, no mass Extremities: normal range of motion 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 Continue fluconazole per ID - Dr August (4) Renal failure (5) DKA (diabetic ketoacidoses) Assessment & Plan: Continue insulin drip. See endocrinology note-Dr Hayes. (6) Right femoral fracture Assessment & Plan: suspected. See pelvic xray result. (7) Perinephric abscess Assessment & Plan: S/P Interventional radiology CT guided aspiration and placement of pigtail cath. Urology consult= Dr Ortiz. Culture=klebsiella Continue ceftriaxone per ID (8) Sepsis Assessment & Plan: Klebsiella. Continue ceftriaxone per ID-Dr August Status: progressing Cody Redmond MD Apr 15, 2019 18:22
--- NOTE | 2019-04-15 19:11 | NUR ---
HAND-OFF: Report given to jazmin.
[2019-04-15 20:00] VITALS: BP 120/79
--- NOTE | 2019-04-15 20:00 | NUR ---
NURSE NOTES: RECEIVED PATIENT LYING IN BED, AWAKE, ALERT/ORIENTED X4, VERBALLY RESPONSIVE, DENIES PAIN, NO SIGNS AND SYMPTOMS OF ACUTE CARDIO RESPIRATORY DISTRESS/SHORTNESS OF BREATH, DENIES CHEST PAIN, NO PERIPHERAL EDEMA NOTED. NO REPORT OF GI DISCOMFORT, NO NAUSEA/VOMITING, BATHROOM PRIVILEGES, URINAL AT BEDSIDE. SIDE RAILS UP X2 FOR MOBILITY, BED IN LOWEST POSITION FOR SAFETY. ENCOURAGED PATIENT TO UTILIZE CALL LIGHT FOR ASSISTANCE, VERBALIZED UNDERSTANDING. FREQUENT ROUNDING FOR SAFETY/NEEDS. NAD.
--- NOTE | 2019-04-15 21:01 | NUR ---
NURSE NOTES: BLOOD GLUCOSE LEVEL MONITORED VIA GLUCOMETER WITH RESULT 213MG/DL, ASSESSED FOR SIGN AND SYMPTOMS OF HYPERGLYCEMIA, NONE NOTED, ADMINISTERED 8 UNITS NOVOLOG INSULIN SLIDING SCALE, TOLERATED WELL, NO ADVERSE REACTION NOTED AFTER 15 MINUTES.
[2019-04-16] MEDS: HYDROcodone/Acetamin 5/325 tab ORAL PRN ×3 (03:25→20:31)
--- NOTE | 2019-04-16 06:10 | NUR ---
NURSE NOTES: RESTED WELL, NO SIGNIFICANT CHANGE OF CONDITION NOTED THROUGHOUT THE NIGHT. SAFETY MAINTAINED. NAD.
[2019-04-16] MEDS: NovoLOG Insulin Flexpen SUBQ SCH ×7 (06:29→20:58)
--- NOTE | 2019-04-16 07:17 | NUR ---
HAND-OFF: Report given to BALBINA BOYER.
--- NOTE | 2019-04-16 07:20 | NUR ---
NURSE NOTES: Patient awake, alert, oriented x4, able to verbalize needs. denies of pain or sob at this time, respiration regular, unlabored on RA. abdomen soft, no n/v noted, able to void in a urinal. Pigtail drainage catheter to right back, intact and patent, clean and dried dressing status, tannish in colored. RFA heplock intact and patent, kept bed in the lowest bed. provided call light within reach, siderails are up x3. will continue to monitor.
[2019-04-16 07:45] LABS: BASOPHILS % (AUTO) 0.8 % (0.0-2.0); EOSINOPHILS % (AUTO) 0.3 % (0.0-3.0); HEMATOCRIT 25.6 % (42.0-52.0); HEMOGLOBIN 8.5 G/DL (14.2-18.0); LYMPHOCYTES % (AUTO) 11.6 % (20.0-45.0); MEAN CORPUSCULAR VOLUME 91 FL (80-99); MONOCYTES % (AUTO) 7.9 % (1.0-10.0); NEUTROPHILS % (AUTO) 79.5 % (45.0-75.0); PLATELET COUNT 371 K/UL (150-450); RED BLOOD COUNT 2.81 M/UL (4.70-6.10); RED CELL DISTRIBUTION WIDTH 13.2 % (11.6-14.8); WHITE BLOOD COUNT 9.9 K/UL (4.8-10.8)
[2019-04-16 08:00] VITALS: BP 117/69
--- NOTE | 2019-04-16 08:29 | Nephrology Progress Note ---
Assessment/Plan Problem List: (1) Pyelonephritis (2) DKA (diabetic ketoacidoses) (3) Electrolyte abnormality Assessment (1) DKA (diabetic ketoacidoses) (2) JOJO (acute kidney injury) (3) Pyelonephritis (4) Electrolyte imbalance (5) HypoThyroidism Plan tolerating PO CRP lowering PO KCL Phos and Mag as needed fish oil synthroid Monitor lytes recheck UA per orders Subjective ROS Limited/Unobtainable: No Objective Objective Last 24 Hour Vital Signs Date Time Temp Pulse Resp B/P (MAP) Pulse Ox O2 Delivery O2 Flow Rate FiO2 04/16/19 08:03 97 Nasal Cannula 2.0 28 04/16/19 03:55 98.0 04/15/19 21:00 Room Air 04/15/19 20:19 98 Nasal Cannula 2.0 28 04/15/19 20:00 99.1 99 20 120/79 (93) 97 99 04/15/19 16:00 98.0 89 18 109/56 (73) 96 89 04/15/19 12:00 98.8 91 18 106/69 (81) 97 91 04/15/19 09:00 Nasal Cannula 2.0 Intake and Output 04/15/19 04/16/19 19:00 07:00 Intake Total 700 ml 480 ml Output Total 1200 ml 700 ml Balance -500 ml -220 ml Intake Oral 480 ml 480 ml IV Total 220 ml Output Urine Total 1000 ml 700 ml Drainage Total 200 ml Laboratory Tests 04/16/19 05:40: White Blood Count 9.9, Red Blood Count 2.81L, Hemoglobin 8.5L, Hematocrit 25.6L , Mean Corpuscular Volume 91, Mean Corpuscular Hemoglobin 30.2, Mean Corpuscular Hemoglobin Concent 33.1, Red Cell Distribution Width 13.2, Platelet Count 371#, Mean Platelet Volume 7.2, Neutrophils (%) (Auto) 79.5H, Lymphocytes (%) (Auto) 11.6L, Monocytes (%) (Auto) 7.9, Eosinophils (%) (Auto) 0.3, Basophils (%) (Auto) 0.8, Sodium Level [Pending], Potassium Level [Pending], Chloride Level [Pending], Carbon Dioxide Level [Pending], Blood Urea Nitrogen [ Pending], Creatinine [Pending], Estimat Glomerular Filtration Rate [Pending], Glucose Level [Pending], Calcium Level [Pending], Total Bilirubin [Pending], Aspartate Amino Transf (AST/SGOT) [Pending], Alanine Aminotransferase (ALT/SGPT ) [Pending], Alkaline Phosphatase [Pending], Total Protein [Pending], Albumin [ Pending], Globulin [Pending] Height (Feet): 5 Height (Inches): 6.00 Weight (Pounds): 135 General Appearance: no apparent distress Respiratory/Chest: lungs clear Abdomen: soft Genitourinary/Rectal: other - drain + Objective no change Russ Osborn MD Apr 16, 2019 08:29
[2019-04-16] MEDS: Fluconazole 100mg tab ORAL SCH (08:31)
[2019-04-16] MEDS: Levemir Flexpen SUBQ SCH ×2 (08:37→16:34)
[2019-04-16 08:49] LABS: ALANINE AMINOTRANSFERASE 19 U/L (12-78); ALBUMIN 1.6 G/DL (3.4-5.0); ALBUMIN/GLOBULIN RATIO 0.3 (1.0-2.7); ALKALINE PHOSPHATASE 306 U/L (46-116); ANION GAP 5 mmol/L (5-15); ASPARTATE AMINO TRANSFERASE 22 U/L (15-37); BILIRUBIN,TOTAL 0.4 MG/DL (0.2-1.0); BLOOD UREA NITROGEN 7 mg/dL (7-18); CALCIUM 8.9 MG/DL (8.5-10.1); CARBON DIOXIDE 29 MMOL/L (21-32); CHLORIDE 100 MMOL/L (98-107); CREATININE 0.7 MG/DL (0.55-1.30); POTASSIUM 5.1 MMOL/L (3.5-5.1); SODIUM 134 MMOL/L (136-145)
[2019-04-16] MEDS: cefTRIAXone 2 GM in NS 110 ML IVPB SCH (09:17)
[2019-04-16 12:00] VITALS: BP 118/70
[2019-04-16] MEDS ORDERED: NS 275ml ONE ×2 (13:30→13:33)
[2019-04-16] MEDS ORDERED: Tubing IV Secondary IV ONE (13:33)
--- NOTE | 2019-04-16 14:33 | General Progress Note ---
Assessment/Plan Problem List: (1) Acute metabolic encephalopathy ICD Codes: G93.41 - Metabolic encephalopathy SNOMED: 65716111, 501063253 (2) JOJO (acute kidney injury) ICD Codes: N17.9 - Acute kidney failure, unspecified SNOMED: 68969424, 8718916 (3) DKA (diabetic ketoacidoses) ICD Codes: E11.10 - Type 2 diabetes mellitus with ketoacidosis without coma SNOMED: 41241081, 619708942 (4) Renal failure ICD Codes: N19 - Unspecified kidney failure SNOMED: 35524736 (5) Pyelonephritis ICD Codes: N12 - Tubulo-interstitial nephritis, not specified as acute or chronic SNOMED: 24851143 Status: progressing Assessment/Plan: continue Levemir 20 units bid continue Novolog 10 units ac tid continue NISS ac / hs resistant scale Subjective Allergies: Coded Allergies: No Known Allergies (Unverified , 04/07/19) All Systems: reviewed and negative except above Subjective events noted doing fine Item Value Date Time Bedside Blood Glucose 152 mg/dl H 04/16/19 1214 Bedside Blood Glucose 297 mg/dl H 04/16/19 0837 Bedside Blood Glucose 297 mg/dl H 04/16/19 0631 Bedside Blood Glucose 213 mg/dl H 04/15/19 2102 Bedside Blood Glucose 82 mg/dl 04/15/19 1633 Bedside Blood Glucose 190 mg/dl H 04/15/19 1214 Objective Last 24 Hour Vital Signs Date Time Temp Pulse Resp B/P (MAP) Pulse Ox O2 Delivery O2 Flow Rate FiO2 04/16/19 12:00 97.5 79 19 118/70 (86) 96 79 04/16/19 10:34 99.7 04/16/19 08:05 Room Air 04/16/19 08:03 97 Nasal Cannula 2.0 28 04/16/19 08:00 96 04/16/19 08:00 99.7 111 19 117/69 (85) 94 111 04/15/19 21:00 Room Air 04/15/19 20:19 98 Nasal Cannula 2.0 28 04/15/19 20:00 99.1 99 20 120/79 (93) 97 99 04/15/19 16:00 98.0 89 18 109/56 (73) 96 89 Intake and Output 04/15/19 04/16/19 18:59 06:59 Intake Total 700 ml 480 ml Output Total 3100 ml 700 ml Balance -2400 ml -220 ml Intake Oral 480 ml 480 ml IV Total 220 ml Output Urine Total 2900 ml 700 ml Drainage Total 200 ml # Voids 2 Laboratory Tests 04/16/19 05:40: White Blood Count 9.9, Red Blood Count 2.81L, Hemoglobin 8.5L, Hematocrit 25.6L , Mean Corpuscular Volume 91, Mean Corpuscular Hemoglobin 30.2, Mean Corpuscular Hemoglobin Concent 33.1, Red Cell Distribution Width 13.2, Platelet Count 371#, Mean Platelet Volume 7.2, Neutrophils (%) (Auto) 79.5H, Lymphocytes (%) (Auto) 11.6L, Monocytes (%) (Auto) 7.9, Eosinophils (%) (Auto) 0.3, Basophils (%) (Auto) 0.8, Sodium Level 134L, Potassium Level 5.1, Chloride Level 100, Carbon Dioxide Level 29, Anion Gap 5, Blood Urea Nitrogen 7, Creatinine 0.7, Estimat Glomerular Filtration Rate > 60, Glucose Level 209H, Calcium Level 8.9, Total Bilirubin 0.4, Aspartate Amino Transf (AST/SGOT) 22, Alanine Aminotransferase (ALT/SGPT) 19, Alkaline Phosphatase 306H, Total Protein 6.7, Albumin 1.6L, Globulin 5.1, Albumin/Globulin Ratio 0.3L Height (Feet): 5 Height (Inches): 6.00 Weight (Pounds): 135 General Appearance: no apparent distress Neck: normal alignment Cardiovascular: normal rate Respiratory/Chest: lungs clear Abdomen: normal bowel sounds Objective Current Medications Medications (Trade) Dose Ordered Sig/Jose Route PRN Reason Start Time Stop Time Status Last Admin Dose Admin Acetaminophen (Tylenol) 650 mg Q4H PRN ORAL Mild Pain/Temp > 100.5 04/15/19 00:30 05/08/19 00:29 Acetaminophen/ Hydrocodone Bitart ([place] 5/325) 1 tab Q6H PRN ORAL For Pain 04/14/19 22:00 04/19/19 00:29 04/16/19 10:04 Ceftriaxone Sodium 2 gm/ Sodium Chloride 110 ml @ 220 mls/hr DAILY IVPB 04/15/19 15:00 04/22/19 14:59 04/16/19 09:17 Dextrose (Dextrose 50%) 25 ml Q30M PRN IV Hypoglycemia 04/14/19 22:00 05/14/19 06:29 Dextrose (Dextrose 50%) 50 ml Q30M PRN IV Hypoglycemia 04/14/19 22:00 05/14/19 06:29 Fish Oil (Fish Oil) 1,000 mg BID ORAL 04/15/19 09:00 05/12/19 17:59 04/16/19 08:31 Fluconazole (Diflucan) 400 mg DAILY ORAL 04/15/19 13:30 04/22/19 13:29 04/16/19 08:31 Folic Acid (Folate) 3 mg DAILY ORAL 04/15/19 09:00 05/11/19 09:59 04/16/19 08:31 Insulin Aspart (NovoLOG) BEFORE MEALS AND HS SUBQ 04/15/19 06:30 05/14/19 06:29 04/16/19 12:14 Insulin Aspart (NovoLOG) 10 units NOVOTIAC SUBQ 04/15/19 06:30 05/14/19 06:29 04/16/19 12:13 Insulin Detemir (Levemir) 20 units BID SUBQ 04/15/19 09:00 05/14/19 08:59 04/16/19 08:37 Levothyroxine Sodium (Synthroid) 50 mcg DAILY@0630 ORAL 04/15/19 06:30 05/13/19 06:29 04/16/19 06:23 Ondansetron HCl (Zofran) 4 mg EVERY 4 HOURS PRN IVP Nausea & Vomiting 04/15/19 01:00 05/08/19 00:29 Potassium Chloride (K-Dur) 40 meq BID ORAL 04/15/19 09:00 05/11/19 09:14 04/16/19 08:31 Roland Hayes MD Apr 16, 2019 14:33
--- NOTE | 2019-04-16 15:10 | NUR ---
CASE MANAGEMENT: REVIEW 04/16/2019 SI: DIABETIC KETOACIDOSIS,SEPSIS T 99.7 HR 111 RR 19 B/P 117/69 SATS 94% ON RA NA 134 GLU 209 ALP 306 IS: INSULIN GTT VANCO IV CEFEPIME IV MICAFUNGIN IV MED/SURG STATUS
--- NOTE | 2019-04-16 15:51 | Internal Med Progress Note ---
Subjective Date of Service: Apr 16, 2019 Physician Name Cody Redmond Attending Physician Isaías Spain MD Current Medications Medications (Trade) Dose Ordered Sig/Jose Route PRN Reason Start Time Stop Time Status Last Admin Dose Admin Acetaminophen (Tylenol) 650 mg Q4H PRN ORAL Mild Pain/Temp > 100.5 04/15/19 00:30 05/08/19 00:29 Acetaminophen/ Hydrocodone Bitart ([place] 5/325) 1 tab Q6H PRN ORAL For Pain 04/14/19 22:00 04/19/19 00:29 04/16/19 10:04 Ceftriaxone Sodium 2 gm/ Sodium Chloride 110 ml @ 220 mls/hr DAILY IVPB 04/15/19 15:00 04/22/19 14:59 04/16/19 09:17 Dextrose (Dextrose 50%) 25 ml Q30M PRN IV Hypoglycemia 04/14/19 22:00 05/14/19 06:29 Dextrose (Dextrose 50%) 50 ml Q30M PRN IV Hypoglycemia 04/14/19 22:00 05/14/19 06:29 Fish Oil (Fish Oil) 1,000 mg BID ORAL 04/15/19 09:00 05/12/19 17:59 04/16/19 08:31 Fluconazole (Diflucan) 400 mg DAILY ORAL 04/15/19 13:30 04/22/19 13:29 04/16/19 08:31 Folic Acid (Folate) 3 mg DAILY ORAL 04/15/19 09:00 05/11/19 09:59 04/16/19 08:31 Insulin Aspart (NovoLOG) BEFORE MEALS AND HS SUBQ 04/15/19 06:30 05/14/19 06:29 04/16/19 12:14 Insulin Aspart (NovoLOG) 10 units NOVOTIAC SUBQ 04/15/19 06:30 05/14/19 06:29 04/16/19 12:13 Insulin Detemir (Levemir) 20 units BID SUBQ 04/15/19 09:00 05/14/19 08:59 04/16/19 08:37 Levothyroxine Sodium (Synthroid) 50 mcg DAILY@0630 ORAL 04/15/19 06:30 05/13/19 06:29 04/16/19 06:23 Ondansetron HCl (Zofran) 4 mg EVERY 4 HOURS PRN IVP Nausea & Vomiting 04/15/19 01:00 05/08/19 00:29 Potassium Chloride (K-Dur) 40 meq BID ORAL 04/15/19 09:00 05/11/19 09:14 04/16/19 08:31 Allergies: Coded Allergies: No Known Allergies (Unverified , 04/07/19) ROS Limited/Unobtainable: No Constitutional: Reports: no symptoms HEENT: Reports: no symptoms Cardiovascular: Reports: no symptoms Respiratory: Reports: no symptoms Gastrointestinal/Abdominal: Reports: no symptoms Genitourinary: Reports: no symptoms Neurologic/Psychiatric: Reports: no symptoms Subjective 38 YO M admitted with altered mental status. Now DKA and right perinephric abscess. Cover for Int Med-Dr Spain. S/P CT guided aspiration and placement of cath 04/13/19 Objective Last Vital Signs Date Time Temp Pulse Resp B/P (MAP) Pulse Ox O2 Delivery O2 Flow Rate FiO2 04/16/19 12:00 97.5 79 19 118/70 (86) 96 79 04/16/19 08:05 Room Air 04/16/19 08:03 2.0 28 Laboratory Tests Test 04/16/19 05:40 White Blood Count 9.9 K/UL (4.8-10.8) Red Blood Count 2.81 M/UL (4.70-6.10) L Hemoglobin 8.5 G/DL (14.2-18.0) L Hematocrit 25.6 % (42.0-52.0) L Mean Corpuscular Volume 91 FL (80-99) Mean Corpuscular Hemoglobin 30.2 PG (27.0-31.0) Mean Corpuscular Hemoglobin Concent 33.1 G/DL (32.0-36.0) Red Cell Distribution Width 13.2 % (11.6-14.8) Platelet Count 371 K/UL (150-450) # Mean Platelet Volume 7.2 FL (6.5-10.1) Neutrophils (%) (Auto) 79.5 % (45.0-75.0) H Lymphocytes (%) (Auto) 11.6 % (20.0-45.0) L Monocytes (%) (Auto) 7.9 % (1.0-10.0) Eosinophils (%) (Auto) 0.3 % (0.0-3.0) Basophils (%) (Auto) 0.8 % (0.0-2.0) Sodium Level 134 MMOL/L (136-145) L Potassium Level 5.1 MMOL/L (3.5-5.1) Chloride Level 100 MMOL/L (98-107) Carbon Dioxide Level 29 MMOL/L (21-32) Anion Gap 5 mmol/L (5-15) Blood Urea Nitrogen 7 mg/dL (7-18) Creatinine 0.7 MG/DL (0.55-1.30) Estimat Glomerular Filtration Rate > 60 mL/min (>60) Glucose Level 209 MG/DL (74-106) H Calcium Level 8.9 MG/DL (8.5-10.1) Total Bilirubin 0.4 MG/DL (0.2-1.0) Aspartate Amino Transf (AST/SGOT) 22 U/L (15-37) Alanine Aminotransferase (ALT/SGPT) 19 U/L (12-78) Alkaline Phosphatase 306 U/L (46-116) H Total Protein 6.7 G/DL (6.4-8.2) Albumin 1.6 G/DL (3.4-5.0) L Globulin 5.1 g/dL Albumin/Globulin Ratio 0.3 (1.0-2.7) L Intake and Output 04/15/19 04/16/19 18:59 06:59 Intake Total 700 ml 480 ml Output Total 3100 ml 700 ml Balance -2400 ml -220 ml Intake Oral 480 ml 480 ml IV Total 220 ml Output Urine Total 2900 ml 700 ml Drainage Total 200 ml # Voids 2 Objective General Appearance: WD/WN, no apparent distress, alert EENT: PERRL/EOMI, normal ENT inspection, TMs normal Neck: non-tender, normal alignment, supple, normal inspection Cardiovascular: normal peripheral pulses, normal rate, regular rhythm, no gallop/murmur, no JVD Respiratory/Chest: chest wall non-tender, lungs clear, normal breath sounds, no respiratory distress, no accessory muscle use Abdomen: normal bowel sounds, non tender, soft, no organomegaly, no mass Extremities: normal range of motion 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 Continue fluconazole per ID - Dr August (4) Renal failure (5) DKA (diabetic ketoacidoses) Assessment & Plan: Continue insulin drip. See endocrinology note-Dr Hayes. (6) Right femoral fracture Assessment & Plan: suspected. See pelvic xray result. (7) Perinephric abscess Assessment & Plan: S/P Interventional radiology CT guided aspiration and placement of pigtail cath. Urology consult= Dr Ortiz. Culture=klebsiella Continue ceftriaxone per ID (8) Sepsis Assessment & Plan: Klebsiella. Continue ceftriaxone per ID-Dr August Status: progressing Cody Redmond MD Apr 16, 2019 15:51
[2019-04-16 15:56] VITALS: BP 113/74
--- NOTE | 2019-04-16 17:49 | Infectious Diseases Prog Note ---
Assessment/Plan Assessment/Plan The patient is a 38-year-old male with: Fever, SP Leukocytosis; SP Sepsis. -CXR: Basilar atelectatic changes and/or scarring. No acute process otherwise Emphysematous pyelonephritis with right kidney abscess -04/13 SP Successful aspiration and drainage of a right renal abscess. 8.5 Norwegian pigtail drainage catheter placed in good position; About 60 cc of slightly bloody and tannish purulent material was aspirated. -cx K. pna (R amp, bactrim; otherwise S) -u/a wbc 10-15, nit neg, leuk +1; ucx >100k C. tropicalis x2 -04/08 BCx NTD Klebsiella Bacteremia - 04/12 BCx / K. pna (R amp, bactrim; otherwise S) ; 04/13 Bcx NTD Diabetes and now with DKA. Rule out biliary disease (elevated Tbili, ALP) -ABD US: Severe distention of the urinary bladder. Suggest Daniels catheter. Associated mild hydronephrosis. Hepatomegaly. There is no biliary ductal dilatation identified. Gallbladder is unremarkable. Thrombocytopenia (probably due to sepsis -HIV, hep panel neg CT 04/09/19 1. Emphysematous pyelonephritis in the right kidney, most prominently affecting the right lower pole, with a 7.6 x 7.4 x 5.3 cm air-fluid collection in the lower pole likely representing renal abscess extending to the perirenal fat. No definite fat plane between this collection and the adjacent right psoas musculature. Extensive adjacent inflammatory stranding. 2. Daniels catheter balloon and tip within the urinary bladder lumen. Mild diffuse urinary bladder wall thickening, suggestive of cystitis. . PLAN: 1. Continue Ceftriaxone #2 (abx d #01/16) for K.pna UTI/bacteremia Continue PO Fluconazole #3 (abx d #/) for funguria, suspect it is a real pathogen on this case -04/15 SP Cefepime #2 -04/14 SP Micafungin #2, IV Vancomycin #5 -04/13 SP Meropenem #3 -04/11 SP IV Rocephin #4, Amikacin #3 2. f/u repeat Bc x2 3. Monitor CBC, BMP. 4. Monitor cultures, blood and urine. 5 Continue intensive care. 6. Urology f/u Thank you, Dr. Kemp, for allowing me to participate in the care of this patient. I will follow the patient with you. Subjective Allergies: Coded Allergies: No Known Allergies (Unverified , 04/07/19) Subjective afebrile >72hrs no leukocytosis repeat Bcx NTD Objective Vital Signs Last 24 Hour Vital Signs Date Time Temp Pulse Resp B/P (MAP) Pulse Ox O2 Delivery O2 Flow Rate FiO2 04/16/19 15:56 97.9 96 19 113/74 (87) 96 96 04/16/19 12:00 97.5 79 19 118/70 (86) 96 79 04/16/19 10:34 99.7 04/16/19 08:05 Room Air 04/16/19 08:03 97 Nasal Cannula 2.0 28 04/16/19 08:00 96 04/16/19 08:00 99.7 111 19 117/69 (85) 94 111 04/15/19 21:00 Room Air 04/15/19 20:19 98 Nasal Cannula 2.0 28 04/15/19 20:00 99.1 99 20 120/79 (93) 97 99 Height (Feet): 5 Height (Inches): 6.00 Weight (Pounds): 135 Objective GEN: NAD HEENT: NCAT, MMM LUNGS: Coarse B/L HEART: RR, s1,s2 Abd TTP, SOft Laboratory Tests Test 04/16/19 05:40 White Blood Count 9.9 K/UL (4.8-10.8) Red Blood Count 2.81 M/UL (4.70-6.10) L Hemoglobin 8.5 G/DL (14.2-18.0) L Hematocrit 25.6 % (42.0-52.0) L Mean Corpuscular Volume 91 FL (80-99) Mean Corpuscular Hemoglobin 30.2 PG (27.0-31.0) Mean Corpuscular Hemoglobin Concent 33.1 G/DL (32.0-36.0) Red Cell Distribution Width 13.2 % (11.6-14.8) Platelet Count 371 K/UL (150-450) # Mean Platelet Volume 7.2 FL (6.5-10.1) Neutrophils (%) (Auto) 79.5 % (45.0-75.0) H Lymphocytes (%) (Auto) 11.6 % (20.0-45.0) L Monocytes (%) (Auto) 7.9 % (1.0-10.0) Eosinophils (%) (Auto) 0.3 % (0.0-3.0) Basophils (%) (Auto) 0.8 % (0.0-2.0) Sodium Level 134 MMOL/L (136-145) L Potassium Level 5.1 MMOL/L (3.5-5.1) Chloride Level 100 MMOL/L (98-107) Carbon Dioxide Level 29 MMOL/L (21-32) Anion Gap 5 mmol/L (5-15) Blood Urea Nitrogen 7 mg/dL (7-18) Creatinine 0.7 MG/DL (0.55-1.30) Estimat Glomerular Filtration Rate > 60 mL/min (>60) Glucose Level 209 MG/DL (74-106) H Calcium Level 8.9 MG/DL (8.5-10.1) Total Bilirubin 0.4 MG/DL (0.2-1.0) Aspartate Amino Transf (AST/SGOT) 22 U/L (15-37) Alanine Aminotransferase (ALT/SGPT) 19 U/L (12-78) Alkaline Phosphatase 306 U/L (46-116) H Total Protein 6.7 G/DL (6.4-8.2) Albumin 1.6 G/DL (3.4-5.0) L Globulin 5.1 g/dL Albumin/Globulin Ratio 0.3 (1.0-2.7) L Current Medications Medications (Trade) Dose Ordered Sig/Jose Route PRN Reason Start Time Stop Time Status Last Admin Dose Admin Acetaminophen (Tylenol) 650 mg Q4H PRN ORAL Mild Pain/Temp > 100.5 04/15/19 00:30 05/08/19 00:29 Acetaminophen/ Hydrocodone Bitart ([place] 5/325) 1 tab Q6H PRN ORAL For Pain 04/14/19 22:00 04/19/19 00:29 04/16/19 10:04 Ceftriaxone Sodium 2 gm/ Sodium Chloride 110 ml @ 220 mls/hr DAILY IVPB 04/15/19 15:00 04/22/19 14:59 04/16/19 09:17 Dextrose (Dextrose 50%) 25 ml Q30M PRN IV Hypoglycemia 04/14/19 22:00 05/14/19 06:29 Dextrose (Dextrose 50%) 50 ml Q30M PRN IV Hypoglycemia 04/14/19 22:00 05/14/19 06:29 Fish Oil (Fish Oil) 1,000 mg BID ORAL 04/15/19 09:00 05/12/19 17:59 04/16/19 17:14 Fluconazole (Diflucan) 400 mg DAILY ORAL 04/15/19 13:30 04/22/19 13:29 04/16/19 08:31 Folic Acid (Folate) 3 mg DAILY ORAL 04/15/19 09:00 05/11/19 09:59 04/16/19 08:31 Insulin Aspart (NovoLOG) BEFORE MEALS AND HS SUBQ 04/15/19 06:30 05/14/19 06:29 04/16/19 12:14 Insulin Aspart (NovoLOG) 10 units NOVOTIAC SUBQ 04/15/19 06:30 05/14/19 06:29 04/16/19 12:13 Insulin Detemir (Levemir) 20 units BID SUBQ 04/15/19 09:00 05/14/19 08:59 04/16/19 08:37 Levothyroxine Sodium (Synthroid) 50 mcg DAILY@0630 ORAL 04/15/19 06:30 05/13/19 06:29 04/16/19 06:23 Ondansetron HCl (Zofran) 4 mg EVERY 4 HOURS PRN IVP Nausea & Vomiting 04/15/19 01:00 05/08/19 00:29 Hanny August M.D. Apr 16, 2019 17:49
--- NOTE | 2019-04-16 19:10 | NUR ---
HAND-OFF: Report given to Deann.
[2019-04-16 20:00] VITALS: BP 134/82
--- NOTE | 2019-04-16 20:00 | NUR ---
NURSE NOTES: RECEIVED PATIENT LYING IN BED, AWAKE, ALERT/ORIENTED X4, VERBALLY RESPONSIVE, DENIES PAIN, NO SIGNS AND SYMPTOMS OF ACUTE CARDIO RESPIRATORY DISTRESS/SHORTNESS OF BREATH, DENIES CHEST PAIN, NO EDEMA NOTED. ASSISTED PATIENT TO BATHROOM, NOTED WITH UNSTEADY GAIT, RETURNED TO BED SAFELY. NO REPORT OF GI DISCOMFORT, NO N/V/D, URINATING WITHOUT DIFFICULTY, URINAL AT BEDSIDE. SIDE RAILS UP X3/BED IN LOWEST POSITION FOR SAFETY. CALL LIGHT WITHIN REACH. FREQUENT ROUNDING FOR SAFETY/NEEDS. NAD.
[2019-04-17] VITALS: BP 115/72
[2019-04-17 04:00] VITALS: BP 122/70
[2019-04-17] MEDS: HYDROcodone/Acetamin 5/325 tab ORAL PRN ×3 (04:54→22:37)
--- NOTE | 2019-04-17 05:00 | NUR ---
NURSE NOTES: COOLING MEASURES INITIATED FOR ELEVATED TEMPERATURE, TOLERATED WELL-
--- NOTE | 2019-04-17 05:00 | NUR ---
NURSE NOTES: PATIENT NOTED WITH ELEVATED TEMPERATURE 101.1, TELEPHONE CALL PLACED TO ID REGARDING POSSIBLE BLOOD CULTURES/AM LABS - LEFT MESSAGE WITH [employer] SHAHRAM, WILL AWAIT RETURN CALL, CN AWARE.
--- NOTE | 2019-04-17 06:00 | NUR ---
NURSE NOTES: TEMPERATURE 98.1-
[2019-04-17] MEDS: NovoLOG Insulin Flexpen SUBQ SCH ×7 (06:32→21:12)
--- NOTE | 2019-04-17 07:06 | NUR ---
NURSE NOTES:HAND-OFF: Report given to fidelia cuellar.
--- NOTE | 2019-04-17 07:25 | NUR ---
NURSE NOTES: Patient awake, alert, oriented x4, able to verbalize needs. denies of pain or sob at this time, respiration regular, unlabored on RA. abdomen soft, no n/v noted, able to void in a urinal. Pigtail drainage catheter to right back, intact and draining well. RFA heplock intact and patent, kept bed in the lowest bed. provided call light within reach, siderails are up x3. will continue to monitor.
--- NOTE | 2019-04-17 07:58 | General Progress Note ---
Assessment/Plan Problem List: (1) Acute metabolic encephalopathy ICD Codes: G93.41 - Metabolic encephalopathy SNOMED: 71910085, 660763018 (2) JOJO (acute kidney injury) ICD Codes: N17.9 - Acute kidney failure, unspecified SNOMED: 26155938, 0568315 (3) DKA (diabetic ketoacidoses) ICD Codes: E11.10 - Type 2 diabetes mellitus with ketoacidosis without coma SNOMED: 14414164, 480442794 (4) Renal failure ICD Codes: N19 - Unspecified kidney failure SNOMED: 98811245 (5) Pyelonephritis ICD Codes: N12 - Tubulo-interstitial nephritis, not specified as acute or chronic SNOMED: 06733923 Status: progressing Assessment/Plan: change Levemir to 24 units qam change Novolog to 8 units ac tid continue NISS ac / hs resistant scale Subjective Allergies: Coded Allergies: No Known Allergies (Unverified , 04/07/19) All Systems: reviewed and negative except above Subjective events noted Item Value Date Time Bedside Blood Glucose 173 mg/dl H 04/17/19 0633 Bedside Blood Glucose 234 mg/dl H 04/16/19 2100 Bedside Blood Glucose 91 mg/dl 04/16/19 1634 Bedside Blood Glucose 152 mg/dl H 04/16/19 1214 Bedside Blood Glucose 297 mg/dl H 04/16/19 0837 Bedside Blood Glucose 297 mg/dl H 04/16/19 0631 Objective Last 24 Hour Vital Signs Date Time Temp Pulse Resp B/P (MAP) Pulse Ox O2 Delivery O2 Flow Rate FiO2 04/17/19 06:00 98.1 04/17/19 05:24 98.1 04/17/19 04:00 101.1 113 20 122/70 (87) 96 04/17/19 00:00 99.0 104 20 115/72 (86) 100 04/16/19 21:00 Room Air 04/16/19 20:48 98 Room Air 04/16/19 20:00 98.2 102 18 134/82 (99) 98 04/16/19 15:56 97.9 96 19 113/74 (87) 96 96 04/16/19 12:00 97.5 79 19 118/70 (86) 96 79 04/16/19 08:05 Room Air 04/16/19 08:03 97 Nasal Cannula 2.0 28 04/16/19 08:00 96 04/16/19 08:00 99.7 111 19 117/69 (85) 94 111 Intake and Output 04/16/19 04/17/19 19:00 07:00 Intake Total 1460 ml 720 ml Output Total 2750 ml 1000 ml Balance -1290 ml -280 ml Intake Oral 1240 ml 720 ml IV Total 220 ml Output Urine Total 2700 ml 1000 ml Drainage Total 50 ml # Bowel Movements 1 Height (Feet): 5 Height (Inches): 6.00 Weight (Pounds): 136 General Appearance: no apparent distress Neck: normal alignment Cardiovascular: normal rate Respiratory/Chest: lungs clear Abdomen: normal bowel sounds Objective Current Medications Medications (Trade) Dose Ordered Sig/Jose Route PRN Reason Start Time Stop Time Status Last Admin Dose Admin Acetaminophen (Tylenol) 650 mg Q4H PRN ORAL Mild Pain/Temp > 100.5 04/15/19 00:30 05/08/19 00:29 Acetaminophen/ Hydrocodone Bitart ([place] 5/325) 1 tab Q6H PRN ORAL For Pain 04/14/19 22:00 04/19/19 00:29 04/17/19 04:54 Ceftriaxone Sodium 2 gm/ Sodium Chloride 110 ml @ 220 mls/hr DAILY IVPB 04/15/19 15:00 04/22/19 14:59 04/16/19 09:17 Dextrose (Dextrose 50%) 25 ml Q30M PRN IV Hypoglycemia 04/14/19 22:00 05/14/19 06:29 Dextrose (Dextrose 50%) 50 ml Q30M PRN IV Hypoglycemia 04/14/19 22:00 05/14/19 06:29 Fish Oil (Fish Oil) 1,000 mg BID ORAL 04/15/19 09:00 05/12/19 17:59 04/16/19 17:14 Fluconazole (Diflucan) 400 mg DAILY ORAL 04/15/19 13:30 04/22/19 13:29 04/16/19 08:31 Folic Acid (Folate) 3 mg DAILY ORAL 04/15/19 09:00 05/11/19 09:59 04/16/19 08:31 Insulin Aspart (NovoLOG) BEFORE MEALS AND HS SUBQ 04/15/19 06:30 05/14/19 06:29 04/17/19 06:32 Insulin Aspart (NovoLOG) 10 units NOVOTIAC SUBQ 04/15/19 06:30 05/14/19 06:29 04/17/19 06:33 Insulin Detemir (Levemir) 20 units BID SUBQ 04/15/19 09:00 05/14/19 08:59 04/16/19 08:37 Levothyroxine Sodium (Synthroid) 50 mcg DAILY@0630 ORAL 04/15/19 06:30 05/13/19 06:29 04/17/19 05:57 Ondansetron HCl (Zofran) 4 mg EVERY 4 HOURS PRN IVP Nausea & Vomiting 04/15/19 01:00 05/08/19 00:29 Roland Hayes MD Apr 17, 2019 07:58
[2019-04-17 08:00] VITALS: BP 136/77
[2019-04-17] MEDS: cefTRIAXone 2 GM in NS 110 ML IVPB SCH (08:15)
[2019-04-17] MEDS: Fluconazole 100mg tab ORAL SCH (08:18)
[2019-04-17] MEDS: Levemir Flexpen SUBQ SCH (10:05)
--- NOTE | 2019-04-17 10:16 | Nephrology Progress Note ---
Assessment/Plan Problem List: (1) Pyelonephritis (2) DKA (diabetic ketoacidoses) (3) Electrolyte abnormality Assessment (1) DKA (diabetic ketoacidoses) (2) JOJO (acute kidney injury) (3) Pyelonephritis (4) Electrolyte imbalance (5) HypoThyroidism Plan tolerating PO CRP lowering PO KCL Phos and Mag as needed fish oil synthroid Monitor lytes recheck UA per orders Subjective ROS Limited/Unobtainable: No Objective Objective Last 24 Hour Vital Signs Date Time Temp Pulse Resp B/P (MAP) Pulse Ox O2 Delivery O2 Flow Rate FiO2 04/17/19 08:19 Room Air 04/17/19 08:00 97.8 66 16 136/77 (96) 98 04/17/19 06:00 98.1 04/17/19 05:24 98.1 04/17/19 04:00 101.1 113 20 122/70 (87) 96 04/17/19 00:00 99.0 104 20 115/72 (86) 100 04/16/19 21:00 Room Air 04/16/19 20:48 98 Room Air 04/16/19 20:00 98.2 102 18 134/82 (99) 98 04/16/19 15:56 97.9 96 19 113/74 (87) 96 96 04/16/19 12:00 97.5 79 19 118/70 (86) 96 79 Intake and Output 04/16/19 04/17/19 19:00 07:00 Intake Total 1460 ml 720 ml Output Total 2750 ml 1000 ml Balance -1290 ml -280 ml Intake Oral 1240 ml 720 ml IV Total 220 ml Output Urine Total 2700 ml 1000 ml Drainage Total 50 ml # Bowel Movements 1 Height (Feet): 5 Height (Inches): 6.00 Weight (Pounds): 136 General Appearance: no apparent distress Genitourinary/Rectal: other - drain + Objective no change Russ Osborn MD Apr 17, 2019 10:16
[2019-04-17 12:00] VITALS: BP 119/69
--- NOTE | 2019-04-17 12:34 | NUR ---
CASE MANAGEMENT: REVIEW 04/17/2019 SI: DIABETIC KETOACIDOSIS,SEPSIS T 97.8 HR 66 RR 16 B/P 136/77 SATS 98% ON RA NO LABS TODAY IS: INSULIN ASPART SUBQ AC/HS VANCO IV CEFEPIME IV MICAFUNGIN IV MED/SURG STATUS
--- NOTE | 2019-04-17 14:45 | Internal Med Progress Note ---
Subjective Date of Service: Apr 17, 2019 Physician Name Cody Redmond Attending Physician Isaías Spain MD Current Medications Medications (Trade) Dose Ordered Sig/Jose Route PRN Reason Start Time Stop Time Status Last Admin Dose Admin Acetaminophen (Tylenol) 650 mg Q4H PRN ORAL Mild Pain/Temp > 100.5 04/15/19 00:30 05/08/19 00:29 Acetaminophen/ Hydrocodone Bitart ([place] 5/325) 1 tab Q6H PRN ORAL For Pain 04/14/19 22:00 04/19/19 00:29 04/17/19 11:54 Ceftriaxone Sodium 2 gm/ Sodium Chloride 110 ml @ 220 mls/hr DAILY IVPB 04/15/19 15:00 04/22/19 14:59 04/17/19 08:15 Dextrose (Dextrose 50%) 25 ml Q30M PRN IV Hypoglycemia 04/14/19 22:00 05/14/19 06:29 Dextrose (Dextrose 50%) 50 ml Q30M PRN IV Hypoglycemia 04/14/19 22:00 05/14/19 06:29 Fish Oil (Fish Oil) 1,000 mg BID ORAL 04/15/19 09:00 05/12/19 17:59 04/17/19 08:19 Fluconazole (Diflucan) 400 mg DAILY ORAL 04/15/19 13:30 04/22/19 13:29 04/17/19 08:18 Folic Acid (Folate) 3 mg DAILY ORAL 04/15/19 09:00 05/11/19 09:59 04/17/19 08:14 Insulin Aspart (NovoLOG) BEFORE MEALS AND HS SUBQ 04/15/19 06:30 05/14/19 06:29 04/17/19 12:38 Insulin Aspart (NovoLOG) 8 units NOVOTIAC SUBQ 04/17/19 11:50 05/14/19 06:29 04/17/19 12:38 Insulin Detemir (Levemir) 24 units DAILY SUBQ 04/17/19 09:00 05/14/19 08:59 04/17/19 10:05 Levothyroxine Sodium (Synthroid) 50 mcg DAILY@0630 ORAL 04/15/19 06:30 05/13/19 06:29 04/17/19 05:57 Ondansetron HCl (Zofran) 4 mg EVERY 4 HOURS PRN IVP Nausea & Vomiting 04/15/19 01:00 05/08/19 00:29 Allergies: Coded Allergies: No Known Allergies (Unverified , 04/07/19) ROS Limited/Unobtainable: No Constitutional: Reports: no symptoms HEENT: Reports: no symptoms Cardiovascular: Reports: no symptoms Respiratory: Reports: no symptoms Gastrointestinal/Abdominal: Reports: no symptoms Genitourinary: Reports: no symptoms Neurologic/Psychiatric: Reports: no symptoms Subjective 38 YO M admitted with altered mental status. Now DKA and right perinephric abscess. Cover for Int Med-Dr Spain. S/P CT guided aspiration and placement of cath 04/13/19 Objective Last Vital Signs Date Time Temp Pulse Resp B/P (MAP) Pulse Ox O2 Delivery O2 Flow Rate FiO2 04/17/19 12:24 98.2 04/17/19 12:00 64 16 119/69 (86) 97 04/17/19 08:19 Room Air 04/17/19 07:55 21 04/16/19 08:03 2.0 Intake and Output 04/16/19 04/17/19 19:00 07:00 Intake Total 1460 ml 720 ml Output Total 2750 ml 1000 ml Balance -1290 ml -280 ml Intake Oral 1240 ml 720 ml IV Total 220 ml Output Urine Total 2700 ml 1000 ml Drainage Total 50 ml # Bowel Movements 1 Objective General Appearance: WD/WN, no apparent distress, alert EENT: PERRL/EOMI, normal ENT inspection, TMs normal Neck: non-tender, normal alignment, supple, normal inspection Cardiovascular: normal peripheral pulses, normal rate, regular rhythm, no gallop/murmur, no JVD Respiratory/Chest: chest wall non-tender, lungs clear, normal breath sounds, no respiratory distress, no accessory muscle use Abdomen: normal bowel sounds, non tender, soft, no organomegaly, no mass Extremities: normal range of motion Neurologic: returning officer II-XII grossly normal, no motor/sensory deficits Skin: normal pigmentation, warm/dry Assessment/Plan Problem List: (1) Acute metabolic encephalopathy (2) Altered mental status (3) UTI (urinary tract infection) Assessment & Plan: Jacquelin tropicalia. Continue fluconazole per ID - Dr August (4) Renal failure (5) DKA (diabetic ketoacidoses) Assessment & Plan: Continue insulin drip. See endocrinology note-Dr Hayes. (6) Right femoral fracture Assessment & Plan: suspected. See pelvic xray result. (7) Perinephric abscess Assessment & Plan: S/P Interventional radiology CT guided aspiration and placement of pigtail cath. Urology consult= Dr Ortiz. Culture=klebsiella Continue ceftriaxone per ID (8) Sepsis Assessment & Plan: Klebsiella. Continue ceftriaxone per ID-Cody Avendaño MD Apr 17, 2019 14:45
--- NOTE | 2019-04-17 19:24 | NUR ---
HAND-OFF: Report given to Deann.
--- NOTE | 2019-04-17 19:48 | NUR ---
NURSE NOTES: RECEIVED PATIENT LYING IN BED, AWAKE, ALERT/ORIENTED X3, VERBALLY RESPONSIVE, DENIES PAIN. DM TYPE 2, DIABETIC TEACHINGS ONGOING. NO SIGNS AND SYMPTOMS OF ACUTE CARDIO RESPIRATORY DISTRESS/SHORTNESS OF BREATH, DENIES CHEST PAIN, NO EDEMA NOTED. NO REPORT OF GI/ DISCOMFORT, UTILIZING URINAL - PIGTAIL RIGHT FLANK, NO OUTPUT NOTED. SIDE RAILS UP X3/BED IN LOWEST POSITION FOR SAFETY, FREQUENT ROUNDING FOR SAFETY/NEEDS. NAD.
[2019-04-17 20:00] VITALS: BP 115/72
[2019-04-18] VITALS: BP 112/66
[2019-04-18] MEDS: HYDROcodone/Acetamin 5/325 tab ORAL PRN ×3 (06:01→18:37)
[2019-04-18] MEDS: NovoLOG Insulin Flexpen SUBQ SCH ×7 (06:10→21:19)
--- NOTE | 2019-04-18 06:18 | NUR ---
NURSE NOTES: BLOOD GLUCOSE MONITORED VIA GLUCOMETER WITH RESULT 194MG/DL, ASYMPTOMATIC, ADM. 6 UNITS NOVOLOG SLIDING SCALE/8 UNITS NOVOLOG MAINTENANCE DOSE, TOLERATED WELL, NO ADVERSE REACTION NOTED AFTER 15 MINUTES.
--- NOTE | 2019-04-18 06:47 | General Progress Note ---
Assessment/Plan Problem List: (1) Acute metabolic encephalopathy ICD Codes: G93.41 - Metabolic encephalopathy SNOMED: 81776266, 866622301 (2) JOJO (acute kidney injury) ICD Codes: N17.9 - Acute kidney failure, unspecified SNOMED: 69410589, 5796326 (3) DKA (diabetic ketoacidoses) ICD Codes: E11.10 - Type 2 diabetes mellitus with ketoacidosis without coma SNOMED: 24391878, 618288655 (4) Renal failure ICD Codes: N19 - Unspecified kidney failure SNOMED: 59448913 (5) Pyelonephritis ICD Codes: N12 - Tubulo-interstitial nephritis, not specified as acute or chronic SNOMED: 30957126 Status: progressing Assessment/Plan: continue Levemir 24 units qam continue Novolog 8 units ac tid continue NISS ac / hs resistant scale Subjective Allergies: Coded Allergies: No Known Allergies (Unverified , 04/07/19) All Systems: reviewed and negative except above Subjective events noted Item Value Date Time Bedside Blood Glucose 194 mg/dl H 04/18/19 0610 Bedside Blood Glucose 178 mg/dl H 04/17/19 2112 Bedside Blood Glucose 76 mg/dl 04/17/19 1633 Bedside Blood Glucose 139 mg/dl H 04/17/19 1238 Bedside Blood Glucose 131 mg/dl H 04/17/19 1005 Bedside Blood Glucose 173 mg/dl H 04/17/19 0633 Objective Last 24 Hour Vital Signs Date Time Temp Pulse Resp B/P (MAP) Pulse Ox O2 Delivery O2 Flow Rate FiO2 04/18/19 00:00 99.3 90 18 112/66 (81) 99 04/17/19 23:07 98.2 04/17/19 21:00 Room Air 04/17/19 20:00 98.2 98 20 115/72 (86) 98 04/17/19 12:00 98.2 64 16 119/69 (86) 97 04/17/19 08:19 Room Air 04/17/19 08:00 97.8 66 16 136/77 (96) 98 04/17/19 07:55 97 Room Air 21 Intake and Output 04/17/19 04/18/19 19:00 07:00 Intake Total 1100 ml 360 ml Output Total 1900 ml 1000 ml Balance -800 ml -640 ml Intake Oral 880 ml 360 ml IV Total 220 ml Output Urine Total 1800 ml 1000 ml Drainage Total 100 ml Laboratory Tests 04/18/19 06:00: White Blood Count [Pending], Red Blood Count [Pending], Hemoglobin [Pending], Hematocrit [Pending], Mean Corpuscular Volume [Pending], Mean Corpuscular Hemoglobin [Pending], Mean Corpuscular Hemoglobin Concent [Pending], Red Cell Distribution Width [Pending], Platelet Count [Pending], Mean Platelet Volume [ Pending], Neutrophils (%) (Auto) [Pending], Lymphocytes (%) (Auto) [Pending], Monocytes (%) (Auto) [Pending], Eosinophils (%) (Auto) [Pending], Basophils (%) (Auto) [Pending], Sodium Level [Pending], Potassium Level [Pending], Chloride Level [Pending], Carbon Dioxide Level [Pending], Blood Urea Nitrogen [Pending], Creatinine [Pending], Estimat Glomerular Filtration Rate [Pending], Glucose Level [Pending], Calcium Level [Pending], Phosphorus Level [Pending], Magnesium Level [Pending], Total Bilirubin [Pending], Aspartate Amino Transf (AST/SGOT) [ Pending], Alanine Aminotransferase (ALT/SGPT) [Pending], Alkaline Phosphatase [ Pending], C-Reactive Protein, Quantitative [Pending], Total Protein [Pending], Albumin [Pending], Globulin [Pending] Height (Feet): 5 Height (Inches): 6.00 Weight (Pounds): 136 General Appearance: no apparent distress Neck: normal alignment Cardiovascular: normal rate Respiratory/Chest: lungs clear Abdomen: normal bowel sounds Objective Current Medications Medications (Trade) Dose Ordered Sig/Jose Route PRN Reason Start Time Stop Time Status Last Admin Dose Admin Acetaminophen (Tylenol) 650 mg Q4H PRN ORAL Mild Pain/Temp > 100.5 04/15/19 00:30 05/08/19 00:29 Acetaminophen/ Hydrocodone Bitart ([place] 5/325) 1 tab Q6H PRN ORAL For Pain 04/14/19 22:00 04/19/19 00:29 04/18/19 06:01 Ceftriaxone Sodium 2 gm/ Sodium Chloride 110 ml @ 220 mls/hr DAILY IVPB 04/15/19 15:00 04/22/19 14:59 04/17/19 08:15 Dextrose (Dextrose 50%) 25 ml Q30M PRN IV Hypoglycemia 04/14/19 22:00 05/14/19 06:29 Dextrose (Dextrose 50%) 50 ml Q30M PRN IV Hypoglycemia 04/14/19 22:00 05/14/19 06:29 Fish Oil (Fish Oil) 1,000 mg BID ORAL 04/15/19 09:00 05/12/19 17:59 04/17/19 17:05 Fluconazole (Diflucan) 400 mg DAILY ORAL 04/15/19 13:30 04/22/19 13:29 04/17/19 08:18 Folic Acid (Folate) 3 mg DAILY ORAL 04/15/19 09:00 05/11/19 09:59 04/17/19 08:14 Insulin Aspart (NovoLOG) BEFORE MEALS AND HS SUBQ 04/15/19 06:30 05/14/19 06:29 04/18/19 06:10 Insulin Aspart (NovoLOG) 8 units NOVOTIAC SUBQ 04/17/19 11:50 05/14/19 06:29 04/18/19 06:10 Insulin Detemir (Levemir) 24 units DAILY SUBQ 04/17/19 09:00 05/14/19 08:59 04/17/19 10:05 Levothyroxine Sodium (Synthroid) 50 mcg DAILY@0630 ORAL 04/15/19 06:30 05/13/19 06:29 04/18/19 06:00 Ondansetron HCl (Zofran) 4 mg EVERY 4 HOURS PRN IVP Nausea & Vomiting 04/15/19 01:00 05/08/19 00:29 Roland Hayes MD Apr 18, 2019 06:47
[2019-04-18 07:01] LABS: BASOPHILS % (AUTO) 2.1 % (0.0-2.0); EOSINOPHILS % (AUTO) 0.6 % (0.0-3.0); HEMATOCRIT 24.6 % (42.0-52.0); HEMOGLOBIN 8.4 G/DL (14.2-18.0); LYMPHOCYTES % (AUTO) 15.9 % (20.0-45.0); MEAN CORPUSCULAR VOLUME 89 FL (80-99); MONOCYTES % (AUTO) 12.5 % (1.0-10.0); NEUTROPHILS % (AUTO) 68.8 % (45.0-75.0); PLATELET COUNT 570 K/UL (150-450); RED BLOOD COUNT 2.75 M/UL (4.70-6.10); RED CELL DISTRIBUTION WIDTH 13.1 % (11.6-14.8)
[2019-04-18 07:05] LABS: ALANINE AMINOTRANSFERASE 17 U/L (12-78); ALBUMIN 1.7 G/DL (3.4-5.0); ALBUMIN/GLOBULIN RATIO 0.3 (1.0-2.7); ALKALINE PHOSPHATASE 232 U/L (46-116); ANION GAP 5 mmol/L (5-15); ASPARTATE AMINO TRANSFERASE 15 U/L (15-37); BILIRUBIN,TOTAL 0.3 MG/DL (0.2-1.0); BLOOD UREA NITROGEN 7 mg/dL (7-18); CALCIUM 8.7 MG/DL (8.5-10.1); CARBON DIOXIDE 30 MMOL/L (21-32); CHLORIDE 100 MMOL/L (98-107); CREATININE 0.6 MG/DL (0.55-1.30); PHOSPHORUS 4.2 MG/DL (2.5-4.9); POTASSIUM 4.1 MMOL/L (3.5-5.1); SODIUM 135 MMOL/L (136-145)
--- NOTE | 2019-04-18 07:22 | NUR ---
NURSE NOTES: HANDOFF RECEIVED FROM HARDIK FLORES. PATIENT RECEIVED RESTING IN BED. PATIENT IS CALM, NO VISIBLE SIGNS OF DISTRESS. IV SITE IS CLEAN, DRY AND INTACT SALINE LOCKED. PATIENT IS ALERT AND ABLE TO MAKE NEEDS KNOWN. PATIENT HAS CALL LIGHT AT REACH AND BED IS IN THE LOW AND LOCKED POSITION. WILL CONTINUE TO MONITOR PATIENT.
--- NOTE | 2019-04-18 07:44 | NUR ---
HAND-OFF: Report given to HARDIK JUNE.
[2019-04-18 08:00] VITALS: BP 105/75
[2019-04-18] MEDS: cefTRIAXone 2 GM in NS 110 ML IVPB SCH (08:47)
[2019-04-18] MEDS: Fluconazole 100mg tab ORAL SCH (08:48)
[2019-04-18] MEDS: Levemir Flexpen SUBQ SCH (08:49)
--- NOTE | 2019-04-18 10:43 | Nephrology Progress Note ---
Assessment/Plan Problem List: (1) Pyelonephritis (2) DKA (diabetic ketoacidoses) (3) Electrolyte abnormality Assessment (1) DKA (diabetic ketoacidoses) (2) JOJO (acute kidney injury) (3) Pyelonephritis (4) Electrolyte imbalance (5) HypoThyroidism Plan tolerating PO- CRP lowering PO KCL Phos and Mag as needed fish oil synthroid Monitor lytes recheck UA per orders Subjective ROS Limited/Unobtainable: No Objective Objective Last 24 Hour Vital Signs Date Time Temp Pulse Resp B/P (MAP) Pulse Ox O2 Delivery O2 Flow Rate FiO2 04/18/19 08:00 98.7 105 18 105/75 (85) 95 04/18/19 06:31 99.3 04/18/19 00:00 99.3 90 18 112/66 (81) 99 04/17/19 21:00 Room Air 04/17/19 20:00 98.2 98 20 115/72 (86) 98 04/17/19 12:00 98.2 64 16 119/69 (86) 97 Intake and Output 04/17/19 04/18/19 19:00 07:00 Intake Total 1100 ml 360 ml Output Total 1900 ml 1000 ml Balance -800 ml -640 ml Intake Oral 880 ml 360 ml IV Total 220 ml Output Urine Total 1800 ml 1000 ml Drainage Total 100 ml Laboratory Tests 04/18/19 06:00: White Blood Count 7.0, Red Blood Count 2.75L, Hemoglobin 8.4L, Hematocrit 24.6L , Mean Corpuscular Volume 89, Mean Corpuscular Hemoglobin 30.4, Mean Corpuscular Hemoglobin Concent 34.0, Red Cell Distribution Width 13.1, Platelet Count 570H, Mean Platelet Volume 6.1L, Neutrophils (%) (Auto) 68.8, Lymphocytes (%) (Auto) 15.9L, Monocytes (%) (Auto) 12.5H, Eosinophils (%) (Auto) 0.6, Basophils (%) (Auto) 2.1H, Sodium Level 135L, Potassium Level 4.1, Chloride Level 100, Carbon Dioxide Level 30, Anion Gap 5, Blood Urea Nitrogen 7, Creatinine 0.6, Estimat Glomerular Filtration Rate > 60, Glucose Level 181H, Calcium Level 8.7, Phosphorus Level 4.2, Magnesium Level 1.8, Total Bilirubin 0.3, Aspartate Amino Transf (AST/SGOT) 15, Alanine Aminotransferase (ALT/SGPT) 17, Alkaline Phosphatase 232H, C-Reactive Protein, Quantitative 6.9H, Total Protein 7.0, Albumin 1.7L, Globulin 5.3, Albumin/Globulin Ratio 0.3L Height (Feet): 5 Height (Inches): 6.00 Weight (Pounds): 136 General Appearance: no apparent distress Cardiovascular: normal rate Abdomen: soft, other - right kidney drain Objective no change Russ Osborn MD Apr 18, 2019 10:43
--- NOTE | 2019-04-18 13:11 | Infectious Diseases Prog Note ---
Assessment/Plan Assessment/Plan The patient is a 38-year-old male with: Fever, recurrent; improving Leukocytosis; SP Sepsis. -CXR: Basilar atelectatic changes and/or scarring. No acute process otherwise Emphysematous pyelonephritis with right kidney abscess -04/13 SP Successful aspiration and drainage of a right renal abscess. 8.5 [place] pigtail drainage catheter placed in good position; About 60 cc of slightly bloody and tannish purulent material was aspirated. -cx K. pna (R amp, bactrim; otherwise S) -u/a wbc 10-15, nit neg, leuk +1; ucx >100k C. tropicalis x2 Klebsiella Bacteremia - 04/12 BCx / K. pna (R amp, bactrim; otherwise S) ; 04/13 Bcx NTD Diabetes and now with DKA. Rule out biliary disease (elevated Tbili, ALP) -ABD US: Severe distention of the urinary bladder. Suggest Daniels catheter. Associated mild hydronephrosis. Hepatomegaly. There is no biliary ductal dilatation identified. Gallbladder is unremarkable. Thrombocytopenia (probably due to sepsis -HIV, hep panel neg CT 04/09/19 1. Emphysematous pyelonephritis in the right kidney, most prominently affecting the right lower pole, with a 7.6 x 7.4 x 5.3 cm air-fluid collection in the lower pole likely representing renal abscess extending to the perirenal fat. No definite fat plane between this collection and the adjacent right psoas musculature. Extensive adjacent inflammatory stranding. 2. Daniels catheter balloon and tip within the urinary bladder lumen. Mild diffuse urinary bladder wall thickening, suggestive of cystitis. . PLAN: 1. Continue Ceftriaxone #4(abx d #03/19) for K.pna UTI/bacteremia Continue PO Fluconazole #5 (abx d #6/7) for funguria, suspect it is a real pathogen on this case -04/15 SP Cefepime #2 -04/14 SP Micafungin #2, IV Vancomycin #5 -04/13 SP Meropenem #3 -04/11 SP IV Rocephin #4, Amikacin #3 2. f/u repeat Bc x2 3. Monitor CBC, BMP. 4. Monitor cultures, blood and urine. 5 Continue intensive care. 6. Urology f/u 7. If recurrent fever, repeat Bcx x2 Thank you, Dr. Kemp, for allowing me to participate in the care of this patient. I will follow the patient with you. Subjective Allergies: Coded Allergies: No Known Allergies (Unverified , 04/07/19) Subjective Tm 101.1; now afebrile in 36hrs Bcx NTD Objective Vital Signs Last 24 Hour Vital Signs Date Time Temp Pulse Resp B/P (MAP) Pulse Ox O2 Delivery O2 Flow Rate FiO2 04/18/19 09:00 Room Air 04/18/19 08:00 98.7 105 18 105/75 (85) 95 04/18/19 06:31 99.3 04/18/19 00:00 99.3 90 18 112/66 (81) 99 04/17/19 21:00 Room Air 04/17/19 20:00 98.2 98 20 115/72 (86) 98 Height (Feet): 5 Height (Inches): 6.00 Weight (Pounds): 136 Objective GEN: NAD HEENT: NCAT, MMM LUNGS: Coarse B/L HEART: RR, s1,s2 Abd TTP, SOft Laboratory Tests Test 04/18/19 06:00 White Blood Count 7.0 K/UL (4.8-10.8) Red Blood Count 2.75 M/UL (4.70-6.10) L Hemoglobin 8.4 G/DL (14.2-18.0) L Hematocrit 24.6 % (42.0-52.0) L Mean Corpuscular Volume 89 FL (80-99) Mean Corpuscular Hemoglobin 30.4 PG (27.0-31.0) Mean Corpuscular Hemoglobin Concent 34.0 G/DL (32.0-36.0) Red Cell Distribution Width 13.1 % (11.6-14.8) Platelet Count 570 K/UL (150-450) H Mean Platelet Volume 6.1 FL (6.5-10.1) L Neutrophils (%) (Auto) 68.8 % (45.0-75.0) Lymphocytes (%) (Auto) 15.9 % (20.0-45.0) L Monocytes (%) (Auto) 12.5 % (1.0-10.0) H Eosinophils (%) (Auto) 0.6 % (0.0-3.0) Basophils (%) (Auto) 2.1 % (0.0-2.0) H Sodium Level 135 MMOL/L (136-145) L Potassium Level 4.1 MMOL/L (3.5-5.1) Chloride Level 100 MMOL/L (98-107) Carbon Dioxide Level 30 MMOL/L (21-32) Anion Gap 5 mmol/L (5-15) Blood Urea Nitrogen 7 mg/dL (7-18) Creatinine 0.6 MG/DL (0.55-1.30) Estimat Glomerular Filtration Rate > 60 mL/min (>60) Glucose Level 181 MG/DL (74-106) H Calcium Level 8.7 MG/DL (8.5-10.1) Phosphorus Level 4.2 MG/DL (2.5-4.9) Magnesium Level 1.8 MG/DL (1.8-2.4) Total Bilirubin 0.3 MG/DL (0.2-1.0) Aspartate Amino Transf (AST/SGOT) 15 U/L (15-37) Alanine Aminotransferase (ALT/SGPT) 17 U/L (12-78) Alkaline Phosphatase 232 U/L (46-116) H C-Reactive Protein, Quantitative 6.9 mg/dL (0.00-0.90) H Total Protein 7.0 G/DL (6.4-8.2) Albumin 1.7 G/DL (3.4-5.0) L Globulin 5.3 g/dL Albumin/Globulin Ratio 0.3 (1.0-2.7) L Current Medications Medications (Trade) Dose Ordered Sig/Jose Route PRN Reason Start Time Stop Time Status Last Admin Dose Admin Acetaminophen (Tylenol) 650 mg Q4H PRN ORAL Mild Pain/Temp > 100.5 04/15/19 00:30 05/08/19 00:29 Acetaminophen/ Hydrocodone Bitart ([place] 5/325) 1 tab Q6H PRN ORAL For Pain 04/14/19 22:00 04/19/19 00:29 04/18/19 12:07 Ceftriaxone Sodium 2 gm/ Sodium Chloride 110 ml @ 220 mls/hr DAILY IVPB 04/15/19 15:00 04/22/19 14:59 04/18/19 08:47 Dextrose (Dextrose 50%) 25 ml Q30M PRN IV Hypoglycemia 04/14/19 22:00 05/14/19 06:29 Dextrose (Dextrose 50%) 50 ml Q30M PRN IV Hypoglycemia 04/14/19 22:00 05/14/19 06:29 Fish Oil (Fish Oil) 1,000 mg BID ORAL 04/15/19 09:00 05/12/19 17:59 04/18/19 08:48 Fluconazole (Diflucan) 400 mg DAILY ORAL 04/15/19 13:30 04/22/19 13:29 04/18/19 08:48 Folic Acid (Folate) 3 mg DAILY ORAL 04/15/19 09:00 05/11/19 09:59 04/18/19 08:48 Insulin Aspart (NovoLOG) BEFORE MEALS AND HS SUBQ 04/15/19 06:30 05/14/19 06:29 04/18/19 11:59 Insulin Aspart (NovoLOG) 8 units NOVOTIAC SUBQ 04/17/19 11:50 05/14/19 06:29 04/18/19 12:00 Insulin Detemir (Levemir) 24 units DAILY SUBQ 04/17/19 09:00 05/14/19 08:59 04/18/19 08:49 Levothyroxine Sodium (Synthroid) 50 mcg DAILY@0630 ORAL 04/15/19 06:30 05/13/19 06:29 04/18/19 06:00 Ondansetron HCl (Zofran) 4 mg EVERY 4 HOURS PRN IVP Nausea & Vomiting 04/15/19 01:00 05/08/19 00:29 Hanny August M.D. Apr 18, 2019 13:11
--- NOTE | 2019-04-18 14:19 | NUR ---
CASE MANAGEMENT: REVIEW 04/18/2019 SI: DIABETIC KETOACIDOSIS,SEPSIS T 99.3 HR 90 RR 18 B/P 112/66 SATS 99% ON RA NA 135 GLU 181 ALP 232 CRP 6.9 IS: INSULIN ASPART SUBQ AC/HS VANCO IV CEFTRIAXONE IV QD MICAFUNGIN IV MED/SURG STATUS
[2019-04-18 16:00] VITALS: BP 126/72
[2019-04-18] MEDS ORDERED: NS 275ml ONE (17:37)
--- NOTE | 2019-04-18 17:40 | NUR ---
NURSE NOTES: IGNORE BLOOD GLUCOSE LEVEL OF 161 CHARTED IN WRONG PATIENT CHART. THE CORRECT BLOOD SUGAR IS 139.
--- NOTE | 2019-04-18 18:51 | Internal Med Progress Note ---
Subjective Date of Service: Apr 18, 2019 Physician Name Cody Redmond Attending Physician Isaías Spain MD Current Medications Medications (Trade) Dose Ordered Sig/Jose Route PRN Reason Start Time Stop Time Status Last Admin Dose Admin Acetaminophen (Tylenol) 650 mg Q4H PRN ORAL Mild Pain/Temp > 100.5 04/15/19 00:30 05/08/19 00:29 Acetaminophen/ Hydrocodone Bitart ([place] 5/325) 1 tab Q6H PRN ORAL For Pain 04/14/19 22:00 04/19/19 00:29 04/18/19 18:37 Ceftriaxone Sodium 2 gm/ Sodium Chloride 110 ml @ 220 mls/hr DAILY IVPB 04/15/19 15:00 04/22/19 14:59 04/18/19 08:47 Dextrose (Dextrose 50%) 25 ml Q30M PRN IV Hypoglycemia 04/14/19 22:00 05/14/19 06:29 Dextrose (Dextrose 50%) 50 ml Q30M PRN IV Hypoglycemia 04/14/19 22:00 05/14/19 06:29 Fish Oil (Fish Oil) 1,000 mg BID ORAL 04/15/19 09:00 05/12/19 17:59 04/18/19 18:37 Fluconazole (Diflucan) 400 mg DAILY ORAL 04/15/19 13:30 04/22/19 13:29 04/18/19 08:48 Folic Acid (Folate) 3 mg DAILY ORAL 04/15/19 09:00 05/11/19 09:59 04/18/19 08:48 Insulin Aspart (NovoLOG) BEFORE MEALS AND HS SUBQ 04/15/19 06:30 05/14/19 06:29 04/18/19 17:43 Insulin Aspart (NovoLOG) 8 units NOVOTIAC SUBQ 04/17/19 11:50 05/14/19 06:29 04/18/19 17:44 Insulin Detemir (Levemir) 24 units DAILY SUBQ 04/17/19 09:00 05/14/19 08:59 04/18/19 08:49 Levothyroxine Sodium (Synthroid) 50 mcg DAILY@0630 ORAL 04/15/19 06:30 05/13/19 06:29 04/18/19 06:00 Ondansetron HCl (Zofran) 4 mg EVERY 4 HOURS PRN IVP Nausea & Vomiting 04/15/19 01:00 05/08/19 00:29 Allergies: Coded Allergies: No Known Allergies (Unverified , 04/07/19) ROS Limited/Unobtainable: No Constitutional: Reports: no symptoms HEENT: Reports: no symptoms Cardiovascular: Reports: no symptoms Respiratory: Reports: no symptoms Gastrointestinal/Abdominal: Reports: no symptoms Genitourinary: Reports: no symptoms Neurologic/Psychiatric: Reports: no symptoms Subjective 38 YO M admitted with altered mental status. Now DKA and right perinephric abscess. Cover for Int Med-Dr Spain. S/P CT guided aspiration and placement of cath 04/13/19 Objective Last Vital Signs Date Time Temp Pulse Resp B/P (MAP) Pulse Ox O2 Delivery O2 Flow Rate FiO2 04/18/19 16:00 98.9 79 18 126/72 (90) 97 04/18/19 09:00 Room Air 04/17/19 07:55 21 04/16/19 08:03 2.0 Laboratory Tests Test 04/18/19 06:00 White Blood Count 7.0 K/UL (4.8-10.8) Red Blood Count 2.75 M/UL (4.70-6.10) L Hemoglobin 8.4 G/DL (14.2-18.0) L Hematocrit 24.6 % (42.0-52.0) L Mean Corpuscular Volume 89 FL (80-99) Mean Corpuscular Hemoglobin 30.4 PG (27.0-31.0) Mean Corpuscular Hemoglobin Concent 34.0 G/DL (32.0-36.0) Red Cell Distribution Width 13.1 % (11.6-14.8) Platelet Count 570 K/UL (150-450) H Mean Platelet Volume 6.1 FL (6.5-10.1) L Neutrophils (%) (Auto) 68.8 % (45.0-75.0) Lymphocytes (%) (Auto) 15.9 % (20.0-45.0) L Monocytes (%) (Auto) 12.5 % (1.0-10.0) H Eosinophils (%) (Auto) 0.6 % (0.0-3.0) Basophils (%) (Auto) 2.1 % (0.0-2.0) H Sodium Level 135 MMOL/L (136-145) L Potassium Level 4.1 MMOL/L (3.5-5.1) Chloride Level 100 MMOL/L (98-107) Carbon Dioxide Level 30 MMOL/L (21-32) Anion Gap 5 mmol/L (5-15) Blood Urea Nitrogen 7 mg/dL (7-18) Creatinine 0.6 MG/DL (0.55-1.30) Estimat Glomerular Filtration Rate > 60 mL/min (>60) Glucose Level 181 MG/DL (74-106) H Calcium Level 8.7 MG/DL (8.5-10.1) Phosphorus Level 4.2 MG/DL (2.5-4.9) Magnesium Level 1.8 MG/DL (1.8-2.4) Total Bilirubin 0.3 MG/DL (0.2-1.0) Aspartate Amino Transf (AST/SGOT) 15 U/L (15-37) Alanine Aminotransferase (ALT/SGPT) 17 U/L (12-78) Alkaline Phosphatase 232 U/L (46-116) H C-Reactive Protein, Quantitative 6.9 mg/dL (0.00-0.90) H Total Protein 7.0 G/DL (6.4-8.2) Albumin 1.7 G/DL (3.4-5.0) L Globulin 5.3 g/dL Albumin/Globulin Ratio 0.3 (1.0-2.7) L Intake and Output 04/17/19 04/18/19 18:59 06:59 Intake Total 1100 ml 360 ml Output Total 1900 ml 1000 ml Balance -800 ml -640 ml Intake Oral 880 ml 360 ml IV Total 220 ml Output Urine Total 1800 ml 1000 ml Drainage Total 100 ml Objective General Appearance: WD/WN, no apparent distress, alert EENT: PERRL/EOMI, normal ENT inspection, TMs normal Neck: non-tender, normal alignment, supple, normal inspection Cardiovascular: normal peripheral pulses, normal rate, regular rhythm, no gallop/murmur, no JVD Respiratory/Chest: chest wall non-tender, lungs clear, normal breath sounds, no respiratory distress, no accessory muscle use Abdomen: normal bowel sounds, non tender, soft, no organomegaly, no mass Extremities: normal range of motion 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 Continue fluconazole D# 6/7per ID - Dr August (4) Renal failure (5) DKA (diabetic ketoacidoses) Assessment & Plan: Continue levemir and novolog insulin. See endocrinology note-Dr Hayes. (6) Right femoral fracture Assessment & Plan: suspected. See pelvic xray result. (7) Perinephric abscess Assessment & Plan: S/P Interventional radiology CT guided aspiration and placement of pigtail cath. Urology consult= Dr Ortiz. Culture=klebsiella Continue ceftriaxone D# / per ID (8) Sepsis Assessment & Plan: Klebsiella. Continue ceftriaxone per ID-Cody Avendaño MD Apr 18, 2019 18:51
--- NOTE | 2019-04-18 19:49 | NUR ---
HAND-OFF: Report given to HARDIK WEINER.
--- NOTE | 2019-04-18 19:54 | NUR ---
NURSE NOTES: RECEIVED PT FROM HARDIK JUNE. PT IS AWAKE, AAOX4, ON ROOM AIR, DENIES PAIN, NO ACUTE DISTRESS NOTED. FAMILY MEMBER AT BEDSIDE. WOUND DRESSING ON LEFT HEEL IS INTACT. IV ON FA 20G IS INTACT AND PATENT. BED IS LOCKED AND LOW, BED ALARMS ACTIVE, SIDE RAILS UP X2 AND CALL LIGHT IS WITHIN REACH.
[2019-04-18 20:00] VITALS: BP 113/72
[2019-04-19] MEDS: NovoLOG Insulin Flexpen SUBQ SCH ×7 (06:22→22:00)
[2019-04-19] MEDS ORDERED: Tubing IV Secondary IV ONE (06:28)
--- NOTE | 2019-04-19 06:50 | General Progress Note ---
Assessment/Plan Problem List: (1) Acute metabolic encephalopathy ICD Codes: G93.41 - Metabolic encephalopathy SNOMED: 50240577, 419266624 (2) JOJO (acute kidney injury) ICD Codes: N17.9 - Acute kidney failure, unspecified SNOMED: 04508270, 0792556 (3) DKA (diabetic ketoacidoses) ICD Codes: E11.10 - Type 2 diabetes mellitus with ketoacidosis without coma SNOMED: 90066226, 268658056 (4) Renal failure ICD Codes: N19 - Unspecified kidney failure SNOMED: 05961704 (5) Pyelonephritis ICD Codes: N12 - Tubulo-interstitial nephritis, not specified as acute or chronic SNOMED: 96650565 Status: progressing Assessment/Plan: continue Levemir 24 units qam continue Novolog 8 units ac tid continue NISS ac / hs resistant scale Subjective Allergies: Coded Allergies: No Known Allergies (Unverified , 04/07/19) Subjective events noted Item Value Date Time Bedside Blood Glucose 152 mg/dl H 04/19/19 0623 Bedside Blood Glucose 186 mg/dl H 04/18/19 2119 Bedside Blood Glucose 139 mg/dl H 04/18/19 1744 Bedside Blood Glucose 128 mg/dl H 04/18/19 1200 Bedside Blood Glucose 194 mg/dl H 04/18/19 0849 Bedside Blood Glucose 194 mg/dl H 04/18/19 0610 Objective Last 24 Hour Vital Signs Date Time Temp Pulse Resp B/P (MAP) Pulse Ox O2 Delivery O2 Flow Rate FiO2 04/18/19 21:00 Room Air 04/18/19 20:00 98.1 84 18 113/72 (86) 97 04/18/19 16:00 98.9 79 18 126/72 (90) 97 04/18/19 09:00 Room Air 04/18/19 08:00 98.7 105 18 105/75 (85) 95 Intake and Output 04/18/19 04/19/19 19:00 07:00 Output Total 100 ml Balance -100 ml Output Urine Total 100 ml # Voids 1 Height (Feet): 5 Height (Inches): 6.00 Weight (Pounds): 136 General Appearance: no apparent distress Neck: normal alignment Cardiovascular: normal rate Respiratory/Chest: lungs clear Abdomen: normal bowel sounds Objective Current Medications Medications (Trade) Dose Ordered Sig/Jose Route PRN Reason Start Time Stop Time Status Last Admin Dose Admin Acetaminophen (Tylenol) 650 mg Q4H PRN ORAL Mild Pain/Temp > 100.5 04/15/19 00:30 05/08/19 00:29 04/19/19 06:18 Ceftriaxone Sodium 2 gm/ Sodium Chloride 110 ml @ 220 mls/hr DAILY IVPB 04/15/19 15:00 04/22/19 14:59 04/18/19 08:47 Dextrose (Dextrose 50%) 25 ml Q30M PRN IV Hypoglycemia 04/14/19 22:00 05/14/19 06:29 Dextrose (Dextrose 50%) 50 ml Q30M PRN IV Hypoglycemia 04/14/19 22:00 05/14/19 06:29 Fish Oil (Fish Oil) 1,000 mg BID ORAL 04/15/19 09:00 05/12/19 17:59 04/18/19 18:37 Fluconazole (Diflucan) 400 mg DAILY ORAL 04/15/19 13:30 04/22/19 13:29 04/18/19 08:48 Folic Acid (Folate) 3 mg DAILY ORAL 04/15/19 09:00 05/11/19 09:59 04/18/19 08:48 Insulin Aspart (NovoLOG) BEFORE MEALS AND HS SUBQ 04/15/19 06:30 05/14/19 06:29 04/19/19 06:23 Insulin Aspart (NovoLOG) 8 units NOVOTIAC SUBQ 04/17/19 11:50 05/14/19 06:29 04/19/19 06:22 Insulin Detemir (Levemir) 24 units DAILY SUBQ 04/17/19 09:00 05/14/19 08:59 04/18/19 08:49 Levothyroxine Sodium (Synthroid) 50 mcg DAILY@0630 ORAL 04/15/19 06:30 05/13/19 06:29 04/19/19 06:17 Ondansetron HCl (Zofran) 4 mg EVERY 4 HOURS PRN IVP Nausea & Vomiting 04/15/19 01:00 05/08/19 00:29 Roland Hayes MD Apr 19, 2019 06:50
[2019-04-19 07:38] LABS: BASOPHILS % (AUTO) 2.9 % (0.0-2.0); EOSINOPHILS % (AUTO) 0.8 % (0.0-3.0); HEMATOCRIT 26.8 % (42.0-52.0); LYMPHOCYTES % (AUTO) 28.5 % (20.0-45.0); MEAN CORPUSCULAR VOLUME 90 FL (80-99); MONOCYTES % (AUTO) 12.6 % (1.0-10.0); NEUTROPHILS % (AUTO) 55.2 % (45.0-75.0); PLATELET COUNT 718 K/UL (150-450); RED BLOOD COUNT 2.99 M/UL (4.70-6.10); RED CELL DISTRIBUTION WIDTH 13.1 % (11.6-14.8); WHITE BLOOD COUNT 5.5 K/UL (4.8-10.8)
[2019-04-19 07:57] LABS: ANION GAP 5 mmol/L (5-15); BLOOD UREA NITROGEN 6 mg/dL (7-18); CALCIUM 9.5 MG/DL (8.5-10.1); CARBON DIOXIDE 31 MMOL/L (21-32); CHLORIDE 101 MMOL/L (98-107); CREATININE 0.6 MG/DL (0.55-1.30); POTASSIUM 4.1 MMOL/L (3.5-5.1); SODIUM 137 MMOL/L (136-145)
--- NOTE | 2019-04-19 07:59 | NUR ---
HAND-OFF: Report given to HARDIK Pimentel.
[2019-04-19 08:00] VITALS: BP 108/69
--- NOTE | 2019-04-19 08:14 | NUR ---
NURSE NOTES: Patient is alert and oriented. Drain on right flank is intact. Side rails is up x2, bed is locked, in lowest position, and call light is within reach. Will continue to monitor.
[2019-04-19] MEDS: Fluconazole 100mg tab ORAL SCH (08:38)
[2019-04-19] MEDS: HYDROcodone/Acetamin 5/325 tab ORAL PRN ×3 (08:39→22:58)
[2019-04-19] MEDS: cefTRIAXone 2 GM in NS 110 ML IVPB SCH (08:39)
[2019-04-19] MEDS: Levemir Flexpen SUBQ SCH (08:40)
--- NOTE | 2019-04-19 10:36 | Nephrology Progress Note ---
Assessment/Plan Problem List: (1) Pyelonephritis (2) DKA (diabetic ketoacidoses) (3) Electrolyte abnormality Assessment (1) DKA (diabetic ketoacidoses) (2) JOJO (acute kidney injury) (3) Pyelonephritis (4) Electrolyte imbalance (5) HypoThyroidism Plan tolerating PO- CRP lowering PO KCL Phos and Mag as needed fish oil synthroid Monitor lytes recheck UA per orders Subjective ROS Limited/Unobtainable: No Objective Objective Last 24 Hour Vital Signs Date Time Temp Pulse Resp B/P (MAP) Pulse Ox O2 Delivery O2 Flow Rate FiO2 04/18/19 21:00 Room Air 04/18/19 20:00 98.1 84 18 113/72 (86) 97 04/18/19 16:00 98.9 79 18 126/72 (90) 97 Intake and Output 04/18/19 04/19/19 19:00 07:00 Output Total 100 ml Balance -100 ml Output Urine Total 100 ml # Voids 1 Laboratory Tests 04/19/19 05:28: White Blood Count 5.5, Red Blood Count 2.99L, Hemoglobin 9.0L, Hematocrit 26.8L , Mean Corpuscular Volume 90, Mean Corpuscular Hemoglobin 30.1, Mean Corpuscular Hemoglobin Concent 33.5, Red Cell Distribution Width 13.1, Platelet Count 718H, Mean Platelet Volume 5.7L, Neutrophils (%) (Auto) 55.2, Lymphocytes (%) (Auto) 28.5, Monocytes (%) (Auto) 12.6H, Eosinophils (%) (Auto) 0.8, Basophils (%) (Auto) 2.9H, Sodium Level 137, Potassium Level 4.1, Chloride Level 101, Carbon Dioxide Level 31, Anion Gap 5, Blood Urea Nitrogen 6L, Creatinine 0.6, Estimat Glomerular Filtration Rate > 60, Glucose Level 163H, Calcium Level 9.5 Height (Feet): 5 Height (Inches): 6.00 Weight (Pounds): 136 General Appearance: no apparent distress Abdomen: other - minimal jeanmarie Objective no change Russ Osborn MD Apr 19, 2019 10:35
[2019-04-19 12:00] VITALS: BP 110/72
--- NOTE | 2019-04-19 12:31 | Infectious Diseases Prog Note ---
Assessment/Plan Assessment/Plan The patient is a 38-year-old male with: Fever, recurrent; improving Leukocytosis; SP Sepsis, sp -CXR: Basilar atelectatic changes and/or scarring. No acute process otherwise Emphysematous pyelonephritis with right kidney abscess -04/13 SP Successful aspiration and drainage of a right renal abscess. 8.5 English pigtail drainage catheter placed in good position; About 60 cc of slightly bloody and tannish purulent material was aspirated. -cx K. pna (R amp, bactrim; otherwise S) -u/a wbc 10-15, nit neg, leuk +1; ucx >100k C. tropicalis x2 Klebsiella Bacteremia - 04/12 BCx / K. pna (R amp, bactrim; otherwise S) ; 04/13 Bcx Neg Diabetes and now with DKA. Rule out biliary disease (elevated Tbili, ALP) -ABD US: Severe distention of the urinary bladder. Suggest Daniels catheter. Associated mild hydronephrosis. Hepatomegaly. There is no biliary ductal dilatation identified. Gallbladder is unremarkable. Thrombocytopenia (probably due to sepsis -HIV, hep panel neg CT 04/09/19 1. Emphysematous pyelonephritis in the right kidney, most prominently affecting the right lower pole, with a 7.6 x 7.4 x 5.3 cm air-fluid collection in the lower pole likely representing renal abscess extending to the perirenal fat. No definite fat plane between this collection and the adjacent right psoas musculature. Extensive adjacent inflammatory stranding. 2. Daniels catheter balloon and tip within the urinary bladder lumen. Mild diffuse urinary bladder wall thickening, suggestive of cystitis. . PLAN: 1. Continue Ceftriaxone #5(abx d #04/25) for K.pna UTI/bacteremia -upon discharge can be transition to PO Levaquin 750mg qd Continue PO Fluconazole #6 (abx d #01/12) for funguria, suspect it is a real pathogen on this case -04/15 SP Cefepime #2 -04/14 SP Micafungin #2, IV Vancomycin #5 -04/13 SP Meropenem #3 -04/11 SP IV Rocephin #4, Amikacin #3 2. f/u repeat Bc x2 3. Monitor CBC, BMP. 4. Monitor cultures, blood and urine. 5. Urology f/u 6. If recurrent fever, repeat Bcx x2 Thank you, Dr. Kemp, for allowing me to participate in the care of this patient. I will follow the patient with you. Subjective Allergies: Coded Allergies: No Known Allergies (Unverified , 04/07/19) Subjective afebrile >48hrs no leukocytosis repeat Bcx neg Objective Vital Signs Last 24 Hour Vital Signs Date Time Temp Pulse Resp B/P (MAP) Pulse Ox O2 Delivery O2 Flow Rate FiO2 04/19/19 08:00 Room Air 04/18/19 21:00 Room Air 04/18/19 20:00 98.1 84 18 113/72 (86) 97 04/18/19 16:00 98.9 79 18 126/72 (90) 97 Height (Feet): 5 Height (Inches): 6.00 Weight (Pounds): 136 Objective GEN: NAD HEENT: NCAT, MMM LUNGS: Coarse B/L HEART: RR, s1,s2 Abd TTP, SOft Laboratory Tests Test 04/19/19 05:28 White Blood Count 5.5 K/UL (4.8-10.8) Red Blood Count 2.99 M/UL (4.70-6.10) L Hemoglobin 9.0 G/DL (14.2-18.0) L Hematocrit 26.8 % (42.0-52.0) L Mean Corpuscular Volume 90 FL (80-99) Mean Corpuscular Hemoglobin 30.1 PG (27.0-31.0) Mean Corpuscular Hemoglobin Concent 33.5 G/DL (32.0-36.0) Red Cell Distribution Width 13.1 % (11.6-14.8) Platelet Count 718 K/UL (150-450) H Mean Platelet Volume 5.7 FL (6.5-10.1) L Neutrophils (%) (Auto) 55.2 % (45.0-75.0) Lymphocytes (%) (Auto) 28.5 % (20.0-45.0) Monocytes (%) (Auto) 12.6 % (1.0-10.0) H Eosinophils (%) (Auto) 0.8 % (0.0-3.0) Basophils (%) (Auto) 2.9 % (0.0-2.0) H Sodium Level 137 MMOL/L (136-145) Potassium Level 4.1 MMOL/L (3.5-5.1) Chloride Level 101 MMOL/L (98-107) Carbon Dioxide Level 31 MMOL/L (21-32) Anion Gap 5 mmol/L (5-15) Blood Urea Nitrogen 6 mg/dL (7-18) L Creatinine 0.6 MG/DL (0.55-1.30) Estimat Glomerular Filtration Rate > 60 mL/min (>60) Glucose Level 163 MG/DL (74-106) H Calcium Level 9.5 MG/DL (8.5-10.1) Current Medications Medications (Trade) Dose Ordered Sig/Jose Route PRN Reason Start Time Stop Time Status Last Admin Dose Admin Acetaminophen (Tylenol) 650 mg Q4H PRN ORAL Mild Pain/Temp > 100.5 04/15/19 00:30 05/08/19 00:29 04/19/19 06:18 Acetaminophen/ Hydrocodone Bitart ([place] 5/325) 1 tab Q6H PRN ORAL For Pain 04/19/19 07:00 04/26/19 06:59 04/19/19 08:39 Ceftriaxone Sodium 2 gm/ Sodium Chloride 110 ml @ 220 mls/hr DAILY IVPB 04/15/19 15:00 04/22/19 14:59 04/19/19 08:39 Dextrose (Dextrose 50%) 25 ml Q30M PRN IV Hypoglycemia 04/14/19 22:00 05/14/19 06:29 Dextrose (Dextrose 50%) 50 ml Q30M PRN IV Hypoglycemia 04/14/19 22:00 05/14/19 06:29 Fish Oil (Fish Oil) 1,000 mg BID ORAL 04/15/19 09:00 05/12/19 17:59 04/19/19 08:38 Fluconazole (Diflucan) 400 mg DAILY ORAL 04/15/19 13:30 04/22/19 13:29 04/19/19 08:38 Folic Acid (Folate) 3 mg DAILY ORAL 04/15/19 09:00 05/11/19 09:59 04/19/19 08:38 Insulin Aspart (NovoLOG) BEFORE MEALS AND HS SUBQ 04/15/19 06:30 05/14/19 06:29 04/19/19 06:23 Insulin Aspart (NovoLOG) 8 units NOVOTIAC SUBQ 04/17/19 11:50 05/14/19 06:29 04/19/19 06:22 Insulin Detemir (Levemir) 24 units DAILY SUBQ 04/17/19 09:00 05/14/19 08:59 04/19/19 08:40 Levothyroxine Sodium (Synthroid) 50 mcg DAILY@0630 ORAL 04/15/19 06:30 05/13/19 06:29 04/19/19 06:17 Ondansetron HCl (Zofran) 4 mg EVERY 4 HOURS PRN IVP Nausea & Vomiting 04/15/19 01:00 05/08/19 00:29 Hanny August M.D. Apr 19, 2019 12:31
--- NOTE | 2019-04-19 13:47 | NUR ---
RD ASSESSMENT & RECOMMENDATIONS SEE CARE ACTIVITY FOR COMPLETE ASSESSMENT DAILY ESTIMATED NEEDS: Needs based on DM, 60.5kg 25-30 kcals/kg 7214-8292 total kcals 1-1.5 g protein/kg 61-91 g total protein 25-30 mL/kg 8591-9511 total fluid mLs NUTRITION DIAGNOSIS: Altered nutrition related lab values r/t DKA as evidenced by on adm pt w/ A1C 13.3, BG 695 -> now improved @ 100's, (+) acetone, low pH, low pCO2, low bicarb, DKA now resolved. CURRENT DIET: CCHO Med / ms chopped PO DIET RECOMMENDATIONS: CCHO LOW / texture as tolerated ADDITIONAL RECOMMENDATIONS: 1) Obtain a standing weight as able Bed wt: 155# vs EMR wt: 136# 2) Add 1 carb/ high pro snack in b/w meals 3) Check lytes, replete as needed 4) Monitor BGs -> improving
[2019-04-19 16:00] VITALS: BP 102/67
--- NOTE | 2019-04-19 18:06 | Internal Med Progress Note ---
Subjective Date of Service: Apr 19, 2019 Physician Name Cody Redmond Attending Physician Isaías Spain MD Current Medications Medications (Trade) Dose Ordered Sig/Jose Route PRN Reason Start Time Stop Time Status Last Admin Dose Admin Acetaminophen (Tylenol) 650 mg Q4H PRN ORAL Mild Pain/Temp > 100.5 04/15/19 00:30 05/08/19 00:29 04/19/19 06:18 Acetaminophen/ Hydrocodone Bitart ([place] 5/325) 1 tab Q6H PRN ORAL For Pain 04/19/19 07:00 04/26/19 06:59 04/19/19 16:30 Ceftriaxone Sodium 2 gm/ Sodium Chloride 110 ml @ 220 mls/hr DAILY IVPB 04/15/19 15:00 04/22/19 14:59 04/19/19 08:39 Dextrose (Dextrose 50%) 25 ml Q30M PRN IV Hypoglycemia 04/14/19 22:00 05/14/19 06:29 Dextrose (Dextrose 50%) 50 ml Q30M PRN IV Hypoglycemia 04/14/19 22:00 05/14/19 06:29 Fish Oil (Fish Oil) 1,000 mg BID ORAL 04/15/19 09:00 05/12/19 17:59 04/19/19 17:08 Fluconazole (Diflucan) 400 mg DAILY ORAL 04/15/19 13:30 04/22/19 13:29 04/19/19 08:38 Folic Acid (Folate) 3 mg DAILY ORAL 04/15/19 09:00 05/11/19 09:59 04/19/19 08:38 Insulin Aspart (NovoLOG) BEFORE MEALS AND HS SUBQ 04/15/19 06:30 05/14/19 06:29 04/19/19 17:10 Insulin Aspart (NovoLOG) 8 units NOVOTIAC SUBQ 04/17/19 11:50 05/14/19 06:29 04/19/19 17:11 Insulin Detemir (Levemir) 24 units DAILY SUBQ 04/17/19 09:00 05/14/19 08:59 04/19/19 08:40 Levothyroxine Sodium (Synthroid) 50 mcg DAILY@0630 ORAL 04/15/19 06:30 05/13/19 06:29 04/19/19 06:17 Ondansetron HCl (Zofran) 4 mg EVERY 4 HOURS PRN IVP Nausea & Vomiting 04/15/19 01:00 05/08/19 00:29 Allergies: Coded Allergies: No Known Allergies (Unverified , 04/07/19) ROS Limited/Unobtainable: No Constitutional: Reports: no symptoms HEENT: Reports: no symptoms Cardiovascular: Reports: no symptoms Respiratory: Reports: no symptoms Gastrointestinal/Abdominal: Reports: no symptoms Genitourinary: Reports: no symptoms Neurologic/Psychiatric: Reports: no symptoms Subjective 38 YO M admitted with altered mental status. Now DKA and right perinephric abscess. Cover for Int Med-Dr Spain. S/P CT guided aspiration and placement of cath 04/13/19 Objective Last Vital Signs Date Time Temp Pulse Resp B/P (MAP) Pulse Ox O2 Delivery O2 Flow Rate FiO2 04/19/19 16:00 98.7 86 17 102/67 (79) 99 04/19/19 08:00 Room Air 04/17/19 07:55 21 04/16/19 08:03 2.0 Laboratory Tests Test 04/19/19 05:28 White Blood Count 5.5 K/UL (4.8-10.8) Red Blood Count 2.99 M/UL (4.70-6.10) L Hemoglobin 9.0 G/DL (14.2-18.0) L Hematocrit 26.8 % (42.0-52.0) L Mean Corpuscular Volume 90 FL (80-99) Mean Corpuscular Hemoglobin 30.1 PG (27.0-31.0) Mean Corpuscular Hemoglobin Concent 33.5 G/DL (32.0-36.0) Red Cell Distribution Width 13.1 % (11.6-14.8) Platelet Count 718 K/UL (150-450) H Mean Platelet Volume 5.7 FL (6.5-10.1) L Neutrophils (%) (Auto) 55.2 % (45.0-75.0) Lymphocytes (%) (Auto) 28.5 % (20.0-45.0) Monocytes (%) (Auto) 12.6 % (1.0-10.0) H Eosinophils (%) (Auto) 0.8 % (0.0-3.0) Basophils (%) (Auto) 2.9 % (0.0-2.0) H Sodium Level 137 MMOL/L (136-145) Potassium Level 4.1 MMOL/L (3.5-5.1) Chloride Level 101 MMOL/L (98-107) Carbon Dioxide Level 31 MMOL/L (21-32) Anion Gap 5 mmol/L (5-15) Blood Urea Nitrogen 6 mg/dL (7-18) L Creatinine 0.6 MG/DL (0.55-1.30) Estimat Glomerular Filtration Rate > 60 mL/min (>60) Glucose Level 163 MG/DL (74-106) H Calcium Level 9.5 MG/DL (8.5-10.1) Intake and Output 04/18/19 04/19/19 19:00 07:00 Output Total 100 ml Balance -100 ml Output Urine Total 100 ml # Voids 1 Objective General Appearance: WD/WN, no apparent distress, alert EENT: PERRL/EOMI, normal ENT inspection, TMs normal Neck: non-tender, normal alignment, supple, normal inspection Cardiovascular: normal peripheral pulses, normal rate, regular rhythm, no gallop/murmur, no JVD Respiratory/Chest: chest wall non-tender, lungs clear, normal breath sounds, no respiratory distress, no accessory muscle use Abdomen: normal bowel sounds, non tender, soft, no organomegaly, no mass Extremities: normal range of motion Neurologic: automation tender II-XII grossly normal, no motor/sensory deficits Skin: normal pigmentation, warm/dry Assessment/Plan Problem List: (1) Acute metabolic encephalopathy (2) Altered mental status (3) UTI (urinary tract infection) Assessment & Plan: Jacquelin tropicalia. Continue fluconazole D# 6/per ID - Dr August (4) Renal failure (5) DKA (diabetic ketoacidoses) Assessment & Plan: Continue levemir and novolog insulin. See endocrinology note-Dr Hayes. (6) Right femoral fracture Assessment & Plan: suspected. See pelvic xray result. (7) Perinephric abscess Assessment & Plan: S/P Interventional radiology CT guided aspiration and placement of pigtail cath. Urology consult= Dr Ortiz. Culture=klebsiella Continue ceftriaxone D# 04/18 per ID (8) Sepsis Assessment & Plan: Klebsiella. Continue ceftriaxone per ID-Cody Avendaño MD Apr 19, 2019 18:06
--- NOTE | 2019-04-19 19:37 | NUR ---
HAND-OFF: Report given to HARDIK Samayoa.
[2019-04-19 20:00] VITALS: BP 109/71
--- NOTE | 2019-04-19 20:00 | NUR ---
NURSE NOTES: RECEIVED PT FROM HARDIK SORIA. PT IS AWAKE, AAOX4, ON ROOM AIR, NO ACUTE DISTRESS NOTED. PT DENIES PAIN AT THE MOMENT. IV ON RIGHT FA IS INTACT AND PATENT. RIGHT PIG TAIL CATH NOTED INTACT, NO DRAINAGE. BILATERAL HEELS WITH OPTIFOAM. BED IS LOCKED AND LOW, BED ALARMS ACTIVE, SIDE RAILS UPX2, AND CALL LIGHT WITHIN REACH. WILL CONTINUE MONITOR.
[2019-04-20] MEDS ORDERED: NovoLOG Insulin Flexpen SUBQ SCH
[2019-04-20] MEDS ORDERED: Levemir Flexpen SUBQ SCH
[2019-04-20] MEDS ORDERED: Levofloxacin 750mg tab ORAL SCH
[2019-04-20] MEDS: HYDROcodone/Acetamin 5/325 tab ORAL PRN ×3 (05:15→19:29)
[2019-04-20] MEDS: NovoLOG Insulin Flexpen SUBQ SCH ×7 (06:22→21:58)
[2019-04-20 06:42] LABS: BASOPHILS % (AUTO) 4.2 % (0.0-2.0); EOSINOPHILS % (AUTO) 0.7 % (0.0-3.0); LYMPHOCYTES % (AUTO) 29.9 % (20.0-45.0); MEAN CORPUSCULAR VOLUME 90 FL (80-99); MONOCYTES % (AUTO) 18.9 % (1.0-10.0); NEUTROPHILS % (AUTO) 46.3 % (45.0-75.0); PLATELET COUNT 634 K/UL (150-450); RED BLOOD COUNT 2.68 M/UL (4.70-6.10); RED CELL DISTRIBUTION WIDTH 13.1 % (11.6-14.8); WHITE BLOOD COUNT 4.1 K/UL (4.8-10.8)
[2019-04-20 07:02] LABS: ANION GAP 4 mmol/L (5-15); BLOOD UREA NITROGEN 6 mg/dL (7-18); CALCIUM 9.2 MG/DL (8.5-10.1); CARBON DIOXIDE 31 MMOL/L (21-32); CHLORIDE 103 MMOL/L (98-107); CREATININE 0.6 MG/DL (0.55-1.30); POTASSIUM 4.4 MMOL/L (3.5-5.1); SODIUM 137 MMOL/L (136-145)
--- NOTE | 2019-04-20 07:50 | NUR ---
HAND-OFF: Report given to HARDIK GARIBAY.
[2019-04-20 08:00] VITALS: BP 104/68
[2019-04-20] MEDS: Fluconazole 100mg tab ORAL SCH (08:29)
[2019-04-20] MEDS: cefTRIAXone 2 GM in NS 110 ML IVPB SCH (08:29)
[2019-04-20] MEDS: Levemir Flexpen SUBQ SCH (08:36)
--- NOTE | 2019-04-20 11:50 | Internal Med Progress Note ---
Subjective Date of Service: Apr 20, 2019 Physician Name Cody Redmond Attending Physician Isaías Spain MD Current Medications Medications (Trade) Dose Ordered Sig/Jose Route PRN Reason Start Time Stop Time Status Last Admin Dose Admin Acetaminophen (Tylenol) 650 mg Q4H PRN ORAL Mild Pain/Temp > 100.5 04/15/19 00:30 05/08/19 00:29 04/19/19 06:18 Acetaminophen/ Hydrocodone Bitart ([place] 5/325) 1 tab Q6H PRN ORAL For Pain 04/19/19 07:00 04/26/19 06:59 04/20/19 11:14 Ceftriaxone Sodium 2 gm/ Sodium Chloride 110 ml @ 220 mls/hr DAILY IVPB 04/15/19 15:00 04/22/19 14:59 04/20/19 08:29 Dextrose (Dextrose 50%) 25 ml Q30M PRN IV Hypoglycemia 04/14/19 22:00 05/14/19 06:29 Dextrose (Dextrose 50%) 50 ml Q30M PRN IV Hypoglycemia 04/14/19 22:00 05/14/19 06:29 Fish Oil (Fish Oil) 1,000 mg BID ORAL 04/15/19 09:00 05/12/19 17:59 04/20/19 08:29 Fluconazole (Diflucan) 400 mg DAILY ORAL 04/15/19 13:30 04/22/19 13:29 04/20/19 08:29 Folic Acid (Folate) 3 mg DAILY ORAL 04/15/19 09:00 05/11/19 09:59 04/20/19 08:29 Insulin Aspart (NovoLOG) BEFORE MEALS AND HS SUBQ 04/15/19 06:30 05/14/19 06:29 04/20/19 11:37 Insulin Aspart (NovoLOG) 8 units NOVOTIAC SUBQ 04/17/19 11:50 05/14/19 06:29 04/20/19 11:37 Insulin Detemir (Levemir) 24 units DAILY SUBQ 04/17/19 09:00 05/14/19 08:59 04/20/19 08:36 Levothyroxine Sodium (Synthroid) 50 mcg DAILY@0630 ORAL 04/15/19 06:30 05/13/19 06:29 04/20/19 06:21 Ondansetron HCl (Zofran) 4 mg EVERY 4 HOURS PRN IVP Nausea & Vomiting 04/15/19 01:00 05/08/19 00:29 Allergies: Coded Allergies: No Known Allergies (Unverified , 04/07/19) ROS Limited/Unobtainable: No Constitutional: Reports: no symptoms HEENT: Reports: no symptoms Cardiovascular: Reports: no symptoms Respiratory: Reports: no symptoms Gastrointestinal/Abdominal: Reports: no symptoms Genitourinary: Reports: no symptoms Neurologic/Psychiatric: Reports: no symptoms Subjective 38 YO M admitted with altered mental status. Now DKA and right perinephric abscess. Cover for Int Med-Dr Spain. S/P CT guided aspiration and placement of cath 04/13/19 Objective Last Vital Signs Date Time Temp Pulse Resp B/P (MAP) Pulse Ox O2 Delivery O2 Flow Rate FiO2 04/20/19 09:00 Room Air 04/20/19 08:00 97.1 98 19 104/68 (80) 97 04/17/19 07:55 21 04/16/19 08:03 2.0 Laboratory Tests Test 04/20/19 05:45 White Blood Count 4.1 K/UL (4.8-10.8) L Red Blood Count 2.68 M/UL (4.70-6.10) L Hemoglobin 8.0 G/DL (14.2-18.0) L Hematocrit 24.0 % (42.0-52.0) L Mean Corpuscular Volume 90 FL (80-99) Mean Corpuscular Hemoglobin 30.0 PG (27.0-31.0) Mean Corpuscular Hemoglobin Concent 33.4 G/DL (32.0-36.0) Red Cell Distribution Width 13.1 % (11.6-14.8) Platelet Count 634 K/UL (150-450) H Mean Platelet Volume 5.3 FL (6.5-10.1) L Neutrophils (%) (Auto) 46.3 % (45.0-75.0) Lymphocytes (%) (Auto) 29.9 % (20.0-45.0) Monocytes (%) (Auto) 18.9 % (1.0-10.0) H Eosinophils (%) (Auto) 0.7 % (0.0-3.0) Basophils (%) (Auto) 4.2 % (0.0-2.0) H Sodium Level 137 MMOL/L (136-145) Potassium Level 4.4 MMOL/L (3.5-5.1) Chloride Level 103 MMOL/L (98-107) Carbon Dioxide Level 31 MMOL/L (21-32) Anion Gap 4 mmol/L (5-15) L Blood Urea Nitrogen 6 mg/dL (7-18) L Creatinine 0.6 MG/DL (0.55-1.30) Estimat Glomerular Filtration Rate > 60 mL/min (>60) Glucose Level 216 MG/DL (74-106) H Calcium Level 9.2 MG/DL (8.5-10.1) Intake and Output 04/19/19 04/20/19 18:59 06:59 Intake Total 900 ml Balance 900 ml Other 900 ml Objective General Appearance: WD/WN, no apparent distress, alert EENT: PERRL/EOMI, normal ENT inspection, TMs normal Neck: non-tender, normal alignment, supple, normal inspection Cardiovascular: normal peripheral pulses, normal rate, regular rhythm, no gallop/murmur, no JVD Respiratory/Chest: chest wall non-tender, lungs clear, normal breath sounds, no respiratory distress, no accessory muscle use Abdomen: normal bowel sounds, non tender, soft, no organomegaly, no mass Extremities: normal range of motion Neurologic: supervisor print line II-XII grossly normal, no motor/sensory deficits Skin: normal pigmentation, warm/dry Assessment/Plan Problem List: (1) Acute metabolic encephalopathy (2) Altered mental status (3) UTI (urinary tract infection) Assessment & Plan: Jacquelin tropicalia. Continue fluconazole D# 6/7per ID - Dr August (4) Renal failure (5) DKA (diabetic ketoacidoses) Assessment & Plan: Continue levemir and novolog insulin. See endocrinology note-Dr Hayes. (6) Right femoral fracture Assessment & Plan: suspected. See pelvic xray result. (7) Perinephric abscess Assessment & Plan: S/P Interventional radiology CT guided aspiration and placement of pigtail cath. Urology consult= Dr Ortiz. Culture=klebsiella Continue ceftriaxone D# 10/ per ID (8) Sepsis Assessment & Plan: Klebsiella. Continue ceftriaxone per ID-Cody Avendaño MD Apr 20, 2019 11:50
[2019-04-20 12:00] VITALS: BP 105/66
[2019-04-20] MEDS ORDERED: LEVOFLOXACIN250 MG ORAL (12:55)
[2019-04-20] MEDS ORDERED: LEVEMIR FL100 UNIT/1 SUBQ (12:57)
[2019-04-20] MEDS ORDERED: SYNTHROID50 MCG ORAL (12:57)
[2019-04-20] MEDS ORDERED: NOVOLOG100 UNITS1 SUBQ (12:57)
--- NOTE | 2019-04-20 12:59 | Pulmonology Progress Note ---
Assessment/Plan Problems: (1) Perinephric abscess (2) Pyelonephritis (3) JOJO (acute kidney injury) (4) UTI (urinary tract infection) (5) Acute metabolic encephalopathy Assessment/Plan no more drainage from the drainage improving wbc lower continue abx, Levofloxacin 750 mg po qd for 10 days. Subjective ROS Limited/Unobtainable: No Constitutional: Reports: no symptoms HEENT: Repors: no symptoms Allergies: Coded Allergies: No Known Allergies (Unverified , 04/07/19) Objective Last 24 Hour Vital Signs Date Time Temp Pulse Resp B/P (MAP) Pulse Ox O2 Delivery O2 Flow Rate FiO2 04/20/19 12:00 98.1 87 21 105/66 (79) 97 04/20/19 09:00 Room Air 04/20/19 08:00 97.1 98 19 104/68 (80) 97 04/19/19 21:00 Room Air 04/19/19 20:00 95.7 77 18 109/71 (84) 99 04/19/19 16:00 98.7 86 17 102/67 (79) 99 Intake and Output 04/19/19 04/20/19 19:00 07:00 Intake Total 900 ml Balance 900 ml Other 900 ml General Appearance: WD/WN HEENT: normocephalic, atraumatic Respiratory/Chest: chest wall non-tender, lungs clear Cardiovascular: normal peripheral pulses, regular rhythm Abdomen: soft, non tender, no organomegaly Extremities: no cyanosis Skin: no lesions Neurologic/Psychiatric: radiopharmacist II-XII grossly normal Laboratory Tests 04/20/19 05:45: White Blood Count 4.1L, Red Blood Count 2.68L, Hemoglobin 8.0L, Hematocrit 24.0L , Mean Corpuscular Volume 90, Mean Corpuscular Hemoglobin 30.0, Mean Corpuscular Hemoglobin Concent 33.4, Red Cell Distribution Width 13.1, Platelet Count 634H, Mean Platelet Volume 5.3L, Neutrophils (%) (Auto) 46.3, Lymphocytes (%) (Auto) 29.9, Monocytes (%) (Auto) 18.9H, Eosinophils (%) (Auto) 0.7, Basophils (%) (Auto) 4.2H, Sodium Level 137, Potassium Level 4.4, Chloride Level 103, Carbon Dioxide Level 31, Anion Gap 4L, Blood Urea Nitrogen 6L, Creatinine 0.6, Estimat Glomerular Filtration Rate > 60, Glucose Level 216H, Calcium Level 9.2 Current Medications Medications (Trade) Dose Ordered Sig/Jose Route PRN Reason Start Time Stop Time Status Last Admin Dose Admin Acetaminophen (Tylenol) 650 mg Q4H PRN ORAL Mild Pain/Temp > 100.5 04/15/19 00:30 05/08/19 00:29 04/19/19 06:18 Acetaminophen/ Hydrocodone Bitart ([place] 5/325) 1 tab Q6H PRN ORAL For Pain 04/19/19 07:00 04/26/19 06:59 04/20/19 11:14 Ceftriaxone Sodium 2 gm/ Sodium Chloride 110 ml @ 220 mls/hr DAILY IVPB 04/15/19 15:00 04/22/19 14:59 04/20/19 08:29 Dextrose (Dextrose 50%) 25 ml Q30M PRN IV Hypoglycemia 04/14/19 22:00 05/14/19 06:29 Dextrose (Dextrose 50%) 50 ml Q30M PRN IV Hypoglycemia 04/14/19 22:00 05/14/19 06:29 Fish Oil (Fish Oil) 1,000 mg BID ORAL 04/15/19 09:00 05/12/19 17:59 04/20/19 08:29 Fluconazole (Diflucan) 400 mg DAILY ORAL 04/15/19 13:30 04/22/19 13:29 04/20/19 08:29 Folic Acid (Folate) 3 mg DAILY ORAL 04/15/19 09:00 05/11/19 09:59 04/20/19 08:29 Insulin Aspart (NovoLOG) BEFORE MEALS AND HS SUBQ 04/15/19 06:30 05/14/19 06:29 04/20/19 11:37 Insulin Aspart (NovoLOG) 8 units NOVOTIAC SUBQ 04/17/19 11:50 05/14/19 06:29 04/20/19 11:37 Insulin Detemir (Levemir) 24 units DAILY SUBQ 04/17/19 09:00 05/14/19 08:59 04/20/19 08:36 Levothyroxine Sodium (Synthroid) 50 mcg DAILY@0630 ORAL 04/15/19 06:30 05/13/19 06:29 04/20/19 06:21 Ondansetron HCl (Zofran) 4 mg EVERY 4 HOURS PRN IVP Nausea & Vomiting 04/15/19 01:00 05/08/19 00:29 Donny Kemp MD Apr 20, 2019 12:59
--- NOTE | 2019-04-20 13:01 | Infectious Diseases Prog Note ---
Assessment/Plan Assessment/Plan The patient is a 38-year-old male with: Fever, recurrent; improving Leukocytosis; SP Sepsis, sp -CXR: Basilar atelectatic changes and/or scarring. No acute process otherwise Emphysematous pyelonephritis with right kidney abscess -04/13 SP Successful aspiration and drainage of a right renal abscess. 8.5 Sami pigtail drainage catheter placed in good position; About 60 cc of slightly bloody and tannish purulent material was aspirated. -cx K. pna (R amp, bactrim; otherwise S) -u/a wbc 10-15, nit neg, leuk +1; ucx >100k C. tropicalis x2 Klebsiella Bacteremia - 04/12 BCx / K. pna (R amp, bactrim; otherwise S) ; 04/13 Bcx Neg Diabetes and now with DKA. Rule out biliary disease (elevated Tbili, ALP) -ABD US: Severe distention of the urinary bladder. Suggest Daniels catheter. Associated mild hydronephrosis. Hepatomegaly. There is no biliary ductal dilatation identified. Gallbladder is unremarkable. Thrombocytopenia (probably due to sepsis -HIV, hep panel neg CT 04/09/19 1. Emphysematous pyelonephritis in the right kidney, most prominently affecting the right lower pole, with a 7.6 x 7.4 x 5.3 cm air-fluid collection in the lower pole likely representing renal abscess extending to the perirenal fat. No definite fat plane between this collection and the adjacent right psoas musculature. Extensive adjacent inflammatory stranding. 2. Daniels catheter balloon and tip within the urinary bladder lumen. Mild diffuse urinary bladder wall thickening, suggestive of cystitis. . PLAN: 1. Continue Ceftriaxone #6(abx d #05/26) for K.pna UTI/bacteremia -upon discharge can be transition to PO Levaquin 750mg qd Continue PO Fluconazole #6 (abx d #02/12) for funguria, suspect it is a real pathogen on this case -04/15 SP Cefepime #2 -04/14 SP Micafungin #2, IV Vancomycin #5 -04/13 SP Meropenem #3 -04/11 SP IV Rocephin #4, Amikacin #3 2. f/u repeat Bc x2 3. Monitor CBC, BMP. 4. Monitor cultures, blood and urine. 5. Urology f/u 6. If recurrent fever, repeat Bcx x2 Thank you, Dr. Kemp, for allowing me to participate in the care of this patient. I will follow the patient with you. Subjective Allergies: Coded Allergies: No Known Allergies (Unverified , 04/07/19) Subjective afebrile >72hrs no leukocytosis Objective Vital Signs Last 24 Hour Vital Signs Date Time Temp Pulse Resp B/P (MAP) Pulse Ox O2 Delivery O2 Flow Rate FiO2 04/20/19 12:00 98.1 87 21 105/66 (79) 97 04/20/19 09:00 Room Air 04/20/19 08:00 97.1 98 19 104/68 (80) 97 04/19/19 21:00 Room Air 04/19/19 20:00 95.7 77 18 109/71 (84) 99 04/19/19 16:00 98.7 86 17 102/67 (79) 99 Height (Feet): 5 Height (Inches): 6.00 Weight (Pounds): 135 Objective GEN: NAD HEENT: NCAT, MMM LUNGS: Coarse B/L HEART: RR, s1,s2 Abd TTP, SOft Laboratory Tests Test 04/20/19 05:45 White Blood Count 4.1 K/UL (4.8-10.8) L Red Blood Count 2.68 M/UL (4.70-6.10) L Hemoglobin 8.0 G/DL (14.2-18.0) L Hematocrit 24.0 % (42.0-52.0) L Mean Corpuscular Volume 90 FL (80-99) Mean Corpuscular Hemoglobin 30.0 PG (27.0-31.0) Mean Corpuscular Hemoglobin Concent 33.4 G/DL (32.0-36.0) Red Cell Distribution Width 13.1 % (11.6-14.8) Platelet Count 634 K/UL (150-450) H Mean Platelet Volume 5.3 FL (6.5-10.1) L Neutrophils (%) (Auto) 46.3 % (45.0-75.0) Lymphocytes (%) (Auto) 29.9 % (20.0-45.0) Monocytes (%) (Auto) 18.9 % (1.0-10.0) H Eosinophils (%) (Auto) 0.7 % (0.0-3.0) Basophils (%) (Auto) 4.2 % (0.0-2.0) H Sodium Level 137 MMOL/L (136-145) Potassium Level 4.4 MMOL/L (3.5-5.1) Chloride Level 103 MMOL/L (98-107) Carbon Dioxide Level 31 MMOL/L (21-32) Anion Gap 4 mmol/L (5-15) L Blood Urea Nitrogen 6 mg/dL (7-18) L Creatinine 0.6 MG/DL (0.55-1.30) Estimat Glomerular Filtration Rate > 60 mL/min (>60) Glucose Level 216 MG/DL (74-106) H Calcium Level 9.2 MG/DL (8.5-10.1) Current Medications Medications (Trade) Dose Ordered Sig/Jose Route PRN Reason Start Time Stop Time Status Last Admin Dose Admin Acetaminophen (Tylenol) 650 mg Q4H PRN ORAL Mild Pain/Temp > 100.5 04/15/19 00:30 05/08/19 00:29 04/19/19 06:18 Acetaminophen/ Hydrocodone Bitart ([place] 5/325) 1 tab Q6H PRN ORAL For Pain 04/19/19 07:00 04/26/19 06:59 04/20/19 11:14 Ceftriaxone Sodium 2 gm/ Sodium Chloride 110 ml @ 220 mls/hr DAILY IVPB 04/15/19 15:00 04/22/19 14:59 04/20/19 08:29 Dextrose (Dextrose 50%) 25 ml Q30M PRN IV Hypoglycemia 04/14/19 22:00 05/14/19 06:29 Dextrose (Dextrose 50%) 50 ml Q30M PRN IV Hypoglycemia 04/14/19 22:00 05/14/19 06:29 Fish Oil (Fish Oil) 1,000 mg BID ORAL 04/15/19 09:00 05/12/19 17:59 04/20/19 08:29 Fluconazole (Diflucan) 400 mg DAILY ORAL 04/15/19 13:30 04/22/19 13:29 04/20/19 08:29 Insulin Aspart (NovoLOG) BEFORE MEALS AND HS SUBQ 04/15/19 06:30 05/14/19 06:29 04/20/19 11:37 Insulin Aspart (NovoLOG) 8 units NOVOTIAC SUBQ 04/17/19 11:50 05/14/19 06:29 04/20/19 11:37 Insulin Detemir (Levemir) 24 units DAILY SUBQ 04/17/19 09:00 05/14/19 08:59 04/20/19 08:36 Levothyroxine Sodium (Synthroid) 50 mcg DAILY@0630 ORAL 04/15/19 06:30 05/13/19 06:29 04/20/19 06:21 Hanny August M.D. Apr 20, 2019 13:01
--- NOTE | 2019-04-20 13:30 | NUR ---
NURSE NOTES: ORDER FOR DISCHARGE NOTED. PRESCRIPTIONS FOR INSULIN, GLUCOMETER, AND LANCETS WRITTEN BY DR CM. PT IS HOMELESS AND HAS NO VANCE TO PAY FOR PRESCRIPTIONS. LINA ORTA, MADE AWARE AND FAXED PRESCRIPTIONS FOR REVIEW. VIPUL MADE AWARE.
--- NOTE | 2019-04-20 15:24 | NUR ---
NURSE NOTES: PER YOU, ALL PRESCRIPTIONS WILL BE FILLED BY [facility] AND COST WILL BE TAKEN CARE OF. PER RADIOLOGY CLARY, THERE WILL NEED TO BE ORDER AND CONSENT TO REMOVE PIGTAIL. RN LEFT MESSAGE FOR DR CM. RN MADE PT AWARE OF DISCHARGE ORDER, BUT WILL NEED TO REMOVE PIGTAIL BEFORE BEING DISCHARGED. PT VERBALIZED UNDERSTANDING.
--- NOTE | 2019-04-20 15:30 | Nephrology Progress Note ---
Assessment/Plan Problem List: (1) Pyelonephritis (2) DKA (diabetic ketoacidoses) (3) Electrolyte abnormality Assessment (1) DKA (diabetic ketoacidoses) (2) JOJO (acute kidney injury) (3) Pyelonephritis (4) Electrolyte imbalance (5) HypoThyroidism Plan DC on PO antibiotics when drain out tolerating PO- CRP lowering PO KCL Phos and Mag as needed fish oil synthroid Monitor lytes recheck UA per orders Subjective ROS Limited/Unobtainable: No Objective Objective Last 24 Hour Vital Signs Date Time Temp Pulse Resp B/P (MAP) Pulse Ox O2 Delivery O2 Flow Rate FiO2 04/20/19 12:00 98.1 87 21 105/66 (79) 97 04/20/19 09:00 Room Air 04/20/19 08:00 97.1 98 19 104/68 (80) 97 04/19/19 21:00 Room Air 04/19/19 20:00 95.7 77 18 109/71 (84) 99 04/19/19 16:00 98.7 86 17 102/67 (79) 99 Intake and Output 04/19/19 04/20/19 19:00 07:00 Intake Total 900 ml Balance 900 ml Other 900 ml Laboratory Tests 04/20/19 05:45: White Blood Count 4.1L, Red Blood Count 2.68L, Hemoglobin 8.0L, Hematocrit 24.0L , Mean Corpuscular Volume 90, Mean Corpuscular Hemoglobin 30.0, Mean Corpuscular Hemoglobin Concent 33.4, Red Cell Distribution Width 13.1, Platelet Count 634H, Mean Platelet Volume 5.3L, Neutrophils (%) (Auto) 46.3, Lymphocytes (%) (Auto) 29.9, Monocytes (%) (Auto) 18.9H, Eosinophils (%) (Auto) 0.7, Basophils (%) (Auto) 4.2H, Sodium Level 137, Potassium Level 4.4, Chloride Level 103, Carbon Dioxide Level 31, Anion Gap 4L, Blood Urea Nitrogen 6L, Creatinine 0.6, Estimat Glomerular Filtration Rate > 60, Glucose Level 216H, Calcium Level 9.2 Height (Feet): 5 Height (Inches): 6.00 Weight (Pounds): 135 General Appearance: no apparent distress Objective no change Russ Osborn MD Apr 20, 2019 15:30
[2019-04-20 16:00] VITALS: BP 120/77
--- NOTE | 2019-04-20 16:06 | Cardiology Report ---
APPROVED REPORT EKG Measurement Heart [id number] NM [id number] Normal sinus rhythm Cannot rule out Inferior infarct, age undetermined Abnormal ECG
--- NOTE | 2019-04-20 16:16 | NUR ---
Social Service Note Prescriptions will be filled by [facility]. Nursing to provide blood sugar check training with glucometer provided. Patient indicated returning to a friends house, able to provide location of friend's home but not specific address. Patient will be provided transportation via taxi. Homeless discharge check list to be completed. Community care clinic list to be provided. SW discussed with primary nurse.
--- NOTE | 2019-04-20 16:19 | NUR ---
NURSE NOTES: PER PT, HE WILL BE GOING TO A FRIEND'S HOME [address]ATED AT [address]
--- NOTE | 2019-04-20 17:16 | NUR ---
NURSE NOTES: RN EDUCATED PT HE IS READY FOR DISCHARGE TODAY. ALL PRESCRIPTIONS HAVE BEEN FILLED. PT STATES HIS FRIEND IS NOT PICKING UP HIS PHONE AT THIS TIME AND HE DOES NOT HAVE THE KEYS. PT WILL TRY TO GET IN CONTACT WITH HIS FRIEND. PT WAS EDUCATED BY RN ON S/S HYPERGLYCEMIA AND HYPOGLYCEMIA, HOW TO PERFORM BLOOD GLUCOSE CHECKS AND INSULIN PEN INJECTION ACCORDING TO SLIDING SCALE. MORE EDUCATION NEEDED, UNABLE TO PROPERLY ADMINISTER INSULIN PEN INDEPENDENTLY DURING FIRST RE-DEMONSTRATION.
--- NOTE | 2019-04-20 17:20 | NUR ---
NURSE NOTES: PHARMACY HAS PT'S NOVOLOG AND LEVEMIR PEN. THEY WILL BRING UP PEN FOR RN TO ADMINISTER.
--- NOTE | 2019-04-20 19:30 | NUR ---
NURSE NOTES: RECEIVED TP FROM HARDIK GARIBAY. PT IS AWAKE, AAOX4, ON ROOM AIR, NO ACUTE DISTRESS NOTED. FAMILY MEMBERS AT BEDSIDE. IV ON RIGHT FA 20G IS INTACT AND PATENT. OPTIFOAM ON LEFT HEEL IS INTACT AND DRY. DRESSING ON RIGHT PLANK IS INTACT. BED IS LOCKED AND LOW, BED ALARMS ACTIVE, SIDE RAILS UPX2, AND CALL LIGHT WITHIN REACH. WILL CONTINUE MONITOR.
--- NOTE | 2019-04-20 19:32 | NUR ---
NURSE NOTES: ENDORSED TO REGINE, RN, PT UNABLE TO CONTACT FRIEND TO BE DISCHARGED TODAY. [facility] ALL PRESCRIPTIONS FILLED FOR PT. RN NEEDS TO REINFORCE TEACHING ON BLOOD SUGAR CHECKS AND INSULIN ADMINISTRATION. PT'S FRIEND LIVES IN [address] AND MAY OBTAIN TAXI VOUCHER FROM [facility] TOMORROW FOR TRANSPORTATION.
--- NOTE | 2019-04-20 19:34 | NUR ---
HAND-OFF: Report given to Lyle GUTIÉRREZ RN.
[2019-04-20 20:00] VITALS: BP 119/77
--- NOTE | 2019-04-20 22:00 | NUR ---
NURSE NOTES: REINFORCED PATIENT TEACHING ON DIABETES, HOW TO USE GLUCOMETER AND INSULIN PEN. PATIENT RETURN DEMONSTRATION.
[2019-04-21] VITALS: BP 121/75
[2019-04-21] MEDS: HYDROcodone/Acetamin 5/325 tab ORAL PRN ×3 (01:15→20:32)
[2019-04-21 04:00] VITALS: BP 119/72
[2019-04-21 06:40] LABS: BASOPHILS % (AUTO) 3.6 % (0.0-2.0); EOSINOPHILS % (AUTO) 0.8 % (0.0-3.0); HEMATOCRIT 26.4 % (42.0-52.0); HEMOGLOBIN 8.8 G/DL (14.2-18.0); LYMPHOCYTES % (AUTO) 39.1 % (20.0-45.0); MEAN CORPUSCULAR VOLUME 91 FL (80-99); MONOCYTES % (AUTO) 8.8 % (1.0-10.0); NEUTROPHILS % (AUTO) 47.6 % (45.0-75.0); PLATELET COUNT 704 K/UL (150-450); RED BLOOD COUNT 2.91 M/UL (4.70-6.10); RED CELL DISTRIBUTION WIDTH 13.4 % (11.6-14.8); WHITE BLOOD COUNT 5.1 K/UL (4.8-10.8)
[2019-04-21] MEDS: NovoLOG Insulin Flexpen SUBQ SCH ×7 (06:43→20:25)
[2019-04-21 07:25] LABS: ANION GAP 6 mmol/L (5-15); BLOOD UREA NITROGEN 8 mg/dL (7-18); CALCIUM 9.4 MG/DL (8.5-10.1); CARBON DIOXIDE 31 MMOL/L (21-32); CHLORIDE 103 MMOL/L (98-107); CREATININE 0.6 MG/DL (0.55-1.30); SODIUM 140 MMOL/L (136-145)
--- NOTE | 2019-04-21 07:36 | NUR ---
HAND-OFF: Report given to HARDIK POWELL.
--- NOTE | 2019-04-21 07:40 | NUR ---
NURSE NOTES: Received report from Danita, RN. Pt is awake, alert, oriented, on RA, complaining of pain at the Right flank. RN will provide pain medication. IV site intact and running fluids. Bed locked in lowest position, side rails up, call light within reach.
[2019-04-21 08:00] VITALS: BP 113/73
[2019-04-21] MEDS: Fluconazole 100mg tab ORAL SCH (08:24)
[2019-04-21] MEDS: cefTRIAXone 2 GM in NS 110 ML IVPB SCH (08:26)
[2019-04-21] MEDS: Levemir Flexpen SUBQ SCH (08:30)
--- NOTE | 2019-04-21 11:50 | Pulmonology Progress Note ---
Assessment/Plan Problems: (1) Perinephric abscess (2) Pyelonephritis (3) JOJO (acute kidney injury) (4) UTI (urinary tract infection) (5) Acute metabolic encephalopathy Assessment/Plan catheter is removed dc home today c/o constipation continue abx, Levofloxacin 750 mg po qd for 10 days. Subjective ROS Limited/Unobtainable: No Constitutional: Reports: no symptoms HEENT: Repors: no symptoms Respiratory: Reports: no symptoms Allergies: Coded Allergies: No Known Allergies (Unverified , 04/07/19) Objective Last 24 Hour Vital Signs Date Time Temp Pulse Resp B/P (MAP) Pulse Ox O2 Delivery O2 Flow Rate FiO2 04/21/19 10:07 98 Room Air 21 04/21/19 08:42 Room Air 04/21/19 08:00 99.0 101 19 113/73 (86) 97 04/21/19 04:00 98.6 88 20 119/72 (88) 99 04/21/19 00:00 98.4 84 20 121/75 (90) 98 04/20/19 21:00 Room Air 04/20/19 20:11 96 Room Air 21 04/20/19 20:00 98.8 85 19 119/77 (91) 99 04/20/19 16:00 98.0 82 20 120/77 (91) 98 04/20/19 12:00 98.1 87 21 105/66 (79) 97 Intake and Output 04/20/19 04/21/19 18:59 06:59 Intake Total 350 ml 480 ml Balance 350 ml 480 ml Intake Oral 240 ml 480 ml IV Total 110 ml General Appearance: WD/WN HEENT: normocephalic, anicteric Respiratory/Chest: chest wall non-tender, lungs clear Cardiovascular: normal peripheral pulses, regular rhythm, no JVD Abdomen: normal bowel sounds, no organomegaly, no scars Extremities: no clubbing Skin: no rash Laboratory Tests 04/21/19 04:53: White Blood Count 5.1, Red Blood Count 2.91L, Hemoglobin 8.8L, Hematocrit 26.4L , Mean Corpuscular Volume 91, Mean Corpuscular Hemoglobin 30.2, Mean Corpuscular Hemoglobin Concent 33.2, Red Cell Distribution Width 13.4, Platelet Count 704H, Mean Platelet Volume 5.1L, Neutrophils (%) (Auto) 47.6, Lymphocytes (%) (Auto) 39.1, Monocytes (%) (Auto) 8.8, Eosinophils (%) (Auto) 0.8, Basophils (%) (Auto) 3.6H, Sodium Level 140, Potassium Level 4.0, Chloride Level 103, Carbon Dioxide Level 31, Anion Gap 6, Blood Urea Nitrogen 8, Creatinine 0.6, Estimat Glomerular Filtration Rate > 60, Glucose Level 150H, Calcium Level 9.4 Current Medications Medications (Trade) Dose Ordered Sig/Jose Route PRN Reason Start Time Stop Time Status Last Admin Dose Admin Acetaminophen (Tylenol) 650 mg Q4H PRN ORAL Mild Pain/Temp > 100.5 04/15/19 00:30 05/08/19 00:29 04/19/19 06:18 Acetaminophen/ Hydrocodone Bitart ([place] 5/325) 1 tab Q6H PRN ORAL For Pain 04/19/19 07:00 04/26/19 06:59 04/21/19 08:22 Ceftriaxone Sodium 2 gm/ Sodium Chloride 110 ml @ 220 mls/hr DAILY IVPB 04/15/19 15:00 04/22/19 14:59 04/21/19 08:26 Dextrose (Dextrose 50%) 25 ml Q30M PRN IV Hypoglycemia 04/14/19 22:00 05/14/19 06:29 Dextrose (Dextrose 50%) 50 ml Q30M PRN IV Hypoglycemia 04/14/19 22:00 05/14/19 06:29 Fish Oil (Fish Oil) 1,000 mg BID ORAL 04/15/19 09:00 05/12/19 17:59 04/21/19 08:22 Fluconazole (Diflucan) 400 mg DAILY ORAL 04/15/19 13:30 04/22/19 13:29 04/21/19 08:24 Insulin Aspart (NovoLOG) BEFORE MEALS AND HS SUBQ 04/15/19 06:30 05/14/19 06:29 04/21/19 06:43 Insulin Aspart (NovoLOG) 8 units NOVOTIAC SUBQ 04/17/19 11:50 05/14/19 06:29 04/21/19 06:44 Insulin Detemir (Levemir) 24 units DAILY SUBQ 04/17/19 09:00 05/14/19 08:59 04/21/19 08:30 Levofloxacin (Levaquin) 750 mg DAILY ORAL 04/20/19 00:00 04/29/19 23:59 No refill Levothyroxine Sodium (Synthroid) 50 mcg DAILY@0630 ORAL 04/15/19 06:30 05/13/19 06:29 04/21/19 05:57 Levothyroxine Sodium (Synthroid) 50 mcg DAILY@0630 ORAL 04/20/19 00:00 05/19/19 23:59 No refill Donny Kemp MD Apr 21, 2019 11:50
[2019-04-21 12:00] VITALS: BP 118/76
[2019-04-21] MEDS: Docusate 100mg cap ORAL SCH ×2 (12:31→17:08)
[2019-04-21] MEDS: Lactulose 20gm/30ml UDC ORAL SCH ×2 (12:31→17:08)
--- NOTE | 2019-04-21 12:39 | NUR ---
NURSE NOTES: RN only administered 5 out of 8 units of pt's standing dose of insulin due to insulin pen having not enough med in it. RN called pharmacy, and they said they will bring up the Novolog pen. Addendum: 04/21/19 at 1350 by Edith Mcmillan RN NURSE NOTES: Pharmacy delivered the Novolog pen. RN administered 3 units of Novolog at 1338, witnessed by HARDIK Em.
[2019-04-21] MEDS ORDERED: Fleet's Mineral Oil Enema RECTAL SCH (13:00)
--- NOTE | 2019-04-21 13:18 | Infectious Diseases Prog Note ---
Assessment/Plan Assessment/Plan The patient is a 38-year-old male with: Fever, recurrent; SP Leukocytosis; SP Sepsis, sp -CXR: Basilar atelectatic changes and/or scarring. No acute process otherwise Emphysematous pyelonephritis with right kidney abscess -04/20 sp removal of drain -04/13 SP Successful aspiration and drainage of a right renal abscess. 8.5 [place] pigtail drainage catheter placed in good position; About 60 cc of slightly bloody and tannish purulent material was aspirated. -cx K. pna (R amp, bactrim; otherwise S) -u/a wbc 10-15, nit neg, leuk +1; ucx >100k C. tropicalis x2 Klebsiella Bacteremia - 04/12 BCx / K. pna (R amp, bactrim; otherwise S) ; 04/13 Bcx Neg Diabetes and now with DKA. Rule out biliary disease (elevated Tbili, ALP) -ABD US: Severe distention of the urinary bladder. Suggest Daniels catheter. Associated mild hydronephrosis. Hepatomegaly. There is no biliary ductal dilatation identified. Gallbladder is unremarkable. Thrombocytopenia (probably due to sepsis -HIV, hep panel neg CT 04/09/19 1. Emphysematous pyelonephritis in the right kidney, most prominently affecting the right lower pole, with a 7.6 x 7.4 x 5.3 cm air-fluid collection in the lower pole likely representing renal abscess extending to the perirenal fat. No definite fat plane between this collection and the adjacent right psoas musculature. Extensive adjacent inflammatory stranding. 2. Daniels catheter balloon and tip within the urinary bladder lumen. Mild diffuse urinary bladder wall thickening, suggestive of cystitis. . PLAN: 1. Continue Ceftriaxone #7(abx d #06/25) for K.pna UTI/bacteremia -upon discharge can be transition to PO Levaquin 750mg qd Continue PO Fluconazole #7 (abx d #03/15) for funguria, suspect it is a real pathogen on this case -04/15 SP Cefepime #2 -04/14 SP Micafungin #2, IV Vancomycin #5 -04/13 SP Meropenem #3 -04/11 SP IV Rocephin #4, Amikacin #3 2. f/u repeat Bc x2 3. Monitor CBC, BMP. 4. Monitor cultures, blood and urine. 5. Urology f/u 6. If recurrent fever, repeat Bcx x2 Thank you, Dr. Kemp, for allowing me to participate in the care of this patient. I will follow the patient with you. Subjective Allergies: Coded Allergies: No Known Allergies (Unverified , 04/07/19) Subjective afebrile no leukocytosis Objective Vital Signs Last 24 Hour Vital Signs Date Time Temp Pulse Resp B/P (MAP) Pulse Ox O2 Delivery O2 Flow Rate FiO2 04/21/19 12:00 98.0 99 17 118/76 (90) 98 04/21/19 10:07 98 Room Air 21 04/21/19 08:42 Room Air 04/21/19 08:00 99.0 101 19 113/73 (86) 97 04/21/19 04:00 98.6 88 20 119/72 (88) 99 04/21/19 00:00 98.4 84 20 121/75 (90) 98 04/20/19 21:00 Room Air 04/20/19 20:11 96 Room Air 21 04/20/19 20:00 98.8 85 19 119/77 (91) 99 04/20/19 16:00 98.0 82 20 120/77 (91) 98 Height (Feet): 5 Height (Inches): 6.00 Weight (Pounds): 140 Objective GEN: NAD HEENT: NCAT, MMM LUNGS: Coarse B/L HEART: RR, s1,s2 Abd TTP, SOft Laboratory Tests Test 04/21/19 04:53 White Blood Count 5.1 K/UL (4.8-10.8) Red Blood Count 2.91 M/UL (4.70-6.10) L Hemoglobin 8.8 G/DL (14.2-18.0) L Hematocrit 26.4 % (42.0-52.0) L Mean Corpuscular Volume 91 FL (80-99) Mean Corpuscular Hemoglobin 30.2 PG (27.0-31.0) Mean Corpuscular Hemoglobin Concent 33.2 G/DL (32.0-36.0) Red Cell Distribution Width 13.4 % (11.6-14.8) Platelet Count 704 K/UL (150-450) H Mean Platelet Volume 5.1 FL (6.5-10.1) L Neutrophils (%) (Auto) 47.6 % (45.0-75.0) Lymphocytes (%) (Auto) 39.1 % (20.0-45.0) Monocytes (%) (Auto) 8.8 % (1.0-10.0) Eosinophils (%) (Auto) 0.8 % (0.0-3.0) Basophils (%) (Auto) 3.6 % (0.0-2.0) H Sodium Level 140 MMOL/L (136-145) Potassium Level 4.0 MMOL/L (3.5-5.1) Chloride Level 103 MMOL/L (98-107) Carbon Dioxide Level 31 MMOL/L (21-32) Anion Gap 6 mmol/L (5-15) Blood Urea Nitrogen 8 mg/dL (7-18) Creatinine 0.6 MG/DL (0.55-1.30) Estimat Glomerular Filtration Rate > 60 mL/min (>60) Glucose Level 150 MG/DL (74-106) H Calcium Level 9.4 MG/DL (8.5-10.1) Current Medications Medications (Trade) Dose Ordered Sig/Jose Route PRN Reason Start Time Stop Time Status Last Admin Dose Admin Acetaminophen (Tylenol) 650 mg Q4H PRN ORAL Mild Pain/Temp > 100.5 04/15/19 00:30 05/08/19 00:29 04/19/19 06:18 Acetaminophen/ Hydrocodone Bitart ([place] 5/325) 1 tab Q6H PRN ORAL For Pain 04/19/19 07:00 04/26/19 06:59 04/21/19 08:22 Ceftriaxone Sodium 2 gm/ Sodium Chloride 110 ml @ 220 mls/hr DAILY IVPB 04/15/19 15:00 04/22/19 14:59 04/21/19 08:26 Dextrose (Dextrose 50%) 25 ml Q30M PRN IV Hypoglycemia 04/14/19 22:00 05/14/19 06:29 Dextrose (Dextrose 50%) 50 ml Q30M PRN IV Hypoglycemia 04/14/19 22:00 05/14/19 06:29 Docusate Sodium (Colace) 100 mg THREE TIMES A DAY ORAL 04/21/19 13:00 05/21/19 12:59 04/21/19 12:31 Fish Oil (Fish Oil) 1,000 mg BID ORAL 04/15/19 09:00 05/12/19 17:59 04/21/19 08:22 Fluconazole (Diflucan) 400 mg DAILY ORAL 04/15/19 13:30 04/22/19 13:29 04/21/19 08:24 Insulin Aspart (NovoLOG) BEFORE MEALS AND HS SUBQ 04/15/19 06:30 05/14/19 06:29 04/21/19 06:43 Insulin Aspart (NovoLOG) 8 units NOVOTIAC SUBQ 04/17/19 11:50 05/14/19 06:29 04/21/19 12:32 Insulin Detemir (Levemir) 24 units DAILY SUBQ 04/17/19 09:00 05/14/19 08:59 04/21/19 08:30 Lactulose (Cephulac) 30 gm THREE TIMES A DAY ORAL 04/21/19 13:00 05/21/19 12:59 04/21/19 12:31 Levofloxacin (Levaquin) 750 mg DAILY ORAL 04/20/19 00:00 04/29/19 23:59 No refill Levothyroxine Sodium (Synthroid) 50 mcg DAILY@0630 ORAL 04/15/19 06:30 05/13/19 06:29 04/21/19 05:57 Levothyroxine Sodium (Synthroid) 50 mcg DAILY@0630 ORAL 04/20/19 00:00 05/19/19 23:59 No refill Mineral Oil (Fleet's Mineral Oil Enema) 133 ml EVERY OTHER DAY RECTAL 04/21/19 13:00 05/23/19 08:59 Hanny August M.D. Apr 21, 2019 13:18
--- NOTE | 2019-04-21 13:37 | NUR ---
NURSE NOTES: Witnessed HARDIK Gonzalez administered 5 units Novolog at 1232. Novolog pen ran out. Pharmacy was contacted to bring another pen to administer remaining 3 units. At 1310 RN called Pharmacy again for Novolog pen. At 1338 HARDIK Gonzalez administered remaining 3 units of Novolog, TW RN witnessed for correct administration
--- NOTE | 2019-04-21 15:05 | NUR ---
NURSE NOTES: Pt complained of abd pain with no BM x 3 days. Pt was given laxatives and enema per Dr. Kemp, but he still couldn't have a BM. Notified Dr. Kemp again, RN will follow his new orders. Addendum: 04/21/19 at 1705 by Edith Mcmillan RN NURSE NOTES: Notified Dr. Kemp that pt doesn't want to be discharged until he has a BM.
[2019-04-21] MEDS ORDERED: Sennosides 8.6mg tab ORAL SCH (15:18)
--- NOTE | 2019-04-21 15:28 | Nephrology Progress Note ---
Assessment/Plan Problem List: (1) Pyelonephritis (2) DKA (diabetic ketoacidoses) (3) Electrolyte abnormality Assessment (1) DKA (diabetic ketoacidoses) (2) JOJO (acute kidney injury) (3) Pyelonephritis (4) Electrolyte imbalance (5) HypoThyroidism Plan DC on PO antibiotics when drain out tolerating PO- CRP lowering PO KCL Phos and Mag as needed fish oil synthroid Monitor lytes recheck UA per orders Subjective ROS Limited/Unobtainable: No Objective Objective Last 24 Hour Vital Signs Date Time Temp Pulse Resp B/P (MAP) Pulse Ox O2 Delivery O2 Flow Rate FiO2 04/21/19 12:00 98.0 99 17 118/76 (90) 98 04/21/19 10:07 98 Room Air 21 04/21/19 08:42 Room Air 04/21/19 08:00 99.0 101 19 113/73 (86) 97 04/21/19 04:00 98.6 88 20 119/72 (88) 99 04/21/19 00:00 98.4 84 20 121/75 (90) 98 04/20/19 21:00 Room Air 04/20/19 20:11 96 Room Air 21 04/20/19 20:00 98.8 85 19 119/77 (91) 99 04/20/19 16:00 98.0 82 20 120/77 (91) 98 Intake and Output 04/20/19 04/21/19 18:59 06:59 Intake Total 350 ml 480 ml Balance 350 ml 480 ml Intake Oral 240 ml 480 ml IV Total 110 ml Laboratory Tests 04/21/19 04:53: White Blood Count 5.1, Red Blood Count 2.91L, Hemoglobin 8.8L, Hematocrit 26.4L , Mean Corpuscular Volume 91, Mean Corpuscular Hemoglobin 30.2, Mean Corpuscular Hemoglobin Concent 33.2, Red Cell Distribution Width 13.4, Platelet Count 704H, Mean Platelet Volume 5.1L, Neutrophils (%) (Auto) 47.6, Lymphocytes (%) (Auto) 39.1, Monocytes (%) (Auto) 8.8, Eosinophils (%) (Auto) 0.8, Basophils (%) (Auto) 3.6H, Sodium Level 140, Potassium Level 4.0, Chloride Level 103, Carbon Dioxide Level 31, Anion Gap 6, Blood Urea Nitrogen 8, Creatinine 0.6, Estimat Glomerular Filtration Rate > 60, Glucose Level 150H, Calcium Level 9.4 Height (Feet): 5 Height (Inches): 6.00 Weight (Pounds): 140 General Appearance: no apparent distress Objective no change Russ Osborn MD Apr 21, 2019 15:28
[2019-04-21] MEDS ORDERED: Lactulose 20gm/30ml UDC ORAL SCH (15:30)
[2019-04-21 16:00] VITALS: BP 121/80
--- NOTE | 2019-04-21 17:30 | NUR ---
NURSE NOTES: RN notified Dr. Redmond that the pt is having abd pain with no BM x 3 days, and he doesn't want to go home until he has a BM. Dr. Redmond stated to keep the pt 1 more day and DC him tomorrow, 04/22/19.
--- NOTE | 2019-04-21 17:31 | Internal Med Progress Note ---
Subjective Date of Service: Apr 21, 2019 Physician Name Cody Redmond Attending Physician Isaías Spain MD Current Medications Medications (Trade) Dose Ordered Sig/Jose Route PRN Reason Start Time Stop Time Status Last Admin Dose Admin Acetaminophen (Tylenol) 650 mg Q4H PRN ORAL Mild Pain/Temp > 100.5 04/15/19 00:30 05/08/19 00:29 04/21/19 15:58 Acetaminophen/ Hydrocodone Bitart ([place] 5/325) 1 tab Q6H PRN ORAL For Pain 04/19/19 07:00 04/26/19 06:59 04/21/19 08:22 Ceftriaxone Sodium 2 gm/ Sodium Chloride 110 ml @ 220 mls/hr DAILY IVPB 04/15/19 15:00 04/22/19 14:59 04/21/19 08:26 Dextrose (Dextrose 50%) 25 ml Q30M PRN IV Hypoglycemia 04/14/19 22:00 05/14/19 06:29 Dextrose (Dextrose 50%) 50 ml Q30M PRN IV Hypoglycemia 04/14/19 22:00 05/14/19 06:29 Docusate Sodium (Colace) 100 mg THREE TIMES A DAY ORAL 04/21/19 13:00 05/21/19 12:59 04/21/19 17:08 Fish Oil (Fish Oil) 1,000 mg BID ORAL 04/15/19 09:00 05/12/19 17:59 04/21/19 17:08 Fluconazole (Diflucan) 400 mg DAILY ORAL 04/15/19 13:30 04/22/19 13:29 04/21/19 08:24 Insulin Aspart (NovoLOG) BEFORE MEALS AND HS SUBQ 04/15/19 06:30 05/14/19 06:29 04/21/19 17:13 Insulin Aspart (NovoLOG) 8 units NOVOTIAC SUBQ 04/17/19 11:50 05/14/19 06:29 04/21/19 17:13 Insulin Detemir (Levemir) 24 units DAILY SUBQ 04/17/19 09:00 05/14/19 08:59 04/21/19 08:30 Lactulose (Cephulac) 30 gm THREE TIMES A DAY ORAL 04/21/19 13:00 05/21/19 12:59 04/21/19 17:08 Levofloxacin (Levaquin) 750 mg DAILY ORAL 04/20/19 00:00 04/29/19 23:59 No refill Levothyroxine Sodium (Synthroid) 50 mcg DAILY@0630 ORAL 04/15/19 06:30 05/13/19 06:29 04/21/19 05:57 Levothyroxine Sodium (Synthroid) 50 mcg DAILY@0630 ORAL 04/20/19 00:00 05/19/19 23:59 No refill Mineral Oil (Fleet's Mineral Oil Enema) 133 ml EVERY OTHER DAY RECTAL 04/21/19 13:00 05/23/19 08:59 04/21/19 13:21 Allergies: Coded Allergies: No Known Allergies (Unverified , 04/07/19) ROS Limited/Unobtainable: No Constitutional: Reports: no symptoms HEENT: Reports: no symptoms Cardiovascular: Reports: no symptoms Respiratory: Reports: no symptoms Gastrointestinal/Abdominal: Reports: no symptoms Genitourinary: Reports: no symptoms Neurologic/Psychiatric: Reports: no symptoms Subjective 38 YO M admitted with altered mental status. Now DKA and right perinephric abscess. Cover for Int Med-Dr Spain. S/P CT guided aspiration and placement of cath 04/13/19 Objective Last Vital Signs Date Time Temp Pulse Resp B/P (MAP) Pulse Ox O2 Delivery O2 Flow Rate FiO2 04/21/19 12:00 98.0 99 17 118/76 (90) 98 04/21/19 10:07 Room Air 21 04/16/19 08:03 2.0 Laboratory Tests Test 04/21/19 04:53 White Blood Count 5.1 K/UL (4.8-10.8) Red Blood Count 2.91 M/UL (4.70-6.10) L Hemoglobin 8.8 G/DL (14.2-18.0) L Hematocrit 26.4 % (42.0-52.0) L Mean Corpuscular Volume 91 FL (80-99) Mean Corpuscular Hemoglobin 30.2 PG (27.0-31.0) Mean Corpuscular Hemoglobin Concent 33.2 G/DL (32.0-36.0) Red Cell Distribution Width 13.4 % (11.6-14.8) Platelet Count 704 K/UL (150-450) H Mean Platelet Volume 5.1 FL (6.5-10.1) L Neutrophils (%) (Auto) 47.6 % (45.0-75.0) Lymphocytes (%) (Auto) 39.1 % (20.0-45.0) Monocytes (%) (Auto) 8.8 % (1.0-10.0) Eosinophils (%) (Auto) 0.8 % (0.0-3.0) Basophils (%) (Auto) 3.6 % (0.0-2.0) H Sodium Level 140 MMOL/L (136-145) Potassium Level 4.0 MMOL/L (3.5-5.1) Chloride Level 103 MMOL/L (98-107) Carbon Dioxide Level 31 MMOL/L (21-32) Anion Gap 6 mmol/L (5-15) Blood Urea Nitrogen 8 mg/dL (7-18) Creatinine 0.6 MG/DL (0.55-1.30) Estimat Glomerular Filtration Rate > 60 mL/min (>60) Glucose Level 150 MG/DL (74-106) H Calcium Level 9.4 MG/DL (8.5-10.1) Intake and Output 04/20/19 04/21/19 19:00 07:00 Intake Total 350 ml 480 ml Balance 350 ml 480 ml Intake Oral 240 ml 480 ml IV Total 110 ml Objective General Appearance: WD/WN, no apparent distress, alert EENT: PERRL/EOMI, normal ENT inspection, TMs normal Neck: non-tender, normal alignment, supple, normal inspection Cardiovascular: normal peripheral pulses, normal rate, regular rhythm, no gallop/murmur, no JVD Respiratory/Chest: chest wall non-tender, lungs clear, normal breath sounds, no respiratory distress, no accessory muscle use Abdomen: normal bowel sounds, non tender, soft, no organomegaly, no mass Extremities: normal range of motion 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 Continue fluconazole D# 6/7per ID - Dr August (4) Renal failure (5) DKA (diabetic ketoacidoses) Assessment & Plan: Continue levemir and novolog insulin. See endocrinology note-Dr Hayes. (6) Right femoral fracture Assessment & Plan: suspected. See pelvic xray result. (7) Perinephric abscess Assessment & Plan: S/P Interventional radiology CT guided aspiration and placement of pigtail cath. Pigtail cath removed 04/20/19. Urology consult= Dr Ortiz. Culture=klebsiella Continue ceftriaxone D# 04/18 per ID (8) Sepsis Assessment & Plan: Klebsiella. Continue ceftriaxone per ID-Dr August Assessment/Plan Discharge held due to constipation-patient refused to leave until he has a BM Cody Redmond MD Apr 21, 2019 17:31
--- NOTE | 2019-04-21 19:31 | NUR ---
HAND-OFF: Report given to HARDIK Tabares.
--- NOTE | 2019-04-21 19:35 | NUR ---
NURSE NOTES: PT IS AWAKE, AAOX4, ON ROOM AIR, NO ACUTE DISTRESS NOTED. IV ON RIGHT FA 20G IS INTACT AND PATENT. OPTIFOAM ON LEFT HEEL IS INTACT AND DRY. DRESSING ON RIGHT FLANK IS INTACT, no drainage. BED IS LOCKED AND LOWest position, BED ALARM on, SIDE RAILS UPX2, AND CALL LIGHT WITHIN REACH. WILL CONTINUE to MONITOR.
[2019-04-21 20:00] VITALS: BP 114/77
--- NOTE | 2019-04-21 21:02 | NUR ---
NURSE NOTES: Pt reported he had a BM this evening and is feeling a little better abdominal pain is decreased, yet still has right flank pain.
[2019-04-22] VITALS: BP 117/74
[2019-04-22] MEDS: HYDROcodone/Acetamin 5/325 tab ORAL PRN ×2 (02:37→08:58)
[2019-04-22 04:00] VITALS: BP 113/68
[2019-04-22] MEDS: NovoLOG Insulin Flexpen SUBQ SCH ×2 (05:47→05:48)
[2019-04-22 06:39] LABS: HEMATOCRIT 23.6 % (42.0-52.0); HEMOGLOBIN 7.8 G/DL (14.2-18.0); MEAN CORPUSCULAR VOLUME 90 FL (80-99); PLATELET COUNT 595 K/UL (150-450); RED BLOOD COUNT 2.61 M/UL (4.70-6.10); RED CELL DISTRIBUTION WIDTH 13.5 % (11.6-14.8); WHITE BLOOD COUNT 6.7 K/UL (4.8-10.8)
--- NOTE | 2019-04-22 06:58 | General Progress Note ---
Assessment/Plan Problem List: (1) Acute metabolic encephalopathy ICD Codes: G93.41 - Metabolic encephalopathy SNOMED: 67169193, 784546817 (2) JOJO (acute kidney injury) ICD Codes: N17.9 - Acute kidney failure, unspecified SNOMED: 30536325, 2848849 (3) DKA (diabetic ketoacidoses) ICD Codes: E11.10 - Type 2 diabetes mellitus with ketoacidosis without coma SNOMED: 10738296, 414486093 (4) Renal failure ICD Codes: N19 - Unspecified kidney failure SNOMED: 47906426 (5) Pyelonephritis ICD Codes: N12 - Tubulo-interstitial nephritis, not specified as acute or chronic SNOMED: 05371411 Status: progressing Assessment/Plan: continue Levemir 24 units qam continue Novolog 8 units ac tid continue NISS ac / hs resistant scale Subjective Allergies: Coded Allergies: No Known Allergies (Unverified , 04/07/19) All Systems: reviewed and negative except above Subjective events noted Item Value Date Time Bedside Blood Glucose 152 mg/dl H 04/19/19 0623 Bedside Blood Glucose 186 mg/dl H 04/18/19 2119 Bedside Blood Glucose 139 mg/dl H 04/18/19 1744 Bedside Blood Glucose 128 mg/dl H 04/18/19 1200 Bedside Blood Glucose 194 mg/dl H 04/18/19 0849 Bedside Blood Glucose 194 mg/dl H 04/18/19 0610 Objective Last 24 Hour Vital Signs Date Time Temp Pulse Resp B/P (MAP) Pulse Ox O2 Delivery O2 Flow Rate FiO2 04/22/19 04:00 98.1 94 16 113/68 (83) 99 04/22/19 00:00 98.0 92 16 117/74 (88) 100 04/21/19 21:00 Room Air 04/21/19 20:00 98.3 95 16 114/77 (89) 100 04/21/19 16:00 97.8 84 18 121/80 (94) 97 04/21/19 12:00 98.0 99 17 118/76 (90) 98 04/21/19 10:07 98 Room Air 21 04/21/19 08:42 Room Air 04/21/19 08:00 99.0 101 19 113/73 (86) 97 Intake and Output 04/21/19 04/22/19 19:00 07:00 Intake Total 970 ml Balance 970 ml IV Total 110 ml Other 860 ml # Bowel Movements 1 Laboratory Tests 04/22/19 05:24: White Blood Count 6.7, Red Blood Count 2.61L, Hemoglobin 7.8L, Hematocrit 23.6L , Mean Corpuscular Volume 90, Mean Corpuscular Hemoglobin 29.9, Mean Corpuscular Hemoglobin Concent 33.1, Red Cell Distribution Width 13.5, Platelet Count 595H, Mean Platelet Volume 5.1L, Neutrophils (%) (Auto) , Lymphocytes (%) (Auto) , Monocytes (%) (Auto) , Eosinophils (%) (Auto) , Basophils (%) (Auto) , Neutrophils % (Manual) [Pending], Lymphocytes % (Manual) [Pending], Platelet Estimate [Pending], Platelet Morphology [Pending], Sodium Level [Pending], Potassium Level [Pending], Chloride Level [Pending], Carbon Dioxide Level [ Pending], Blood Urea Nitrogen [Pending], Creatinine [Pending], Estimat Glomerular Filtration Rate [Pending], Glucose Level [Pending], Calcium Level [ Pending] Height (Feet): 5 Height (Inches): 6.00 Weight (Pounds): 134 General Appearance: no apparent distress Neck: normal alignment Cardiovascular: normal rate Respiratory/Chest: chest wall non-tender Abdomen: normal bowel sounds Objective Item Value Date Time Bedside Blood Glucose 138 mg/dl H 04/22/19 0609 Bedside Blood Glucose 141 mg/dl H 04/21/19 2100 Bedside Blood Glucose 129 mg/dl H 04/21/19 1713 Bedside Blood Glucose 103 mg/dl 04/21/19 1232 Bedside Blood Glucose 130 mg/dl H 04/21/19 0830 Bedside Blood Glucose 171 mg/dl H 04/21/19 0644 Roland Hayes MD Apr 22, 2019 06:58
[2019-04-22 07:02] LABS: ANION GAP 7 mmol/L (5-15); BLOOD UREA NITROGEN 7 mg/dL (7-18); CARBON DIOXIDE 27 MMOL/L (21-32); CHLORIDE 107 MMOL/L (98-107); CREATININE 0.5 MG/DL (0.55-1.30); POTASSIUM 3.8 MMOL/L (3.5-5.1); SODIUM 141 MMOL/L (136-145)
--- NOTE | 2019-04-22 07:27 | NUR ---
HAND-OFF: Report given to HARDIK Pimentel.
--- NOTE | 2019-04-22 07:53 | NUR ---
NURSE NOTES: Patient is alert and oriented. Patient is on room air. No reports of discomfort at the moment. Call light is within reach. Will continue to monitor.
[2019-04-22 08:00] VITALS: BP 121/71
[2019-04-22] MEDS: Docusate 100mg cap ORAL SCH (08:42)
[2019-04-22] MEDS: cefTRIAXone 2 GM in NS 110 ML IVPB SCH (08:42)
[2019-04-22] MEDS: Fluconazole 100mg tab ORAL SCH (08:42)
[2019-04-22] MEDS: Lactulose 20gm/30ml UDC ORAL SCH (08:42)
[2019-04-22] MEDS: Levemir Flexpen SUBQ SCH (08:43)
--- NOTE | 2019-04-22 10:58 | Nephrology Progress Note ---
Assessment/Plan Problem List: (1) Pyelonephritis (2) DKA (diabetic ketoacidoses) (3) Electrolyte abnormality Assessment (1) DKA (diabetic ketoacidoses) (2) JOJO (acute kidney injury) (3) Pyelonephritis (4) Electrolyte imbalance (5) HypoThyroidism Plan DC on PO antibiotics when drain out tolerating PO- CRP lowering PO KCL Phos and Mag as needed fish oil synthroid Monitor lytes recheck UA per orders Subjective ROS Limited/Unobtainable: No Objective Objective Last 24 Hour Vital Signs Date Time Temp Pulse Resp B/P (MAP) Pulse Ox O2 Delivery O2 Flow Rate FiO2 04/22/19 08:15 Room Air 04/22/19 08:00 98.4 95 18 121/71 (88) 99 04/22/19 04:00 98.1 94 16 113/68 (83) 99 04/22/19 00:00 98.0 92 16 117/74 (88) 100 04/21/19 21:00 Room Air 04/21/19 20:00 98.3 95 16 114/77 (89) 100 04/21/19 16:00 97.8 84 18 121/80 (94) 97 04/21/19 12:00 98.0 99 17 118/76 (90) 98 Intake and Output 04/21/19 04/22/19 19:00 07:00 Intake Total 970 ml Balance 970 ml IV Total 110 ml Other 860 ml # Bowel Movements 1 Laboratory Tests 04/22/19 05:24: White Blood Count 6.7, Red Blood Count 2.61L, Hemoglobin 7.8L, Hematocrit 23.6L , Mean Corpuscular Volume 90, Mean Corpuscular Hemoglobin 29.9, Mean Corpuscular Hemoglobin Concent 33.1, Red Cell Distribution Width 13.5, Platelet Count 595H, Mean Platelet Volume 5.1L, Neutrophils (%) (Auto) , Lymphocytes (%) (Auto) , Monocytes (%) (Auto) , Eosinophils (%) (Auto) , Basophils (%) (Auto) , Differential Total Cells Counted 100, Neutrophils % (Manual) 69, Lymphocytes % ( Manual) 22, Monocytes % (Manual) 9, Eosinophils % (Manual) 0, Basophils % ( Manual) 0, Band Neutrophils 0, Platelet Estimate IncreasedH, Platelet Morphology Normal, Hypochromasia 1+, Sodium Level 141, Potassium Level 3.8, Chloride Level 107, Carbon Dioxide Level 27, Anion Gap 7, Blood Urea Nitrogen 7 , Creatinine 0.5L, Estimat Glomerular Filtration Rate > 60, Glucose Level 124H, Calcium Level 9.0 Height (Feet): 5 Height (Inches): 6.00 Weight (Pounds): 134 General Appearance: no apparent distress Objective no change Russ Osborn MD Apr 22, 2019 10:58
--- NOTE | 2019-04-22 11:52 | NUR ---
NURSE NOTES: Patient discharged home. Per patient he was going to friend Charbel's home. Per patient Charbel lives on [facility] and [address] [place] [address]. Taxi provided for patient and taxi voucher given to patient. Prescriptions filled at pharmacy. Medications given to patient. Patient educated on how to correctly monitor glucose. RN had patient use teach back and demonstration method for glucose monitoring. Information given on insulin and glucose monitoring. Resources for free clinics and shelters provided to patient. Patient signed Homeless checklist. Checklist placed in chart. IV removed. ID bracelet removed. Patient wheeled down to lobby via wheelchair and accompanied by RN.
[2019-04-23] MEDS ORDERED: Fleet's Mineral Oil Enema RECTAL SCH (09:00)
--- NOTE | 2019-04-24 17:23 | Discharge Summary ---
Discharge Summary Discharge Summary _ DATE OF ADMISSION: 04/07/2019 DATE OF DISCHARGE: 04/22/2019 ADMITTING MD: Dr. Isaías Spain DISCHARGED BY: Dr. Donny Kemp CONSULTANTS: Dr. Donny Osborn BRIEF HOSPITAL COURSE: The patient is a 38-year-old gentleman with past medical history significant for type 2 diabetes, presented to the emergency room after he was found on the street altered. Patient had been homeless he has history of insulin-dependent diabetes. EMS was called. Blood glucose level was high and patient was unable to answer simple questions. He was taken to ED. Shortly after initial evaluation he was noted to be altered and in DKA. Patient was admitted to the hospital with altered mental status, most likely secondary to toxic metabolic encephalopathy as a result of DKA. He was admitted to ICU. He was placed on insulin drip. Urinalyses showed 10- 15 WBCs with 1+ leukocytes and many bacteria. He was started on broad-spectrum Rocephin. The abdomen showed severely distended showing of urinary bladder suggestive of Daniels catheter associated mild hydronephrosis. Venous duplex was negative for acute DVT. He was given aggressive IV hydration. He was given potassium supplement. Pelvis showed emphysematous pyelonephritis in the right kidney with air-fluid collection in the lower pole representing renal abscess extending through the perirenal fat. Patient was febrile. IV Rocephin was switched to meropenem. Amikacin discontinued. He was continued on IV vancomycin. Perinephric abscess was unable to be drained by interventional radiology. Urologist was consulted. Patient had continued ongoing fever. He had elevated alkaline phosphatase. Abdominal ultrasound showed distention of the urinary bladder. Unremarkable for biliary disease. Hepatomegaly. Hydronephrosis. Meropenem was switched to cefepime. IV micafungin was added. He was continued on IV vancomycin. Hepatitis and HIV screen were negative. Urologist was consulted. CT scan was reviewed. Patient had a large abscess in the lower pole of the right kidney. Patient will need percutaneous drainage of the perinephric abscess. On 04/13/2019, patient underwent aspiration and drainage of right renal abscess, 8.5 Burmese pigtail drainage catheter was placed in good position. 60 cc of purulent material was aspirated. On 04/14/2019, insulin drip was discontinued. He was started on Levemir 20 units twice daily and NovoLog 10 units before meals 3 times daily. IV micafungin was changed to p.o. fluconazole for from dysuria. He was continued on cefepime pending gram-negative pillo blood culture. IV vancomycin was discontinued. Blood culture showed growth of Klebsiella. Cefepime was switched to ceftriaxone. He was continued on p.o. fluconazole. WBC was improving. Levemir and NovoLog were titrated. Body fluid showed growth of Klebsiella. Repeat blood culture did not isolate any growth. Pigtail drainage catheter was removed on 04/20/2019. Leukocytosis resolved. Fever resolved. Patient was cleared for discharge, to continue p.o. antibiotics. Prescriptions provided by [facility] pharmacy. Patient signed a homeless discharge. FINAL DIAGNOSES: Sepsis with Klebsiella bacteremia DKA Acute metabolic encephalopathy Right perinephric abscess status post aspiration and drainage of right renal abscess with a pigtail drainage catheter Pyelonephritis Acute kidney injury Hypothyroidism Elevated bilirubin and alkaline phosphatase Thrombocytopenia DISPOSITION: The treating physician has assessed that the patient is medically stable for discharge to an outstretched disposition. DISCHARGE MEDICATIONS: Refer to Discharge Medication List. I have been assigned to complete a discharge summary on this account, I was not involved with the patient's management.--SCARLET Clifford Jacqueline Robles NP Apr 24, 2019 17:23
== END 2019-04-22 11:25 | disposition home or self-care (01) | DRG 871 ==
LOC: EDBD 16:09 → EMR 17:42 → ICU 17:48 → EDBEDREQ 20:01 → 4E 04-14 21:25
PROC: 0T9030Z Drainage of Right Kidney with Drainage Device, Percutaneous Approach (ICD-10-PCS; principal; 2019-04-13)
DX: A41.89 Other specified sepsis (principal); E11.10 Type 2 diabetes mellitus with ketoacidosis without coma; N15.1 Renal and perinephric abscess; G93.41 Metabolic encephalopathy; N17.9 Acute kidney failure, unspecified; N12 Tubulo-interstitial nephritis, not specified as acute or chronic; N13.39 Other hydronephrosis; E86.0 Dehydration; E87.6 Hypokalemia; Z59.0 Homelessness; D69.6 Thrombocytopenia, unspecified; E03.9 Hypothyroidism, unspecified
CPT/HCPCS: 36415; 36600; 71045; 74177; 75989; 76700; 80048; 80053; 80061; 80150; 80202; 80329; 81001; 81003; 82009; 82248; 82270; 82378; 82607; 82746; 82803; 82962; 83036; 83540; 83550; 83615; 83735; 83880; 84100; 84443; 84550; 85007; 85025; 85044; 85060; 85610; 85651; 85730; 86140; 86703; 86705; 86709; 86803; 87040; 87070; 87081; 87086; 87181; 87205; 87340; 93005; 93970; 96361; 96365; 96367; 99291; J1815; J8499; S5561

== ENCOUNTER 2020-01-31 01:06 | Inpatient (IN) | payer MEDICAID ==
[~2020-01-31] VITALS: Ht 172.7 cm; Wt 71.2 kg
[~2020-01-31 01:06] MED LIST: LEVEMIR FL100 UNIT/1 SUBQ; LEVOFLOXACIN250 MG ORAL; NOVOLOG100 UNITS1 SUBQ; SYNTHROID50 MCG ORAL; UNOBMED
--- NOTE | 2020-01-31 01:09 | NUR ---
ED Nurse Note: Pt brought in by RA [facility] from [facility], [place], BS on scene was unable to be obtained, FD started IV and gave 150mls of 10% dextrose, PT has hx of DM,BS at triage 79, ERMD aware, pt reports taking 10 units of insuline this morning, admits to drinking today, denies drug use, pt is A&Ox3 at the moment. VSS, pt placed on monitor technician
[2020-01-31 01:21] VITALS: BP 128/92
[2020-01-31] MEDS ORDERED: D5NS 1,000 ML IV SCH (01:30)
[2020-01-31 01:45] LABS: HEMATOCRIT 35.7 % (42.0-52.0); HEMOGLOBIN 12.2 G/DL (14.2-18.0); MEAN CORPUSCULAR VOLUME 99 FL (80-99); PLATELET COUNT 93 K/UL (150-450); RED CELL DISTRIBUTION WIDTH 12.9 % (11.6-14.8); WHITE BLOOD COUNT 2.7 K/UL (4.8-10.8)
[2020-01-31 01:58] LABS: ANION GAP 7 mmol/L (5-15); BLOOD UREA NITROGEN 5 mg/dL (7-18); CALCIUM 8.6 MG/DL (8.5-10.1); CARBON DIOXIDE 30 MMOL/L (21-32); CHLORIDE 103 MMOL/L (98-107); CREATININE 0.8 MG/DL (0.55-1.30); SODIUM 140 MMOL/L (136-145)
[2020-01-31 02:02] LABS: ALANINE AMINOTRANSFERASE 171 U/L (12-78); ALBUMIN 3.9 G/DL (3.4-5.0); ALKALINE PHOSPHATASE 142 U/L (46-116); ASPARTATE AMINO TRANSFERASE 278 U/L (15-37); BILIRUBIN,TOTAL 0.6 MG/DL (0.2-1.0)
[2020-01-31] MEDS ORDERED: Morphine Sulfate 2mg/ml Inj(IV/IM USE ONLY) IVP PRN ×2 (02:30→20:27)
[2020-01-31] MEDS ORDERED: NS w/KCl 40mEq 1,000 ML IV SCH (02:30)
--- NOTE | 2020-01-31 02:35 | NUR ---
TRANSFER TO FLOOR: Patient transferred to as ordered, per DR leigh. Report given to . Belongings and medications given to . Family and or S/O informed of transfer.
--- NOTE | 2020-01-31 02:40 | NUR ---
NURSE NOTES: Pt. received from HARDIK Lipscomb. Pt. AAOx3, drowsy and slow to answer, breathing even and unlabored on room air, no complaints of pain and no indications of respiratory distress. VS BP 157/92, HR 52, RR 16. IV noted right AC 18g intact and patent. Belongings list checked and verified against list. Pt. oriented to room and use of call light for assistance, pt. acknowledged and verbalized understanding. Bed low and locked, side rails x2 up, bed alarm active, and call light in reach.
--- NOTE | 2020-01-31 02:50 | NUR ---
NURSE NOTES: Message left for Dr. Cintron requesting admission orders, awaiting return call.
--- NOTE | 2020-01-31 02:50 | Emergency Room Report ---
History of Present Illness General Chief Complaint: Altered Mental Status Source: Patient Present Illness HPI 39-year-old male presents the ED with altered level of consciousness. Found on street. Accu-Chek too low to read. Given glucose. patient more awake. Admits to diabetes. States he takes insulin. Admits to alcohol use. Denies drug use. Denies abdominal pain. Denies nausea or vomiting. Denies fevers or chills. Allergies: Coded Allergies: No Known Allergies (Unverified , 04/07/19) COVID-19 Screening Contact w/high risk pt: No Experienced COVID-19 symptoms?: No COVID-19 Testing performed VICE INVESTIGATOR: No Patient History Past Medical History: DM Past Surgical History: none Pertinent Family History: none Social History: Reports: alcohol use; Denies: smoking, drug use Immunizations: UTD Reviewed Nursing Documentation: PMH: Agreed; PSxH: Agreed Nursing Documentation-PMH Past Medical History: No History, Except For Hx Diabetes: Yes Review of Systems All Other Systems: negative except mentioned in HPI Physical Exam Vital Signs Date Time Temp Pulse Resp B/P (MAP) Pulse Ox O2 Delivery O2 Flow Rate FiO2 01/31/20 01:04 98.2 66 18 128/92 (104) 98 Room Air Sp02 EP Interpretation: reviewed, normal General Appearance: no apparent distress, alert, GCS 15, non-toxic Head: normocephalic, atraumatic Eyes: bilateral eye normal inspection, bilateral eye PERRL ENT: hearing grossly normal, normal pharynx, no angioedema, normal voice Neck: full range of motion, supple/symm/no masses Respiratory: chest non-tender, lungs clear, normal breath sounds, speaking full sentences Cardiovascular #1: regular rate, rhythm, no edema Cardiovascular #2: 2+ carotid (R), 2+ carotid (L), 2+ radial (R), 2+ radial (L) , 2+ dorsalis pedis (R), 2+ dorsalis pedis (L) Gastrointestinal: normal bowel sounds, non tender, soft, non-distended, no guarding, no rebound Rectal: deferred Genitourinary: normal inspection, no CVA tenderness Musculoskeletal: back normal, normal range of motion, gait/station normal, non- tender Neurologic: motor strength/tone normal, sensory intact, responsive, other - intoxicated Psychiatric: other - intoxicated Reflexes: 3+ bicep (R), 3+ bicep (L), 3+ tricep (R), 3+ tricep (L), 3+ knee (R) , 3+ knee (L) Skin: other - see nursing notes Lymphatic: no adenopathy Medical Decision Making Diagnostic Impression: Primary Impression: Hypoglycemia Additional Impression: Alcohol intoxication Qualified Codes: F10.920 - Alcohol use, unspecified with intoxication, uncomplicated ER Course Hospital Course 39-year-old male presenting to ED with generalized weakness, low FS in field Differential diagnoses include: dehyration, sepsis, hypoglycemia Clinical course Patient placed on stretcher. On health care / medical job titles. After initial history and physical I ordered labs, D5 fluids Labs-glucose 152, K 3.0, leukopenia, hb/hct stable, ETOH 282 it is possible that patient can again become hypoglycemic. Patient will require admission. Given potassium. D5 fluids continued. Case discussed with Dr. Cintron and he agreed to accept the patient to his service for further care and support i. I feel this is a highly complex case requiring extensive working including EKG/Rhythm strip, Xray/CT/US, Blood/urine lab work, repeat exams while in ED, and administration of strong opiates/narcotics for pain control, admission to hospital or close patient follow up. diagnosis - hypoglycemia, alcohol intoxication admitted to floor in serious condition Laboratory Tests Test 01/31/20 01:30 White Blood Count 2.7 K/UL (4.8-10.8) L Red Blood Count 3.60 M/UL (4.70-6.10) L Hemoglobin 12.2 G/DL (14.2-18.0) L Hematocrit 35.7 % (42.0-52.0) L Mean Corpuscular Volume 99 FL (80-99) Mean Corpuscular Hemoglobin 33.9 PG (27.0-31.0) H Mean Corpuscular Hemoglobin Concent 34.2 G/DL (32.0-36.0) Red Cell Distribution Width 12.9 % (11.6-14.8) Platelet Count 93 K/UL (150-450) L Mean Platelet Volume 6.6 FL (6.5-10.1) Neutrophils (%) (Auto) % (45.0-75.0) Lymphocytes (%) (Auto) % (20.0-45.0) Monocytes (%) (Auto) % (1.0-10.0) Eosinophils (%) (Auto) % (0.0-3.0) Basophils (%) (Auto) % (0.0-2.0) Sodium Level 140 MMOL/L (136-145) Potassium Level 3.0 MMOL/L (3.5-5.1) L Chloride Level 103 MMOL/L (98-107) Carbon Dioxide Level 30 MMOL/L (21-32) Anion Gap 7 mmol/L (5-15) Blood Urea Nitrogen 5 mg/dL (7-18) L Creatinine 0.8 MG/DL (0.55-1.30) Estimat Glomerular Filtration Rate > 60 mL/min (>60) Glucose Level 152 MG/DL (74-106) H Calcium Level 8.6 MG/DL (8.5-10.1) Total Bilirubin 0.6 MG/DL (0.2-1.0) Aspartate Amino Transf (AST/SGOT) 278 U/L (15-37) H Alanine Aminotransferase (ALT/SGPT) 171 U/L (12-78) H Alkaline Phosphatase 142 U/L (46-116) H Total Protein 7.7 G/DL (6.4-8.2) Albumin 3.9 G/DL (3.4-5.0) Globulin 3.8 g/dL Albumin/Globulin Ratio 1.0 (1.0-2.7) Salicylates Level < 0.2 ug/mL (2.8-20) L Acetaminophen Level < 2 MCG/ML (10-30) L Serum Alcohol 282 mg/dL Last Vital Signs Date Time Temp Pulse Resp B/P (MAP) Pulse Ox O2 Delivery O2 Flow Rate FiO2 01/31/20 02:35 98.1 68 16 117/90 98 Room Air Status: improved Disposition: ADMITTED INPATIENT Condition: Serious Referrals: NOT CHOSEN IPA/,REFERRING (PCP) Jesus Uriarte MD Jan 31, 2020 02:50
[2020-01-31 04:00] VITALS: BP 160/92
[2020-01-31] MEDS ORDERED: LORazepam 1mg tab ORAL PRN (05:45)
[2020-01-31] MEDS ORDERED: D5 1/2NS 1,000 ML IV SCH (05:45)
--- NOTE | 2020-01-31 06:32 | NUR ---
NURSE NOTES: Admission orders received from Dr. Cintron, Dr. Hayes called as consult. Spoke with Dr. Hayes regarding pt. insulin sliding scale, Dr. Hayes will enter in orders.
--- NOTE | 2020-01-31 07:35 | NUR ---
NURSE NOTES: RECEIVED PATIENT A/A/OX4. IN BED CALM AND COMFORTABLE. PIV INTACT AND PATENT. IVF INFUSING WELL. HOB ELEVATED FOR ASPIRATION PRECAUTIONS. SIDERAILS ARE UPX3. BED IS IN THE LOWEST POSITION. BRAKES ENGAGED AND ALARM ON @ ALL TIMES. SENT URINE SAMPLE FOR DRUG SCREEN TO THE LAB. NPO PER MD ORDERED. DENIES OF PAIN/DISCOMFORT NOTED. WILL CONT TO MONITOR.
[2020-01-31] MEDS: NovoLOG Insulin Flexpen SUBQ SCH ×7 (07:45→21:00)
--- NOTE | 2020-01-31 07:45 | NUR ---
HAND-OFF: Report given to BALBINA Willis. Endorsed pt. blood sugar 66 and to follow up with primary MD.
[2020-01-31 08:00] VITALS: BP 135/95
--- NOTE | 2020-01-31 08:00 | Consultation ---
DATE OF CONSULTATION: 01/31/2020 ENDOCRINOLOGY CONSULTATION CONSULTING PHYSICIAN: Roland Hayes MD. REFERRING PHYSICIAN: Paresh Cintron DO. REASON FOR CONSULTATION: Diabetes management. HISTORY OF PRESENT ILLNESS: Patient is a 39-year-old male with history of insulin-dependent diabetes, on basal bolus regimen as an outpatient was brought to the hospital with altered level of consciousness. He was found on the street. Accu-Chek was too low to read. He was given glucose. He became more awake and presented to the emergency room. The patient does have alcohol intoxication and admitted to the floor for observation and treatment. PAST MEDICAL HISTORY: Insulin-dependent diabetes. PAST SURGICAL HISTORY: None. FAMILY HISTORY: Noncontributory. SOCIAL HISTORY: Alcoholic. No smoking. No drug use. REVIEW OF SYSTEMS: Difficult to obtain. The patient is drowsy. LABORATORY DATA: Sodium 140, potassium 3, chloride 102, bicarb 30, BUN 5, creatinine 0.8, glucose of 152. Tox screen is positive for serum alcohol level of 282 milligram/deciliter. WBC 2.7, hemoglobin 12.2, hematocrit 35.7, platelets of 993. PHYSICAL EXAMINATION: GENERAL: Somnolent. VITAL SIGNS: Blood pressure 160/92, heart rate 60, respiratory rate of 20, temperature of 96. HEENT: Pupils are equal and reactive to light. NECK: No JVD. HEART: Regular. LUNGS: Clear. ABDOMEN: Positive bowel sounds. EXTREMITIES: No clubbing, cyanosis, or edema. DIAGNOSES: 1. Hypoglycemia. 2. Alcohol intoxication. 3. Insulin-dependent diabetes. PLAN: 1. Start Levemir 12 units daily. 2. Start NovoLog 4 units daily. 3. NovoLog sliding scale before meals and at bedtime. 4. Hypoglycemia protocol is in order. 5. Check hemoglobin A1c. 6. Further adjustment according to the blood glucose values. Thank you, Dr. Cintron, for the courtesy of this consultation. Roland Hayes M.D. DR: HARDIK/SAMIR JOB#: [id number] CC:
--- NOTE | 2020-01-31 08:25 | General Progress Note ---
Assessment/Plan Problem List: (1) Elevated LFTs ICD Codes: R79.89 - Other specified abnormal findings of blood chemistry SNOMED: 099142481, 704756949 (2) Temporary low platelet count ICD Codes: D69.6 - Thrombocytopenia, unspecified SNOMED: 413934467 (3) Hypertension ICD Codes: I10 - Essential (primary) hypertension SNOMED: 07192635 (4) Hypoglycemia ICD Codes: E16.2 - Hypoglycemia, unspecified SNOMED: 258575436 (5) Alcohol intoxication ICD Codes: F10.929 - Alcohol use, unspecified with intoxication, unspecified SNOMED: 60727361 Qualifiers: Qualified Codes: F10.920 - Alcohol use, unspecified with intoxication, uncomplicated Assessment/Plan: thiamine folate start diet DM control repeat labs abd us Subjective Allergies: Coded Allergies: No Known Allergies (Unverified , 04/07/19) Objective Last 24 Hour Vital Signs Date Time Temp Pulse Resp B/P (MAP) Pulse Ox O2 Delivery O2 Flow Rate FiO2 01/31/20 05:55 160/92 01/31/20 04:00 96.0 60 20 160/92 (114) 100 01/31/20 03:05 Room Air 01/31/20 02:35 98.1 68 16 117/90 98 Room Air 01/31/20 01:21 66 18 Room Air 01/31/20 01:21 98.2 66 18 128/92 98 Room Air 01/31/20 01:04 98.2 66 18 128/92 (104) 98 Room Air Intake and Output 01/30/20 01/31/20 19:00 07:00 Output Total 900 ml Balance -900 ml Output Urine Total 900 ml # Voids 1 Laboratory Tests 01/31/20 01:30: White Blood Count 2.7L, Red Blood Count 3.60L, Hemoglobin 12.2L, Hematocrit 35.7L, Mean Corpuscular Volume 99, Mean Corpuscular Hemoglobin 33.9H, Mean Corpuscular Hemoglobin Concent 34.2, Red Cell Distribution Width 12.9, Platelet Count 93L, Mean Platelet Volume 6.6, Neutrophils (%) (Auto) , Lymphocytes (%) ( Auto) , Monocytes (%) (Auto) , Eosinophils (%) (Auto) , Basophils (%) (Auto) , Sodium Level 140, Potassium Level 3.0L, Chloride Level 103, Carbon Dioxide Level 30, Anion Gap 7, Blood Urea Nitrogen 5L, Creatinine 0.8, Estimat Glomerular Filtration Rate > 60, Glucose Level 152H, Calcium Level 8.6, Total Bilirubin 0.6, Aspartate Amino Transf (AST/SGOT) 278H, Alanine Aminotransferase (ALT/SGPT) 171H, Alkaline Phosphatase 142H, Total Protein 7.7, Albumin 3.9, Globulin 3.8, Albumin/Globulin Ratio 1.0, Salicylates Level < 0.2L, Acetaminophen Level < 2L, Serum Alcohol 282 01/31/20 07:49: Urine Opiates Screen [Pending], Urine Barbiturates Screen [Pending], Phencyclidine (PCP) Screen [Pending], Urine Amphetamines Screen [Pending], Urine Benzodiazepines Screen [Pending], Urine Cocaine Screen [Pending], Urine Marijuana (THC) Screen [Pending] Height (Feet): 5 Height (Inches): 8.00 Weight (Pounds): 166 General Appearance: alert EENT: PERRL/EOMI Neck: supple Cardiovascular: normal rate Respiratory/Chest: lungs clear Abdomen: normal bowel sounds, non tender, soft Extremities: non-tender Amador Pires MD Jan 31, 2020 08:25
[2020-01-31] MEDS: Levemir Flexpen SUBQ SCH (08:56)
[2020-01-31] MEDS: Thiamine 100mg tab ORAL SCH (08:57)
--- NOTE | 2020-01-31 09:23 | NUR ---
NURSE NOTES: OMARI HEWITT TECH @ BEDSIDE FOR [facility] ABDOMEN PROCEDURE. OBTAINED NEW ORDER FOR K+3.[address] BLACK. WILL CONT THE PLAN OF CARE.
--- NOTE | 2020-01-31 10:18 | Diagnostic Imaging Report ---
EXAM: ULTRASOUND US ABD Complete CLINICAL HISTORY: Reason For Exam: ABD PAIN. COMPARISON: CT abdomen pelvis 04/09/2019 TECHNIQUE: Ultrasound examination of the abdomen includes grayscale images, and color and spectral doppler analysis. FINDINGS: The liver is echogenic and fatty. No ductal dilatation noted. Spleen is within normal limits. The gallbladder is without sludge or stone. Common bile duct measures 4 mm. The pancreas is unremarkable to the extent visualized. The kidneys are normal in size, shape and axis. Aorta and cava are within normal limits. There is trace amount of free fluid. IMPRESSION: FATTY LIVER. TRACE AMOUNT OF FREE FLUID.
--- NOTE | 2020-01-31 10:47 | Cardiac Electrophysiology PN ---
Subjective Subjective [id number] Objective Last 24 Hour Vital Signs Date Time Temp Pulse Resp B/P (MAP) Pulse Ox O2 Delivery O2 Flow Rate FiO2 01/31/20 08:00 97.9 83 18 135/95 (108) 98 01/31/20 05:55 160/92 01/31/20 04:00 96.0 60 20 160/92 (114) 100 01/31/20 03:05 Room Air 01/31/20 02:35 98.1 68 16 117/90 98 Room Air 01/31/20 01:21 66 18 Room Air 01/31/20 01:21 98.2 66 18 128/92 98 Room Air 01/31/20 01:04 98.2 66 18 128/92 (104) 98 Room Air Intake and Output 01/30/20 01/31/20 19:00 07:00 Output Total 900 ml Balance -900 ml Output Urine Total 900 ml # Voids 1 Laboratory Tests Test 01/31/20 01:30 01/31/20 07:49 White Blood Count 2.7 K/UL (4.8-10.8) L Red Blood Count 3.60 M/UL (4.70-6.10) L Hemoglobin 12.2 G/DL (14.2-18.0) L Hematocrit 35.7 % (42.0-52.0) L Mean Corpuscular Volume 99 FL (80-99) Mean Corpuscular Hemoglobin 33.9 PG (27.0-31.0) H Mean Corpuscular Hemoglobin Concent 34.2 G/DL (32.0-36.0) Red Cell Distribution Width 12.9 % (11.6-14.8) Platelet Count 93 K/UL (150-450) L Mean Platelet Volume 6.6 FL (6.5-10.1) Neutrophils (%) (Auto) % (45.0-75.0) Lymphocytes (%) (Auto) % (20.0-45.0) Monocytes (%) (Auto) % (1.0-10.0) Eosinophils (%) (Auto) % (0.0-3.0) Basophils (%) (Auto) % (0.0-2.0) Sodium Level 140 MMOL/L (136-145) Potassium Level 3.0 MMOL/L (3.5-5.1) L Chloride Level 103 MMOL/L (98-107) Carbon Dioxide Level 30 MMOL/L (21-32) Anion Gap 7 mmol/L (5-15) Blood Urea Nitrogen 5 mg/dL (7-18) L Creatinine 0.8 MG/DL (0.55-1.30) Estimat Glomerular Filtration Rate > 60 mL/min (>60) Glucose Level 152 MG/DL (74-106) H Calcium Level 8.6 MG/DL (8.5-10.1) Total Bilirubin 0.6 MG/DL (0.2-1.0) Aspartate Amino Transf (AST/SGOT) 278 U/L (15-37) H Alanine Aminotransferase (ALT/SGPT) 171 U/L (12-78) H Alkaline Phosphatase 142 U/L (46-116) H Total Protein 7.7 G/DL (6.4-8.2) Albumin 3.9 G/DL (3.4-5.0) Globulin 3.8 g/dL Albumin/Globulin Ratio 1.0 (1.0-2.7) Salicylates Level < 0.2 ug/mL (2.8-20) L Acetaminophen Level < 2 MCG/ML (10-30) L Serum Alcohol 282 mg/dL Urine Opiates Screen Negative (NEGATIVE) Urine Barbiturates Screen Negative (NEGATIVE) Phencyclidine (PCP) Screen Negative (NEGATIVE) Urine Amphetamines Screen Positive (NEGATIVE) H Urine Benzodiazepines Screen Positive (NEGATIVE) H Urine Cocaine Screen Negative (NEGATIVE) Urine Marijuana (THC) Screen Positive (NEGATIVE) H Jeffrey Roberts MD Jan 31, 2020 10:47
--- NOTE | 2020-01-31 10:51 | NUR ---
NURSE NOTES: OMARI ABDOMEN DONE AND PATIENT ABLE TO EAT AND CONSUMED 100% BREAKFAST. WILL CONT TO MONITOR.
--- NOTE | 2020-01-31 10:53 | Consultation ---
Consult Note Consult Note asked to eval for electrolyte management data reviewed examined discussed with RN 39-year-old male presents the ED with altered level of consciousness. Found on street. Accu-Chek too low to read. Given glucose. patient more awake. Admits to diabetes. States he takes insulin. Admits to alcohol use. Denies drug use. Denies abdominal pain. Denies nausea or vomiting. Denies fevers or chills. Allergies: No Known Allergies (Unverified , 04/07/19) 84-year-old due to poorly need Past Medical History: DM Past Medical History: No History, Except For Hx Diabetes: Yes Vital Signs Date Time Temp Pulse Resp B/P (MAP) Pulse Ox O2 Delivery O2 Flow Rate FiO2 01/31/20 01:04 98.2 66 18 128/92 (104) 98 Room Air Sp02 EP Interpretation: reviewed, normal Assessment/Plan Polysubstance abuse. Urine tox screen Electrolyte imbalance Hypothyroidism by history Diabetes mellitus presents with hypoglycemia Hydrate Supplement to correct electrolyte imbalance Per consultants Russ Osborn MD Jan 31, 2020 10:53
[2020-01-31 12:07] VITALS: BP 151/95
--- NOTE | 2020-01-31 12:30 | Consultation ---
DATE OF CONSULTATION: 01/31/2020 CARDIOLOGY CONSULTATION CONSULTING PHYSICIAN: Jeffrey Roberts MD. REFERRING PHYSICIAN: Paresh Cintron DO. REASON FOR CONSULTATION: Loss of consciousness and hypertension in a patient with diabetes. HISTORY OF PRESENT ILLNESS: The patient is a 39-year-old gentleman who was brought to the emergency room for altered level of consciousness. The patient was found on the street. His Accu-Chek was too low to read. The patient received glucose and he became more awake. The patient admits that he has diabetes and takes insulin and he also admits to alcohol use. He denies any drug use. The patient was admitted and a Cardiology consultation was obtained for further evaluation. At the time of my evaluation, the patient is alert, and denies any chest pain or shortness of breath. The patient denies any prior myocardial infarction, coronary artery disease, or congestive heart failure. REVIEW OF SYSTEMS: Negative other than what was mentioned in the history of present illness. PAST MEDICAL HISTORY: As mentioned above. FAMILY HISTORY: Noncontributory. SOCIAL HISTORY: He is homeless. Does not smoke, but drinks alcohol. MEDICATIONS: Per reconciliation includes insulin. PHYSICAL EXAMINATION: VITAL SIGNS: Show blood pressure of 135/95, was as high as 160/92; pulse is 83; respirations 18; and temperature 97.9. HEAD AND NECK: Showed no JVD or carotid bruits. LUNGS: Clear. CARDIOVASCULAR: Shows regular S1 and S2 with no gallop or murmur. ABDOMEN: Soft. EXTREMITIES: No pitting edema. LABORATORY AND DIAGNOSTIC DATA: His labs show white count 2.7, hematocrit 12.2, hematocrit 35.7, and platelet count of 93,000. Sodium 140, potassium 3.0, BUN of 5, creatinine 0.8, and glucose of 152. AST 278, ALT 171, 142. His urine tox screen is positive for amphetamine, benzodiazepine, and marijuana. ASSESSMENT AND PLAN: 1. Accelerated hypertension. This patient with polysubstance abuse with amphetamine, benzodiazepine, marijuana, and alcohol. In view of his diabetes, I will add lisinopril 5 mg daily. 2. Severe hypokalemia. Potassium was 3, which was replaced. 3. Diabetes with hypoglycemia. The patient is on insulin. Further evaluation by Dr. Hayes. 4. Alcohol use, on thiamine and folate. 5. Polysubstance abuse. 6. EKG and echocardiogram is pending as well. Thank you very much for allowing me to participate in the care of this patient. Please do not hesitate to contact me for any questions regarding my evaluation. Jeffrey Roberts M.D. DR: DAVIS JOB#: [id number] CC:
[2020-01-31] MEDS: D5 1/2NS w/KCl 40meq 1000ml 1,000 ML IV SCH (12:34)
--- NOTE | 2020-01-31 12:52 | Consultation ---
History of Present Illness General Chief Complaint: Altered Mental Status Present Illness Allergies: Coded Allergies: No Known Allergies (Unverified , 04/07/19) Medication History Scheduled Insulin Aspart (Novolog Flexpen), 8 UNITS SUBQ NOVOTIAC Insulin Detemir (Levemir Flexpen), 24 UNITS SUBQ DAILY Levothyroxine Sodium (Synthroid), 50 MCG ORAL DAILY@0630 Miscellaneous Medications Unable to Obtain Medications (Unable To Obtain Meds), (Reported) Discontinued Medications Levofloxacin (Levofloxacin*), 750 MG ORAL DAILY Discontinued Reason: Therapy completed Patient History Healthcare decision maker Resuscitation status Advanced Directive on File Physical Exam Last 24 Hour Vital Signs Date Time Temp Pulse Resp B/P (MAP) Pulse Ox O2 Delivery O2 Flow Rate FiO2 01/31/20 12:07 97.9 77 19 151/95 (113) 97 01/31/20 08:00 97.9 83 18 135/95 (108) 98 01/31/20 05:55 160/92 01/31/20 04:00 96.0 60 20 160/92 (114) 100 01/31/20 03:05 Room Air 01/31/20 02:35 98.1 68 16 117/90 98 Room Air 01/31/20 01:21 66 18 Room Air 01/31/20 01:21 98.2 66 18 128/92 98 Room Air 01/31/20 01:04 98.2 66 18 128/92 (104) 98 Room Air Intake and Output 01/30/20 01/31/20 19:00 07:00 Output Total 900 ml Balance -900 ml Output Urine Total 900 ml # Voids 1 Laboratory Tests Test 01/31/20 01:30 01/31/20 07:49 White Blood Count 2.7 K/UL (4.8-10.8) L Red Blood Count 3.60 M/UL (4.70-6.10) L Hemoglobin 12.2 G/DL (14.2-18.0) L Hematocrit 35.7 % (42.0-52.0) L Mean Corpuscular Volume 99 FL (80-99) Mean Corpuscular Hemoglobin 33.9 PG (27.0-31.0) H Mean Corpuscular Hemoglobin Concent 34.2 G/DL (32.0-36.0) Red Cell Distribution Width 12.9 % (11.6-14.8) Platelet Count 93 K/UL (150-450) L Mean Platelet Volume 6.6 FL (6.5-10.1) Neutrophils (%) (Auto) % (45.0-75.0) Lymphocytes (%) (Auto) % (20.0-45.0) Monocytes (%) (Auto) % (1.0-10.0) Eosinophils (%) (Auto) % (0.0-3.0) Basophils (%) (Auto) % (0.0-2.0) Sodium Level 140 MMOL/L (136-145) Potassium Level 3.0 MMOL/L (3.5-5.1) L Chloride Level 103 MMOL/L (98-107) Carbon Dioxide Level 30 MMOL/L (21-32) Anion Gap 7 mmol/L (5-15) Blood Urea Nitrogen 5 mg/dL (7-18) L Creatinine 0.8 MG/DL (0.55-1.30) Estimat Glomerular Filtration Rate > 60 mL/min (>60) Glucose Level 152 MG/DL (74-106) H Calcium Level 8.6 MG/DL (8.5-10.1) Total Bilirubin 0.6 MG/DL (0.2-1.0) Aspartate Amino Transf (AST/SGOT) 278 U/L (15-37) H Alanine Aminotransferase (ALT/SGPT) 171 U/L (12-78) H Alkaline Phosphatase 142 U/L (46-116) H Total Protein 7.7 G/DL (6.4-8.2) Albumin 3.9 G/DL (3.4-5.0) Globulin 3.8 g/dL Albumin/Globulin Ratio 1.0 (1.0-2.7) Salicylates Level < 0.2 ug/mL (2.8-20) L Acetaminophen Level < 2 MCG/ML (10-30) L Serum Alcohol 282 mg/dL Urine Opiates Screen Negative (NEGATIVE) Urine Barbiturates Screen Negative (NEGATIVE) Phencyclidine (PCP) Screen Negative (NEGATIVE) Urine Amphetamines Screen Positive (NEGATIVE) H Urine Benzodiazepines Screen Positive (NEGATIVE) H Urine Cocaine Screen Negative (NEGATIVE) Urine Marijuana (THC) Screen Positive (NEGATIVE) H Height (Feet): 5 Height (Inches): 8.00 Weight (Pounds): 166 Medications Current Medications Medications (Trade) Dose Ordered Sig/Jose Route PRN Reason Start Time Stop Time Status Last Admin Dose Admin Clonidine HCl (Catapres Tab) 0.1 mg EVERY 8 HOURS ORAL 01/31/20 14:00 04/30/20 05:59 Dextrose (Dextrose 50%) 25 ml Q30M PRN IV Hypoglycemia 01/31/20 06:45 04/30/20 06:44 Dextrose (Dextrose 50%) 50 ml Q30M PRN IV Hypoglycemia 01/31/20 06:45 04/30/20 06:44 Dextrose/ Electrolytes 1,000 ml @ 75 mls/hr [id number] IV 01/31/20 13:00 03/01/20 12:59 01/31/20 12:34 Famotidine (Pepcid) 20 mg BID ORAL 01/31/20 18:00 04/30/20 17:59 Folic Acid (Folate) 1 mg DAILY ORAL 01/31/20 09:00 03/01/20 08:59 01/31/20 08:58 Heparin Sodium (Porcine) (Heparin 5000 units/ml) 5,000 units EVERY 8 HOURS SUBQ 01/31/20 14:00 03/16/20 13:59 Insulin Aspart (NovoLOG) BEFORE MEALS AND HS SUBQ 01/31/20 07:00 04/30/20 06:59 Insulin Aspart (NovoLOG) 4 units NOVOTIAC SUBQ 01/31/20 06:45 04/30/20 06:44 Insulin Detemir (Levemir) 12 units DAILY SUBQ 01/31/20 09:00 04/30/20 08:59 Lisinopril (ZestriL) 10 mg DAILY ORAL 02/01/20 09:00 03/02/20 08:59 Lorazepam (Ativan) 1 mg TID PRN ORAL Agitation 01/31/20 05:45 02/07/20 05:44 Ondansetron HCl (Zofran) 4 mg Q4H PRN IVP Nausea & Vomiting 01/31/20 05:45 03/01/20 05:44 Potassium Chloride (K-Dur) 40 meq DAILY ORAL 02/01/20 09:00 04/30/20 09:29 Thiamine HCl (Vitamin B1) 100 mg DAILY ORAL 01/31/20 09:00 03/01/20 08:59 01/31/20 08:57 Assessment/Plan Assessment/Plan: Hematology Consultation REQ MD Paresh Cintron C:Pancytopenia DOS 01/31/2020 ID 39-year-old male presents the ED with altered level of consciousness. Found on street. Accu-Chek too low to read. Given glucose. patient more awake. Admits to diabetes. States he takes insulin. Admits to alcohol use. Denies drug use. Denies abdominal pain. Denies nausea or vomiting. Denies fevers or chills. Hx of 2019 admission, I reviewed those records and dc summary/ Allergies: No Known Allergies (Unverified , 04/07/19) COVID-19 Screening Contact w/high risk pt: No Experienced COVID-19 symptoms?: No COVID-19 Testing performed NET DEVELOPER CONSULTANT: No Patient History Past Medical History: DM Past Surgical History: none Pertinent Family History: none Social History: Reports: alcohol use; Denies: smoking, drug use Immunizations: UTD Reviewed Nursing Documentation: PMH: Agreed; PSxH: Agreed Nursing Documentation-PMH Past Medical History: No History, Except For Hx Diabetes: Yes ROS (review of systems): Constitutional: No fever, no chills, no night sweats, no fatigue Skin: No rashes, lumps, itchiness, dryness HEENT: No KLEIN, ear ache, visual changes, double vision, nosebleeds Breasts: No lumps, pain, discharge Pulmonary: No cough, sputum, shortness of breath, coughing up blood Cardiovascular: No chest pain, tightness, palpitations, syncope, PND GI: No nausea, vomiting, diarrhea, melena, hematochezia, change in appetite, : No dysuria, frequency, urgency, urinary incontinence, foamy urine Musculoskeletal: No joint swelling or muscle pain, trauma, back pain Neurologic: No dizziness, fainting, seizures, changes in smell or taste Psychiatric: No nervousness, stress, or depression, anxiety, hallucinations Endocrine: No weight change, heat or cold intolerance, tremor, insomnia Physical Exam: Vitals: reviewed General: NAD HEENT: nc, at Neck: supple Chest: clear breath sounds bilaterally Cardiovascular: RRR, no s3, s4 Abdomen: soft, nontender, nd Extremities: no cce, normal range of motion Neuro: alert and oriented Labs noted Imaging reviewed Assessment and Recs # Pancytopenia -- multiple etiologies could be related to underlying liver disease, medication-induced, infection --> likely related to etoh use --> recommend cessation etoh --> Medications have been reviewed --> Continue to monitor for improvement, trend cbc --> Hep panel and HIV have been ordered-->NEG --> US abd ordered to r/o cirrhosis and hepatosplenomegaly ->fatty liver --> reverse isolation if ANC is <2000 --> Give neupogen if ANC <1000 --> Transfuse if hgb <7, with 1 unit prbc --> consider bone marrow biopsy if no other causes are found # Hypoglycemia --> hx of dka in the past --> hgb a1c goal <8 # Peripnephric abscess history PRIOR admission --> s/p pigtails drainage # Alcohol intoxication --> recommend cessation --> banana bag, folate, thiamine # Dvt ppx scds The timing of this note does not necessarily reflect the time of the patient was seen. Greatly appreciate consultation. Brenden Zuluaga MD Jan 31, 2020 12:52
[2020-01-31] MEDS: Heparin 5000 units/ml inj SUBQ SCH ×2 (13:19→21:37)
--- NOTE | 2020-01-31 13:41 | NUR ---
CASE MANAGEMENT:INITIAL REVIEW 39 YR OLD MALE BIBA FROM THE STREET CC;ALTERED MENTAL STATUS SI;HYPOGLYCEMIA. ETOH INTOXICATION. 98.2 68 18 128/92 98% ON RA WBC 2.7 PLT 93 BG 79 (BG=LOW IN FIELD) K+ 3.0 AST 278 ALT 171 ALK PHOS 142 URINE TOX (+) AMPHETAMINES, BENZODIAZEPINES, THC SERUM ALCOHOL 282 ABD US ~ FATTY LIVER. TRACE AMOUNT OF FREE FLUID IS;IV D10 IV NS KCL IVF D5W ADMITTED TO MED SURG 11/01/19 @ 0220 MED SURG STATUS DCP;HOMELESS
--- NOTE | 2020-01-31 14:15 | NUR ---
BIKE SHOP MANAGER NOTE SW met w/ pt to assess his needs. Pt has been homeless for 6 months. Pt is currently unemployed and does not receive any income. Pt reports he stays at the park on [address] and [address]. Pt shares other homeless people in the area offers him alcohol and drugs. Pt does not have any family member/friends in the area. Pt's ETOH level was 282. Pt shares he drinks almost every day until he is drunk. RUDS positive for methamphetamine, Benzo and THC. Pt denies mental health issue. Pt does not have PCP. SW explained the importance of outpatient medical F/U as he would need insulin. Pt verbalized understanding. Pt is willing to be referred to [facility]. If pt is not accepted, pt is planing to return to the park where he has been staying or homeless usp. LINA provided the community resource packet. LINA will refer pt to [facility] when DC date is known.
--- NOTE | 2020-01-31 15:41 | NUR ---
NURSE NOTES:WOUND CARE NOTES:Pt presented on admission with DFU's R and L foot.Foot care provided prior to inspecting wounds. Thick dry necrosis noted to plantar R 1st metatarsal. No erythema or exudate noted . Mild odor noted. Within web space of R 1st and 2nd metatarsals is macerated and moist. Web spaces of R 4th and5th metatarsals is also macerated and moist with small crack noted. NO exudate noted. Lateral /Plantar L 1st metatarsal is necrotic but fluctuant at base. Within web space of L 1st and 2nd metatarsal is a oneil fluid-filled pocket. Mild odor noted. No exudate noted at present. Web spaces of L 2nd ,3rd,and 4th metatarsals are macerated. Pt stated he only became aware of wounds a few days ago after noticing blood on his socks. Pt denied noticing purulent exudate. Pt has been educated on importance of keeping feet clean and dry, and to inspect feet daily. Advised on importance of wearing proper fitting and supportive shoes. Tx.Plan: Apply Betadine to R 1st metatarsal and web spaces of toes R foot. Weave dry Gauze between toes. Wrap with Kerlix Daily and prn. Apply Betadine to L 1st metatarsal and web spaces of 1st ,3rd, 4th and 5th Metatarsals. Weave dry gauze Between toes and wrap with Kerlix Daily and prn
--- NOTE | 2020-01-31 15:45 | History and Physical Report ---
DATE OF ADMISSION: 01/31/2020 TIME SEEN: At 1 p.m. CONSULTANTS: 1. Jt Zuluaga MD. 2. Roland Hayes MD. 3. Jeffrey Roberts MD. 4. Russ Osborn MD. 5. Ana Betts MD. CHIEF COMPLAINT: Hypoglycemia, diabetes, hypertension, thrombocytopenia, alcohol intoxication. BRIEF HISTORY: The patient is a 39-year-old homeless man, who presents to [facility] with above-mentioned diagnoses. Currently, slightly lethargic, confused in bed, not talking much. PAST MEDICAL HISTORY: Include hypertension, diabetes. PAST SURGICAL HISTORY: Pancreas. ALLERGIES: Denies. MEDICATIONS: Include lisinopril, potassium, heparin, clonidine, insulin, BuSpar. SOCIAL HISTORY: Positive smoke. Positive alcohol. No intravenous drug abuse. FAMILY HISTORY: Noncontributory. PHYSICAL EXAMINATION: GENERAL: Slightly confused in bed, oriented x2, in no acute distress. VITAL SIGNS: Temperature is 98.7 degrees, pulse 77, respirations 19, blood pressure 151/95. CARDIOVASCULAR: No murmurs. LUNGS: Poor exchange. ABDOMEN: Bowel sounds distant. EXTREMITIES: Showed no cyanosis, clubbing or edema. NEUROLOGIC: The patient moves all extremities, slightly weak. LABORATORY AND DIAGNOSTIC DATA: Labs at this time show white count 2.7, hemoglobin 12, hematocrit 35, platelets 93,000. BMP show potassium 3.0, glucose 152. AST 278, ALT 171. Urine toxicology positive marijuana, benzo, amphetamines. ASSESSMENT: 1. Hypoglycemia. 2. Hypertension. 3. Diabetes. 4. Pancytopenia. 5. Alcohol intoxication. PLAN: Blood pressure and blood sugar control. Detox, dietary followup. and Hematology followup. CBC and BMP in the morning. Paresh Cintron D.O. DR: EVA/ARPIT JOB#: [id number] CC:
[2020-01-31 16:00] VITALS: BP 150/90
--- NOTE | 2020-01-31 19:03 | NUR ---
HAND-OFF: Report given to
--- NOTE | 2020-01-31 19:20 | NUR ---
NURSE NOTES: received report from ifdelia cuellar. patient is on bed, awake. denies any pain or discomfort. urinal on the bedside. with iv line on the right forearm running i v fluids. bed locked and in lowest position. call light and light button within easy reach. bed alarm on. reiterated to call and ask for assistance. will continue plan of care.
[2020-01-31 20:00] VITALS: BP 155/93
--- NOTE | 2020-01-31 21:00 | NUR ---
NURSE NOTES: temp of 100.5 F. md leigh is aware and received an orders. noted and carried out. charge nurse made aware
--- NOTE | 2020-01-31 21:30 | NUR ---
NURSE NOTES: re-checked temp of 99.1F. cooling measures provided. charge nurse made aware
--- NOTE | 2020-01-31 22:00 | NUR ---
NURSE NOTES: received a phone call from dr. jeffers as one of the consult and received orders of chest xray stat, blood cultures x2, hiv test tomorrow am, covid rapid stat and isolation, vanco to dose and rocephin 2 mg Q 12h. orders noted and carried out. charge nurse made aware
--- NOTE | 2020-01-31 22:49 | Diagnostic Imaging Report ---
EXAM: XR Chest, 1 View CLINICAL HISTORY: H/A TECHNIQUE: Frontal view of the chest. COMPARISON: No relevant prior studies available. FINDINGS: Lungs: Reduced lung volumes. No consolidation. Pleural space: Blunting of the left costophrenic angle. No pneumothorax. Heart: Unremarkable. No cardiomegaly. Mediastinum: Unremarkable. Bones/joints: Cervical fusion plate. Upper abdomen: Elevation of the right diaphragm. IMPRESSION: Reduced lung volumes. No consolidation.
--- NOTE | 2020-01-31 23:15 | Consultation ---
DATE OF CONSULTATION: 01/31/2020 HISTORY OF PRESENT ILLNESS: The patient is a 39-year-old with history of alcohol dependence who is well known to me from his previous encounter at the hospital. The patient has a history of alcohol dependence. He was drinking on daily basis. The patient is having anxiety, tremors, also complains of depression. No suicidal or homicidal ideation. No psychotic symptoms. PAST PSYCHIATRY HISTORY: Depression, anxiety. PAST MEDICAL HISTORY: As above. ALLERGIES: No known drug allergies. SUBSTANCE ABUSE HISTORY: No known history of current illicit drug; however, positive for drinking alcohol. MENTAL STATUS EXAMINATION: Alert and oriented times, self, place, and situation. Mood is dysphoric. Affect is flat. Thought process is concrete. Thought content, no suicidal or homicidal ideation. Cognition is intact. Insight and judgment is impaired. ASSESSMENT: [place] I Alcohol dependence. Alcohol withdrawal. [place] II Deferred. [place] III As above. [place] IV Low [place] V 50 PLAN: 1. Start the patient on Librium 25 mg t.i.d. 2. Ativan as needed. 3. 4. Provide the patient with reality orientation and supportive therapy. Ana Betts M.D. DR: Chris JOB#: [id number] CC:
--- NOTE | 2020-01-31 23:30 | NUR ---
NURSE NOTES: Chest xray, blood cultures and covid rapid test done and given to the lab staff. charge nurse made aware
[2020-01-31] MEDS: Vancomycin 1gm in Dextrose 275ml IVPB SCH (23:55)
[2020-02-01] VITALS (7 sets, daily range): BP systolic 112–148; BP diastolic 67–97
[2020-02-01] MEDS: D5 1/2NS w/KCl 40meq 1000ml 1,000 ML IV SCH (01:20)
[2020-02-01 05:25] LABS: INR 1.1 (0.9-1.1)
[2020-02-01 05:28] LABS: BASOPHILS % (AUTO) 3.1 % (0.0-2.0); EOSINOPHILS % (AUTO) 1.5 % (0.0-3.0); HEMATOCRIT 39.7 % (42.0-52.0); HEMOGLOBIN 13.3 G/DL (14.2-18.0); LYMPHOCYTES % (AUTO) 21.9 % (20.0-45.0); MEAN CORPUSCULAR VOLUME 100 FL (80-99); NEUTROPHILS % (AUTO) 61.6 % (45.0-75.0); PLATELET COUNT 113 K/UL (150-450); RED BLOOD COUNT 3.96 M/UL (4.70-6.10); RED CELL DISTRIBUTION WIDTH 12.8 % (11.6-14.8); WHITE BLOOD COUNT 4.1 K/UL (4.8-10.8)
[2020-02-01 05:50] LABS: ALANINE AMINOTRANSFERASE 150 U/L (12-78); ALBUMIN 3.7 G/DL (3.4-5.0); ALBUMIN/GLOBULIN RATIO 0.9 (1.0-2.7); ALKALINE PHOSPHATASE 156 U/L (46-116); ANION GAP 6 mmol/L (5-15); ASPARTATE AMINO TRANSFERASE 208 U/L (15-37); BILIRUBIN,TOTAL 1.4 MG/DL (0.2-1.0); BLOOD UREA NITROGEN 8 mg/dL (7-18); CALCIUM 9.4 MG/DL (8.5-10.1); CARBON DIOXIDE 31 MMOL/L (21-32); CHLORIDE 100 MMOL/L (98-107); POTASSIUM 4.1 MMOL/L (3.5-5.1); SODIUM 137 MMOL/L (136-145)
[2020-02-01] MEDS: chlordiazePOXIDE 25mg Cap ORAL SCH ×3 (05:51→20:58)
[2020-02-01 05:52] LABS: % IRON SATURATION 75 % (15-50); IRON 236 ug/dL (50-175); TOTAL IRON BINDING CAPACITY 315 ug/dL (250-450)
[2020-02-01] MEDS: Heparin 5000 units/ml inj SUBQ SCH ×3 (05:52→21:00)
[2020-02-01 05:53] LABS: CHOLESTEROL 229 MG/DL (< 200); FERRITIN 179 NG/ML (8-388); HDL CHOLESTEROL 96 MG/DL (40-60); TRIGLYCERIDES 153 MG/DL (30-150)
[2020-02-01] MEDS: NovoLOG Insulin Flexpen SUBQ SCH ×7 (05:54→20:47)
[2020-02-01 06:00] LABS: BILIRUBIN,DIRECT 0.5 MG/DL (0.0-0.3); GAMMA GLUTAMYL TRANSPEPTIDASE 1637 U/L (5-85); PHOSPHORUS 3.5 MG/DL (2.5-4.9)
--- NOTE | 2020-02-01 06:05 | General Progress Note ---
Assessment/Plan Problem List: (1) Hypoglycemia ICD Codes: E16.2 - Hypoglycemia, unspecified SNOMED: 078059728 (2) Alcohol intoxication ICD Codes: F10.929 - Alcohol use, unspecified with intoxication, unspecified SNOMED: 78579205 Qualifiers: Qualified Codes: F10.920 - Alcohol use, unspecified with intoxication, uncomplicated Assessment/Plan: continue Levemir 12 units daily continue Novolog 4 units ac tid continue Novolog sliding scale ac / hs hypoglycemia protocol in order Subjective Allergies: Coded Allergies: No Known Allergies (Unverified , 04/07/19) All Systems: reviewed and negative except above Subjective events noted glucose values are stable without hypoglycemia Item Value Date Time Bedside Blood Glucose 192 mg/dl H 02/01/20 0554 Bedside Blood Glucose 108 mg/dl 01/31/20 1619 Bedside Blood Glucose 66 mg/dl L 01/31/20 0856 Objective Last 24 Hour Vital Signs Date Time Temp Pulse Resp B/P (MAP) Pulse Ox O2 Delivery O2 Flow Rate FiO2 02/01/20 05:51 154/72 02/01/20 04:00 97.3 66 20 148/72 (97) 97 02/01/20 00:00 99.0 66 21 145/77 (99) 97 01/31/20 21:37 160/99 01/31/20 21:09 99.1 01/31/20 21:00 Room Air 01/31/20 20:00 100.5 76 18 155/93 (113) 98 01/31/20 16:00 98.2 70 18 150/90 (110) 99 01/31/20 13:16 151/95 01/31/20 12:07 97.9 77 19 151/95 (113) 97 01/31/20 08:00 97.9 83 18 135/95 (108) 98 Intake and Output 01/31/20 02/01/20 19:00 07:00 Intake Total 735 ml 368 ml Output Total 1700 ml Balance -965 ml 368 ml Intake Oral 360 ml IV Total 375 ml 368 ml Output Urine Total 1700 ml Laboratory Tests 01/31/20 07:49: Urine Opiates Screen Negative, Urine Barbiturates Screen Negative, Phencyclidine (PCP) Screen Negative, Urine Amphetamines Screen PositiveH, Urine Benzodiazepines Screen PositiveH, Urine Cocaine Screen Negative, Urine Marijuana (THC) Screen PositiveH 02/01/20 04:30: White Blood Count 4.1#L, Red Blood Count 3.96L, Hemoglobin 13.3L, Hematocrit 39.7L, Mean Corpuscular Volume 100H, Mean Corpuscular Hemoglobin 33.5H, Mean Corpuscular Hemoglobin Concent 33.4, Red Cell Distribution Width 12.8, Platelet Count 113L, Mean Platelet Volume 8.7, Neutrophils (%) (Auto) 61.6, Lymphocytes ( %) (Auto) 21.9, Monocytes (%) (Auto) 12.0H, Eosinophils (%) (Auto) 1.5, Basophils (%) (Auto) 3.1H, Prothrombin Time 11.7H, Prothromb Time International Ratio 1.1, Sodium Level 137, Potassium Level 4.1, Chloride Level 100, Carbon Dioxide Level 31, Anion Gap 6, Blood Urea Nitrogen 8, Creatinine 1.0, Estimat Glomerular Filtration Rate > 60, Glucose Level 185H, Hemoglobin A1c 6.1H, Uric Acid 3.8, Calcium Level 9.4, Phosphorus Level 3.5, Magnesium Level 1.5L, Iron Level 236H, Total Iron Binding Capacity 315, Percent Iron Saturation 75H, Unsaturated Iron Binding 79L, Ferritin 179, Total Bilirubin 1.4H, Direct Bilirubin 0.5H, Gamma Glutamyl Transpeptidase 1637H, Aspartate Amino Transf (AST /SGOT) 208H, Alanine Aminotransferase (ALT/SGPT) 150H, Alkaline Phosphatase 156H , Ammonia 88H, C-Reactive Protein, Quantitative < 0.4, Pro-B-Type Natriuretic Peptide 338H, Total Protein 7.8, Albumin 3.7, Globulin 4.1, Albumin/Globulin Ratio 0.9L, Triglycerides Level 153H, Cholesterol Level 229H, LDL Cholesterol 98 , HDL Cholesterol 96H, Cholesterol/HDL Ratio 2.4L, Vitamin B12 Level [Pending], Folate [Pending], Thyroid Stimulating Hormone (TSH) 4.170H, Free Thyroxine 0.97 , Hepatitis A IgM Antibody [Pending], Hepatitis B Surface Antigen [Pending], Hepatitis B Core IgM Antibody [Pending], Hepatitis C Antibody [Pending], HIV (1& 2) Antibody Rapid [Pending] Height (Feet): 5 Height (Inches): 8.00 Weight (Pounds): 166 General Appearance: no apparent distress Neck: normal alignment Cardiovascular: normal rate Respiratory/Chest: lungs clear Abdomen: normal bowel sounds Objective Current Medications Medications (Trade) Dose Ordered Sig/Jose Route PRN Reason Start Time Stop Time Status Last Admin Dose Admin Acetaminophen (Tylenol) 650 mg Q4H PRN ORAL Temp >100.5 01/31/20 20:30 03/01/20 20:29 01/31/20 20:39 Ceftriaxone Sodium 2 gm/ Dextrose 55 ml @ 110 mls/hr EVERY 12 HOURS IVPB 02/01/20 09:00 02/08/20 08:59 Chlordiazepoxide (Librium) 25 mg EVERY 8 HOURS ORAL 02/01/20 06:00 02/08/20 05:59 02/01/20 05:51 Clonidine HCl (Catapres Tab) 0.1 mg EVERY 8 HOURS ORAL 01/31/20 14:00 04/30/20 05:59 02/01/20 05:51 Dextrose (Dextrose 50%) 25 ml Q30M PRN IV Hypoglycemia 01/31/20 06:45 04/30/20 06:44 Dextrose (Dextrose 50%) 50 ml Q30M PRN IV Hypoglycemia 01/31/20 06:45 04/30/20 06:44 Dextrose/ Electrolytes 1,000 ml @ 75 mls/hr [id number] IV 01/31/20 13:00 03/01/20 12:59 02/01/20 01:20 Famotidine (Pepcid) 20 mg BID ORAL 01/31/20 18:00 04/30/20 17:59 01/31/20 17:01 Folic Acid (Folate) 1 mg DAILY ORAL 01/31/20 09:00 03/01/20 08:59 01/31/20 08:58 Heparin Sodium (Porcine) (Heparin 5000 units/ml) 5,000 units EVERY 8 HOURS SUBQ 01/31/20 14:00 03/16/20 13:59 02/01/20 05:52 Insulin Aspart (NovoLOG) BEFORE MEALS AND HS SUBQ 01/31/20 07:00 04/30/20 06:59 02/01/20 05:54 Insulin Aspart (NovoLOG) 4 units NOVOTIAC SUBQ 01/31/20 06:45 04/30/20 06:44 02/01/20 05:54 Insulin Detemir (Levemir) 12 units DAILY SUBQ 01/31/20 09:00 04/30/20 08:59 Lisinopril (ZestriL) 10 mg DAILY ORAL 02/01/20 09:00 03/02/20 08:59 Lorazepam (Ativan) 1 mg TID PRN ORAL Agitation 01/31/20 05:45 02/07/20 05:44 Morphine Sulfate (Morphine Sulfate) 2 mg Q4H PRN IVP For Pain 01/31/20 20:27 02/07/20 20:26 Ondansetron HCl (Zofran) 4 mg Q4H PRN IVP Nausea & Vomiting 01/31/20 05:45 03/01/20 05:44 Potassium Chloride (K-Dur) 40 meq DAILY ORAL 02/01/20 09:00 04/30/20 09:29 Thiamine HCl (Vitamin B1) 100 mg DAILY ORAL 01/31/20 09:00 03/01/20 08:59 01/31/20 08:57 Vancomycin HCl (Vanco pharmacy to dose) 1 ea DAILY PRN MISC Per rx protocol 01/31/20 22:15 03/01/20 22:14 Vancomycin HCl 1 gm/Dextrose 275 ml @ 184 mls/hr Q8H IVPB 02/01/20 00:00 02/06/20 00:00 01/31/20 23:55 Roland Hayes MD Feb 01, 2020 06:05
--- NOTE | 2020-02-01 06:45 | NUR ---
NURSE NOTES: dr. murguia made aware regarding the fever of 100.5F. dr. jeffers informed regarding the negative result of rapid covid test.
--- NOTE | 2020-02-01 07:13 | NUR ---
HAND-OFF: Report given to bola cuellar. patient is on bed, awake. on room air. no sob. call light and light button within easy reach. plan of care endorsed.
--- NOTE | 2020-02-01 07:49 | NUR ---
NURSE NOTES: RECEIVED PATIENT A/A/OX4. IN BED CALM AND COMFORTABLE. PIV INTACT AND PATENT. IVF INFUSING WELL. HOB ELEVATED FOR ASPIRATION PRECAUTIONS. NO C/O PAIN/DISCOMFORT NOTED. NO S/S ACUTE CARDIO-RESP DISTRESS NOTED. SIDERAILS ARE UPX3. BED IS IN THE LOWEST POSITION. BRAKES ENGAGED AND ALARM ON @ ALL TIMES. WILL CONT TO MONITOR.
[2020-02-01] MEDS: Thiamine 100mg tab ORAL SCH (08:19)
[2020-02-01] MEDS: Lisinopril 10mg tab ORAL SCH (08:19)
[2020-02-01] MEDS: Levemir Flexpen SUBQ SCH (08:25)
[2020-02-01] MEDS: Vancomycin 1gm in Dextrose 275ml IVPB SCH ×3 (08:39→23:44)
--- NOTE | 2020-02-01 08:48 | General Progress Note ---
Assessment/Plan Problem List: (1) Hypoglycemia ICD Codes: E16.2 - Hypoglycemia, unspecified SNOMED: 755033364 (2) Hypertension ICD Codes: I10 - Essential (primary) hypertension SNOMED: 71309193 (3) Alcohol intoxication ICD Codes: F10.929 - Alcohol use, unspecified with intoxication, unspecified SNOMED: 19308489 Qualifiers: Qualified Codes: F10.920 - Alcohol use, unspecified with intoxication, uncomplicated (4) Temporary low platelet count ICD Codes: D69.6 - Thrombocytopenia, unspecified SNOMED: 917650055 Status: stable, progressing Assessment/Plan: detox pt diet cbc bmp am dc if clear Subjective Constitutional: Reports: weakness Allergies: Coded Allergies: No Known Allergies (Unverified , 04/07/19) All Systems: reviewed and negative except above Subjective calm in bed Objective Last 24 Hour Vital Signs Date Time Temp Pulse Resp B/P (MAP) Pulse Ox O2 Delivery O2 Flow Rate FiO2 02/01/20 08:19 120/75 02/01/20 05:51 154/72 02/01/20 04:00 97.3 66 20 148/72 (97) 97 02/01/20 00:00 99.0 66 21 145/77 (99) 97 01/31/20 21:37 160/99 01/31/20 21:09 99.1 01/31/20 21:00 Room Air 01/31/20 20:00 100.5 76 18 155/93 (113) 98 01/31/20 16:00 98.2 70 18 150/90 (110) 99 01/31/20 13:16 151/95 01/31/20 12:07 97.9 77 19 151/95 (113) 97 Intake and Output 01/31/20 02/01/20 19:00 07:00 Intake Total 735 ml 818 ml Output Total 1700 ml 890 ml Balance -965 ml -72 ml Intake Oral 360 ml 450 ml IV Total 375 ml 368 ml Output Urine Total 1700 ml 890 ml Laboratory Tests 02/01/20 04:30: White Blood Count 4.1#L, Red Blood Count 3.96L, Hemoglobin 13.3L, Hematocrit 39.7L, Mean Corpuscular Volume 100H, Mean Corpuscular Hemoglobin 33.5H, Mean Corpuscular Hemoglobin Concent 33.4, Red Cell Distribution Width 12.8, Platelet Count 113L, Mean Platelet Volume 8.7, Neutrophils (%) (Auto) 61.6, Lymphocytes ( %) (Auto) 21.9, Monocytes (%) (Auto) 12.0H, Eosinophils (%) (Auto) 1.5, Basophils (%) (Auto) 3.1H, Prothrombin Time 11.7H, Prothromb Time International Ratio 1.1, Sodium Level 137, Potassium Level 4.1, Chloride Level 100, Carbon Dioxide Level 31, Anion Gap 6, Blood Urea Nitrogen 8, Creatinine 1.0, Estimat Glomerular Filtration Rate > 60, Glucose Level 185H, Hemoglobin A1c 6.1H, Uric Acid 3.8, Calcium Level 9.4, Phosphorus Level 3.5, Magnesium Level 1.5L, Iron Level 236H, Total Iron Binding Capacity 315, Percent Iron Saturation 75H, Unsaturated Iron Binding 79L, Ferritin 179, Total Bilirubin 1.4H, Direct Bilirubin 0.5H, Gamma Glutamyl Transpeptidase 1637H, Aspartate Amino Transf (AST /SGOT) 208H, Alanine Aminotransferase (ALT/SGPT) 150H, Alkaline Phosphatase 156H , Ammonia 88H, C-Reactive Protein, Quantitative < 0.4, Pro-B-Type Natriuretic Peptide 338H, Total Protein 7.8, Albumin 3.7, Globulin 4.1, Albumin/Globulin Ratio 0.9L, Triglycerides Level 153H, Cholesterol Level 229H, LDL Cholesterol 98 , HDL Cholesterol 96H, Cholesterol/HDL Ratio 2.4L, Vitamin B12 Level 916, Folate 8.2L, Thyroid Stimulating Hormone (TSH) 4.170H, Free Thyroxine 0.97, Hepatitis A IgM Antibody [Pending], Hepatitis B Surface Antigen [Pending], Hepatitis B Core IgM Antibody [Pending], Hepatitis C Antibody [Pending], HIV (1& 2) Antibody Rapid Negative Height (Feet): 5 Height (Inches): 8.00 Weight (Pounds): 157 General Appearance: lethargic EENT: normal ENT inspection Neck: normal alignment Cardiovascular: normal peripheral pulses, normal rate, regular rhythm Respiratory/Chest: chest wall non-tender, lungs clear, normal breath sounds Abdomen: normal bowel sounds, non tender, soft Extremities: normal inspection Edema: no edema noted Arm (L), no edema noted Arm (R), no edema noted Leg (L), no edema noted Leg (R), no edema noted Pedal (L), no edema noted Pedal (R), no edema noted Generalized Neurologic: motor weakness Skin: normal pigmentation, warm/dry Paresh Cintron DO Feb 01, 2020 08:48
[2020-02-01] MEDS ORDERED: Lisinopril 10mg tab ORAL SCH (09:00)
[2020-02-01] MEDS ORDERED: cefTRIAXone 2 GM in D5W 55 ML IVPB SCH (09:00)
--- NOTE | 2020-02-01 10:16 | General Progress Note ---
Assessment/Plan Problem List: (1) Elevated LFTs ICD Codes: R79.89 - Other specified abnormal findings of blood chemistry SNOMED: 386776695, 331798541 (2) Temporary low platelet count ICD Codes: D69.6 - Thrombocytopenia, unspecified SNOMED: 760681480 (3) Hypertension ICD Codes: I10 - Essential (primary) hypertension SNOMED: 88851242 (4) Hypoglycemia ICD Codes: E16.2 - Hypoglycemia, unspecified SNOMED: 803190614 (5) Alcohol intoxication ICD Codes: F10.929 - Alcohol use, unspecified with intoxication, unspecified SNOMED: 21613490 Qualifiers: Qualified Codes: F10.920 - Alcohol use, unspecified with intoxication, uncomplicated Status: stable, progressing Assessment/Plan: thiamine folate DM control repeat labs abd us>>>reviewed fatty liver elevated LFTS>> repeat labs>>> hepatitis panel poly sub abuse Subjective ROS Limited/Unobtainable: Yes Allergies: Coded Allergies: No Known Allergies (Unverified , 04/07/19) Objective Last 24 Hour Vital Signs Date Time Temp Pulse Resp B/P (MAP) Pulse Ox O2 Delivery O2 Flow Rate FiO2 02/01/20 08:19 120/75 02/01/20 08:00 98.2 76 19 120/75 (90) 98 02/01/20 05:51 154/72 02/01/20 04:00 97.3 66 20 148/72 (97) 97 02/01/20 00:00 99.0 66 21 145/77 (99) 97 01/31/20 21:37 160/99 01/31/20 21:09 99.1 01/31/20 21:00 Room Air 01/31/20 20:00 100.5 76 18 155/93 (113) 98 01/31/20 16:00 98.2 70 18 150/90 (110) 99 01/31/20 13:16 151/95 01/31/20 12:07 97.9 77 19 151/95 (113) 97 Intake and Output 01/31/20 02/01/20 19:00 07:00 Intake Total 735 ml 818 ml Output Total 1700 ml 890 ml Balance -965 ml -72 ml Intake Oral 360 ml 450 ml IV Total 375 ml 368 ml Output Urine Total 1700 ml 890 ml Laboratory Tests 01/31/20 11:34: POC Whole Blood Glucose 63L 01/31/20 12:52: POC Whole Blood Glucose 129H 01/31/20 16:18: POC Whole Blood Glucose 108H 01/31/20 21:35: POC Whole Blood Glucose 157H 02/01/20 04:30: White Blood Count 4.1#L, Red Blood Count 3.96L, Hemoglobin 13.3L, Hematocrit 39.7L, Mean Corpuscular Volume 100H, Mean Corpuscular Hemoglobin 33.5H, Mean Corpuscular Hemoglobin Concent 33.4, Red Cell Distribution Width 12.8, Platelet Count 113L, Mean Platelet Volume 8.7, Neutrophils (%) (Auto) 61.6, Lymphocytes ( %) (Auto) 21.9, Monocytes (%) (Auto) 12.0H, Eosinophils (%) (Auto) 1.5, Basophils (%) (Auto) 3.1H, Prothrombin Time 11.7H, Prothromb Time International Ratio 1.1, Sodium Level 137, Potassium Level 4.1, Chloride Level 100, Carbon Dioxide Level 31, Anion Gap 6, Blood Urea Nitrogen 8, Creatinine 1.0, Estimat Glomerular Filtration Rate > 60, Glucose Level 185H, Hemoglobin A1c 6.1H, Uric Acid 3.8, Calcium Level 9.4, Phosphorus Level 3.5, Magnesium Level 1.5L, Iron Level 236H, Total Iron Binding Capacity 315, Percent Iron Saturation 75H, Unsaturated Iron Binding 79L, Ferritin 179, Total Bilirubin 1.4H, Direct Bilirubin 0.5H, Gamma Glutamyl Transpeptidase 1637H, Aspartate Amino Transf (AST /SGOT) 208H, Alanine Aminotransferase (ALT/SGPT) 150H, Alkaline Phosphatase 156H , Ammonia 88H, C-Reactive Protein, Quantitative < 0.4, Pro-B-Type Natriuretic Peptide 338H, Total Protein 7.8, Albumin 3.7, Globulin 4.1, Albumin/Globulin Ratio 0.9L, Triglycerides Level 153H, Cholesterol Level 229H, LDL Cholesterol 98 , HDL Cholesterol 96H, Cholesterol/HDL Ratio 2.4L, Vitamin B12 Level 916, Folate 8.2L, Thyroid Stimulating Hormone (TSH) 4.170H, Free Thyroxine 0.97, Hepatitis A IgM Antibody [Pending], Hepatitis B Surface Antigen [Pending], Hepatitis B Core IgM Antibody [Pending], Hepatitis C Antibody [Pending], HIV (1& 2) Antibody Rapid Negative Height (Feet): 5 Height (Inches): 8.00 Weight (Pounds): 157 General Appearance: alert EENT: normal ENT inspection Neck: supple Cardiovascular: normal rate Respiratory/Chest: decreased breath sounds Abdomen: normal bowel sounds, non tender, soft Extremities: non-tender Amador Pires MD Feb 01, 2020 10:16
--- NOTE | 2020-02-01 10:33 | NUR ---
NURSE NOTES: DR RAYMOND MADE AWARE OF THE MG 1.5 TODAY'S LAB. AWAITING FOR RESPONSE. WILL CONT TO MONITOR.
--- NOTE | 2020-02-01 10:41 | NUR ---
RD ASSESSMENT & RECOMMENDATIONS SEE CARE ACTIVITY FOR COMPLETE ASSESSMENT DAILY ESTIMATED NEEDS: Needs based on DM, 71.2kg 25-30 kcals/kg 2365-5053 total kcals 1.25-1.5 g protein/kg 89-107 g total protein 25-30 mL/kg 9934-3673 total fluid mLs NUTRITION DIAGNOSIS: Altered nutrition related lab values r/t DM as evidenced by on adm pt w/ A1C 6.1, hypoglycemic (POC 63) w/ h/o DKA. [facility]: [facility] low PO DIET RECOMMENDATIONS: [facility] Med / Cardiac texture as tolerated ADDITIONAL RECOMMENDATIONS: 1) Obtain a standing weight as able 2) Add 1 carb/ high pro snack TID in b/w meals Pt adm w/ hypoglycemia 3) Maintain banana bag 4) Wound care: Add JOSE D BID + Vit C 250mg daily
--- NOTE | 2020-02-01 11:50 | NUR ---
NURSE NOTES: DR CRESPO MADE AWARE OF THE MG 1.5. WILL CONT TO MONITOR.
--- NOTE | 2020-02-01 12:09 | Nephrology Progress Note ---
Assessment/Plan Problem List: (1) Alcohol intoxication (2) Acute metabolic encephalopathy (3) Electrolyte imbalance (4) Diabetes Assessment: Presents with hypoglycemia Assessment Polysubstance abuse as per Urine tox screen Electrolyte imbalance Hypothyroidism by history Diabetes mellitus presents with hypoglycemia Plan DC IV Thiamine, folate Adjust blood pressure medication Stable for discharge from renal standpoint of view Subjective ROS Limited/Unobtainable: No Constitutional: Reports: other - Ambulating in the room Objective Objective Last 24 Hour Vital Signs Date Time Temp Pulse Resp B/P (MAP) Pulse Ox O2 Delivery O2 Flow Rate FiO2 02/01/20 11:49 97.3 60 19 112/73 (86) 100 02/01/20 08:19 120/75 02/01/20 08:00 98.2 76 19 120/75 (90) 98 02/01/20 05:51 154/72 02/01/20 04:00 97.3 66 20 148/72 (97) 97 02/01/20 00:00 99.0 66 21 145/77 (99) 97 01/31/20 21:37 160/99 01/31/20 21:09 99.1 01/31/20 21:00 Room Air 01/31/20 20:00 100.5 76 18 155/93 (113) 98 01/31/20 16:00 98.2 70 18 150/90 (110) 99 01/31/20 13:16 151/95 01/31/20 12:07 97.9 77 19 151/95 (113) 97 Intake and Output 01/31/20 02/01/20 19:00 07:00 Intake Total 735 ml 818 ml Output Total 1700 ml 890 ml Balance -965 ml -72 ml Intake Oral 360 ml 450 ml IV Total 375 ml 368 ml Output Urine Total 1700 ml 890 ml Current Medications Medications (Trade) Dose Ordered Sig/Jose Route PRN Reason Start Time Stop Time Status Last Admin Dose Admin Acetaminophen (Tylenol) 650 mg Q4H PRN ORAL Temp >100.5 01/31/20 20:30 03/01/20 20:29 01/31/20 20:39 Ceftriaxone Sodium 2 gm/ Dextrose 55 ml @ 110 mls/hr EVERY 12 HOURS IVPB 02/01/20 09:00 02/08/20 08:59 02/01/20 11:05 Chlordiazepoxide (Librium) 25 mg EVERY 8 HOURS ORAL 02/01/20 06:00 02/08/20 05:59 02/01/20 05:51 Clonidine HCl (Catapres Tab) 0.1 mg EVERY 6 HOURS PRN ORAL BP over 165 systolic 02/01/20 12:15 04/30/20 05:59 UNV Dextrose (Dextrose 50%) 25 ml Q30M PRN IV Hypoglycemia 01/31/20 06:45 04/30/20 06:44 Dextrose (Dextrose 50%) 50 ml Q30M PRN IV Hypoglycemia 01/31/20 06:45 04/30/20 06:44 Famotidine (Pepcid) 20 mg BID ORAL 01/31/20 18:00 04/30/20 17:59 02/01/20 08:19 Folic Acid (Folate) 1 mg DAILY ORAL 01/31/20 09:00 03/01/20 08:59 02/01/20 08:19 Heparin Sodium (Porcine) (Heparin 5000 units/ml) 5,000 units EVERY 8 HOURS SUBQ 01/31/20 14:00 03/16/20 13:59 02/01/20 05:52 Insulin Aspart (NovoLOG) BEFORE MEALS AND HS SUBQ 01/31/20 07:00 04/30/20 06:59 02/01/20 05:54 Insulin Aspart (NovoLOG) 4 units NOVOTIAC SUBQ 01/31/20 06:45 04/30/20 06:44 02/01/20 05:54 Insulin Detemir (Levemir) 12 units DAILY SUBQ 01/31/20 09:00 04/30/20 08:59 02/01/20 08:25 Lisinopril (ZestriL) 10 mg DAILY ORAL 02/01/20 09:00 03/02/20 08:59 02/01/20 08:19 Lorazepam (Ativan) 1 mg TID PRN ORAL Agitation 01/31/20 05:45 02/07/20 05:44 Morphine Sulfate (Morphine Sulfate) 2 mg Q4H PRN IVP For Pain 01/31/20 20:27 02/07/20 20:26 Ondansetron HCl (Zofran) 4 mg Q4H PRN IVP Nausea & Vomiting 01/31/20 05:45 03/01/20 05:44 Thiamine HCl (Vitamin B1) 100 mg DAILY ORAL 01/31/20 09:00 03/01/20 08:59 02/01/20 08:19 Vancomycin HCl (Vanco pharmacy to dose) 1 ea DAILY PRN MISC Per rx protocol 01/31/20 22:15 03/01/20 22:14 Vancomycin HCl 1 gm/Dextrose 275 ml @ 184 mls/hr Q8H IVPB 02/01/20 00:00 02/06/20 00:00 02/01/20 08:39 Laboratory Tests 01/31/20 12:52: POC Whole Blood Glucose 129H 01/31/20 16:18: POC Whole Blood Glucose 108H 01/31/20 21:35: POC Whole Blood Glucose 157H 02/01/20 04:30: White Blood Count 4.1#L, Red Blood Count 3.96L, Hemoglobin 13.3L, Hematocrit 39.7L, Mean Corpuscular Volume 100H, Mean Corpuscular Hemoglobin 33.5H, Mean Corpuscular Hemoglobin Concent 33.4, Red Cell Distribution Width 12.8, Platelet Count 113L, Mean Platelet Volume 8.7, Neutrophils (%) (Auto) 61.6, Lymphocytes ( %) (Auto) 21.9, Monocytes (%) (Auto) 12.0H, Eosinophils (%) (Auto) 1.5, Basophils (%) (Auto) 3.1H, Prothrombin Time 11.7H, Prothromb Time International Ratio 1.1, Sodium Level 137, Potassium Level 4.1, Chloride Level 100, Carbon Dioxide Level 31, Anion Gap 6, Blood Urea Nitrogen 8, Creatinine 1.0, Estimat Glomerular Filtration Rate > 60, Glucose Level 185H, Hemoglobin A1c 6.1H, Uric Acid 3.8, Calcium Level 9.4, Phosphorus Level 3.5, Magnesium Level 1.5L, Iron Level 236H, Total Iron Binding Capacity 315, Percent Iron Saturation 75H, Unsaturated Iron Binding 79L, Ferritin 179, Total Bilirubin 1.4H, Direct Bilirubin 0.5H, Gamma Glutamyl Transpeptidase 1637H, Aspartate Amino Transf (AST /SGOT) 208H, Alanine Aminotransferase (ALT/SGPT) 150H, Alkaline Phosphatase 156H , Ammonia 88H, C-Reactive Protein, Quantitative < 0.4, Pro-B-Type Natriuretic Peptide 338H, Total Protein 7.8, Albumin 3.7, Globulin 4.1, Albumin/Globulin Ratio 0.9L, Triglycerides Level 153H, Cholesterol Level 229H, LDL Cholesterol 98 , HDL Cholesterol 96H, Cholesterol/HDL Ratio 2.4L, Vitamin B12 Level 916, Folate 8.2L, Thyroid Stimulating Hormone (TSH) 4.170H, Free Thyroxine 0.97, Hepatitis A IgM Antibody [Pending], Hepatitis B Surface Antigen [Pending], Hepatitis B Core IgM Antibody [Pending], Hepatitis C Antibody [Pending], HIV (1& 2) Antibody Rapid Negative 02/01/20 11:27: POC Whole Blood Glucose 140H Height (Feet): 5 Height (Inches): 8.00 Weight (Pounds): 157 General Appearance: no apparent distress Cardiovascular: normal rate Respiratory/Chest: lungs clear Abdomen: soft Russ Osborn MD Feb 01, 2020 12:09
--- NOTE | 2020-02-01 13:10 | NUR ---
P.T Note: P.T evaluation completed. Pt's current functional status does not warrant skilled P.T as pt is baseline independent in all areas of ADL/functional mobilities and gait/locomotion. DC P.T services. Thank you for this referral.
[2020-02-01] MEDS: Magnesium Oxide 400mg tab ORAL SCH ×2 (13:29→17:02)
--- NOTE | 2020-02-01 13:37 | Consultation ---
History of Present Illness General Date patient seen: Feb 01, 2020 Chief Complaint: Altered Mental Status Present Illness HPI 39 y/o M with hx of ETOH abuse, polysubstance abuse, HTN, Dm2, homelessness, MDD /anxiety disorder presented to ED on 01/31/20 with altered mental status. Patient was found on the street; his accu-check was too low to read. He received glucose and became more awake. Upon admission was found to have accelerated hypertension and hypokalemia to 3. Denied chest pain, SOB, abd pain, n/v, f/c Allergies: Coded Allergies: No Known Allergies (Unverified , 04/07/19) Medication History Scheduled Insulin Aspart (Novolog Flexpen), 8 UNITS SUBQ NOVOTIAC Insulin Detemir (Levemir Flexpen), 24 UNITS SUBQ DAILY Levothyroxine Sodium (Synthroid), 50 MCG ORAL DAILY@0630 Miscellaneous Medications Unable to Obtain Medications (Unable To Obtain Meds), (Reported) Discontinued Medications Levofloxacin (Levofloxacin*), 750 MG ORAL DAILY Discontinued Reason: Therapy completed Patient History Healthcare decision maker Resuscitation status Advanced Directive on File Patient History Narrative Pmhx: as above Shx: No known history of current illicit drug; however, positive for drinking alcohol. Homeless Fhx: non contributory Review of Systems All Other Systems: negative except mentioned in HPI Physical Exam Physical Exam Narrative GENERAL: Slightly confused in bed, oriented x2, in no acute distress. CARDIOVASCULAR: No murmurs. LUNGS: Poor exchange. ABDOMEN: Bowel sounds distant. EXTREMITIES: Showed no cyanosis, clubbing or edema. NEUROLOGIC: The patient moves all extremities, slightly weak. Last 24 Hour Vital Signs Date Time Temp Pulse Resp B/P (MAP) Pulse Ox O2 Delivery O2 Flow Rate FiO2 02/01/20 11:49 97.3 60 19 112/73 (86) 100 02/01/20 08:19 120/75 02/01/20 08:00 98.2 76 19 120/75 (90) 98 02/01/20 05:51 154/72 02/01/20 04:00 97.3 66 20 148/72 (97) 97 02/01/20 00:00 99.0 66 21 145/77 (99) 97 01/31/20 21:37 160/99 01/31/20 21:09 99.1 01/31/20 21:00 Room Air 01/31/20 20:00 100.5 76 18 155/93 (113) 98 01/31/20 16:00 98.2 70 18 150/90 (110) 99 01/31/20 13:16 151/95 Intake and Output 01/31/20 02/01/20 19:00 07:00 Intake Total 735 ml 818 ml Output Total 1700 ml 890 ml Balance -965 ml -72 ml Intake Oral 360 ml 450 ml IV Total 375 ml 368 ml Output Urine Total 1700 ml 890 ml Laboratory Tests Test 01/31/20 16:18 01/31/20 21:35 02/01/20 04:30 02/01/20 11:27 POC Whole Blood Glucose 108 MG/DL (74-106) H 157 MG/DL (74-106) H 140 MG/DL (74-106) H White Blood Count 4.1 K/UL (4.8-10.8) #L Red Blood Count 3.96 M/UL (4.70-6.10) L Hemoglobin 13.3 G/DL (14.2-18.0) L Hematocrit 39.7 % (42.0-52.0) L Mean Corpuscular Volume 100 FL (80-99) H Mean Corpuscular Hemoglobin 33.5 PG (27.0-31.0) H Mean Corpuscular Hemoglobin Concent 33.4 G/DL (32.0-36.0) Red Cell Distribution Width 12.8 % (11.6-14.8) Platelet Count 113 K/UL (150-450) L Mean Platelet Volume 8.7 FL (6.5-10.1) Neutrophils (%) (Auto) 61.6 % (45.0-75.0) Lymphocytes (%) (Auto) 21.9 % (20.0-45.0) Monocytes (%) (Auto) 12.0 % (1.0-10.0) H Eosinophils (%) (Auto) 1.5 % (0.0-3.0) Basophils (%) (Auto) 3.1 % (0.0-2.0) H Prothrombin Time 11.7 SEC (9.30-11.50) H Prothromb Time International Ratio 1.1 (0.9-1.1) Sodium Level 137 MMOL/L (136-145) Potassium Level 4.1 MMOL/L (3.5-5.1) Chloride Level 100 MMOL/L (98-107) Carbon Dioxide Level 31 MMOL/L (21-32) Anion Gap 6 mmol/L (5-15) Blood Urea Nitrogen 8 mg/dL (7-18) Creatinine 1.0 MG/DL (0.55-1.30) Estimat Glomerular Filtration Rate > 60 mL/min (>60) Glucose Level 185 MG/DL (74-106) H Hemoglobin A1c 6.1 % (4.3-6.0) H Uric Acid 3.8 MG/DL (2.6-7.2) Calcium Level 9.4 MG/DL (8.5-10.1) Phosphorus Level 3.5 MG/DL (2.5-4.9) Magnesium Level 1.5 MG/DL (1.8-2.4) L Iron Level 236 ug/dL (50-175) H Total Iron Binding Capacity 315 ug/dL (250-450) Percent Iron Saturation 75 % (15-50) H Unsaturated Iron Binding 79 ug/dL (112-346) L Ferritin 179 NG/ML (8-388) Total Bilirubin 1.4 MG/DL (0.2-1.0) H Direct Bilirubin 0.5 MG/DL (0.0-0.3) H Gamma Glutamyl Transpeptidase 1637 U/L (5-85) H Aspartate Amino Transf (AST/SGOT) 208 U/L (15-37) H Alanine Aminotransferase (ALT/SGPT) 150 U/L (12-78) H Alkaline Phosphatase 156 U/L (46-116) H Ammonia 88 umol/L (11-32) H C-Reactive Protein, Quantitative < 0.4 mg/dL (0.00-0.90) Pro-B-Type Natriuretic Peptide 338 pg/mL (0-125) H Total Protein 7.8 G/DL (6.4-8.2) Albumin 3.7 G/DL (3.4-5.0) Globulin 4.1 g/dL Albumin/Globulin Ratio 0.9 (1.0-2.7) L Triglycerides Level 153 MG/DL (30-150) H Cholesterol Level 229 MG/DL (< 200) H LDL Cholesterol 98 mg/dL (<100) HDL Cholesterol 96 MG/DL (40-60) H Cholesterol/HDL Ratio 2.4 (3.3-4.4) L Vitamin B12 Level 916 PG/ML (193-986) Folate 8.2 NG/ML (8.6-58.9) L Thyroid Stimulating Hormone (TSH) 4.170 uiU/mL (0.358-3.740) Free Thyroxine 0.97 NG/DL (0.76-1.46) Hepatitis A IgM Antibody Pending Hepatitis B Surface Antigen Pending Hepatitis B Core IgM Antibody Pending Hepatitis C Antibody Pending HIV (1&2) Antibody Rapid Negative (NEGATIVE) Microbiology Date/Time Source Procedure Growth Status 01/31/20 23:20 Nasopharynx SARS-CoV-2 RdRp Gene Assay - Final Complete Height (Feet): 5 Height (Inches): 8.00 Weight (Pounds): 157 Medications Current Medications Medications (Trade) Dose Ordered Sig/Jose Route PRN Reason Start Time Stop Time Status Last Admin Dose Admin Acetaminophen (Tylenol) 650 mg Q4H PRN ORAL Temp >100.5 01/31/20 20:30 03/01/20 20:29 01/31/20 20:39 Ceftriaxone Sodium 2 gm/ Dextrose 55 ml @ 110 mls/hr EVERY 12 HOURS IVPB 02/01/20 09:00 02/08/20 08:59 02/01/20 11:05 Chlordiazepoxide (Librium) 25 mg EVERY 8 HOURS ORAL 02/01/20 06:00 02/08/20 05:59 02/01/20 05:51 Clonidine HCl (Catapres Tab) 0.1 mg EVERY 6 HOURS PRN ORAL BP over 165 systolic 02/01/20 12:15 04/30/20 05:59 Dextrose (Dextrose 50%) 25 ml Q30M PRN IV Hypoglycemia 01/31/20 06:45 04/30/20 06:44 Dextrose (Dextrose 50%) 50 ml Q30M PRN IV Hypoglycemia 01/31/20 06:45 04/30/20 06:44 Famotidine (Pepcid) 20 mg BID ORAL 01/31/20 18:00 04/30/20 17:59 02/01/20 08:19 Folic Acid (Folate) 1 mg DAILY ORAL 01/31/20 09:00 03/01/20 08:59 02/01/20 08:19 Heparin Sodium (Porcine) (Heparin 5000 units/ml) 5,000 units EVERY 8 HOURS SUBQ 01/31/20 14:00 03/16/20 13:59 02/01/20 05:52 Insulin Aspart (NovoLOG) BEFORE MEALS AND HS SUBQ 01/31/20 07:00 04/30/20 06:59 02/01/20 05:54 Insulin Aspart (NovoLOG) 4 units NOVOTIAC SUBQ 01/31/20 06:45 04/30/20 06:44 02/01/20 05:54 Insulin Detemir (Levemir) 12 units DAILY SUBQ 01/31/20 09:00 04/30/20 08:59 02/01/20 08:25 Lisinopril (ZestriL) 10 mg DAILY ORAL 02/01/20 09:00 03/02/20 08:59 02/01/20 08:19 Lorazepam (Ativan) 1 mg TID PRN ORAL Agitation 01/31/20 05:45 02/07/20 05:44 Magnesium Oxide (Mag-Ox 400mg) 400 mg THREE TIMES A DAY ORAL 02/01/20 13:00 03/02/20 12:59 Morphine Sulfate (Morphine Sulfate) 2 mg Q4H PRN IVP For Pain 01/31/20 20:27 02/07/20 20:26 Ondansetron HCl (Zofran) 4 mg Q4H PRN IVP Nausea & Vomiting 01/31/20 05:45 03/01/20 05:44 Thiamine HCl (Vitamin B1) 100 mg DAILY ORAL 01/31/20 09:00 03/01/20 08:59 02/01/20 08:19 Vancomycin HCl (Vanco pharmacy to dose) 1 ea DAILY PRN MISC Per rx protocol 01/31/20 22:15 03/01/20 22:14 Vancomycin HCl 1 gm/Dextrose 275 ml @ 184 mls/hr Q8H IVPB 02/01/20 00:00 02/06/20 00:00 02/01/20 08:39 Assessment/Plan Assessment/Plan: Abx: IV Vancomycin 01/30- Ceftriaxone 01/30 Assessment: Sepsis Fever- ?source- R/o probable bacteremia Pancytopenia -01/30 CXR: Reduced lung volumes. No consolidation. rapid COVID PCR neg headache- resolved- no further concern for meningitis Acute encephalopathy 2ry to severe hypoglycemia (found on streets unresponsive and BG too low to measure); SP now back to baseline Elevated LFts, improving -Abd US: FATTY LIVER. TRACE AMOUNT OF FREE FLUID. -Acute hep panel p -HIV ab screen neg Accelerated hypertension ETOH abuse> Alcohol intoxication polysubstance abuse -UDS + amphetamines, benzo, THC HTN Dm2 homelessness MDD/anxiety disorder Plan: -Continue empiric IV Vancomycin #2 pending Bcx -Dc empiric ceftriaxone #2 -f/u cx -Monitor CBC/CMP, temperatures; CMP am -HIV VL, RPR, GC/CL -f/u acute hep panel -Renal, Endo f/u Thank you for this consultation. Will continue to follow along with you. Discussed with Hanny Corey M.D. Feb 01, 2020 13:37
--- NOTE | 2020-02-01 14:01 | Consultation ---
History of Present Illness General Date patient seen: Feb 01, 2020 Reason for Hospitalization: Altered Mental Status Present Illness HPI 39-year-old male presented with altered level of consciousness identified to have necrotic ischemic wound on bilateral feet. Surgery called to evaluate and assist with care. Patient seen, patient evaluated, chart reviewed. Patient states that he walks barefoot in the streets and is stepped on multiple things and had trauma in the past before. States that he is noted these necrotic wounds and used to drain prior. Unsure alongside him for what the actual etiology was. No nausea vomiting fever chills. Allergies: Coded Allergies: No Known Allergies (Unverified , 04/07/19) COVID-19 Screening Contact w/high risk pt: No Experienced COVID-19 symptoms?: No Medication History Scheduled Insulin Aspart (Novolog Flexpen), 8 UNITS SUBQ NOVOTIAC Insulin Detemir (Levemir Flexpen), 24 UNITS SUBQ DAILY Levothyroxine Sodium (Synthroid), 50 MCG ORAL DAILY@0630 Miscellaneous Medications Unable to Obtain Medications (Unable To Obtain Meds), (Reported) Discontinued Medications Levofloxacin (Levofloxacin*), 750 MG ORAL DAILY Discontinued Reason: Therapy completed Patient History History Provided By: Patient, Medical Record, PMD Healthcare decision maker Resuscitation status Advanced Directive on File Past Medical/Surgical History Past Medical/Surgical History: (1) DKA (diabetic ketoacidoses) (2) Renal failure (3) UTI (urinary tract infection) (4) Altered mental status (5) Right femoral fracture (6) Renal abscess (7) Perinephric abscess (8) Electrolyte abnormality (9) Sepsis (10) Alcohol intoxication (11) Hypoglycemia (12) Hypertension (13) Elevated LFTs (14) Temporary low platelet count (15) Fever (16) Acute metabolic encephalopathy (17) Electrolyte imbalance (18) Diabetes Review of Systems Review of Symptoms General ROS: no weight loss or fever Psychological ROS: no depression or mood changes, no memory loss Ophthalmic ROS: no visual changes or eye irritation ENT ROS: no nasal congestion, hearing loss, dizziness Allergy and Immunology ROS: no allergic symptoms or urticaria Hematological and Lymphatic ROS: no swollen glands, unusual bleeding or bruising Endocrine ROS: no polyuria, polydipsia, weight changes, temperature intolerance Respiratory ROS: no cough, shortness of breath, or wheezing Cardiovascular ROS: no chest pain or dyspnea on exertion Gastrointestinal ROS: denies abdominal pain, bright red blood in stool. Musculoskeletal ROS: no myalgias or arthralgias Neurological ROS: no TIA or stroke symptoms Dermatological ROS: no new or changing skin lesions, rashes or pruritis Physical Exam Physical Exam General appearance: alert, cooperative, no distress, appears stated age Head: Normocephalic, without obvious abnormality, atraumatic Eyes: conjunctivae/corneas clear. PERRL, EOM's intact. Fundi benign Throat: Lips, mucosa, and tongue normal. Teeth and gums normal Neck: supple, symmetrical, trachea midline, no adenopathy, thyroid: not enlarged, symmetric, no tenderness/mass/nodules, no carotid bruit and no JVD Lungs: clear to auscultation bilaterally Heart: regular rate and rhythm, S1, S2 normal, no murmur, click, rub or gallop Abdomen: soft, non-tender. Bowel sounds normal. No masses, no organomegaly Extremities: extremities see below Pulses: 2+ and symmetric Skin: Skin color, texture, turgor normal. No rashes or lesions Neurologic: Grossly normal Last 24 Hour Vital Signs Date Time Temp Pulse Resp B/P (MAP) Pulse Ox O2 Delivery O2 Flow Rate FiO2 02/01/20 11:49 97.3 60 19 112/73 (86) 100 02/01/20 08:19 120/75 02/01/20 08:00 98.2 76 19 120/75 (90) 98 02/01/20 05:51 154/72 02/01/20 04:00 97.3 66 20 148/72 (97) 97 02/01/20 00:00 99.0 66 21 145/77 (99) 97 01/31/20 21:37 160/99 01/31/20 21:09 99.1 01/31/20 21:00 Room Air 01/31/20 20:00 100.5 76 18 155/93 (113) 98 01/31/20 16:00 98.2 70 18 150/90 (110) 99 Intake and Output 01/31/20 02/01/20 19:00 07:00 Intake Total 735 ml 818 ml Output Total 1700 ml 890 ml Balance -965 ml -72 ml Intake Oral 360 ml 450 ml IV Total 375 ml 368 ml Output Urine Total 1700 ml 890 ml Laboratory Tests Test 01/31/20 16:18 01/31/20 21:35 02/01/20 04:30 02/01/20 11:27 POC Whole Blood Glucose 108 MG/DL (74-106) H 157 MG/DL (74-106) H 140 MG/DL (74-106) H White Blood Count 4.1 K/UL (4.8-10.8) #L Red Blood Count 3.96 M/UL (4.70-6.10) L Hemoglobin 13.3 G/DL (14.2-18.0) L Hematocrit 39.7 % (42.0-52.0) L Mean Corpuscular Volume 100 FL (80-99) H Mean Corpuscular Hemoglobin 33.5 PG (27.0-31.0) H Mean Corpuscular Hemoglobin Concent 33.4 G/DL (32.0-36.0) Red Cell Distribution Width 12.8 % (11.6-14.8) Platelet Count 113 K/UL (150-450) L Mean Platelet Volume 8.7 FL (6.5-10.1) Neutrophils (%) (Auto) 61.6 % (45.0-75.0) Lymphocytes (%) (Auto) 21.9 % (20.0-45.0) Monocytes (%) (Auto) 12.0 % (1.0-10.0) H Eosinophils (%) (Auto) 1.5 % (0.0-3.0) Basophils (%) (Auto) 3.1 % (0.0-2.0) H Prothrombin Time 11.7 SEC (9.30-11.50) H Prothromb Time International Ratio 1.1 (0.9-1.1) Sodium Level 137 MMOL/L (136-145) Potassium Level 4.1 MMOL/L (3.5-5.1) Chloride Level 100 MMOL/L (98-107) Carbon Dioxide Level 31 MMOL/L (21-32) Anion Gap 6 mmol/L (5-15) Blood Urea Nitrogen 8 mg/dL (7-18) Creatinine 1.0 MG/DL (0.55-1.30) Estimat Glomerular Filtration Rate > 60 mL/min (>60) Glucose Level 185 MG/DL (74-106) H Hemoglobin A1c 6.1 % (4.3-6.0) H Uric Acid 3.8 MG/DL (2.6-7.2) Calcium Level 9.4 MG/DL (8.5-10.1) Phosphorus Level 3.5 MG/DL (2.5-4.9) Magnesium Level 1.5 MG/DL (1.8-2.4) L Iron Level 236 ug/dL (50-175) H Total Iron Binding Capacity 315 ug/dL (250-450) Percent Iron Saturation 75 % (15-50) H Unsaturated Iron Binding 79 ug/dL (112-346) L Ferritin 179 NG/ML (8-388) Total Bilirubin 1.4 MG/DL (0.2-1.0) H Direct Bilirubin 0.5 MG/DL (0.0-0.3) H Gamma Glutamyl Transpeptidase 1637 U/L (5-85) H Aspartate Amino Transf (AST/SGOT) 208 U/L (15-37) H Alanine Aminotransferase (ALT/SGPT) 150 U/L (12-78) H Alkaline Phosphatase 156 U/L (46-116) H Ammonia 88 umol/L (11-32) H C-Reactive Protein, Quantitative < 0.4 mg/dL (0.00-0.90) Pro-B-Type Natriuretic Peptide 338 pg/mL (0-125) H Total Protein 7.8 G/DL (6.4-8.2) Albumin 3.7 G/DL (3.4-5.0) Globulin 4.1 g/dL Albumin/Globulin Ratio 0.9 (1.0-2.7) L Triglycerides Level 153 MG/DL (30-150) H Cholesterol Level 229 MG/DL (< 200) H LDL Cholesterol 98 mg/dL (<100) HDL Cholesterol 96 MG/DL (40-60) H Cholesterol/HDL Ratio 2.4 (3.3-4.4) L Vitamin B12 Level 916 PG/ML (193-986) Folate 8.2 NG/ML (8.6-58.9) L Thyroid Stimulating Hormone (TSH) 4.170 uiU/mL (0.358-3.740) Free Thyroxine 0.97 NG/DL (0.76-1.46) Hepatitis A IgM Antibody Pending Hepatitis B Surface Antigen Pending Hepatitis B Core IgM Antibody Pending Hepatitis C Antibody Pending HIV (1&2) Antibody Rapid Negative (NEGATIVE) Microbiology Date/Time Source Procedure Growth Status 01/31/20 23:20 Nasopharynx SARS-CoV-2 RdRp Gene Assay - Final Complete Height (Feet): 5 Height (Inches): 8.00 Weight (Pounds): 157 Medications Current Medications Medications (Trade) Dose Ordered Sig/Jose Route PRN Reason Start Time Stop Time Status Last Admin Dose Admin Acetaminophen (Tylenol) 650 mg Q4H PRN ORAL Temp >100.5 01/31/20 20:30 03/01/20 20:29 01/31/20 20:39 Ceftriaxone Sodium 2 gm/ Dextrose 55 ml @ 110 mls/hr EVERY 12 HOURS IVPB 02/01/20 09:00 02/08/20 08:59 02/01/20 11:05 Chlordiazepoxide (Librium) 25 mg EVERY 8 HOURS ORAL 02/01/20 06:00 02/08/20 05:59 02/01/20 13:29 Clonidine HCl (Catapres Tab) 0.1 mg EVERY 6 HOURS PRN ORAL BP over 165 systolic 02/01/20 12:15 04/30/20 05:59 Dextrose (Dextrose 50%) 25 ml Q30M PRN IV Hypoglycemia 01/31/20 06:45 04/30/20 06:44 Dextrose (Dextrose 50%) 50 ml Q30M PRN IV Hypoglycemia 01/31/20 06:45 04/30/20 06:44 Famotidine (Pepcid) 20 mg BID ORAL 01/31/20 18:00 04/30/20 17:59 02/01/20 08:19 Folic Acid (Folate) 1 mg DAILY ORAL 01/31/20 09:00 03/01/20 08:59 02/01/20 08:19 Heparin Sodium (Porcine) (Heparin 5000 units/ml) 5,000 units EVERY 8 HOURS SUBQ 01/31/20 14:00 03/16/20 13:59 02/01/20 13:30 Insulin Aspart (NovoLOG) BEFORE MEALS AND HS SUBQ 01/31/20 07:00 04/30/20 06:59 02/01/20 05:54 Insulin Aspart (NovoLOG) 4 units NOVOTIAC SUBQ 01/31/20 06:45 04/30/20 06:44 02/01/20 05:54 Insulin Detemir (Levemir) 12 units DAILY SUBQ 01/31/20 09:00 04/30/20 08:59 02/01/20 08:25 Lisinopril (ZestriL) 10 mg DAILY ORAL 02/01/20 09:00 03/02/20 08:59 02/01/20 08:19 Lorazepam (Ativan) 1 mg TID PRN ORAL Agitation 01/31/20 05:45 02/07/20 05:44 Magnesium Oxide (Mag-Ox 400mg) 400 mg THREE TIMES A DAY ORAL 02/01/20 13:00 03/02/20 12:59 02/01/20 13:29 Morphine Sulfate (Morphine Sulfate) 2 mg Q4H PRN IVP For Pain 01/31/20 20:27 02/07/20 20:26 Ondansetron HCl (Zofran) 4 mg Q4H PRN IVP Nausea & Vomiting 01/31/20 05:45 03/01/20 05:44 Thiamine HCl (Vitamin B1) 100 mg DAILY ORAL 01/31/20 09:00 03/01/20 08:59 02/01/20 08:19 Vancomycin HCl (Vanco pharmacy to dose) 1 ea DAILY PRN MISC Per rx protocol 01/31/20 22:15 03/01/20 22:14 Vancomycin HCl 1 gm/Dextrose 275 ml @ 184 mls/hr Q8H IVPB 02/01/20 00:00 02/06/20 00:00 02/01/20 08:39 Assessment/Plan Problem List: (1) Alcohol intoxication ICD Codes: F10.929 - Alcohol use, unspecified with intoxication, unspecified SNOMED: 97602559 Qualifiers: Qualified Codes: F10.920 - Alcohol use, unspecified with intoxication, uncomplicated (2) Hypoglycemia ICD Codes: E16.2 - Hypoglycemia, unspecified SNOMED: 722657970 (3) Hypertension ICD Codes: I10 - Essential (primary) hypertension SNOMED: 49751651 (4) Elevated LFTs Assessment & Plan: The liver is echogenic and fatty. No ductal dilatation noted. Spleen is within normal limits. The gallbladder is without sludge or stone. Common bile duct measures 4 mm. The pancreas is unremarkable to the extent visualized. The kidneys are normal in size, shape and axis. Aorta and cava are within normal limits. There is trace amount of free fluid. IMPRESSION: FATTY LIVER. TRACE AMOUNT OF FREE FLUID. ast/alt noted fatty liver trend labs diet ICD Codes: R79.89 - Other specified abnormal findings of blood chemistry SNOMED: 713213267, 322379013 (5) Temporary low platelet count ICD Codes: D69.6 - Thrombocytopenia, unspecified SNOMED: 029003295 (6) Acute metabolic encephalopathy ICD Codes: G93.41 - Metabolic encephalopathy SNOMED: 41087678, 154439644 (7) Electrolyte imbalance ICD Codes: E87.8 - Other disorders of electrolyte and fluid balance, not elsewhere classified SNOMED: 632103237 (8) Diabetes ICD Codes: E11.9 - Type 2 diabetes mellitus without complications SNOMED: 70618544 (9) Renal abscess ICD Codes: N15.1 - Renal and perinephric abscess SNOMED: 7992979 (10) Fever ICD Codes: R50.9 - Fever, unspecified SNOMED: 104264407 (11) DKA (diabetic ketoacidoses) ICD Codes: E11.10 - Type 2 diabetes mellitus with ketoacidosis without coma SNOMED: 13773807, 902110755 (12) Renal failure ICD Codes: N19 - Unspecified kidney failure SNOMED: 63276869 (13) Sepsis ICD Codes: A41.9 - Sepsis, unspecified organism SNOMED: 45522491 (14) Perinephric abscess ICD Codes: N15.1 - Renal and perinephric abscess SNOMED: 66840438 (15) UTI (urinary tract infection) ICD Codes: N39.0 - Urinary tract infection, site not specified SNOMED: 46501994 (16) Altered mental status ICD Codes: R41.82 - Altered mental status, unspecified SNOMED: 457831078 (17) Electrolyte abnormality ICD Codes: E87.8 - Other disorders of electrolyte and fluid balance, not elsewhere classified SNOMED: 307107391 (18) Right femoral fracture ICD Codes: S72.91XA - Unspecified fracture of right femur, initial encounter for closed fracture SNOMED: 67118196 (19) Ischemia of foot Assessment & Plan: Pt presented on admission with DFU's R and L foot.Foot care provided prior to inspecting wounds. Thick dry necrosis noted to plantar R 1st metatarsal. No erythema or exudate noted . Mild odor noted. Within web space of R 1st and 2nd metatarsals is macerated and moist. Web spaces of R 4th and5th metatarsals is also macerated and moist with small crack noted. NO exudate noted. Lateral /Plantar L 1st metatarsal is necrotic but fluctuant at base. Within web space of L 1st and 2nd metatarsal is a oneil fluid-filled pocket. Mild odor noted. No exudate noted at present. Web spaces of L 2nd ,3rd,and 4th metatarsals are macerated. Pt stated he only became aware of wounds a few days ago after noticing blood on his socks. Pt denied noticing purulent exudate. Pt has been educated on importance of keeping feet clean and dry, and to inspect feet daily. Advised on importance of wearing proper fitting and supportive shoes. Tx.Plan: Apply Betadine to R 1st metatarsal and web spaces of toes R foot. Weave dry Gauze between toes. Wrap with Kerlix Daily and prn. Apply Betadine to L 1st metatarsal and web spaces of 1st ,3rd, 4th and 5th Metatarsals. Weave dry gauze Between toes and wrap with Kerlix Daily and prn ICD Codes: I99.8 - Other disorder of circulatory system SNOMED: 287871192, 415691021 Vinnie Barrera Feb 01, 2020 14:01
--- NOTE | 2020-02-01 15:14 | NUR ---
NURSE NOTES: MADE DR RICHEY AWARE OF THE HOLD OF DISCHARGE PER DR KIRAN DUE TO BLD CULTURE RESULTS. WILL CONT TO MONITOR.
--- NOTE | 2020-02-01 16:00 | NUR ---
CASE MANAGEMENT: REVIEW SI;HTN. DM. ENCEPHALOPATHY. 99.0 76 21 148/72 97% ON RA WBC 4.1 BG 185 MAG 1.6 IS;MAG-OX PO TID ROCEPHIN IV Q12 VANCOMYCIN IV Q8 HEPARIN SUBQ Q12 PEPCID PO BID INSULIN LEVEMIR THIAMINE PO MED SURG STATUS DCP;PATIENT IS HOMELESS
--- NOTE | 2020-02-01 18:51 | Cardiac Electrophysiology PN ---
Assessment/Plan Assessment/Plan 1. Accelerated hypertension. This patient with polysubstance abuse with amphetamine, benzodiazepine, marijuana, and alcohol. Continue lisinopril 5 mg daily. EF 65% 2. Severe hypokalemia. Potassium was 3, which was replaced. 3. Diabetes with hypoglycemia. The patient is on insulin. Further evaluation by Dr. Hayes. 4. Alcohol use, on thiamine and folate. 5. Polysubstance abuse. Subjective Subjective Alert in NAD Objective Last 24 Hour Vital Signs Date Time Temp Pulse Resp B/P (MAP) Pulse Ox O2 Delivery O2 Flow Rate FiO2 02/01/20 16:06 98.4 66 18 133/97 (109) 100 02/01/20 11:49 97.3 60 19 112/73 (86) 100 02/01/20 09:00 Room Air 02/01/20 08:19 120/75 02/01/20 08:00 98.2 76 19 120/75 (90) 98 02/01/20 05:51 154/72 02/01/20 04:00 97.3 66 20 148/72 (97) 97 02/01/20 00:00 99.0 66 21 145/77 (99) 97 01/31/20 21:37 160/99 01/31/20 21:09 99.1 01/31/20 21:00 Room Air 01/31/20 20:00 100.5 76 18 155/93 (113) 98 Intake and Output 01/31/20 02/01/20 19:00 07:00 Intake Total 735 ml 818 ml Output Total 1700 ml 890 ml Balance -965 ml -72 ml Intake Oral 360 ml 450 ml IV Total 375 ml 368 ml Output Urine Total 1700 ml 890 ml Laboratory Tests Test 01/31/20 21:35 02/01/20 04:30 02/01/20 11:27 02/01/20 16:32 POC Whole Blood Glucose 157 MG/DL (74-106) H 140 MG/DL (74-106) H Pending White Blood Count 4.1 K/UL (4.8-10.8) #L Red Blood Count 3.96 M/UL (4.70-6.10) L Hemoglobin 13.3 G/DL (14.2-18.0) L Hematocrit 39.7 % (42.0-52.0) L Mean Corpuscular Volume 100 FL (80-99) H Mean Corpuscular Hemoglobin 33.5 PG (27.0-31.0) H Mean Corpuscular Hemoglobin Concent 33.4 G/DL (32.0-36.0) Red Cell Distribution Width 12.8 % (11.6-14.8) Platelet Count 113 K/UL (150-450) L Mean Platelet Volume 8.7 FL (6.5-10.1) Neutrophils (%) (Auto) 61.6 % (45.0-75.0) Lymphocytes (%) (Auto) 21.9 % (20.0-45.0) Monocytes (%) (Auto) 12.0 % (1.0-10.0) H Eosinophils (%) (Auto) 1.5 % (0.0-3.0) Basophils (%) (Auto) 3.1 % (0.0-2.0) H Prothrombin Time 11.7 SEC (9.30-11.50) H Prothromb Time International Ratio 1.1 (0.9-1.1) Sodium Level 137 MMOL/L (136-145) Potassium Level 4.1 MMOL/L (3.5-5.1) Chloride Level 100 MMOL/L (98-107) Carbon Dioxide Level 31 MMOL/L (21-32) Anion Gap 6 mmol/L (5-15) Blood Urea Nitrogen 8 mg/dL (7-18) Creatinine 1.0 MG/DL (0.55-1.30) Estimat Glomerular Filtration Rate > 60 mL/min (>60) Glucose Level 185 MG/DL (74-106) H Hemoglobin A1c 6.1 % (4.3-6.0) H Uric Acid 3.8 MG/DL (2.6-7.2) Calcium Level 9.4 MG/DL (8.5-10.1) Phosphorus Level 3.5 MG/DL (2.5-4.9) Magnesium Level 1.5 MG/DL (1.8-2.4) L Iron Level 236 ug/dL (50-175) H Total Iron Binding Capacity 315 ug/dL (250-450) Percent Iron Saturation 75 % (15-50) H Unsaturated Iron Binding 79 ug/dL (112-346) L Ferritin 179 NG/ML (8-388) Total Bilirubin 1.4 MG/DL (0.2-1.0) H Direct Bilirubin 0.5 MG/DL (0.0-0.3) H Gamma Glutamyl Transpeptidase 1637 U/L (5-85) H Aspartate Amino Transf (AST/SGOT) 208 U/L (15-37) H Alanine Aminotransferase (ALT/SGPT) 150 U/L (12-78) H Alkaline Phosphatase 156 U/L (46-116) H Ammonia 88 umol/L (11-32) H C-Reactive Protein, Quantitative < 0.4 mg/dL (0.00-0.90) Pro-B-Type Natriuretic Peptide 338 pg/mL (0-125) H Total Protein 7.8 G/DL (6.4-8.2) Albumin 3.7 G/DL (3.4-5.0) Globulin 4.1 g/dL Albumin/Globulin Ratio 0.9 (1.0-2.7) L Triglycerides Level 153 MG/DL (30-150) H Cholesterol Level 229 MG/DL (< 200) H LDL Cholesterol 98 mg/dL (<100) HDL Cholesterol 96 MG/DL (40-60) H Cholesterol/HDL Ratio 2.4 (3.3-4.4) L Vitamin B12 Level 916 PG/ML (193-986) Folate 8.2 NG/ML (8.6-58.9) L Thyroid Stimulating Hormone (TSH) 4.170 uiU/mL (0.358-3.740) Free Thyroxine 0.97 NG/DL (0.76-1.46) Hepatitis A IgM Antibody Pending Hepatitis B Surface Antigen Pending Hepatitis B Core IgM Antibody Pending Hepatitis C Antibody Pending HIV (1&2) Antibody Rapid Negative (NEGATIVE) Microbiology Date/Time Source Procedure Growth Status 01/31/20 23:20 Nasopharynx SARS-CoV-2 RdRp Gene Assay - Final Complete Objective HEAD AND NECK: Showed no JVD or carotid bruits. LUNGS: Clear. CARDIOVASCULAR: Shows regular S1 and S2 with no gallop or murmur. ABDOMEN: Soft. EXTREMITIES: No pitting edema. Jeffrey Roberts MD Feb 01, 2020 18:51
--- NOTE | 2020-02-01 19:21 | NUR ---
HAND-OFF: Report given to Jacek.
--- NOTE | 2020-02-01 20:00 | NUR ---
NURSE NOTES: Patient received sitting in chair, in no acute distress. IV is intact. Noted with no dressing on bilateral feet, will do dressing later in the shift. Call light in reach, ambulatory without assist, steady gait. Will continue plan of care.
--- NOTE | 2020-02-01 21:00 | NUR ---
NURSE NOTES: Dressing applied on bilateral feet/toes as ordered, tolerated well. Provided with clean socks over the dressing
--- NOTE | 2020-02-01 21:23 | Hematology/Onc Progress Note ---
Assessment/Plan Assessment/Plan Assessment and Recs # Pancytopenia -- multiple etiologies could be related to underlying liver disease, medication-induced, infection --> likely related to etoh use --> recommend cessation etoh --> Medications have been reviewed --> Continue to monitor for improvement, trend cbc --> Hep panel and HIV have been ordered-->NEG --> US abd ordered to r/o cirrhosis and hepatosplenomegaly ->fatty liver --> reverse isolation if ANC is <2000 --> Give neupogen if ANC <1000 --> Transfuse if hgb <7, with 1 unit prbc --> wbc 2.9-->4 --> consider bone marrow biopsy if no other causes are found # Hypoglycemia --> hx of dka in the past --> hgb a1c goal <8 # Peripnephric abscess history PRIOR admission --> s/p pigtails drainage # Alcohol intoxication --> recommend cessation --> banana bag, folate, thiamine # Dvt ppx scds The timing of this note does not necessarily reflect the time of the patient was seen. Greatly appreciate consultation. Subjective HEENT: Denies: no symptoms, eye pain, blurred vision, tearing, double vision, ear pain, ear discharge, nose pain, nose congestion, throat pain, throat swelling, mouth pain, mouth swelling, other Cardiovascular: Denies: no symptoms, chest pain, edema, irregular heart rate, lightheadedness, palpitations, syncope, other Gastrointestinal/Abdominal: Denies: no symptoms, abdomen distended, abdominal pain, black stools, tarry stools, blood in stool, constipated, diarrhea, difficulty swallowing, nausea, poor appetite, poor fluid intake, rectal bleeding , vomiting, other Genitourinary: Denies: no symptoms, burning, discharge, frequency, flank pain, hematuria, incontinence, pain, urgency, other Neurologic/Psychiatric: Denies: no symptoms, anxiety, depressed, emotional problems, headache, numbness, paresthesia, pre-existing deficit, seizure, tingling, tremors, weakness, other Hematologic/Lymphatic: Denies: no symptoms, anemia, easy bleeding, easy bruising, adenopathy, other Allergies: Coded Allergies: No Known Allergies (Unverified , 04/07/19) Subjective 01/31 no bleeding, meds reviewed, no night sweats Objective Objective Current Medications Medications (Trade) Dose Ordered Sig/Jose Route PRN Reason Start Time Stop Time Status Last Admin Dose Admin Acetaminophen (Tylenol) 650 mg Q4H PRN ORAL Temp >100.5 01/31/20 20:30 03/01/20 20:29 01/31/20 20:39 Chlordiazepoxide (Librium) 25 mg EVERY 8 HOURS ORAL 02/01/20 06:00 02/08/20 05:59 02/01/20 20:58 Clonidine HCl (Catapres Tab) 0.1 mg EVERY 6 HOURS PRN ORAL BP over 165 systolic 02/01/20 12:15 04/30/20 05:59 Dextrose (Dextrose 50%) 25 ml Q30M PRN IV Hypoglycemia 01/31/20 06:45 04/30/20 06:44 Dextrose (Dextrose 50%) 50 ml Q30M PRN IV Hypoglycemia 01/31/20 06:45 04/30/20 06:44 Famotidine (Pepcid) 20 mg BID ORAL 01/31/20 18:00 04/30/20 17:59 02/01/20 17:02 Folic Acid (Folate) 1 mg DAILY ORAL 01/31/20 09:00 03/01/20 08:59 02/01/20 08:19 Heparin Sodium (Porcine) (Heparin 5000 units/ml) 5,000 units EVERY 8 HOURS SUBQ 01/31/20 14:00 03/16/20 13:59 02/01/20 21:00 Insulin Aspart (NovoLOG) BEFORE MEALS AND HS SUBQ 01/31/20 07:00 04/30/20 06:59 02/01/20 17:05 Insulin Aspart (NovoLOG) 4 units NOVOTIAC SUBQ 01/31/20 06:45 04/30/20 06:44 02/01/20 17:06 Insulin Detemir (Levemir) 12 units DAILY SUBQ 01/31/20 09:00 04/30/20 08:59 02/01/20 08:25 Lisinopril (ZestriL) 10 mg DAILY ORAL 02/01/20 09:00 03/02/20 08:59 02/01/20 08:19 Lorazepam (Ativan) 1 mg TID PRN ORAL Agitation 01/31/20 05:45 02/07/20 05:44 Magnesium Oxide (Mag-Ox 400mg) 400 mg THREE TIMES A DAY ORAL 02/01/20 13:00 03/02/20 12:59 02/01/20 17:02 Morphine Sulfate (Morphine Sulfate) 2 mg Q4H PRN IVP For Pain 01/31/20 20:27 02/07/20 20:26 Ondansetron HCl (Zofran) 4 mg Q4H PRN IVP Nausea & Vomiting 01/31/20 05:45 03/01/20 05:44 Thiamine HCl (Vitamin B1) 100 mg DAILY ORAL 01/31/20 09:00 03/01/20 08:59 02/01/20 08:19 Vancomycin HCl (Vanco pharmacy to dose) 1 ea DAILY PRN MISC Per rx protocol 01/31/20 22:15 03/01/20 22:14 Vancomycin HCl 1 gm/Dextrose 275 ml @ 184 mls/hr Q8H IVPB 02/01/20 00:00 02/06/20 00:00 02/01/20 17:39 Last 24 Hour Vital Signs Date Time Temp Pulse Resp B/P (MAP) Pulse Ox O2 Delivery O2 Flow Rate FiO2 02/01/20 20:00 98.2 66 18 115/67 (83) 99 02/01/20 16:06 98.4 66 18 133/97 (109) 100 02/01/20 11:49 97.3 60 19 112/73 (86) 100 02/01/20 09:00 Room Air 02/01/20 08:19 120/75 02/01/20 08:00 98.2 76 19 120/75 (90) 98 02/01/20 05:51 154/72 02/01/20 04:00 97.3 66 20 148/72 (97) 97 02/01/20 00:00 99.0 66 21 145/77 (99) 97 01/31/20 21:37 160/99 01/31/20 21:09 99.1 01/31/20 21:00 Room Air 01/31/20 20:00 100.5 76 18 155/93 (113) 98 01/31/20 16:00 98.2 70 18 150/90 (110) 99 01/31/20 13:16 151/95 01/31/20 12:07 97.9 77 19 151/95 (113) 97 01/31/20 08:00 97.9 83 18 135/95 (108) 98 01/31/20 05:55 160/92 01/31/20 04:00 96.0 60 20 160/92 (114) 100 01/31/20 03:05 Room Air 01/31/20 02:35 98.1 68 16 117/90 98 Room Air 01/31/20 01:21 66 18 Room Air 01/31/20 01:21 98.2 66 18 128/92 98 Room Air 01/31/20 01:04 98.2 66 18 128/92 (104) 98 Room Air Intake and Output 01/31/20 02/01/20 19:00 07:00 Intake Total 735 ml 818 ml Output Total 1700 ml 890 ml Balance -965 ml -72 ml Intake Oral 360 ml 450 ml IV Total 375 ml 368 ml Output Urine Total 1700 ml 890 ml Labs Test 01/31/20 01:30 01/31/20 04:36 01/31/20 07:43 01/31/20 07:49 White Blood Count 2.7 K/UL (4.8-10.8) Red Blood Count 3.60 M/UL (4.70-6.10) Hemoglobin 12.2 G/DL (14.2-18.0) Hematocrit 35.7 % (42.0-52.0) Mean Corpuscular Volume 99 FL (80-99) Mean Corpuscular Hemoglobin 33.9 PG (27.0-31.0) Mean Corpuscular Hemoglobin Concent 34.2 G/DL (32.0-36.0) Red Cell Distribution Width 12.9 % (11.6-14.8) Platelet Count 93 K/UL (150-450) Mean Platelet Volume 6.6 FL (6.5-10.1) Neutrophils (%) (Auto) % (45.0-75.0) Lymphocytes (%) (Auto) % (20.0-45.0) Monocytes (%) (Auto) % (1.0-10.0) Eosinophils (%) (Auto) % (0.0-3.0) Basophils (%) (Auto) % (0.0-2.0) Sodium Level 140 MMOL/L (136-145) Potassium Level 3.0 MMOL/L (3.5-5.1) Chloride Level 103 MMOL/L (98-107) Carbon Dioxide Level 30 MMOL/L (21-32) Anion Gap 7 mmol/L (5-15) Blood Urea Nitrogen 5 mg/dL (7-18) Creatinine 0.8 MG/DL (0.55-1.30) Estimat Glomerular Filtration Rate > 60 mL/min (>60) Glucose Level 152 MG/DL (74-106) Calcium Level 8.6 MG/DL (8.5-10.1) Total Bilirubin 0.6 MG/DL (0.2-1.0) Aspartate Amino Transf (AST/SGOT) 278 U/L (15-37) Alanine Aminotransferase (ALT/SGPT) 171 U/L (12-78) Alkaline Phosphatase 142 U/L (46-116) Total Protein 7.7 G/DL (6.4-8.2) Albumin 3.9 G/DL (3.4-5.0) Globulin 3.8 g/dL Albumin/Globulin Ratio 1.0 (1.0-2.7) Salicylates Level < 0.2 ug/mL (2.8-20) Acetaminophen Level < 2 MCG/ML (10-30) Serum Alcohol 282 mg/dL POC Whole Blood Glucose 66 MG/DL (74-106) Urine Opiates Screen Negative (NEGATIVE) Urine Barbiturates Screen Negative (NEGATIVE) Phencyclidine (PCP) Screen Negative (NEGATIVE) Urine Amphetamines Screen Positive (NEGATIVE) Urine Benzodiazepines Screen Positive (NEGATIVE) Urine Cocaine Screen Negative (NEGATIVE) Urine Marijuana (THC) Screen Positive (NEGATIVE) Test 01/31/20 11:34 01/31/20 12:52 01/31/20 16:18 01/31/20 21:35 POC Whole Blood Glucose 63 MG/DL (74-106) 129 MG/DL (74-106) 108 MG/DL (74-106) 157 MG/DL (74-106) Test 02/01/20 04:30 02/01/20 11:27 02/01/20 16:32 02/01/20 20:42 White Blood Count 4.1 K/UL (4.8-10.8) Red Blood Count 3.96 M/UL (4.70-6.10) Hemoglobin 13.3 G/DL (14.2-18.0) Hematocrit 39.7 % (42.0-52.0) Mean Corpuscular Volume 100 FL (80-99) Mean Corpuscular Hemoglobin 33.5 PG (27.0-31.0) Mean Corpuscular Hemoglobin Concent 33.4 G/DL (32.0-36.0) Red Cell Distribution Width 12.8 % (11.6-14.8) Platelet Count 113 K/UL (150-450) Mean Platelet Volume 8.7 FL (6.5-10.1) Neutrophils (%) (Auto) 61.6 % (45.0-75.0) Lymphocytes (%) (Auto) 21.9 % (20.0-45.0) Monocytes (%) (Auto) 12.0 % (1.0-10.0) Eosinophils (%) (Auto) 1.5 % (0.0-3.0) Basophils (%) (Auto) 3.1 % (0.0-2.0) Prothrombin Time 11.7 SEC (9.30-11.50) Prothromb Time International Ratio 1.1 (0.9-1.1) Sodium Level 137 MMOL/L (136-145) Potassium Level 4.1 MMOL/L (3.5-5.1) Chloride Level 100 MMOL/L (98-107) Carbon Dioxide Level 31 MMOL/L (21-32) Anion Gap 6 mmol/L (5-15) Blood Urea Nitrogen 8 mg/dL (7-18) Creatinine 1.0 MG/DL (0.55-1.30) Estimat Glomerular Filtration Rate > 60 mL/min (>60) Glucose Level 185 MG/DL (74-106) Hemoglobin A1c 6.1 % (4.3-6.0) Uric Acid 3.8 MG/DL (2.6-7.2) Calcium Level 9.4 MG/DL (8.5-10.1) Phosphorus Level 3.5 MG/DL (2.5-4.9) Magnesium Level 1.5 MG/DL (1.8-2.4) Iron Level 236 ug/dL (50-175) Total Iron Binding Capacity 315 ug/dL (250-450) Percent Iron Saturation 75 % (15-50) Unsaturated Iron Binding 79 ug/dL (112-346) Ferritin 179 NG/ML (8-388) Total Bilirubin 1.4 MG/DL (0.2-1.0) Direct Bilirubin 0.5 MG/DL (0.0-0.3) Gamma Glutamyl Transpeptidase 1637 U/L (5-85) Aspartate Amino Transf (AST/SGOT) 208 U/L (15-37) Alanine Aminotransferase (ALT/SGPT) 150 U/L (12-78) Alkaline Phosphatase 156 U/L (46-116) Ammonia 88 umol/L (11-32) C-Reactive Protein, Quantitative < 0.4 mg/dL (0.00-0.90) Pro-B-Type Natriuretic Peptide 338 pg/mL (0-125) Total Protein 7.8 G/DL (6.4-8.2) Albumin 3.7 G/DL (3.4-5.0) Globulin 4.1 g/dL Albumin/Globulin Ratio 0.9 (1.0-2.7) Triglycerides Level 153 MG/DL (30-150) Cholesterol Level 229 MG/DL (< 200) LDL Cholesterol 98 mg/dL (<100) HDL Cholesterol 96 MG/DL (40-60) Cholesterol/HDL Ratio 2.4 (3.3-4.4) Vitamin B12 Level 916 PG/ML (193-986) Folate 8.2 NG/ML (8.6-58.9) Thyroid Stimulating Hormone (TSH) 4.170 uiU/mL (0.358-3.740) Free Thyroxine 0.97 NG/DL (0.76-1.46) HIV (1&2) Antibody Rapid Negative (NEGATIVE) POC Whole Blood Glucose 140 MG/DL (74-106) 81 MG/DL (74-106) Micro Microbiology Date/Time Source Procedure Growth Status 01/31/20 23:20 Nasopharynx SARS-CoV-2 RdRp Gene Assay - Final Complete Height (Feet): 5 Height (Inches): 8.00 Weight (Pounds): 157 Lymphatic: normal other Objective Physical Exam: Vitals: reviewed General: NAD HEENT: nc, at Neck: supple Chest: clear breath sounds bilaterally Cardiovascular: RRR, no s3, s4 Abdomen: soft, nontender, nd Extremities: no cce, normal range of motion Neuro: alert and oriented Brenden Zuluaga MD Feb 01, 2020 21:23
--- NOTE | 2020-02-01 23:13 | Psych Consult Progress Note ---
Psychiatry Progress Note Psychiatry Progress Note Medications Current Medications Medications (Trade) Dose Ordered Sig/Jose Route PRN Reason Start Time Stop Time Status Last Admin Dose Admin Acetaminophen (Tylenol) 650 mg Q4H PRN ORAL Temp >100.5 01/31/20 20:30 03/01/20 20:29 01/31/20 20:39 Chlordiazepoxide (Librium) 25 mg EVERY 8 HOURS ORAL 02/01/20 06:00 02/08/20 05:59 02/01/20 20:58 Clonidine HCl (Catapres Tab) 0.1 mg EVERY 6 HOURS PRN ORAL BP over 165 systolic 02/01/20 12:15 04/30/20 05:59 Dextrose (Dextrose 50%) 25 ml Q30M PRN IV Hypoglycemia 01/31/20 06:45 04/30/20 06:44 Dextrose (Dextrose 50%) 50 ml Q30M PRN IV Hypoglycemia 01/31/20 06:45 04/30/20 06:44 Famotidine (Pepcid) 20 mg BID ORAL 01/31/20 18:00 04/30/20 17:59 02/01/20 17:02 Folic Acid (Folate) 1 mg DAILY ORAL 01/31/20 09:00 03/01/20 08:59 02/01/20 08:19 Heparin Sodium (Porcine) (Heparin 5000 units/ml) 5,000 units EVERY 8 HOURS SUBQ 01/31/20 14:00 03/16/20 13:59 02/01/20 21:00 Insulin Aspart (NovoLOG) BEFORE MEALS AND HS SUBQ 01/31/20 07:00 04/30/20 06:59 02/01/20 17:05 Insulin Aspart (NovoLOG) 4 units NOVOTIAC SUBQ 01/31/20 06:45 04/30/20 06:44 02/01/20 17:06 Insulin Detemir (Levemir) 12 units DAILY SUBQ 01/31/20 09:00 04/30/20 08:59 02/01/20 08:25 Lisinopril (ZestriL) 10 mg DAILY ORAL 02/01/20 09:00 03/02/20 08:59 02/01/20 08:19 Lorazepam (Ativan) 1 mg TID PRN ORAL Agitation 01/31/20 05:45 02/07/20 05:44 Magnesium Oxide (Mag-Ox 400mg) 400 mg THREE TIMES A DAY ORAL 02/01/20 13:00 03/02/20 12:59 02/01/20 17:02 Morphine Sulfate (Morphine Sulfate) 2 mg Q4H PRN IVP For Pain 01/31/20 20:27 02/07/20 20:26 Ondansetron HCl (Zofran) 4 mg Q4H PRN IVP Nausea & Vomiting 01/31/20 05:45 03/01/20 05:44 Thiamine HCl (Vitamin B1) 100 mg DAILY ORAL 01/31/20 09:00 03/01/20 08:59 02/01/20 08:19 Vancomycin HCl (Vanco pharmacy to dose) 1 ea DAILY PRN MISC Per rx protocol 01/31/20 22:15 03/01/20 22:14 Vancomycin HCl 1 gm/Dextrose 275 ml @ 184 mls/hr Q8H IVPB 02/01/20 00:00 02/06/20 00:00 02/01/20 17:39 Neurological/Psychiatric: Reports: anxiety, depressed, emotional problems Allergies: Coded Allergies: No Known Allergies (Unverified , 04/07/19) Objective Data Height (Feet): 5 Height (Inches): 8.00 Weight (Pounds): 157 Additional Comments: Alert and oriented times, self, place, and situation. Mood is dysphoric. Affect is flat. Thought process is concrete. Thought content, no suicidal or homicidal ideation. Cognition is intact. Insight and judgment is impaired. ASSESSMENT: [place] I Alcohol dependence. Alcohol withdrawal. [place] II Deferred. [place] III As above. [place] IV Low [place] V 50 PLAN: 1. Start the patient on Librium 25 mg t.i.d. 2. Ativan as needed. 4. Provide the patient with reality orientation and supportive therapy. Assessment/Plan Status: stable, progressing Ana Betts MD Feb 01, 2020 23:13
[2020-02-02 04:00] VITALS: BP 144/99
[2020-02-02] MEDS: chlordiazePOXIDE 25mg Cap ORAL SCH ×2 (05:50→14:13)
[2020-02-02] MEDS: Heparin 5000 units/ml inj SUBQ SCH ×2 (05:54→14:14)
[2020-02-02 05:55] VITALS: BP 144/99
[2020-02-02] MEDS: NovoLOG Insulin Flexpen SUBQ SCH ×4 (05:55→12:17)
--- NOTE | 2020-02-02 06:51 | General Progress Note ---
Assessment/Plan Problem List: (1) Hypoglycemia ICD Codes: E16.2 - Hypoglycemia, unspecified SNOMED: 209213430 (2) Alcohol intoxication ICD Codes: F10.929 - Alcohol use, unspecified with intoxication, unspecified SNOMED: 60337079 Qualifiers: Qualified Codes: F10.920 - Alcohol use, unspecified with intoxication, uncomplicated Status: stable, progressing Assessment/Plan: continue Levemir 12 units daily continue Novolog 4 units ac tid continue Novolog sliding scale ac / hs hypoglycemia protocol in order resume Levothyroxine 50 mcg daily Subjective Allergies: Coded Allergies: No Known Allergies (Unverified , 04/07/19) All Systems: reviewed and negative except above Subjective events noted glucose values are stable without hypoglycemia Item Value Date Time Bedside Blood Glucose 118 mg/dl 02/02/20 0555 Bedside Blood Glucose 81 mg/dl 02/01/20 2057 Bedside Blood Glucose 207 mg/dl H 02/01/20 1706 Bedside Blood Glucose 140 mg/dl H 02/01/20 1129 Bedside Blood Glucose 192 mg/dl H 02/01/20 0825 Bedside Blood Glucose 192 mg/dl H 02/01/20 0615 Objective Last 24 Hour Vital Signs Date Time Temp Pulse Resp B/P (MAP) Pulse Ox O2 Delivery O2 Flow Rate FiO2 02/02/20 05:55 98.1 75 18 144/99 (114) 98 02/02/20 04:00 98.1 75 18 144/99 (114) 98 02/01/20 23:52 98.1 70 18 141/92 (108) 98 02/01/20 21:00 Room Air 02/01/20 20:00 98.2 66 18 115/67 (83) 99 02/01/20 16:06 98.4 66 18 133/97 (109) 100 02/01/20 11:49 97.3 60 19 112/73 (86) 100 02/01/20 09:00 Room Air 02/01/20 08:19 120/75 02/01/20 08:00 98.2 76 19 120/75 (90) 98 Intake and Output 02/01/20 02/02/20 19:00 07:00 Intake Total 2135 ml 575 ml Balance 2135 ml 575 ml Intake Oral 300 ml IV Total 535 ml 275 ml Other 1600 ml # Voids 4 # Bowel Movements 1 Laboratory Tests 02/01/20 11:27: POC Whole Blood Glucose 140H 02/01/20 16:32: POC Whole Blood Glucose [Pending] 02/01/20 20:42: POC Whole Blood Glucose 81 02/02/20 05:45: POC Whole Blood Glucose 118H Height (Feet): 5 Height (Inches): 8.00 Weight (Pounds): 157 General Appearance: no apparent distress Neck: normal alignment Abdomen: normal bowel sounds Pelvis: normal external exam Objective Current Medications Medications (Trade) Dose Ordered Sig/Jose Route PRN Reason Start Time Stop Time Status Last Admin Dose Admin Acetaminophen (Tylenol) 650 mg Q4H PRN ORAL Temp >100.5 01/31/20 20:30 03/01/20 20:29 01/31/20 20:39 Chlordiazepoxide (Librium) 25 mg EVERY 8 HOURS ORAL 02/01/20 06:00 02/08/20 05:59 02/02/20 05:50 Clonidine HCl (Catapres Tab) 0.1 mg EVERY 6 HOURS PRN ORAL BP over 165 systolic 02/01/20 12:15 04/30/20 05:59 Dextrose (Dextrose 50%) 25 ml Q30M PRN IV Hypoglycemia 01/31/20 06:45 04/30/20 06:44 Dextrose (Dextrose 50%) 50 ml Q30M PRN IV Hypoglycemia 01/31/20 06:45 04/30/20 06:44 Famotidine (Pepcid) 20 mg BID ORAL 01/31/20 18:00 04/30/20 17:59 02/01/20 17:02 Folic Acid (Folate) 1 mg DAILY ORAL 01/31/20 09:00 03/01/20 08:59 02/01/20 08:19 Heparin Sodium (Porcine) (Heparin 5000 units/ml) 5,000 units EVERY 8 HOURS SUBQ 01/31/20 14:00 03/16/20 13:59 02/02/20 05:54 Insulin Aspart (NovoLOG) BEFORE MEALS AND HS SUBQ 01/31/20 07:00 04/30/20 06:59 02/01/20 17:05 Insulin Aspart (NovoLOG) 4 units NOVOTIAC SUBQ 01/31/20 06:45 04/30/20 06:44 02/02/20 05:55 Insulin Detemir (Levemir) 12 units DAILY SUBQ 01/31/20 09:00 04/30/20 08:59 02/01/20 08:25 Lisinopril (ZestriL) 10 mg DAILY ORAL 02/01/20 09:00 03/02/20 08:59 02/01/20 08:19 Lorazepam (Ativan) 1 mg TID PRN ORAL Agitation 01/31/20 05:45 02/07/20 05:44 Magnesium Oxide (Mag-Ox 400mg) 400 mg THREE TIMES A DAY ORAL 02/01/20 13:00 03/02/20 12:59 02/01/20 17:02 Morphine Sulfate (Morphine Sulfate) 2 mg Q4H PRN IVP For Pain 01/31/20 20:27 02/07/20 20:26 Ondansetron HCl (Zofran) 4 mg Q4H PRN IVP Nausea & Vomiting 01/31/20 05:45 03/01/20 05:44 Thiamine HCl (Vitamin B1) 100 mg DAILY ORAL 01/31/20 09:00 03/01/20 08:59 02/01/20 08:19 Vancomycin HCl (Vanco pharmacy to dose) 1 ea DAILY PRN MISC Per rx protocol 01/31/20 22:15 03/01/20 22:14 Vancomycin HCl 1 gm/Dextrose 275 ml @ 184 mls/hr Q8H IVPB 02/01/20 00:00 02/06/20 00:00 02/01/20 23:44 Roland Hayes MD Feb 02, 2020 06:51
--- NOTE | 2020-02-02 07:28 | NUR ---
HAND-OFF: Report given to Trent DYE.
[2020-02-02 08:00] VITALS: BP 113/78
[2020-02-02 08:18] LABS: BASOPHILS % (AUTO) 3.1 % (0.0-2.0); EOSINOPHILS % (AUTO) 2.4 % (0.0-3.0); HEMATOCRIT 40.1 % (42.0-52.0); HEMOGLOBIN 13.6 G/DL (14.2-18.0); LYMPHOCYTES % (AUTO) 21.1 % (20.0-45.0); MEAN CORPUSCULAR VOLUME 99 FL (80-99); MONOCYTES % (AUTO) 12.3 % (1.0-10.0); NEUTROPHILS % (AUTO) 61.1 % (45.0-75.0); PLATELET COUNT 137 K/UL (150-450); RED BLOOD COUNT 4.04 M/UL (4.70-6.10); RED CELL DISTRIBUTION WIDTH 13.1 % (11.6-14.8); WHITE BLOOD COUNT 4.7 K/UL (4.8-10.8)
--- NOTE | 2020-02-02 08:27 | NUR ---
NURSE NOTES: Report received from HARDIK Raymond. Patient seen sitting on side of bed awake, alert, and oriented. No s/sx of SOB/Distress, no c/o any pain or gi/gu discomfort. Patient has IV site on RFA gauge [address] and intact. No s/sx of any swelling, redness, or infection. Patient's bed placed on lowest and locked position. Call light placed within reach and will continue to monitor.
[2020-02-02 08:32] LABS: ALANINE AMINOTRANSFERASE 148 U/L (12-78); ALBUMIN 3.7 G/DL (3.4-5.0); ALBUMIN/GLOBULIN RATIO 0.9 (1.0-2.7); ALKALINE PHOSPHATASE 139 U/L (46-116); ANION GAP 9 mmol/L (5-15); ASPARTATE AMINO TRANSFERASE 224 U/L (15-37); BILIRUBIN,TOTAL 1.1 MG/DL (0.2-1.0); BLOOD UREA NITROGEN 11 mg/dL (7-18); CALCIUM 9.4 MG/DL (8.5-10.1); CARBON DIOXIDE 29 MMOL/L (21-32); CHLORIDE 101 MMOL/L (98-107); CREATININE 0.9 MG/DL (0.55-1.30); POTASSIUM 4.2 MMOL/L (3.5-5.1); SODIUM 139 MMOL/L (136-145)
[2020-02-02 09:06] LABS: BILIRUBIN,DIRECT 0.4 MG/DL (0.0-0.3)
[2020-02-02] MEDS: Magnesium Oxide 400mg tab ORAL SCH ×2 (09:26→12:15)
[2020-02-02] MEDS: Vancomycin 1gm in Dextrose 275ml IVPB SCH (09:26)
[2020-02-02] MEDS: Lisinopril 10mg tab ORAL SCH (09:27)
[2020-02-02] MEDS: Thiamine 100mg tab ORAL SCH (09:27)
[2020-02-02] MEDS: Levemir Flexpen SUBQ SCH (09:29)
--- NOTE | 2020-02-02 10:19 | NUR ---
NURSE NOTES: patient was seen by . cleared for dischrge.
--- NOTE | 2020-02-02 10:37 | Cardiac Electrophysiology PN ---
Assessment/Plan Assessment/Plan 1. Accelerated hypertension. This patient with polysubstance abuse with amphetamine, benzodiazepine, marijuana, and alcohol. Continue lisinopril 5 mg daily. EF 65% 2. Severe hypokalemia. Potassium was 3, which was replaced. 3. Diabetes with hypoglycemia. The patient is on insulin. Further evaluation by Dr. Hayes. 4. Alcohol use, on thiamine and folate. 5. Polysubstance abuse. DC today. Dr Osborn Subjective Subjective Alert in NAD. DC planning today Objective Last 24 Hour Vital Signs Date Time Temp Pulse Resp B/P (MAP) Pulse Ox O2 Delivery O2 Flow Rate FiO2 02/02/20 09:27 113/78 02/02/20 09:00 Room Air 02/02/20 08:00 97.9 82 19 113/78 (90) 99 02/02/20 05:55 98.1 75 18 144/99 (114) 98 02/02/20 04:00 98.1 75 18 144/99 (114) 98 02/01/20 23:52 98.1 70 18 141/92 (108) 98 02/01/20 21:00 Room Air 02/01/20 20:00 98.2 66 18 115/67 (83) 99 02/01/20 16:06 98.4 66 18 133/97 (109) 100 02/01/20 11:49 97.3 60 19 112/73 (86) 100 Intake and Output 02/01/20 02/02/20 19:00 07:00 Intake Total 2135 ml 575 ml Balance 2135 ml 575 ml Intake Oral 300 ml IV Total 535 ml 275 ml Other 1600 ml # Voids 4 # Bowel Movements 1 Laboratory Tests Test 02/01/20 11:27 02/01/20 16:32 02/01/20 20:42 02/02/20 05:45 POC Whole Blood Glucose 140 MG/DL (74-106) H Pending 81 MG/DL (74-106) 118 MG/DL (74-106) H Test 02/02/20 07:35 02/02/20 09:28 White Blood Count 4.7 K/UL (4.8-10.8) L Red Blood Count 4.04 M/UL (4.70-6.10) L Hemoglobin 13.6 G/DL (14.2-18.0) L Hematocrit 40.1 % (42.0-52.0) L Mean Corpuscular Volume 99 FL (80-99) Mean Corpuscular Hemoglobin 33.6 PG (27.0-31.0) H Mean Corpuscular Hemoglobin Concent 33.8 G/DL (32.0-36.0) Red Cell Distribution Width 13.1 % (11.6-14.8) Platelet Count 137 K/UL (150-450) L Mean Platelet Volume 7.6 FL (6.5-10.1) Neutrophils (%) (Auto) 61.1 % (45.0-75.0) Lymphocytes (%) (Auto) 21.1 % (20.0-45.0) Monocytes (%) (Auto) 12.3 % (1.0-10.0) H Eosinophils (%) (Auto) 2.4 % (0.0-3.0) Basophils (%) (Auto) 3.1 % (0.0-2.0) H Sodium Level 139 MMOL/L (136-145) Potassium Level 4.2 MMOL/L (3.5-5.1) Chloride Level 101 MMOL/L (98-107) Carbon Dioxide Level 29 MMOL/L (21-32) Anion Gap 9 mmol/L (5-15) Blood Urea Nitrogen 11 mg/dL (7-18) Creatinine 0.9 MG/DL (0.55-1.30) Estimat Glomerular Filtration Rate > 60 mL/min (>60) Glucose Level 118 MG/DL (74-106) H Calcium Level 9.4 MG/DL (8.5-10.1) Total Bilirubin 1.1 MG/DL (0.2-1.0) H Direct Bilirubin 0.4 MG/DL (0.0-0.3) H Aspartate Amino Transf (AST/SGOT) 224 U/L (15-37) H Alanine Aminotransferase (ALT/SGPT) 148 U/L (12-78) H Alkaline Phosphatase 139 U/L (46-116) H Total Protein 8.0 G/DL (6.4-8.2) Albumin 3.7 G/DL (3.4-5.0) Globulin 4.3 g/dL Albumin/Globulin Ratio 0.9 (1.0-2.7) L Vancomycin Level Trough 14.7 ug/mL (5.0-12.0) H Rapid Plasma Reagin Pending HIV-1 RNA (PCR) log10 Value Pending HIV-1 RNA Ultraquantitative (PCR) Pending POC Whole Blood Glucose Pending Microbiology Date/Time Source Procedure Growth Status 01/31/20 22:50 Blood Blood Culture - Preliminary NO GROWTH AFTER 24 HOURS Resulted 01/31/20 22:45 Blood Blood Culture - Preliminary NO GROWTH AFTER 24 HOURS Resulted 01/31/20 23:20 Nasopharynx SARS-CoV-2 RdRp Gene Assay - Final Complete Objective HEAD AND NECK: Showed no JVD or carotid bruits. LUNGS: Clear. CARDIOVASCULAR: Shows regular S1 and S2 with no gallop or murmur. ABDOMEN: Soft. EXTREMITIES: No pitting edema. Jeffrey Roberts MD Feb 02, 2020 10:37
--- NOTE | 2020-02-02 11:11 | NUR ---
RADIOLOGY DEPT., BILATERAL FEET IMAGED.-P.DYE
--- NOTE | 2020-02-02 11:24 | General Progress Note ---
Assessment/Plan Problem List: (1) Elevated LFTs ICD Codes: R79.89 - Other specified abnormal findings of blood chemistry SNOMED: 717028280, 885565807 (2) Temporary low platelet count ICD Codes: D69.6 - Thrombocytopenia, unspecified SNOMED: 465661993 (3) Hypertension ICD Codes: I10 - Essential (primary) hypertension SNOMED: 95232422 (4) Hypoglycemia ICD Codes: E16.2 - Hypoglycemia, unspecified SNOMED: 179512752 (5) Alcohol intoxication ICD Codes: F10.929 - Alcohol use, unspecified with intoxication, unspecified SNOMED: 59710382 Qualifiers: Qualified Codes: F10.920 - Alcohol use, unspecified with intoxication, uncomplicated Status: stable, progressing Assessment/Plan: thiamine folate DM control repeat labs abd us>>>reviewed fatty liver elevated LFTS>> repeat labs>>> hepatitis panel poly sub abuse Subjective ROS Limited/Unobtainable: No Allergies: Coded Allergies: No Known Allergies (Unverified , 04/07/19) Objective Last 24 Hour Vital Signs Date Time Temp Pulse Resp B/P (MAP) Pulse Ox O2 Delivery O2 Flow Rate FiO2 02/02/20 09:27 113/78 02/02/20 09:00 Room Air 02/02/20 08:00 97.9 82 19 113/78 (90) 99 02/02/20 05:55 98.1 75 18 144/99 (114) 98 02/02/20 04:00 98.1 75 18 144/99 (114) 98 02/01/20 23:52 98.1 70 18 141/92 (108) 98 02/01/20 21:00 Room Air 02/01/20 20:00 98.2 66 18 115/67 (83) 99 02/01/20 16:06 98.4 66 18 133/97 (109) 100 02/01/20 11:49 97.3 60 19 112/73 (86) 100 Intake and Output 02/01/20 02/02/20 19:00 07:00 Intake Total 2135 ml 575 ml Balance 2135 ml 575 ml Intake Oral 300 ml IV Total 535 ml 275 ml Other 1600 ml # Voids 4 # Bowel Movements 1 Laboratory Tests 02/01/20 11:27: POC Whole Blood Glucose 140H 02/01/20 16:32: POC Whole Blood Glucose [Pending] 02/01/20 20:42: POC Whole Blood Glucose 81 02/02/20 05:45: POC Whole Blood Glucose 118H 02/02/20 07:35: White Blood Count 4.7L, Red Blood Count 4.04L, Hemoglobin 13.6L, Hematocrit 40.1L, Mean Corpuscular Volume 99, Mean Corpuscular Hemoglobin 33.6H, Mean Corpuscular Hemoglobin Concent 33.8, Red Cell Distribution Width 13.1, Platelet Count 137L, Mean Platelet Volume 7.6, Neutrophils (%) (Auto) 61.1, Lymphocytes ( %) (Auto) 21.1, Monocytes (%) (Auto) 12.3H, Eosinophils (%) (Auto) 2.4, Basophils (%) (Auto) 3.1H, Sodium Level 139, Potassium Level 4.2, Chloride Level 101, Carbon Dioxide Level 29, Anion Gap 9, Blood Urea Nitrogen 11, Creatinine 0.9, Estimat Glomerular Filtration Rate > 60, Glucose Level 118H, Calcium Level 9.4, Total Bilirubin 1.1H, Direct Bilirubin 0.4H, Aspartate Amino Transf (AST/SGOT) 224H, Alanine Aminotransferase (ALT/SGPT) 148H, Alkaline Phosphatase 139H, Total Protein 8.0, Albumin 3.7, Globulin 4.3, Albumin/ Globulin Ratio 0.9L, Vancomycin Level Trough 14.7H, Rapid Plasma Reagin [Pending ], HIV-1 RNA (PCR) log10 Value [Pending], HIV-1 RNA Ultraquantitative (PCR) [ Pending] 02/02/20 09:28: POC Whole Blood Glucose [Pending] Height (Feet): 5 Height (Inches): 8.00 Weight (Pounds): 157 General Appearance: alert EENT: normal ENT inspection Neck: supple Cardiovascular: normal rate Respiratory/Chest: decreased breath sounds Abdomen: normal bowel sounds, non tender, soft Extremities: non-tender Amador Pires MD Feb 02, 2020 11:23
--- NOTE | 2020-02-02 11:48 | NUR ---
DISCHARGE PLANNING DR RICHEY GAVE TO/RB TO DC PATIENT. NOTED AND CARRIED OUT. RN SAMIRA CUTLER.
--- NOTE | 2020-02-02 11:56 | Diagnostic Imaging Report ---
INDICATION: Foot pain. Foreign body. TECHNIQUE: XRAY Foot 2v R Multiple views of the right foot were obtained COMPARISON: None FINDINGS: There is no acute fracture or dislocation. There is mild first metatarsophalangeal joint osteoarthrosis. Lisfranc alignment is preserved. No acute soft tissue abnormality. No radiopaque foreign body identified. IMPRESSION: No acute fracture, dislocation, or radiopaque foreign body.
--- NOTE | 2020-02-02 11:59 | Diagnostic Imaging Report ---
INDICATION: Foot pain TECHNIQUE: XRAY Foot 2v L Multiple views of the left foot were obtained COMPARISON: None FINDINGS: There is no acute fracture or dislocation. Mild first metatarsal phalangeal joint osteoarthrosis. Lisfranc alignment is preserved. No acute soft tissue abnormality. No radiopaque foreign body identified. IMPRESSION: No acute fracture, dislocation, or radiopaque foreign body.
[2020-02-02 12:00] VITALS: BP 117/85
--- NOTE | 2020-02-02 12:12 | General Progress Note ---
Assessment/Plan Problem List: (1) Hypoglycemia ICD Codes: E16.2 - Hypoglycemia, unspecified SNOMED: 146187921 (2) Hypertension ICD Codes: I10 - Essential (primary) hypertension SNOMED: 83418727 (3) Alcohol intoxication ICD Codes: F10.929 - Alcohol use, unspecified with intoxication, unspecified SNOMED: 50945652 Qualifiers: Qualified Codes: F10.920 - Alcohol use, unspecified with intoxication, uncomplicated (4) Temporary low platelet count ICD Codes: D69.6 - Thrombocytopenia, unspecified SNOMED: 702457971 Status: stable, progressing Assessment/Plan: detox pt diet dc if clear Subjective Constitutional: Reports: weakness Allergies: Coded Allergies: No Known Allergies (Unverified , 04/07/19) All Systems: reviewed and negative except above Subjective calm in bed Objective Last 24 Hour Vital Signs Date Time Temp Pulse Resp B/P (MAP) Pulse Ox O2 Delivery O2 Flow Rate FiO2 02/02/20 09:27 113/78 02/02/20 09:00 Room Air 02/02/20 08:00 97.9 82 19 113/78 (90) 99 02/02/20 05:55 98.1 75 18 144/99 (114) 98 02/02/20 04:00 98.1 75 18 144/99 (114) 98 02/01/20 23:52 98.1 70 18 141/92 (108) 98 02/01/20 21:00 Room Air 02/01/20 20:00 98.2 66 18 115/67 (83) 99 02/01/20 16:06 98.4 66 18 133/97 (109) 100 Intake and Output 02/01/20 02/02/20 19:00 07:00 Intake Total 2135 ml 575 ml Balance 2135 ml 575 ml Intake Oral 300 ml IV Total 535 ml 275 ml Other 1600 ml # Voids 4 # Bowel Movements 1 Laboratory Tests 02/01/20 16:32: POC Whole Blood Glucose [Pending] 02/01/20 20:42: POC Whole Blood Glucose 81 02/02/20 05:45: POC Whole Blood Glucose 118H 02/02/20 07:35: White Blood Count 4.7L, Red Blood Count 4.04L, Hemoglobin 13.6L, Hematocrit 40.1L, Mean Corpuscular Volume 99, Mean Corpuscular Hemoglobin 33.6H, Mean Corpuscular Hemoglobin Concent 33.8, Red Cell Distribution Width 13.1, Platelet Count 137L, Mean Platelet Volume 7.6, Neutrophils (%) (Auto) 61.1, Lymphocytes ( %) (Auto) 21.1, Monocytes (%) (Auto) 12.3H, Eosinophils (%) (Auto) 2.4, Basophils (%) (Auto) 3.1H, Sodium Level 139, Potassium Level 4.2, Chloride Level 101, Carbon Dioxide Level 29, Anion Gap 9, Blood Urea Nitrogen 11, Creatinine 0.9, Estimat Glomerular Filtration Rate > 60, Glucose Level 118H, Calcium Level 9.4, Total Bilirubin 1.1H, Direct Bilirubin 0.4H, Aspartate Amino Transf (AST/SGOT) 224H, Alanine Aminotransferase (ALT/SGPT) 148H, Alkaline Phosphatase 139H, Total Protein 8.0, Albumin 3.7, Globulin 4.3, Albumin/ Globulin Ratio 0.9L, Vancomycin Level Trough 14.7H, Rapid Plasma Reagin [Pending ], HIV-1 RNA (PCR) log10 Value [Pending], HIV-1 RNA Ultraquantitative (PCR) [ Pending] 02/02/20 09:28: POC Whole Blood Glucose [Pending] 02/02/20 11:34: POC Whole Blood Glucose [Pending] Height (Feet): 5 Height (Inches): 8.00 Weight (Pounds): 157 General Appearance: lethargic EENT: normal ENT inspection Neck: normal alignment Cardiovascular: normal peripheral pulses, normal rate, regular rhythm Respiratory/Chest: chest wall non-tender, lungs clear, normal breath sounds Abdomen: normal bowel sounds, non tender Extremities: normal inspection Edema: no edema noted Arm (L), no edema noted Arm (R), no edema noted Leg (L), no edema noted Leg (R), no edema noted Pedal (L), no edema noted Pedal (R), no edema noted Generalized Neurologic: motor weakness Skin: normal pigmentation, warm/dry Paresh Cintron DO Feb 02, 2020 12:12
--- NOTE | 2020-02-02 12:54 | Hematology/Onc Progress Note ---
Assessment/Plan Assessment/Plan Assessment and Recs # Pancytopenia -- multiple etiologies could be related to underlying liver disease, medication-induced, infection --> likely related to etoh use --> recommend cessation etoh --> Medications have been reviewed --> Continue to monitor for improvement, trend cbc --> Hep panel and HIV have been ordered-->NEG --> US abd ordered to r/o cirrhosis and hepatosplenomegaly ->fatty liver --> reverse isolation if ANC is <2000 --> Give neupogen if ANC <1000 --> Transfuse if hgb <7, with 1 unit prbc --> wbc 2.9-->4->4.7 --> plt trend 137 --> consider bone marrow biopsy if no other causes are found # Hypoglycemia --> hx of dka in the past --> hgb a1c goal <8 # Peripnephric abscess history PRIOR admission --> s/p pigtails drainage # Alcohol intoxication --> recommend cessation --> banana bag, folate, thiamine # Dvt ppx scds The timing of this note does not necessarily reflect the time of the patient was seen. Greatly appreciate consultation. Subjective Constitutional: Denies: no symptoms, chills, fever, malaise, weakness, other HEENT: Denies: no symptoms, eye pain, blurred vision, tearing, double vision, ear pain, ear discharge, nose pain, nose congestion, throat pain, throat swelling, mouth pain, mouth swelling, other Cardiovascular: Denies: no symptoms, chest pain, edema, irregular heart rate, lightheadedness, palpitations, syncope, other Gastrointestinal/Abdominal: Denies: no symptoms, abdomen distended, abdominal pain, black stools, tarry stools, blood in stool, constipated, diarrhea, difficulty swallowing, nausea, poor appetite, poor fluid intake, rectal bleeding , vomiting, other Genitourinary: Denies: no symptoms, burning, discharge, frequency, flank pain, hematuria, incontinence, pain, urgency, other Endocrine: Denies: no symptoms, excessive sweating, flushing, intolerance to cold, intolerance to heat, increased hunger, increased thirst, increased urine, unexplained weight gain, unexplained weight loss, other Hematologic/Lymphatic: Denies: no symptoms, anemia, easy bleeding, easy bruising, adenopathy, other Allergies: Coded Allergies: No Known Allergies (Unverified , 04/07/19) Subjective 01/31 no bleeding, meds reviewed, no night sweats 02/01 no bleeding, chills, feeling better, labs are noted Objective Objective Current Medications Medications (Trade) Dose Ordered Sig/Jose Route PRN Reason Start Time Stop Time Status Last Admin Dose Admin Acetaminophen (Tylenol) 650 mg Q4H PRN ORAL Temp >100.5 01/31/20 20:30 03/01/20 20:29 01/31/20 20:39 Chlordiazepoxide (Librium) 25 mg EVERY 8 HOURS ORAL 02/01/20 06:00 02/08/20 05:59 02/02/20 05:50 Clonidine HCl (Catapres Tab) 0.1 mg EVERY 6 HOURS PRN ORAL BP over 165 systolic 02/01/20 12:15 04/30/20 05:59 Dextrose (Dextrose 50%) 25 ml Q30M PRN IV Hypoglycemia 01/31/20 06:45 04/30/20 06:44 Dextrose (Dextrose 50%) 50 ml Q30M PRN IV Hypoglycemia 01/31/20 06:45 04/30/20 06:44 Famotidine (Pepcid) 20 mg BID ORAL 01/31/20 18:00 04/30/20 17:59 02/02/20 09:27 Folic Acid (Folate) 1 mg DAILY ORAL 01/31/20 09:00 03/01/20 08:59 02/02/20 09:28 Heparin Sodium (Porcine) (Heparin 5000 units/ml) 5,000 units EVERY 8 HOURS SUBQ 01/31/20 14:00 03/16/20 13:59 02/02/20 05:54 Insulin Aspart (NovoLOG) BEFORE MEALS AND HS SUBQ 01/31/20 07:00 04/30/20 06:59 02/02/20 12:16 Insulin Aspart (NovoLOG) 4 units NOVOTIAC SUBQ 01/31/20 06:45 04/30/20 06:44 02/02/20 12:17 Insulin Detemir (Levemir) 12 units DAILY SUBQ 01/31/20 09:00 04/30/20 08:59 02/02/20 09:29 Levothyroxine Sodium (Synthroid) 50 mcg DAILY@0630 ORAL 02/02/20 07:00 03/03/20 06:59 02/02/20 07:31 Lisinopril (ZestriL) 10 mg DAILY ORAL 02/01/20 09:00 03/02/20 08:59 02/02/20 09:27 Lorazepam (Ativan) 1 mg TID PRN ORAL Agitation 01/31/20 05:45 02/07/20 05:44 Magnesium Oxide (Mag-Ox 400mg) 400 mg THREE TIMES A DAY ORAL 02/01/20 13:00 03/02/20 12:59 02/02/20 12:15 Morphine Sulfate (Morphine Sulfate) 2 mg Q4H PRN IVP For Pain 01/31/20 20:27 02/07/20 20:26 Ondansetron HCl (Zofran) 4 mg Q4H PRN IVP Nausea & Vomiting 01/31/20 05:45 03/01/20 05:44 Thiamine HCl (Vitamin B1) 100 mg DAILY ORAL 01/31/20 09:00 03/01/20 08:59 02/02/20 09:27 Vancomycin HCl (Vanco pharmacy to dose) 1 ea DAILY PRN MISC Per rx protocol 01/31/20 22:15 03/01/20 22:14 Vancomycin HCl 1 gm/Dextrose 275 ml @ 184 mls/hr Q8H IVPB 02/01/20 00:00 02/06/20 00:00 02/02/20 09:26 Last 24 Hour Vital Signs Date Time Temp Pulse Resp B/P (MAP) Pulse Ox O2 Delivery O2 Flow Rate FiO2 02/02/20 12:00 98.4 67 19 117/85 (96) 99 02/02/20 09:27 113/78 02/02/20 09:00 Room Air 02/02/20 08:00 97.9 82 19 113/78 (90) 99 02/02/20 05:55 98.1 75 18 144/99 (114) 98 02/02/20 04:00 98.1 75 18 144/99 (114) 98 02/01/20 23:52 98.1 70 18 141/92 (108) 98 02/01/20 21:00 Room Air 02/01/20 20:00 98.2 66 18 115/67 (83) 99 02/01/20 16:06 98.4 66 18 133/97 (109) 100 02/01/20 11:49 97.3 60 19 112/73 (86) 100 02/01/20 09:00 Room Air 02/01/20 08:19 120/75 02/01/20 08:00 98.2 76 19 120/75 (90) 98 02/01/20 05:51 154/72 02/01/20 04:00 97.3 66 20 148/72 (97) 97 02/01/20 00:00 99.0 66 21 145/77 (99) 97 01/31/20 21:37 160/99 01/31/20 21:09 99.1 01/31/20 21:00 Room Air 01/31/20 20:00 100.5 76 18 155/93 (113) 98 01/31/20 16:00 98.2 70 18 150/90 (110) 99 01/31/20 13:16 151/95 Intake and Output 02/01/20 02/02/20 19:00 07:00 Intake Total 2135 ml 575 ml Balance 2135 ml 575 ml Intake Oral 300 ml IV Total 535 ml 275 ml Other 1600 ml # Voids 4 # Bowel Movements 1 Labs Test 01/31/20 01:30 01/31/20 04:36 01/31/20 07:43 01/31/20 07:49 White Blood Count 2.7 K/UL (4.8-10.8) Red Blood Count 3.60 M/UL (4.70-6.10) Hemoglobin 12.2 G/DL (14.2-18.0) Hematocrit 35.7 % (42.0-52.0) Mean Corpuscular Volume 99 FL (80-99) Mean Corpuscular Hemoglobin 33.9 PG (27.0-31.0) Mean Corpuscular Hemoglobin Concent 34.2 G/DL (32.0-36.0) Red Cell Distribution Width 12.9 % (11.6-14.8) Platelet Count 93 K/UL (150-450) Mean Platelet Volume 6.6 FL (6.5-10.1) Neutrophils (%) (Auto) % (45.0-75.0) Lymphocytes (%) (Auto) % (20.0-45.0) Monocytes (%) (Auto) % (1.0-10.0) Eosinophils (%) (Auto) % (0.0-3.0) Basophils (%) (Auto) % (0.0-2.0) Sodium Level 140 MMOL/L (136-145) Potassium Level 3.0 MMOL/L (3.5-5.1) Chloride Level 103 MMOL/L (98-107) Carbon Dioxide Level 30 MMOL/L (21-32) Anion Gap 7 mmol/L (5-15) Blood Urea Nitrogen 5 mg/dL (7-18) Creatinine 0.8 MG/DL (0.55-1.30) Estimat Glomerular Filtration Rate > 60 mL/min (>60) Glucose Level 152 MG/DL (74-106) Calcium Level 8.6 MG/DL (8.5-10.1) Total Bilirubin 0.6 MG/DL (0.2-1.0) Aspartate Amino Transf (AST/SGOT) 278 U/L (15-37) Alanine Aminotransferase (ALT/SGPT) 171 U/L (12-78) Alkaline Phosphatase 142 U/L (46-116) Total Protein 7.7 G/DL (6.4-8.2) Albumin 3.9 G/DL (3.4-5.0) Globulin 3.8 g/dL Albumin/Globulin Ratio 1.0 (1.0-2.7) Salicylates Level < 0.2 ug/mL (2.8-20) Acetaminophen Level < 2 MCG/ML (10-30) Serum Alcohol 282 mg/dL POC Whole Blood Glucose 66 MG/DL (74-106) Urine Opiates Screen Negative (NEGATIVE) Urine Barbiturates Screen Negative (NEGATIVE) Phencyclidine (PCP) Screen Negative (NEGATIVE) Urine Amphetamines Screen Positive (NEGATIVE) Urine Benzodiazepines Screen Positive (NEGATIVE) Urine Cocaine Screen Negative (NEGATIVE) Urine Marijuana (THC) Screen Positive (NEGATIVE) Test 01/31/20 11:34 01/31/20 12:52 01/31/20 16:18 01/31/20 21:35 POC Whole Blood Glucose 63 MG/DL (74-106) 129 MG/DL (74-106) 108 MG/DL (74-106) 157 MG/DL (74-106) Test 02/01/20 04:30 02/01/20 11:27 02/01/20 16:32 02/01/20 20:42 White Blood Count 4.1 K/UL (4.8-10.8) Red Blood Count 3.96 M/UL (4.70-6.10) Hemoglobin 13.3 G/DL (14.2-18.0) Hematocrit 39.7 % (42.0-52.0) Mean Corpuscular Volume 100 FL (80-99) Mean Corpuscular Hemoglobin 33.5 PG (27.0-31.0) Mean Corpuscular Hemoglobin Concent 33.4 G/DL (32.0-36.0) Red Cell Distribution Width 12.8 % (11.6-14.8) Platelet Count 113 K/UL (150-450) Mean Platelet Volume 8.7 FL (6.5-10.1) Neutrophils (%) (Auto) 61.6 % (45.0-75.0) Lymphocytes (%) (Auto) 21.9 % (20.0-45.0) Monocytes (%) (Auto) 12.0 % (1.0-10.0) Eosinophils (%) (Auto) 1.5 % (0.0-3.0) Basophils (%) (Auto) 3.1 % (0.0-2.0) Prothrombin Time 11.7 SEC (9.30-11.50) Prothromb Time International Ratio 1.1 (0.9-1.1) Sodium Level 137 MMOL/L (136-145) Potassium Level 4.1 MMOL/L (3.5-5.1) Chloride Level 100 MMOL/L (98-107) Carbon Dioxide Level 31 MMOL/L (21-32) Anion Gap 6 mmol/L (5-15) Blood Urea Nitrogen 8 mg/dL (7-18) Creatinine 1.0 MG/DL (0.55-1.30) Estimat Glomerular Filtration Rate > 60 mL/min (>60) Glucose Level 185 MG/DL (74-106) Hemoglobin A1c 6.1 % (4.3-6.0) Uric Acid 3.8 MG/DL (2.6-7.2) Calcium Level 9.4 MG/DL (8.5-10.1) Phosphorus Level 3.5 MG/DL (2.5-4.9) Magnesium Level 1.5 MG/DL (1.8-2.4) Iron Level 236 ug/dL (50-175) Total Iron Binding Capacity 315 ug/dL (250-450) Percent Iron Saturation 75 % (15-50) Unsaturated Iron Binding 79 ug/dL (112-346) Ferritin 179 NG/ML (8-388) Total Bilirubin 1.4 MG/DL (0.2-1.0) Direct Bilirubin 0.5 MG/DL (0.0-0.3) Gamma Glutamyl Transpeptidase 1637 U/L (5-85) Aspartate Amino Transf (AST/SGOT) 208 U/L (15-37) Alanine Aminotransferase (ALT/SGPT) 150 U/L (12-78) Alkaline Phosphatase 156 U/L (46-116) Ammonia 88 umol/L (11-32) C-Reactive Protein, Quantitative < 0.4 mg/dL (0.00-0.90) Pro-B-Type Natriuretic Peptide 338 pg/mL (0-125) Total Protein 7.8 G/DL (6.4-8.2) Albumin 3.7 G/DL (3.4-5.0) Globulin 4.1 g/dL Albumin/Globulin Ratio 0.9 (1.0-2.7) Triglycerides Level 153 MG/DL (30-150) Cholesterol Level 229 MG/DL (< 200) LDL Cholesterol 98 mg/dL (<100) HDL Cholesterol 96 MG/DL (40-60) Cholesterol/HDL Ratio 2.4 (3.3-4.4) Vitamin B12 Level 916 PG/ML (193-986) Folate 8.2 NG/ML (8.6-58.9) Thyroid Stimulating Hormone (TSH) 4.170 uiU/mL (0.358-3.740) Free Thyroxine 0.97 NG/DL (0.76-1.46) HIV (1&2) Antibody Rapid Negative (NEGATIVE) POC Whole Blood Glucose 140 MG/DL (74-106) 81 MG/DL (74-106) Test 02/02/20 05:45 02/02/20 07:35 02/02/20 09:28 02/02/20 11:34 POC Whole Blood Glucose 118 MG/DL (74-106) White Blood Count 4.7 K/UL (4.8-10.8) Red Blood Count 4.04 M/UL (4.70-6.10) Hemoglobin 13.6 G/DL (14.2-18.0) Hematocrit 40.1 % (42.0-52.0) Mean Corpuscular Volume 99 FL (80-99) Mean Corpuscular Hemoglobin 33.6 PG (27.0-31.0) Mean Corpuscular Hemoglobin Concent 33.8 G/DL (32.0-36.0) Red Cell Distribution Width 13.1 % (11.6-14.8) Platelet Count 137 K/UL (150-450) Mean Platelet Volume 7.6 FL (6.5-10.1) Neutrophils (%) (Auto) 61.1 % (45.0-75.0) Lymphocytes (%) (Auto) 21.1 % (20.0-45.0) Monocytes (%) (Auto) 12.3 % (1.0-10.0) Eosinophils (%) (Auto) 2.4 % (0.0-3.0) Basophils (%) (Auto) 3.1 % (0.0-2.0) Sodium Level 139 MMOL/L (136-145) Potassium Level 4.2 MMOL/L (3.5-5.1) Chloride Level 101 MMOL/L (98-107) Carbon Dioxide Level 29 MMOL/L (21-32) Anion Gap 9 mmol/L (5-15) Blood Urea Nitrogen 11 mg/dL (7-18) Creatinine 0.9 MG/DL (0.55-1.30) Estimat Glomerular Filtration Rate > 60 mL/min (>60) Glucose Level 118 MG/DL (74-106) Calcium Level 9.4 MG/DL (8.5-10.1) Total Bilirubin 1.1 MG/DL (0.2-1.0) Direct Bilirubin 0.4 MG/DL (0.0-0.3) Aspartate Amino Transf (AST/SGOT) 224 U/L (15-37) Alanine Aminotransferase (ALT/SGPT) 148 U/L (12-78) Alkaline Phosphatase 139 U/L (46-116) Total Protein 8.0 G/DL (6.4-8.2) Albumin 3.7 G/DL (3.4-5.0) Globulin 4.3 g/dL Albumin/Globulin Ratio 0.9 (1.0-2.7) Vancomycin Level Trough 14.7 ug/mL (5.0-12.0) Height (Feet): 5 Height (Inches): 8.00 Weight (Pounds): 157 Objective Physical Exam: Vitals: reviewed General: NAD HEENT: nc, at Neck: supple Chest: clear breath sounds bilaterally Cardiovascular: RRR, no s3, s4 Abdomen: soft, nontender, nd Extremities: no cce, normal range of motion Neuro: alert and oriented Brenden Zuluaga MD Feb 02, 2020 12:54
--- NOTE | 2020-02-02 13:18 | NUR ---
ACQUISITION EDITOR NOTE SW spoke w/ Tata from [employer] [phone] #[phone] and received unique ID #:[id number]. Per Tata, there is no bed available at this time. SW relayed information to pt. Pt plans to return to [facility] in [facility] upon DC. SW explained negative ramification of unlicensed facilities/self-directing. Pt verbalized understanding. SW provided the community resource packet and the emergency care home list. Tap card will be provided. Pt does not share any concern/needs at this time.
--- NOTE | 2020-02-02 13:34 | Infectious Diseases Prog Note ---
Assessment/Plan Assessment: SIRS- 2ry to electrolyte abnormalitis, acute ETOH intoxication-no evidence of infectious process- r/o acute viral hepatitis, acute HIV infection Fever- improving R/o probable bacteremia -Bcx NTD Pancytopenia- probable multifactorial, ETOH abuse -01/30 CXR: Reduced lung volumes. No consolidation. rapid COVID PCR neg headache- resolved- no further concern for meningitis Acute encephalopathy 2ry to severe hypoglycemia (found on streets unresponsive and BG too low to measure); SP now back to baseline Elevated LFts, improving -Abd US: FATTY LIVER. TRACE AMOUNT OF FREE FLUID. 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 Will continue to follow along with you. Discussed with RN. Subjective Allergies: Coded Allergies: No Known Allergies (Unverified , 04/07/19) afebrile >36hrs Bcx N TD pancytopenia LFTs remains elevated but improving Objective Last 24 Hour Vital Signs Date Time Temp Pulse Resp B/P (MAP) Pulse Ox O2 Delivery O2 Flow Rate FiO2 02/02/20 12:00 98.4 67 19 117/85 (96) 99 02/02/20 09:27 113/78 02/02/20 09:00 Room Air 02/02/20 08:00 97.9 82 19 113/78 (90) 99 02/02/20 05:55 98.1 75 18 144/99 (114) 98 02/02/20 04:00 98.1 75 18 144/99 (114) 98 02/01/20 23:52 98.1 70 18 141/92 (108) 98 02/01/20 21:00 Room Air 02/01/20 20:00 98.2 66 18 115/67 (83) 99 02/01/20 16:06 98.4 66 18 133/97 (109) 100 Height (Feet): 5 Height (Inches): 8.00 Weight (Pounds): 157 GENERAL: Slightly confused in bed, oriented x2, in no acute distress. CARDIOVASCULAR: No murmurs. LUNGS: lungs cta x2 ABDOMEN: Bowel sounds+ EXTREMITIES: Showed no cyanosis, clubbing or edema. NEUROLOGIC: The patient moves all extremities, slightly weak. Microbiology Date/Time Source Procedure Growth Status 01/31/20 22:50 Blood Blood Culture - Preliminary NO GROWTH AFTER 24 HOURS Resulted 01/31/20 22:45 Blood Blood Culture - Preliminary NO GROWTH AFTER 24 HOURS Resulted 01/31/20 23:20 Nasopharynx SARS-CoV-2 RdRp Gene Assay - Final Complete Laboratory Tests Test 02/01/20 16:32 02/01/20 20:42 02/02/20 05:45 02/02/20 07:35 POC Whole Blood Glucose Pending 81 MG/DL (74-106) 118 MG/DL (74-106) H White Blood Count 4.7 K/UL (4.8-10.8) L Red Blood Count 4.04 M/UL (4.70-6.10) L Hemoglobin 13.6 G/DL (14.2-18.0) L Hematocrit 40.1 % (42.0-52.0) L Mean Corpuscular Volume 99 FL (80-99) Mean Corpuscular Hemoglobin 33.6 PG (27.0-31.0) H Mean Corpuscular Hemoglobin Concent 33.8 G/DL (32.0-36.0) Red Cell Distribution Width 13.1 % (11.6-14.8) Platelet Count 137 K/UL (150-450) L Mean Platelet Volume 7.6 FL (6.5-10.1) Neutrophils (%) (Auto) 61.1 % (45.0-75.0) Lymphocytes (%) (Auto) 21.1 % (20.0-45.0) Monocytes (%) (Auto) 12.3 % (1.0-10.0) H Eosinophils (%) (Auto) 2.4 % (0.0-3.0) Basophils (%) (Auto) 3.1 % (0.0-2.0) H Sodium Level 139 MMOL/L (136-145) Potassium Level 4.2 MMOL/L (3.5-5.1) Chloride Level 101 MMOL/L (98-107) Carbon Dioxide Level 29 MMOL/L (21-32) Anion Gap 9 mmol/L (5-15) Blood Urea Nitrogen 11 mg/dL (7-18) Creatinine 0.9 MG/DL (0.55-1.30) Estimat Glomerular Filtration Rate > 60 mL/min (>60) Glucose Level 118 MG/DL (74-106) H Calcium Level 9.4 MG/DL (8.5-10.1) Total Bilirubin 1.1 MG/DL (0.2-1.0) H Direct Bilirubin 0.4 MG/DL (0.0-0.3) H Aspartate Amino Transf (AST/SGOT) 224 U/L (15-37) H Alanine Aminotransferase (ALT/SGPT) 148 U/L (12-78) H Alkaline Phosphatase 139 U/L (46-116) H Total Protein 8.0 G/DL (6.4-8.2) Albumin 3.7 G/DL (3.4-5.0) Globulin 4.3 g/dL Albumin/Globulin Ratio 0.9 (1.0-2.7) L Vancomycin Level Trough 14.7 ug/mL (5.0-12.0) H Rapid Plasma Reagin Pending HIV-1 RNA (PCR) log10 Value Pending HIV-1 RNA Ultraquantitative (PCR) Pending Test 02/02/20 09:28 02/02/20 11:34 POC Whole Blood Glucose Pending Pending Current Medications Medications (Trade) Dose Ordered Sig/Jose Route PRN Reason Start Time Stop Time Status Last Admin Dose Admin Acetaminophen (Tylenol) 650 mg Q4H PRN ORAL Temp >100.5 01/31/20 20:30 03/01/20 20:29 01/31/20 20:39 Chlordiazepoxide (Librium) 25 mg EVERY 8 HOURS ORAL 02/01/20 06:00 02/08/20 05:59 02/02/20 05:50 Clonidine HCl (Catapres Tab) 0.1 mg EVERY 6 HOURS PRN ORAL BP over 165 systolic 02/01/20 12:15 04/30/20 05:59 Dextrose (Dextrose 50%) 25 ml Q30M PRN IV Hypoglycemia 01/31/20 06:45 04/30/20 06:44 Dextrose (Dextrose 50%) 50 ml Q30M PRN IV Hypoglycemia 01/31/20 06:45 04/30/20 06:44 Famotidine (Pepcid) 20 mg BID ORAL 01/31/20 18:00 04/30/20 17:59 02/02/20 09:27 Folic Acid (Folate) 1 mg DAILY ORAL 01/31/20 09:00 03/01/20 08:59 02/02/20 09:28 Heparin Sodium (Porcine) (Heparin 5000 units/ml) 5,000 units EVERY 8 HOURS SUBQ 01/31/20 14:00 03/16/20 13:59 02/02/20 05:54 Insulin Aspart (NovoLOG) BEFORE MEALS AND HS SUBQ 01/31/20 07:00 04/30/20 06:59 02/02/20 12:16 Insulin Aspart (NovoLOG) 4 units NOVOTIAC SUBQ 01/31/20 06:45 04/30/20 06:44 02/02/20 12:17 Insulin Detemir (Levemir) 12 units DAILY SUBQ 01/31/20 09:00 04/30/20 08:59 02/02/20 09:29 Levothyroxine Sodium (Synthroid) 50 mcg DAILY@0630 ORAL 02/02/20 07:00 03/03/20 06:59 02/02/20 07:31 Lisinopril (ZestriL) 10 mg DAILY ORAL 02/01/20 09:00 03/02/20 08:59 02/02/20 09:27 Lorazepam (Ativan) 1 mg TID PRN ORAL Agitation 01/31/20 05:45 02/07/20 05:44 Magnesium Oxide (Mag-Ox 400mg) 400 mg THREE TIMES A DAY ORAL 02/01/20 13:00 03/02/20 12:59 02/02/20 12:15 Morphine Sulfate (Morphine Sulfate) 2 mg Q4H PRN IVP For Pain 01/31/20 20:27 02/07/20 20:26 Ondansetron HCl (Zofran) 4 mg Q4H PRN IVP Nausea & Vomiting 01/31/20 05:45 03/01/20 05:44 Thiamine HCl (Vitamin B1) 100 mg DAILY ORAL 01/31/20 09:00 03/01/20 08:59 02/02/20 09:27 Vancomycin HCl (Vanco pharmacy to dose) 1 ea DAILY PRN MISC Per rx protocol 01/31/20 22:15 03/01/20 22:14 Vancomycin HCl 1 gm/Dextrose 275 ml @ 184 mls/hr Q8H IVPB 02/01/20 00:00 02/06/20 00:00 02/02/20 09:26 Hanny August M.D. Feb 02, 2020 13:34
--- NOTE | 2020-02-02 13:42 | Surgery Progress Note ---
Surgery Progress Note Subjective Symptoms: improved Additional Comments plain fimls noted wounds stable blood blisters open with skin local care Objective Last 24 Hour Vital Signs Date Time Temp Pulse Resp B/P (MAP) Pulse Ox O2 Delivery O2 Flow Rate FiO2 02/02/20 12:00 98.4 67 19 117/85 (96) 99 02/02/20 09:27 113/78 02/02/20 09:00 Room Air 02/02/20 08:00 97.9 82 19 113/78 (90) 99 02/02/20 05:55 98.1 75 18 144/99 (114) 98 02/02/20 04:00 98.1 75 18 144/99 (114) 98 02/01/20 23:52 98.1 70 18 141/92 (108) 98 02/01/20 21:00 Room Air 02/01/20 20:00 98.2 66 18 115/67 (83) 99 02/01/20 16:06 98.4 66 18 133/97 (109) 100 I&O Intake and Output 02/01/20 02/02/20 19:00 07:00 Intake Total 2135 ml 575 ml Balance 2135 ml 575 ml Intake Oral 300 ml IV Total 535 ml 275 ml Other 1600 ml # Voids 4 # Bowel Movements 1 Dressing: dry Wound: clean, dry Cardiovascular: RSR Respiratory: clear Abdomen: soft, non-tender, present bowel sounds Extremities: no edema, no tenderness, no cyanosis Laboratory Tests Test 02/01/20 16:32 02/01/20 20:42 02/02/20 05:45 02/02/20 07:35 POC Whole Blood Glucose Pending 81 MG/DL (74-106) 118 MG/DL (74-106) H White Blood Count 4.7 K/UL (4.8-10.8) L Red Blood Count 4.04 M/UL (4.70-6.10) L Hemoglobin 13.6 G/DL (14.2-18.0) L Hematocrit 40.1 % (42.0-52.0) L Mean Corpuscular Volume 99 FL (80-99) Mean Corpuscular Hemoglobin 33.6 PG (27.0-31.0) H Mean Corpuscular Hemoglobin Concent 33.8 G/DL (32.0-36.0) Red Cell Distribution Width 13.1 % (11.6-14.8) Platelet Count 137 K/UL (150-450) L Mean Platelet Volume 7.6 FL (6.5-10.1) Neutrophils (%) (Auto) 61.1 % (45.0-75.0) Lymphocytes (%) (Auto) 21.1 % (20.0-45.0) Monocytes (%) (Auto) 12.3 % (1.0-10.0) H Eosinophils (%) (Auto) 2.4 % (0.0-3.0) Basophils (%) (Auto) 3.1 % (0.0-2.0) H Sodium Level 139 MMOL/L (136-145) Potassium Level 4.2 MMOL/L (3.5-5.1) Chloride Level 101 MMOL/L (98-107) Carbon Dioxide Level 29 MMOL/L (21-32) Anion Gap 9 mmol/L (5-15) Blood Urea Nitrogen 11 mg/dL (7-18) Creatinine 0.9 MG/DL (0.55-1.30) Estimat Glomerular Filtration Rate > 60 mL/min (>60) Glucose Level 118 MG/DL (74-106) H Calcium Level 9.4 MG/DL (8.5-10.1) Total Bilirubin 1.1 MG/DL (0.2-1.0) H Direct Bilirubin 0.4 MG/DL (0.0-0.3) H Aspartate Amino Transf (AST/SGOT) 224 U/L (15-37) H Alanine Aminotransferase (ALT/SGPT) 148 U/L (12-78) H Alkaline Phosphatase 139 U/L (46-116) H Total Protein 8.0 G/DL (6.4-8.2) Albumin 3.7 G/DL (3.4-5.0) Globulin 4.3 g/dL Albumin/Globulin Ratio 0.9 (1.0-2.7) L Vancomycin Level Trough 14.7 ug/mL (5.0-12.0) H Rapid Plasma Reagin Pending HIV-1 RNA (PCR) log10 Value Pending HIV-1 RNA Ultraquantitative (PCR) Pending Test 02/02/20 09:28 02/02/20 11:34 POC Whole Blood Glucose Pending Pending Plan Problems: (1) Alcohol intoxication (2) Hypoglycemia (3) Hypertension (4) Elevated LFTs Assessment & Plan: The liver is echogenic and fatty. No ductal dilatation noted. Spleen is within normal limits. The gallbladder is without sludge or stone. Common bile duct measures 4 mm. The pancreas is unremarkable to the extent visualized. The kidneys are normal in size, shape and axis. Aorta and cava are within normal limits. There is trace amount of free fluid. IMPRESSION: FATTY LIVER. TRACE AMOUNT OF FREE FLUID. ast/alt noted fatty liver trend labs diet (5) Temporary low platelet count (6) Acute metabolic encephalopathy (7) Electrolyte imbalance (8) Diabetes (9) Renal abscess (10) Fever (11) DKA (diabetic ketoacidoses) (12) Renal failure (13) Sepsis (14) Perinephric abscess (15) UTI (urinary tract infection) (16) Altered mental status (17) Electrolyte abnormality (18) Right femoral fracture (19) Ischemia of foot Assessment & Plan: Pt presented on admission with DFU's R and L foot.Foot care provided prior to inspecting wounds. Thick dry necrosis noted to plantar R 1st metatarsal. No erythema or exudate noted . Mild odor noted. Within web space of R 1st and 2nd metatarsals is macerated and moist. Web spaces of R 4th and5th metatarsals is also macerated and moist with small crack noted. NO exudate noted. Lateral /Plantar L 1st metatarsal is necrotic but fluctuant at base. Within web space of L 1st and 2nd metatarsal is a oneil fluid-filled pocket. Mild odor noted. No exudate noted at present. Web spaces of L 2nd ,3rd,and 4th metatarsals are macerated. Pt stated he only became aware of wounds a few days ago after noticing blood on his socks. Pt denied noticing purulent exudate. Pt has been educated on importance of keeping feet clean and dry, and to inspect feet daily. Advised on importance of wearing proper fitting and supportive shoes. Tx.Plan: Apply Betadine to R 1st metatarsal and web spaces of toes R foot. Weave dry Gauze between toes. Wrap with Kerlix Daily and prn. Apply Betadine to L 1st metatarsal and web spaces of 1st ,3rd, 4th and 5th Metatarsals. Weave dry gauze Between toes and wrap with Kerlix Daily and prn plain films noted blood blisters open necrotic skin local wound care trauma precautions Vinnie Barrera Feb 02, 2020 13:42
--- NOTE | 2020-02-02 15:13 | NUR ---
NURSE NOTES: patient discharged. homeless. resume home meds. SW was working on placement which has not a bed available now. patient wanted to go to the place where he used be [facility]. given penitentiary list. spoke to CM. the patient A&Ox4, independent for care and medically stable for discharge by all physician consults. nurse educated patient regarding diabetic management including bs check and administer insulin. patient verballized understood. patient said that he knows how to check BS and use insulin pen. the patient has a glucometer at his place. provided insulin pens. homeless checklist done. checked and counted belongings with patient. provided dc packet, new clothing and foods. removed IV and ID band. the patient left unit safely.
--- NOTE | 2020-02-02 23:17 | Psych Consult Progress Note ---
Psychiatry Progress Note Psychiatry Progress Note Neurological/Psychiatric: Reports: anxiety, depressed, emotional problems, headache Allergies: Coded Allergies: No Known Allergies (Unverified , 04/07/19) Objective Data Height (Feet): 5 Height (Inches): 8.00 Weight (Pounds): 157 General Appearance: WD/WN, no apparent distress, alert, alert oriented x3 Additional Comments: Alert and oriented times, self, place, and situation. Mood is dysphoric. Affect is flat. Thought process is concrete. Thought content, no suicidal or homicidal ideation. Cognition is intact. Insight and judgment is impaired. Assessment/Plan Status: stable, progressing nAa Betts MD Feb 02, 2020 23:17
--- NOTE | 2020-02-06 15:15 | Discharge Summary ---
Discharge Summary Discharge Summary _ DATE OF ADMISSION: 01/23/2020 DATE OF DISCHARGE: 02/02/2020 DISCHARGED BY: Dr. Cintron REASON FOR ADMISSION: 39 years old male with past medical history of diabetes mellitus, presented to emergency department with altered level of consciousness. Patient was found on the street. Accu-Chek was too low to read. Patient received glucose and became more awake , and at that time he reported having diabetes and taking insulin. Patient admitted to alcohol use. He denied drug use . He denied abdominal pain. No nausea or vomiting. No fever or chills. Upon evaluation vital signs were stable . Laboratory work-up revealed pancytopenia with WBC 2.7 ,hemoglobin 12.2 , hematocrit 35.7 ,and platelet count 93. Potassium 3.0. BUN 5, creatinine 0.8. Glucose 152. AST 278 , ALT 171. Albumin 3.9. Abdominal ultrasound revealed fatty liver. Trace amount of free fluid. Chest x-ray demonstrated reduced lung volumes , no consolidation. Serum alcohol level 282. Serum salicylate and Tylenol were negative. Urine toxicology screen positive for amphetamine , benzodiazepines and marijuana. In emergency department patient received IV fluids and admitted for further management. CONSULTANTS: water pipe installer Dr. Barrientos ID specialist Dr. August Office Clin Asst Dr. Hayes GI specialist Dr Pires campus interviews intern Dr. Osborn speech therapist early intervention/oncologist Dr. Zuluaga surgery Dr. Barrera psychiatrist [facility] COURSE: Patient admitted and started on IV fluids . Folate and thiamine initiated. Potassium and magnesium replaced. Rapid COVID-19 in ED was negative. X-ray of the left and right foot revealed no acute fracture, dislocation or radiopaque foreign body. ID specialist followed. Patient had leukocytosis to electrolyte abnormality and acute EtOH intoxication. There was no evidence of infectious process. Patient showed episode of low-grade fever, which resolved. Blood cultures were negative. Patient initially received empiric antibiotic, which discontinued. Seizure precaution maintained. Librium provided [id number]. Ativan was on board as needed for possible alcohol withdrawal induced seizures. Seizure and withdrawal precautions continued. Reality orientation and supportive therapy provided. Patient was counseled on abstinence from EtOH and illicit street drugs. LFT were closely monitored and slowly trending down, but still remained elevated. Hepatitis panel was negative for evidence of acute hepatitis , and HIV test was nonreactive. GI prophylaxis provided. Blood sugar was managed as per single corner cutter recommendation. Patient was on long-acting Levemir, short acting pre-meal insulin and sliding scale of insulin as needed. Hypoglycemia protocol was in order. Levothyroxine 50 mcg daily continued. Diabetic diet provided. Diabetic teaching endorsed. Renal parameters and electrolytes were closely monitored, electrolytes corrected as needed , and nephrotoxic's were avoided/ Prior to discharge all electrolytes were stable. Blood pressure was managed with LIZ inhibitor. Clonidine was on board as needed for blood pressure spikes. Blood pressure stabilized. Per speech therapist early intervention pancytopenia was most likely related to EtOH abuse. Counts were closely monitored. Prior to discharge hemoglobin 13.6 ,hematocrit 40.1 ,WBC 4.7 and platelet count 137. All improved from initial. Patient presented on admission with diabetic foot ulcers right and left foot. Wound care provided as per surgeon recommendation . Continue wound care and at home . Patient was instructed on trauma precaution. Patient clinically stabilized and was ready for discharge home. FINAL DIAGNOSES: SIRS secondary to electrolyte abnormalities and acute EtOH intoxication Pancytopenia probably multifactorial, likely due to ETOH abuse Acute encephalopathy secondary to severe hypoglycemia Elevated LFT Alcohol intoxication and alcohol dependence Alcohol withdrawal Substance abuse ( ETOH, amphetamines, marijuana) Accelerated hypertension Polysubstance abuse Diabetes mellitus Electrolyte imbalance Homelessness Major depression disorder/anxiety disorder Hypothyroidism DISCHARGE MEDICATIONS: See Medication Reconciliation list. DISCHARGE INSTRUCTIONS: Patient was discharged home. Follow-up with a primary care provider in 1 week. I have been assigned to dictate discharge summary for this account. I was not involved in the patient's management. Carmen Ibrahim NP Feb 06, 2020 15:15
== END 2020-02-02 15:00 | disposition home or self-care (01) | DRG 420 ==
LOC: EDBD 01:06 → EMR 01:23 → 4E 01:50 → EDBEDREQ 02:11 → 4E 22:34
DX: E11.649 Type 2 diabetes mellitus with hypoglycemia without coma (principal); E87.6 Hypokalemia; D61.818 Other pancytopenia; I10 Essential (primary) hypertension; F10.239 Alcohol dependence with withdrawal, unspecified; F10.229 Alcohol dependence with intoxication, unspecified; G93.41 Metabolic encephalopathy; D69.6 Thrombocytopenia, unspecified; R65.10 Systemic inflammatory response syndrome (SIRS) of non-infectious origin without acute organ dysfunction; Z59.0 Homelessness; Z79.4 Long term (current) use of insulin; F32.9 Major depressive disorder, single episode, unspecified; F41.9 Anxiety disorder, unspecified; K76.0 Fatty (change of) liver, not elsewhere classified; E03.9 Hypothyroidism, unspecified; F15.10 Other stimulant abuse, uncomplicated; F12.10 Cannabis abuse, uncomplicated; R79.89 Other specified abnormal findings of blood chemistry
CPT/HCPCS: 36415; 71045; 76700; 80053; 80061; 80202; 80307; 82140; 82248; 82607; 82728; 82746; 82962; 82977; 83036; 83540; 83550; 83735; 83880; 84100; 84439; 84443; 84550; 85025; 85610; 86140; 86592; 86703; 86705; 86709; 86803; 87040; 87340; 87536; 93005; 93306; 96360; 99285; G0480; J1815; J8499; S5561; U0002